=== PATIENT | female | born 1960 | race Caucasian/White ===

== ENCOUNTER 2016-08-13 13:02 | Outpatient (RCR) | payer BC ==
--- OUTSIDE RECORDS SUMMARY | 2016-06-24 10:34 | XMS REPORT | Continuity of Care Document ---
Author Author [facility] Organization [facility] Address Unknown Phone Unavailable Care Team Providers Care Continuous Vulcanizing Machine Operator Name Role Phone DINORAH NORTON DO PCP Insurance Providers Payer Name Policy Number Subscriber Name Relationship [facility] [id number] JoseloYusraDorina 18 Self / Same As Patient Advance Directives Directive Response Recorded Date/Time Advance Directives No 01/30/16 2:48pm Health Care Power of Sample Examiner No 01/30/16 2:48pm Organ Donor No 01/30/16 2:48pm Resuscitation Status Full Code 01/30/16 2:48pm Problems Active Problems Medical Problem Onset Date Status Abdominal pain Unknown Acute Anand's cyst of knee Unknown Acute Anand's cyst of knee Unknown Acute Cellulitis Unknown Acute Fracture (healed) treatment follow-up Unknown Acute Hematuria Unknown Acute Leukocytosis Unknown Acute Nausea and vomiting Unknown Acute Urinary tract infection Unknown Acute Urinary tract infection Unknown Acute Venous stasis syndrome Unknown Acute Medications Current Home Medications Medication Dose Units Route Directions Days/Qty Instructions Start Date Lovastatin (Mevacor) 20 Mg 20 Mg Oral Bedtime 12/02/09 Atenolol 50 Mg 50 Mg Oral Twice A Day 06/09/11 Hydrocodone Bit/Acetaminophen 1 Each 1 Each Oral Every 4HRS as needed 06/18/13 Gabapentin 300 Mg 300 Mg Oral Three Times A Day 03/31/14 Baclofen (Lioresal) 10 Mg 1 Each Oral Three Times A Day 03/31/14 Lisinopril 40 Mg 40 Mg Oral Daily 10/18/15 [Vit C] 500 Mg Oral Daily 10/18/15 Oxybutynin Chloride 5 Mg 5 Mg Oral Three Times A Day 10/18/15 Amlodipine Besylate 10 Mg 10 Mg Oral Daily as needed for High Bp 05/08 Past Home Medications Medication Directions Ordered Status Lovastatin (Mevacor) 20 Mg Tablet, 11/06/09 Discontinued Estradiol 1 Mg Tablet, 11/06/09 Discontinued Potassium Chloride 20 Meq Tab, 20 Meq Oral Daily 11/06/09 Discontinued Tramadol Hcl 50 Mg Tab, 12/02/09 Discontinued Estradiol 1 Mg Tablet, 1 Mg Oral Daily 12/02/09 Discontinued Naproxen 500 Mg Tablet, 1 Each Oral Twice Daily And Prn 07/10/10 Discontinued Tramadol Hcl 50 Mg Tablet, 50 Mg Oral Four Times Daily as needed 07/10/10 Discontinued Aspirin 81 Mg Chew, 81 Mg Oral Daily 07/10/10 Discontinued Lisinopril 10 Mg Tablet, 10 Mg Oral Daily 06/09/11 Discontinued Ketorolac Tromethamine 10 Mg Tablet, 10 Mg Oral Q6-8 Hours as needed Discontinued Orphenadrine Citrate 100 Mg Tablet.sa, 100 Mg Oral Twice A Day 06/09/11 Discontinued Naproxen Sodium 550 Mg Tablet, 550 Mg Oral Twice A Day as needed 12/03/11 Discontinued Nitrofurantoin Macrocrystals 100 Mg Capsule, 1 Each Oral Twice A Day Discontinued Naproxen 500 Mg Tablet, 1 Each Oral Three Times A Day And Prn 06/08/12 Discontinued Hydroxyzine Pamoate 25 Mg Capsule, 25 Mg Oral Every 6 Hours 06/08/12 Discontinued Doxycycline Hyclate (Vibramycin) 100 Mg Capsule, 1 Each Oral Twice A Day 06/08 Discontinued Guaifenesin/Codeine Phosphate 10 Ml Syrp, 10 Ml Oral Every 4HRS 08/06/12 Discontinued Cefdinir (Omnicef) 300 Mg Capsule, 1 Each Oral Twice A Day 08/12/12 Discontinued Famotidine (Pepcid) 20 Mg Tablet, 1 Each Oral Twice A Day 11/28/12 Discontinued Ciprofloxacin 500 Mg Tablet, 1 Tab Oral Twice A Day 11/28/12 Discontinued Cyclobenzaprine Hcl (Flexeril) 10 Mg Tablet, 1 Each Oral Q8hr Prn 11/28/12 Discontinued Acetaminophen 325 Mg Tablet, 650 Mg Oral Every 4HRS as needed 12/01/12 Discontinued Cyclobenzaprine Hcl 10 Mg Tablet, 10 Mg G Tube 03/19/13 Discontinued Ibuprofen 800 Mg Tab, 800 Mg Oral Give Every 8 Hrs On Schedule as needed Discontinued Amoxicillin 500 Mg Capsule, 1 Each Oral Three Times A Day 06/18/13 Discontinued Ciprofloxacin Hcl 500 Mg Tablet, 500 Mg Oral Twice A Day 10/26/13 Discontinued Tramadol Hcl 50 Mg Tablet, 50 Mg Oral Every 4HRS as needed for Pain 10/26/13 Discontinued Naproxen 500 Mg Tablet, 500 Mg Oral Twice A Day 03/31/14 Discontinued Trimethoprim/Sulfamethoxazole 1 Ea Tablet, 1 Ea Oral Twice A Day 03/31/14 Discontinued Ondansetron Hcl 4 Mg Tab, 4 Mg Sublingual Every 4HRS 03/31/14 Discontinued Nitrofurantoin Macrocrystals 100 Mg Capsule, 1 Cap Oral Twice A Day 04/03/14 Discontinued Ciprofloxacin Hcl 500 Mg Tablet, 500 Mg Oral Twice A Day 08/22/14 Discontinued Phenazopyridine Hcl 200 Mg Tablet, 1 Each Oral Three Times A Day as needed for Pain 08/22/14 Discontinued Docusate Sodium 100 Mg Cap, 100 Mg Oral Twice A Day 08/22/14 Discontinued Prednisone 20 Mg Tab, 40 Mg Oral Daily 09/11/14 Discontinued Oxycodone Hcl/Acetaminophen 1 Each Tablet, 1 Each Oral Every 4HRS as needed for Pain 09/11/14 Discontinued Solifenacin 5 Mg Tablet, 5 Mg Oral Daily 10/02/14 Discontinued Estradiol 42.5 Gm Cream.appl, 42.5 Gm Vaginal Daily 10/02/14 Discontinued Nitrofurantoin Macrocrystals 100 Mg Capsule, 1 Each Oral Twice A Day Discontinued Social History Social History Problem Response Recorded Date/Time Alcohol Use Denies Use 01/30/2016 2:48pm Recreational Drug Use No 01/30/2016 2:48pm Recent Foreign Travel No 01/30/2016 2:48pm Recent Infectious Disease Exposure No 01/30/2016 2:48pm Hospitalization with Isolation Denies 01/30/2016 2:48pm HIV/AIDS No 01/30/2016 2:48pm Smoking Status Never a Smoker 01/30/2016 2:48pm Do you dip or chew tobacco? No 10/22/2015 10:11am Query Response Start Date Stop Date Smoking Status Never a Smoker Hospital Discharge Instructions No hospital discharge instructions. Plan of Care Discharge Date 01/30/16 3:23pm Prescriptions See Medication Section Functional Status No functional status results. Allergies, Adverse Reactions, Alerts Allergen Type Severity Reaction Status Last Updated meloxicam ([id number]) Adverse Reaction Intermediate RASH ALL OVER Active 01/30/16 Immunizations Name Given Type Date of Influenza Vaccine 05/23/15 Historical Vital Signs Acute Vital Signs Vital Response Date/Time Pulse Rate (adult) 56 bpm (60 - 90) 01/30/2016 2:48pm Respiratory Rate 16 bpm (12 - 24) 01/30/2016 2:48pm O2 Sat by Pulse Oximetry 97 % (88 - 100) 01/30/2016 2:48pm Blood Pressure 118/62 mm Hg 01/30/2016 2:48pm Height (Feet) 5 feet 01/30/2016 2:48pm Height (Inches) 4.00 inches 01/30/2016 2:48pm Height (Calculated Centimeters) 162.400674 cm 01/30/2016 2:48pm Weight (Pounds) 174 pounds 01/30/2016 2:48pm Weight (Ounces) 4.0 oz 01/30/2016 2:48pm Weight (Calculated Grams) 16750.471 gm 01/30/2016 2:48pm Weight (Calculated Kilograms) 79.302053 kilograms 01/30/2016 2:48pm Calculated BMI 28.95 01/30/2016 2:48pm Results No known relevant diagnostic tests, laboratory data and/or discharge summary. Procedures No known history of procedures. Encounters Encounter Location Arrival/Admit Date Discharge/Depart Date Attending Provider Departed Clinic [facility] 01/30/16 2:25pm 01/30/16 3: 23pm PACO SUNG DO Discharged Recurring [facility] 12/18/15 2:15pm 11:10am RUBEN DE JESUS APRN
[~2016-08-13 13:02] MED LIST: AC325T PO; AMLO10TA2 PO; AMOX500C2 PO; ASCO500C14 PO; ASP81CT PO; ATEN50TA PO; BACL10TA PO; CEFD300C3 PO; CIPR500T78 PO; CPR500T PO; CYCL10TA45 GT; CYCL10TA9 PO; DCS100C PO; DOXY100C2 PO; ESTR1TAB24; ESTR1TAB24 PO; ESTR42.52 VG; FAMO20TA13 PO; FAMO20TA5 PO; GABA-488 PO; GFCD10B PO; HYDR-2890 PO; HYDR-756 PO; HYDR25CA5 PO; HYDR50TA3 PO; IBP800T PO; KCL20TCR PO; KETO-22 PO; LISI10TA PO; LISI40TA PO; LOVA20TA2; LOVA20TA2 PO; NAPR-243 PO; NAPR-689 PO; NAPR550T PO; NITR-33 PO; NITR-65 PO; NITR100C3 PO; ONDA-42 SL; ORPH100T PO; OXYB5TAB9 PO; OXYC-109 PO; PHEN200T27 PO; PRD20T PO; SOLI5TAB4 PO; SULF-222 PO; TRAM50TA2 PO; TRM50T; TRM50T PO; VIT C PO
== END 2016-08-31 14:26 | disposition home or self-care (01) ==
PROVIDERS: ATTEND Orthopaedic Surgery
DX: M75.101 Unspecified rotator cuff tear or rupture of right shoulder, not specified as traumatic (principal)

== ENCOUNTER → 2016-08-25 | Outpatient (CLI) | payer BC, MEDICAID, OTHER ==
--- OUTSIDE RECORDS SUMMARY | 2016-08-25 12:45 | XMS REPORT | Continuity of Care Document ---
Author Author [facility] Organization [facility] Address Unknown Phone Unavailable Care Team Providers Care Packing Room Inspector Name Role Phone DINORAH NORTON DO PCP Insurance Providers Payer Name Policy Number Subscriber Name Relationship [facility] [id number] JoseloYusraDorina 18 Self / Same As Patient Advance Directives Directive Response Recorded Date/Time Advance Directives No 01/30/16 2:48pm Health Care Power of Acetylene Cylinder Packing Mixer No 01/30/16 2:48pm Organ Donor No 01/30/16 [...] Type Severity Reaction Status Last Updated meloxicam ([id number]) Adverse Reaction Intermediate RASH ALL OVER Active [...] 4.00 inches 01/30/2016 2:48pm Height (Calculated Centimeters) 162.395093 cm 01/30/2016 2:48pm Weight (Pounds) 174 pounds 01/30/2016 2:48pm Weight (Ounces) 4.0 oz 01/30/2016 2:48pm Weight (Calculated Grams) 85394.471 gm 01/30/2016 2:48pm Weight (Calculated Kilograms) 79.133209 kilograms 01/30/2016 2:48pm Calculated BMI 28.95 01/30/2016 2:48pm Results No known relevant diagnostic tests, laboratory data and/or discharge summary. Procedures No known history of procedures. Encounters Encounter Location Arrival/Admit Date Discharge/Depart Date Attending Provider Departed Clinic [facility] 01/30/16 2:25pm 01/30/16 3: 23pm PACO SUNG DO Discharged Recurring [facility] 12/18/15 2:15pm 11:10am RUBEN DE JESUS APRN
== END ==
LOC: RAD 12:42
PROVIDERS: ATTEND Internal Medicine Cardiovascular Disease
DX: I73.9 Peripheral vascular disease, unspecified (principal); I10 Essential (primary) hypertension; E78.4 Other hyperlipidemia; M79.1 Myalgia
CPT/HCPCS: 93923

== ENCOUNTER 2016-10-09 12:50 | Emergency (ER) | payer MEDICAID, OTHER ==
[~2016-10-09] VITALS: Ht 162.6 cm; Wt 83.9 kg
--- OUTSIDE RECORDS SUMMARY | 2016-10-09 12:57 | XMS REPORT | Continuity of Care Document ---
Author Author [facility] Organization [facility] Address Unknown Phone Unavailable Care Team Providers Care Director Shopper Marketing Name Role Phone DINORAH NOROTN DO PCP Insurance Providers Payer Name Policy Number Subscriber Name Relationship [facility] [id number] JoseloYusraDorina 18 Self / Same As Patient Advance Directives Directive Response Recorded Date/Time Advance Directives No 01/30/16 2:48pm Health Care Power of Cafeteria Worker No 01/30/16 2:48pm Organ Donor No 01/30/16 [...] Type Severity Reaction Status Last Updated meloxicam ([id number]) Adverse Reaction Intermediate RASH ALL OVER Active [...] 4.00 inches 01/30/2016 2:48pm Height (Calculated Centimeters) 162.492704 cm 01/30/2016 2:48pm Weight (Pounds) 174 pounds 01/30/2016 2:48pm Weight (Ounces) 4.0 oz 01/30/2016 2:48pm Weight (Calculated Grams) 16635.471 gm 01/30/2016 2:48pm Weight (Calculated Kilograms) 79.025734 kilograms 01/30/2016 2:48pm Calculated BMI 28.95 01/30/2016 2:48pm Results No known relevant diagnostic tests, laboratory data and/or discharge summary. Procedures No known history of procedures. Encounters Encounter Location Arrival/Admit Date Discharge/Depart Date Attending Provider Departed Clinic [facility] 01/30/16 2:25pm 01/30/16 3: 23pm PACO SUNG DO Discharged Recurring [facility] 12/18/15 2:15pm 11:10am RUBEN DE JESUS APRN
--- NOTE | 2016-10-09 13:28 | ED Integumentary General ---
General Chief Complaint: Allergic Reaction Stated Complaint: RASH Source: patient Exam Limitations: no limitations History of Present Illness Time seen by provider: 13:26 Initial Comments 2-3 days of a diffuse itchy rash to the entire body. No known exposure to an allergen or new substances. She has not taken anything at home for the pain. Denies shortness of breath or involvement of the airway such as tongue swelling or wheezing. She does report that she's had some sensation of her heart beating fast Timing/Duration: getting worse Severity: moderate Location: torso, generalized Possible Cause: no cause identified Allergies and Home Medications Allergies Coded Allergies: meloxicam (Verified Allergy, Intermediate, RASH ALL OVER, 10/09/16) Home Medications 500 MG PO DAILY (Reported) Atenolol 50 Mg Tablet 50 MG PO BID (Reported) Baclofen 10 Mg Tablet 1 EACH PO TID (Reported) Gabapentin 300 Mg Capsule 300 MG PO TID (Reported) Hydrocodone/Acetaminophen 1 Each Tablet #60 1 TAB PO Q4-6 PRN PRN PAIN Prescribed by: MILAN KRAUS on 02/11/16 1507 Lisinopril 40 Mg Tablet 40 MG PO DAILY (Reported) Lovastatin 20 Mg Tablet 20 MG PO HS (Reported) Oxybutynin Chloride 5 Mg Tablet 5 MG PO TID (Reported) Constitutional: see HPINo chills EENTM: see HPI Respiratory: no symptoms reportedNo cough Cardiovascular: see HPINo edema, No Hx of Intervention, palpitationsNo syncope, No vascular heart diseas Genitourinary: no symptoms reported Musculoskeletal: no symptoms reported Skin: no symptoms reported Psychiatric/Neurological: No Symptoms Reported Endocrine: No Symptoms Reported Hematologic/Lymphatic: No Symptoms Reported Past Rxxzhpl-Cemmgp-Ahelnm Hx Patient Social History Alcohol Use: Denies Use Recreational Drug Use: No Smoking Status: Never a Smoker 2nd Hand Smoke Exposure: No Recent Foreign Travel: No Contact w/Someone Who Travel: No Recent Hopitalizations: No Immunizations Up To Date Tetanus Booster (TDap): Unknown PED Vaccines UTD: No Date of Influenza Vaccine: May 23, 2015 Seasonal Allergies Seasonal Allergies: No Surgeries HX Surgeries: Yes Surgeries: Hysterectomy, Orthopedic Respiratory Hx Respiratory Disorders: No Cardiovascular Hx Cardiac Disorders: Yes Cardiac Disorders: Hypertension Neurological Hx Neurological Disorders: No Reproductive System Hx Reproductive Disorders: No Sexually Transmitted Disease: No HIV/AIDS: 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 Genitourinary Hx Genitourinary Disorders: Yes Genitourinary Disorders: UTI-Chronic Gastrointestinal Hx Gastrointestinal Disorders: Yes Gastrointestinal Disorders: Gastroesophageal Reflux, Chronic Constipation Musculoskeletal Hx Musculoskeletal Disorders: Yes Musculoskeletal Disorders: Arthritis, Chronic Back Pain Endocrine Hx Endocrine Disorders: No HEENT HX ENT Disorders: Yes HEENT Disorders: Cataract Loss of Vision: Denies Hearing Impairment: Denies Cancer Hx Cancer: No Psychosocial Hx Psychiatric Problems: Yes Behavioral Health Disorders: Anxiety Integumentary HX Skin/Integumentary Disorder: No Blood Transfusions Hx Blood Disorders: No Adverse Reaction to a Blood Tr: No Family Medical History Significant Family History: No Pertinent Family Hx Physical Exam Vital Signs Vital Sign - Last 12Hours 10/09/16 13:24 Temp 98.0 Pulse 67 Resp 18 B/P 143/82 Pulse Ox 99 Capillary Refill : General Appearance: WD/WN no apparent distress HEENT: PERRL/EOMI normal ENT inspection Neck: non-tender full range of motion Cardiovascular: regular rate, rhythm no murmur Respiratory: normal breath sounds no respiratory distress no accessory muscle use Gastrointestinal: normal bowel sounds non tender soft Extremities: normal range of motion non-tender Neurologic/Psychiatric: alert normal mood/affect oriented x 3 Skin: normal color warm/dry Skin Problem Character: abscess Progress/Results/Core Measures Results/Orders My Orders Orders-SHANE ARORA APRN Famotidine Tablet (Pepcid Tablet) (10/09/16 13:30) Prednisone Tablet (Deltasone Tablet) (10/09/16 13:30) Diphenhydramine Injection (Benadryl Inje (10/09/16 13:30) Ekg Tracing (10/09/16 13:25) Medications Given in ED Current Medications Medications Dose Ordered Sig/Yash Route Start Time Stop Time Status Last Admin Dose Admin Diphenhydramine HCl 25 mg ONCE ONCE IM 10/09/16 13:30 10/09/16 13:31 DC 10/09/16 13:41 25 MG Famotidine 20 mg ONCE ONCE PO 10/09/16 13:30 10/09/16 13:31 DC 10/09/16 13:40 20 MG Prednisone 60 mg ONCE ONCE PO 10/09/16 13:30 10/09/16 13:31 DC 10/09/16 13:40 60 MG Vital Signs/I&O Vital Sign - Last 12Hours 10/09/16 13:24 Temp 98.0 Pulse 67 Resp 18 B/P 143/82 Pulse Ox 99 Departure Impression Impression: Primary Impression: Urticaria Disposition: 01 HOME, SELF-CARE Condition: Stable Departure-Patient Inst. Decision time for Depature: 13:46 Referrals: DINORAH NORTON DO (PCP/Family) Primary Care Physician Patient Instructions: Charlene (DC) Add. Discharge Instructions: 1. Steroids as directed 2. Follow-up with her regular doctor next week for recheck 3. Use one to 2 tablets of Benadryl every 6 hours as needed for itching. You can buy this [facility], it is very cheap. All discharge instructions reviewed with patient and/or family. Voiced understanding. Scripts Prednisone 20 Mg Tab40 Mg PO DAILY #6 TAB Prov:SHANE ARORA APRN 10/09/16 SHANE ARORA APRN Oct 09, 2016 13:28
[2016-10-09] MEDS ORDERED: predniSONE 20 MG TAB PO ONE (13:30)
[2016-10-09] MEDS ORDERED: FAMOTIDINE 20 MG (PEPCID) TABLET PO ONE (13:30)
[2016-10-09] MEDS ORDERED: diphenhydrAMINE 50 MG/ML INJ (BENADRYL) IM ONE (13:30)
[2016-10-09] MEDS ORDERED: PRD20T PO (13:48)
[2016-10-09 13:56] VITALS: BP 140/80
== END 2016-10-09 13:56 | disposition home or self-care (01) ==
LOC: EDUNIT# 12:50 → ER 12:52
DX: L50.9 Urticaria, unspecified (principal); I10 Essential (primary) hypertension; Z79.899 Other long term (current) drug therapy
CPT/HCPCS: 93005; 96372

== ENCOUNTER → 2017-04-20 | Outpatient (CLI) | payer MEDICAID, OTHER ==
--- NOTE | 2017-04-20 08:41 | Diagnostic Imaging Report ---
INDICATION: Palpable abnormality. COMPARISON: 09/18/2014. TECHNIQUE: Digital diagnostic mammography was performed bilaterally with a Computer Aided Detection (CAD) system. FINDINGS: There is a moderate amount of residual fibroglandular tissue bilaterally. There are a few benign type calcifications. There is no dominant mass, spiculated lesion, or suspicious calcifications identified. The skin, nipples, and axillae are unremarkable. IMPRESSION: Benign findings. ACR BI-RADS Category 2: Benign findings. Result letter will be mailed to the patient. Note: At least 10% of breast cancer is not imaged by mammography. Dictated by: Dictated on workstation # [id number]
== END ==
LOC: RAD 07:29
PROVIDERS: ATTEND Family Medicine
DX: N63 Unspecified lump in breast (principal)
CPT/HCPCS: 77066

== ENCOUNTER → 2017-06-11 | Outpatient (CLI) | payer MEDICAID | LOC: LAB 16:08 | PROVIDERS: ATTEND Family Medicine | DX: Z20.89 Contact with and (suspected) exposure to other communicable diseases (principal) | CPT/HCPCS: 87081 ==

== ENCOUNTER → 2017-07-12 | Outpatient (CLI) | payer MEDICAID ==
[2017-07-12 11:56] LABS: ALANINE AMINOTRANSFERASE 17 U/L (0-55); ALBUMIN 4.6 GM/DL (3.2-4.5); ANION GAP 11 MMOL/L (5-14); ASPARTATE AMINO TRANSFERASE 19 U/L (5-34); BILIRUBIN,TOTAL 1.2 MG/DL (0.1-1.0); BLOOD UREA NITROGEN 14 MG/DL (7-18); BUN/CREATININE RATIO 18; CALCIUM 9.9 MG/DL (8.5-10.1); CARBON DIOXIDE 23 MMOL/L (21-32); CHLORIDE 105 MMOL/L (98-107); CHOLESTEROL 163 MG/DL (< 200); CREATININE SERUM 0.76 MG/DL (0.60-1.30); DIRECT LDL 86 MG/DL (1-129); GFR ESTIMATED > 60; GLUCOSE 95 MG/DL (70-105); POTASSIUM 4.2 MMOL/L (3.6-5.0); SODIUM 139 MMOL/L (135-145); TOTAL PROTEIN 8.1 GM/DL (6.4-8.2); TRIGLYCERIDES 121 MG/DL (<150); VLDL CHOLESTEROL 24 MG/DL (5-40)
== END ==
LOC: LAB 11:10
PROVIDERS: ATTEND Nurse Practitioner Family
DX: I10 Essential (primary) hypertension (principal); E78.4 Other hyperlipidemia; R00.2 Palpitations; E66.8 Other obesity
CPT/HCPCS: 36415; 80053; 80061

== ENCOUNTER 2018-02-17 20:14 | Emergency (ER) | payer MEDICAID ==
[~2018-02-17] VITALS: Ht 162.6 cm; Wt 82.6 kg
--- NOTE | 2018-02-17 21:08 | ED Lower Extremity ---
General Chief Complaint: Lower Extremity Stated Complaint: L LEG PAIN Nursing Triage Note: LEFT KNEE PAIN, NO INJURY Nursing Sepsis Screen: No Definite Risk Source: patient Exam Limitations: no limitations History of Present Illness Date Seen by Provider: Feb 17, 2018 Time Seen by Provider: 21:06 Initial Comments Patient is a 57-year-old female who complains of left knee pain for one week. She cannot recall an injury that reports that the pain has become aggressively worse over the past week. She denies any swelling calf tenderness or redness in the left leg. Onset: last week Pain/Injury Location: left knee Method of Injury: unknown Modifying Factors: Improves With Movement Allergies and Home Medications Allergies Coded Allergies: meloxicam (Verified Allergy, Intermediate, RASH ALL OVER, 10/09/16) Home Medications Atenolol 50 Mg Tablet, 50 MG PO BID, (Reported) Baclofen 10 Mg Tablet, 1 EACH PO TID, (Reported) Gabapentin 300 Mg Capsule, 300 MG PO TID, (Reported) Hydrocodone/Acetaminophen 1 Each Tablet, 1 TAB PO Q4-6 PRN for PAIN Prescribed by: MILAN KRAUS on 02/11/16 1507 Lisinopril 40 Mg Tablet, 40 MG PO DAILY, (Reported) Lovastatin 20 Mg Tablet, 20 MG PO HS, (Reported) Oxybutynin Chloride 5 Mg Tablet, 5 MG PO TID, (Reported) Prednisone 20 Mg Tab, 40 MG PO DAILY Prescribed by: SHANE ARORA on 10/09/16 1348 [Vit C] , 500 MG PO DAILY, (Reported) Patient Home Medication List Home Medication List Reviewed: Yes Constitutional: see HPI; No chills, No fever EENTM: no symptoms reported Respiratory: see HPI; No cough, No dyspnea on exertion, No short of breath, No wheezing Cardiovascular: see HPI; No chest pain, No edema Gastrointestinal: see HPI; No abdominal pain, No constipation, No diarrhea Genitourinary: see HPI; No decreased output, No discharge Musculoskeletal: see HPI, joint pain (left knee) Skin: see HPI; No change in color, No change in hair/nails Psychiatric/Neurological: See HPI; Denies Anxiety, Denies Depressed All Other Systems Reviewed Negative Unless Noted: Yes Past Fcxptzx-Jghlqf-Tplzti Hx Past Med/Social Hx: Reviewed Nursing Past Med/Soc Hx Patient Social History Alcohol Use: Denies Use Recreational Drug Use: No Smoking Status: Never a Smoker 2nd Hand Smoke Exposure: No Recent Foreign Travel: No Contact w/Someone Who Travel: No Recent Infectious Disease Expo: No Recent Hopitalizations: No Immunizations Up To Date Tetanus Booster (TDap): Unknown PED Vaccines UTD: No Date of Influenza Vaccine: May 23, 2015 Seasonal Allergies Seasonal Allergies: No Past Medical History Surgeries: Yes (LEFT KNEE SCOPE) Hysterectomy, Orthopedic Respiratory: No Currently Using CPAP: No Currently Using BIPAP: No Cardiac: Yes Hypertension Neurological: No 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 Sexually Transmitted Disease: No HIV/AIDS: No UTI-Chronic Gastrointestinal: Yes Gastroesophageal Reflux, Chronic Constipation Musculoskeletal: Yes Arthritis, Chronic Back Pain Endocrine: No Cataract Loss of Vision: Denies Hearing Impairment: Denies Cancer: No Psychosocial: Yes Anxiety Integumentary: No Blood Disorders: No Adverse Reaction/Blood Tranf: No Family Medical History Reviewed Nursing Family Hx No Pertinent Family Hx Physical Exam Vital Signs Vital Signs - First Documented 02/17/18 20:20 Temp 97.8 Pulse 87 Resp 18 B/P (MAP) 137/89 (105) Pulse Ox 99 O2 Delivery Room Air Capillary Refill : Less Than 3 Seconds General Appearance: WD/WN, no apparent distress HEENT: PERRL/EOMI, normal ENT inspection, TMs normal, pharynx normal Neck: non-tender, full range of motion, supple, normal inspection Cardiovascular: regular rate, rhythm, no edema, no gallop, no JVD, no murmur Respiratory: chest non-tender, lungs clear, normal breath sounds, no respiratory distress, no accessory muscle use Gastrointestinal: normal bowel sounds, non tender, soft, no organomegaly, no pulsatile mass Back: normal inspection, no CVA tenderness, no vertebral tenderness Hips: bilateral hip non-tender, bilateral hip normal inspection, bilateral hip normal range of motion, bilateral hip no evidence of injury Legs: bilateral leg non-tender, bilateral leg normal inspection, bilateral leg normal range of motion, bilateral leg no evidence of injury Knees: right knee non-tender, right knee normal inspection, right knee normal range of motion, right knee no evidence of injury; left knee pain, left knee soft tissue tenderness, left knee swelling Ankles: bilateral ankle non-tender, bilateral ankle normal inspection, bilateral ankle normal range of motion, bilateral ankle no evidence of injury Feet: bilateral foot non-tender, bilateral foot normal inspection, bilateral foot normal range of motion, bilateral foot no evidence of injury Neurologic/Tendon: normal sensation, normal motor functions, normal tendon functions, responds to pain Neurologic/Psychiatric: alert, normal mood/affect, oriented x 3 Skin: normal color, warm/dry Lymphatic: no adenopathy Progress/Results/Core Measures Results/Orders My Orders Orders - LYNDSEY REGALADO Acetaminophen Tablet (Tylenol Tablet) (02/17/18 21:30) Knee, Left, 3 Views (02/17/18 21:18) Medications Given in ED Current Medications Medications Dose Ordered Sig/Yash Route Start Time Stop Time Status Last Admin Dose Admin Acetaminophen 1,000 mg ONCE ONCE PO 02/17/18 21:30 02/17/18 21:31 DC 02/17/18 21:23 1,000 MG Vital Signs/I&O 02/17/18 02/17/18 20:20 22:33 Temp 97.8 96.2 Pulse 87 87 Resp 18 16 B/P (MAP) 137/89 (105) 143/78 (105) Pulse Ox 99 95 O2 Delivery Room Air Room Air Blood Pressure Mean: 105 Progress Progress Note : Time: 22:00 Progress Note Patient reports that she is an established patient with Dr. Aguero and agrees to follow-up with him and Dr. Conn within the next week. She reports that the Tylenol has helped her pain and agrees to continue taking Tylenol in addition to ibuprofen as needed for discomfort. Patient agrees for plan to discharge. Diagnostic Imaging Diagonstic Imaging: Xray Plain Films/CT/US/NM/MRI: knee Comments NAME: MARCELL VALDEZ Angelo [facility] REC#: [id number] PHYSICIAN: LYNDSEY REGALADO CC: BITA REGALADO JEFFREY L MD Page 1 of 1 RADIOLOGY REPORT VIA [place], [place] CC: BITA REGALADO JEFFREY L MD Page 1 of 1 RADIOLOGY REPORT NAME: MARCELL VALDEZ Angelo [facility] REC#: [id number] PT STATUS: REG ER : 1960 PHYSICIAN: LYNDSEY REGALADO ADMIT DATE: 02/17/18/ER Signed Date of Exam: 02/17/18 KNEE, LEFT, 3 VIEWS EXAMINATION: Left knee series. INDICATION: Left knee pain. No known injury. COMPARISON: Prior study from 09/11/2014. FINDINGS: There are tricompartmental osteoarthritic changes present within the left knee which are most advanced within the medial and patellofemoral compartment. There are tricompartment osteophytes. There is no malalignment or acute fracture. There does appear to be a moderate joint effusion. There is calcification posteriorly which could conceivably be within a Anand's cyst. Atherosclerotic calcifications are also noted. IMPRESSION: Tricompartment osteoarthritic changes of the left knee most advanced within the medial and patellofemoral compartment. There is no acute fracture or malalignment demonstrated. There is a moderate joint effusion. There are unchanged calcifications demonstrated posteriorly within the knee that may reflect loose bodies within a Anand's cyst. Dictated by: Dictated on workstation # [id number] Dict: 02/17/182154 Trans: 02/17/182205 Interpreted by: JILLIAN THOMPSON MD Electronically signed by: JILLIAN THOMPSON MD 02/17/182205 Departure Impression Primary Impression: Anand's cyst of knee Disposition: HOME, SELF-CARE Condition: Stable/Unchanged Departure-Patient Inst. Decision time for Depature: 22:19 Referrals: HARMEET CONN MD (PCP/Family) Primary Care Physician PACO AGUERO DO Patient Instructions: Naand's Cyst (DC) Add. Discharge Instructions: And you may continue to use ibuprofen and Tylenol as needed for pain and discomfort. He may also use the Hector bandage that was provided in the emergency room for additional support. Follow-up with Dr. Conn and an orthopedic surgeon within 1 week for recheck, call tomorrow morning for appointment time. Return back to the emergency room for increased pain, swelling, or any other concerns as needed. All discharge instructions reviewed with patient and/or family. Voiced understanding. LYNDESY REGALADO Feb 17, 2018 21:08
[2018-02-17] MEDS ORDERED: ACETAMINOPHEN 500 MG TAB (TYLENOL) PO ONE (21:30)
--- NOTE | 2018-02-17 22:05 | Diagnostic Imaging Report ---
EXAMINATION: Left knee series. INDICATION: Left knee pain. No known injury. COMPARISON: Prior study from 09/11/2014. FINDINGS: There are tricompartmental osteoarthritic changes present within the left knee which are most advanced within the medial and patellofemoral compartment. There are tricompartment osteophytes. There is no malalignment or acute fracture. There does appear to be a moderate joint effusion. There is calcification posteriorly which could conceivably be within a Anand's cyst. Atherosclerotic calcifications are also noted. IMPRESSION: Tricompartment osteoarthritic changes of the left knee most advanced within the medial and patellofemoral compartment. There is no acute fracture or malalignment demonstrated. There is a moderate joint effusion. There are unchanged calcifications demonstrated posteriorly within the knee that may reflect loose bodies within a Anand's cyst. Dictated by: Dictated on workstation # [id number]
[2018-02-17 22:33] VITALS: BP 143/78
[2018-04-06] MEDS ORDERED: HYDR-3820 PO (15:43)
== END 2018-02-17 22:33 | disposition home or self-care (01) ==
LOC: EDUNIT# 20:14 → ER 20:16
DX: M71.22 Synovial cyst of popliteal space [Baker], left knee (principal); I10 Essential (primary) hypertension; K21.9 Gastro-esophageal reflux disease without esophagitis; F41.9 Anxiety disorder, unspecified; Z90.710 Acquired absence of both cervix and uterus; Z98.890 Other specified postprocedural states; Z88.8 Allergy status to other drugs, medicaments and biological substances; Z79.52 Long term (current) use of systemic steroids
CPT/HCPCS: 73562

== ENCOUNTER 2018-04-05 09:30 | Outpatient (CLI) | payer MEDICAID ==
[~2018-04-05] VITALS: Ht 162.6 cm; Wt 80.9 kg
[~2018-04-05 09:30] MED LIST changes: -ASCO500T6 PO; -HYDR-3820 PO
[2018-04-05 09:59] VITALS: BP 133/75
[2018-04-05] MEDS ORDERED: LOVA20TA2 PO (10:06)
[2018-04-05] MEDS ORDERED: ASCO500T6 PO (10:06)
[2018-04-05] MEDS ORDERED: GABA-488 PO (10:06)
[2018-04-05] MEDS ORDERED: ATEN50TA PO (10:06)
[2018-04-05] MEDS ORDERED: BACL10TA PO (10:06)
[2018-04-05 10:49] LABS: BASOPHILS % (AUTO) 0 % (0-10); EOSINOPHILS # (AUTO) 0.1 10^3/uL (0.0-0.3); EOSINOPHILS % (AUTO) 1 % (0-10); HEMATOCRIT 44 % (35-52); HEMOGLOBIN 15.3 G/DL (11.5-16.0); LYMPHOCYTES # (AUTO) 1.6 X 10^3 (1.0-4.0); LYMPHOCYTES % (AUTO) 19 % (12-44); MEAN CORPUSCULAR HEMOGLOBIN 29 PG (25-34); MEAN CORPUSCULAR HGB CONC 35 G/DL (32-36); MEAN CORPUSCULAR VOLUME 83 FL (80-99); MONOCYTES # (AUTO) 0.6 X 10^3 (0.0-1.0); MONOCYTES % (AUTO) 7 % (0-12); NEUTROPHILS # (AUTO) 6.3 X 10^3 (1.8-7.8); NEUTROPHILS % (AUTO) 73 % (42-75); PLATELET COUNT 185 10^3/uL (130-400); RED BLOOD COUNT 5.28 10^6/uL (4.35-5.85); WHITE BLOOD COUNT 8.5 10^3/uL (4.3-11.0)
[2018-04-05 10:51] LABS: BILIRUBIN,URINE NEGATIVE (NEGATIVE); CLARITY,URINE SLIGHTLY CLOUDY; COLOR,URINE YELLOW; GLUCOSE, URINE (UA) NEGATIVE (NEGATIVE); KETONES,URINE NEGATIVE (NEGATIVE); LEUKOCYTE ESTERASE ,URINE 2+ (NEGATIVE); NITRITE,URINE POSITIVE (NEGATIVE); PH,URINE 5 (5-9); PROTEIN,URINE 1+ (NEGATIVE); UROBILINOGEN,URINE NORMAL (NORMAL)
[2018-04-05 11:14] LABS: BUN/CREATININE RATIO 14; CALCIUM 9.3 MG/DL (8.5-10.1); CARBON DIOXIDE 21 MMOL/L (21-32); CHLORIDE 107 MMOL/L (98-107); CREATININE SERUM 0.64 MG/DL (0.60-1.30); GFR ESTIMATED > 60; GLUCOSE 105 MG/DL (70-105); POTASSIUM 3.7 MMOL/L (3.6-5.0); SODIUM 139 MMOL/L (135-145)
--- NOTE | 2018-04-05 11:16 | Diagnostic Imaging Report ---
INDICATION: Preop screening. PA and lateral views were obtained. FINDINGS: The heart size, mediastinal configuration, and pulmonary vascularity are within normal limits. There is no pleural effusion, pneumothorax, or pneumonia. The osseous structures are unremarkable. IMPRESSION: No acute cardiopulmonary abnormality. Dictated by: Dictated on workstation # [id number]
[2018-04-05 11:18] LABS: PROTHROMBIN TIME PATIENT 12.8 SEC (12.2-14.7)
[2018-04-05 11:24] LABS: BACTERIA,URINE MODERATE /HPF; WBC,URINE 25-50 /HPF
[2018-04-06] MEDS ORDERED: HYDR-3820 PO (15:43)
== END 2018-04-05 15:00 ==
LOC: PREOP 09:30
PROVIDERS: ATTEND Orthopaedic Surgery
DX: Z01.810 Encounter for preprocedural cardiovascular examination (principal); Z01.811 Encounter for preprocedural respiratory examination; Z01.812 Encounter for preprocedural laboratory examination; Z11.2 Encounter for screening for other bacterial diseases; M17.12 Unilateral primary osteoarthritis, left knee; I10 Essential (primary) hypertension; R53.83 Other fatigue; M79.662 Pain in left lower leg; R82.99 Other abnormal findings in urine; Z22.322 Carrier or suspected carrier of Methicillin resistant Staphylococcus aureus
CPT/HCPCS: 36415; 71046; 80048; 81000; 85025; 85610; 86850; 86900; 86901; 87077; 87081; 87088; 93005

== ENCOUNTER → 2018-04-05 | Outpatient (CLI) | payer MEDICAID ==
[~2018-04-05] MED LIST changes: +ASCO500T6 PO; +HYDR-3820 PO
--- NOTE | 2018-04-05 12:21 | Diagnostic Imaging Report ---
INDICATION: Routine screening. Correlation is made with prior mammogram from 04/20/2017 and 09/18/2014. 2-D and 3-D bilateral screening mammography was performed with a Computer Aided Detection (CAD) system. FINDINGS: Scattered fibroglandular densities are identified bilaterally. Benign-appearing calcifications are noted bilaterally. No mass or malignant appearing microcalcifications are seen. The axillae are unremarkable. IMPRESSION: No mammographic features suspicious for malignancy are identified. ACR BI-RADS Category 2: Benign findings. Result letter will be mailed to the patient. Note: At least 10% of breast cancer is not imaged by mammography. Dictated by: Dictated on workstation # [id number]
== END ==
LOC: RAD 09:03
PROVIDERS: ATTEND Family Medicine
DX: Z12.31 Encounter for screening mammogram for malignant neoplasm of breast (principal)
CPT/HCPCS: 77067

== ENCOUNTER 2018-04-14 13:26 | Inpatient (IN) | payer MEDICAID ==
[~2018-04-14] VITALS: Ht 160 cm; Wt 80.7 kg
[~2018-04-14 13:26] MED LIST changes: -AMLO10TA2 PO; +AMLO10TA6 PO; +ASCO500T6 PO; +ASPI325T32 PO; +HYDR-3820 PO; +HYDR-4227 PO; -HYDR-756 PO; +SENN-20 PO
[2018-04-14] MEDS ORDERED: HYDR-3820 PO (14:14)
[2018-04-14 14:30] VITALS: BP 160/72
--- NOTE | 2018-04-14 14:54 | Physical Therapy Evaluation ---
PT Evaluation-General Medical Diagnosis Admission Date 04/14/2018 Medical Diagnosis: OA left knee Onset Date: Apr 12, 2018 Therapy Diagnosis Therapy Diagnosis: weakness; abn gait Height/Weight Height (Feet): 5 Height (Inches): 4.00 Weight (Pounds): 178 Weight (Ounces): 5.0 Precautions Precautions/Isolations: Standard Precautions Weight Bear Status Right Lower Extremity: Right Full Weight Bearing Left Lower Extremity: Left Weight Bearing/Tolerated Referral Physician: Cheo Reason for Referral: Evaluation/Treatment Medical History Additional Medical History OA left knee Current History Post elective left TKR Reviewed History: Yes Social History Home: Single Level Current Living Status: Alone Entry Into Home: Stairs With Railing PT Steps Into Home: 5 Prior/Core FIM Prior Level of Function Functional [place] Measure 0=Not Assessed/NA 4=Minimal Assistance 1=Total Assistance 5=Supervision or Setup 2=Maximal Assistance 6=Modified [place] 3=Moderate Assistance 7=Complete [place] Bed Mobility: 7 Transfers (B,C,W/C) (FIM): 7 Gait: 7 community ambulator; still drives. IADL's PT Evaluation-Current Subjective Pt agreeable to PT. Reports she is tired this afternoon. Pain Numeric Pain Scale: 10-Worst Possible Pain Location: Left Location Body Site: Knee Pain Description: Ache Pt/Family Goals She reports her goal is to return home alone as before and care for herself. Objective Patient Orientation: Person, Place, Time, Situation Problem Solving: Fair ROM/Strength ROM Lower Extremities Right LE ROM is WNL; left LE WNL excvept knee flexion 0-5-75 degrees. Strenght Lower Extremities Right LE strength is grossly 5/5; left LE strength is grossly 3/5. Integumentary/Posture Integumentary Refer to nursing notes. Bowel Incontinence: No Bladder Incontinence: Yes (stress) Posture slightly rounded shoulders but symmetrical Neuromuscular (Tone, Coordination, Reflexes) WFL Sensory Vision: Wears Glasses Hearing: Functional Hand Dominance: Right Sensation Right Lower Extremit: Intact Sensation Left Lower Extremity: Intact Transfers Functional [place] Measure 0=Not Assessed/NA 4=Minimal Assistance 1=Total Assistance 5=Supervision or Setup 2=Maximal Assistance 6=Modified [place] 3=Moderate Assistance 7=Complete IndependenceIRFPAI Quality Coding Scale 6 Independent with activity with or without an assistive device 5 Patient requires set up or clean up by helper. Patient completes activity by themselves 4 Supervision or touching assist (CGA). [place] provide cues , steadying assist 3 The helper provides less than half the effort to complete the activity 2 The helper provides more than half the effort to complete the activity 1 Dependent. The helper does all the effort to complete an activity 7 Patient refused to complete or attempt activity 9 The patient did not perform the activity before the current illness or injury 88 Not attempted due to Medical conditions or safety concerns Transfers (B, C, W/C) (FIM): 3 Scootin Roll Left to Right (QC): 4 Supine to/from Sit: 3 (asssit with both legs to get into bed; assist with left leg to get out of bed. ) Sit to/from Stand: 3 (from standard height surface) Sit to Lying (QC): 3 Lying to Sitting/Side of Bed(Q: 4 Sit to Stand (QC): 3 Chair/Izj-lw-Ogeof Xfer(QC): 4 Car Transfer (QC): 3 (asssit with both legs into the bed) takes extra time to complete tasks and with difficulty. Gait Does the Patient Walk?: Yes Mode of Locomotion: Walk Anticipated Mode of Locomotion: Walk Gait (FIM): 2 Distance (FIM): 1=718-22 ft Walk 10 feet (QC): 4 Walk 50 ft with 2 Turns(QC): 4 Walk 150 ft (QC): 88 Walking 10ft/uneven surface-QC: 4 Distance: 75 ft x 2 Gait Level of Assist: 4 (min assist with cues for sequencing, gait pattern and posture. ) Gait Assistive Device: FWW Comments/Gait Description slow gait, antalgic, difficulty with WB on the left. Wheelchair Training Does the Pt Use a Wheelchair?: No Stairs Stairs (FIM): 2 #of Steps: 1 Level of Assist: 4 (min asssit; skilleed cues for sequencing) 1 Step (curb) (QC): 4 4 Steps (QC): 88 Assistive Device: Walker 12 Steps (QC): 88 Balance Sitting Static: Good Sitting Dynamic: Good Standing Static: Fair Standing Dynamic: Fair Picking up an Object (QC): 3 Treatment Worked on functional transfers with sit to stand from varied surfaces with skilled cues fo rsequencing and safety. Requires mod assist in general to stand. Toilet transfer is mod assist. Seated LE ther ex x 10 ea for AP, LAQ, hip flexion. Assessment/Needs Post left TKR with impaired functional mobility post surgery due to pain, limited ROM and functional strength. She will beneift from skilled PT to address these deficits and allow her to return home to care for herself. Rehab Potential: Good PT Short Term Goals Short Term Goals Time Frame: Apr 18, 2018 Transfers (B,C,W/C) (FIM): 5 Gait (FIM): 5 Distance (FIM): 3=150 ft Gait Assistive Device: FWW PT Stone Polisher Goals Shelter Goals PT Shelter Goals Time Frame: Apr 28, 2018 Transfers (B,C,W/C) (FIM): 6 Sit to Lying (QC): 6 Lying-Sitting on Side/Bed(QC): 6 Sit to Stand (QC): 6 Roll Left to Right (QC): 6 Chair/Xxz-aj-Wspnn Xfer(QC): 6 Car Transfer (QC): 6 Does the Patient Walk: Yes Gait (FIM): 6 Gait distance (FIM): 3=150 ft Walk 10 feet (QC): 6 Walk 10ft-Uneven Surface(QC): 6 Walk 50ft with 2 Turns (QC): 6 Walk 150 ft (QC): 6 Gait Assistive Device: FWW Does the Pt use WC or Scooter?: No Stairs (FIM): 5 (household exception) # of Steps: 8 1 Step (curb) (QC): 6 4 Steps (QC): 6 12 Steps (QC): 88 Stairs Level Of Assist: 6 Picking up an Object (QC): 5 LTG is for pt to discharge home [facility] with [facility] PT to follow. PT Plan Problem List Problem List: Activity Tolerance, Functional Strength, Safety, Balance, Gait, Transfer, Bed Mobility, ROM Treatment/Plan Treatment Plan: Continue Plan of Care Treatment Plan: Bed Mobility, Education, Functional Activity Quan, Functional Strength, Group Therapy, Gait, Safety, Therapeutic Exercise, Transfers Treatment Duration: Apr 28, 2018 Frequency: Modified Program (IRF) Estimated Hrs Per Day: 1.5 hours per day Patient and/or Family Agrees t: Yes Safety Risks/Education Patient Education: Gait Training, Transfer Techniques, Safety Issues Teaching Recipient: Patient Teaching Methods: Discussion Response to Teaching: Reinforcement Needed Discharge Recommendations Therapy D/C Recommendations: Physical Therapy Home Care Time/GCodes Time In: 1425 Time Out: 1520 Total Billed Treatment Time: 55 Total Billed Treatment visit EVM 25 FA 15 EX 10 CHIKIS ERWIN PT Apr 14, 2018 14:54
--- NOTE | 2018-04-14 14:54 | HISTORY AND PHYSICAL ---
DATE OF SERVICE: 04/14/2018 CHIEF COMPLAINT: Difficulty with walking. HISTORY OF PRESENT ILLNESS: The patient is a 58-year-old disabled female since 2016 due to chronic low back pain who was admitted to [facility] on 04/12/2018 for left total knee replacement with Dr. Aguero for painful OA refractory to conservative care. Postoperatively, the patient required assistance for her ADLs and mobility skills and she was referred to inpatient rehabilitation unit with the approval of her managed Medicaid program. Currently, she requires assistance for ADLs, mobility skills. She is independent for eating, min assist for lower body dressing and toileting. She is min assist for transfers and gait with a front wheel walker. She had been independent prior to this and living in her own home in [place], [place]. Her PCP is Dr. Cunningham. PAST MEDICAL HISTORY: Chronic back pain, hypertension. PAST SURGICAL HISTORY: As per above. ALLERGIES: PENICILLIN AND MELOXICAM. FAMILY HISTORY: Noncontributory. SOCIAL HISTORY: She is single. 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 Prior to that, she worked at a local [employer]. REVIEW OF SYSTEMS: A 10-point review of systems significant for chronic back pain and left knee pain. MEDICATIONS: ASA 325 mg p.o. daily, vitamin C 500 mg p.o. daily, lisinopril 40 mg p.o. daily, Senokot-S one tablet p.o. b.i.d., atenolol 50 mg p.o. b.i.d., Lioresal 10 mg p.o. t.i.d., gabapentin 300 mg p.o. t.i.d., Ditropan 5 mg p.o. t.i.d., Lipitor 40 mg p.o. at bedtime, hydrocodone/APAP one tablet p.o. q.4 hours p.r.n. moderate pain, tramadol 50 mg p.o. t.i.d. p.r.n. moderate pain, Lovenox 40 mg subQ daily. PHYSICAL EXAMINATION: GENERAL: Significant for a patient appearing her stated age, sitting in chair in no acute distress. VITAL SIGNS: Pulse 71, blood pressure 173/74, O2 sat 96% on room air, respirations 20. She is afebrile. HEENT: Vision, speech, hearing grossly intact. No oral lesion is noted. NECK: Supple without mass. HEART: Regular rhythm. CHEST: Clear. ABDOMEN: Soft, nontender. Bowel sounds present. EXTREMITIES: Trace edema, left ankle. No calf tenderness. MUSCULOSKELETAL: She has functional active range of motion in both upper limbs and right lower limb. NEUROLOGIC: Sensation is grossly intact. Cognition intact. Left knee extension +5 degrees, flexion 65 degrees. She has functional strength at the ankle and hip with limited strength due to limited range of motion at the left knee. ASSESSMENT: 1. Ambulatory dysfunction secondary to osteoarthritis, left knee, refractory to conservative care status post left total knee replacement with Dr. Aguero, 02/10/2018. Weightbearing as tolerated. 2. Hypertension, controlled with medication. 3. Chronic back pain. 4. Deep vein thrombosis prophylaxis postop, on Lovenox subcutaneously. PLAN: The patient will have a comprehensive program of inpatient rehabilitation with goal of maximizing level of functional independence prior to discharge home with home health care. The patient will have PT, OT 90 minutes per day each discipline, 5 days a week for 10 days with above goals in mind, specifically returning home modified independent for ADLs and mobility skills with functional active range of motion of the left knee. Speech therapy to do cognitive assessment and treat as indicated. Rehabilitation nursing to assist with bowel, bladder, skin, wound care, medication administration, pain management. business and services instructor to assist with discharge planning, community reentry. Please see post-admission physician evaluation, which is a separate document for further details of plan of care. Followup with Dr. Cunningham, PCP and Dr. Aguero, orthopedics as per the schedule. ESTIMATED LENGTH OF STAY: Seven to ten days. PROGNOSIS: Rehab prognosis appears good for goal of discharging to home modified independent for ADLs and mobility skills. DIET: Regular. CODE STATUS: Full code. Job ID: [id number] DocumentID: [id number] Dictated Date: 04/14/2018 13:54:40 [place] Machine Operator Helper Date: 04/14/2018 14:53:27 Dictated By: OG LANGE MD [facility]
--- NOTE | 2018-04-14 16:06 | Occupational Therapy Eval ---
OT Evaluation-General/PLF Medical Diagnosis Admission Date April 14, 2018 Medical Diagnosis: OA left knee Onset Date: Apr 12, 2018 Therapy Diagnosis Therapy Diagnosis: decr self care, decr act noe, weakness, decr funct mobility Height/Weight Height (Feet): 5 Height (Inches): 3.00 Weight (Pounds): 178 Weight (Ounces): 0.0 Precautions Precautions/Isolations: Fall Prevention, Standard Precautions Weight Bear Status Weight Bearing Restriction: Weight Bearing/Tolerated Location Restriction: L LE Referral Physician: Cheo Referral Reason: Evaluation/Treatment Medical History Pertinent Medical History: Arthritis, GERD Additional Medical History Cataract R eye. Chronic back pain. Frequent UTIs. Anxiety Current History Elective L total knee on 04-12-18 Social History Home: Single Level Current Living Status: Alone Entry Into Home: Stairs With Railing Steps Into Home: 5 ADL-Prior Level of Function ADL PLOF Comments Pt reported that she was previously able to manage all of her basic self care needs and IADLs. Did not use any assistive devices. Pt said that she has a friend who will check on her when she goes home. 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 DME/Equipment: Tub OT Current Status Subjective Pt seen in room, up in recliner, agreeable to OT. Pt reported L knee "feels like it is on fire". pain reported 6/10. Appearance Alert, cooperative Mental Status/Objective Patient Orientation: Person, Place, Time, Situation Attachments: Saline Lock Current Glasses/Contacts: Yes Hearing Aids: No Dentures/Partials: No Hand Dominance: Right Upper Extremity ROM Grossly WFL except limited to approx 90 degrees shoulder flex/abd bilat Upper Extremity Sensation She reports occasional numbness in fingers and toes Upper Extremity Strength grossly 4/5 bilat ADL-Treatment ADL-Current PT reported mod assist toilet transfer. She reported that she has been able to feed herself without assistance, including opening packages, cutting up, food, getting a drink. No dentures. She neeed mod assist to get up from recliner, with skilled cues, them mod assist to walk to bed, mod assist to get both legs into bed. She reported she was a little nauseated but did not vomit - it felt better after she was in bed. Min assist to get back up to EOB, then mod A to stand while linens changed on bed. She reported she felt like her knee was going to collapse and sat back down EOB. Mod assist to move to supine. Polar pack on, 4 rails up, all needs met. Functional [place] Measure 0=Not Assessed/NA 4=Minimal Assistance 1=Total Assistance 5=Supervision or Setup 2=Maximal Assistance 6=Modified [place] 3=Moderate Assistance 7=Complete IndependenceIRFPAI Quality Coding Scale 6 Independent with activity with or without an assistive device 5 Patient requires set up or clean up by helper. Patient completes activity by themselves 4 Supervision or touching assist (CGA). [place] provide cues , steadying assist 3 The helper provides less than half the effort to complete the activity 2 The helper provides more than half the effort to complete the activity 1 Dependent. The helper does all the effort to complete an activity 7 Patient refused to complete or attempt activity 9 The patient did not perform the activity before the current illness or injury 88 Not attempted due to Medical conditions or safety concerns Eating (FIM): 7 Eating (QC): 6 Transfers (B, C, W/C) (FIM): 3 Education OT Patient Education: Purpose of tx/functional activities, Rehab process, Safety issues, Transfer techniques Teaching Recipient: Patient Teaching Methods: Discussion Response to Teaching: Verbalize Understanding, Return Demonstration, Reinforcement Needed OT Short Term Goals Short Term Goals Time Frame: Apr 21, 2018 Toilet/Commode Transfer(FIM): 5 1=Demonstrate adherence to instructed precautions during ADL tasks. 2=Patient will verbalize/demonstrate understanding of assistive devices/ modifications for ADL. 3=Patient will improve strength/tolerance for activity to enable patient to perform ADL's. OT Computer Peripheral Equipment Operator Goals Computer Peripheral Equipment Operator Goals Time Frame: Apr 29, 2018 Eating (FIM): 7 Eating (QC): 6 Groomin Oral Hygiene (QC): 6 Bathing(FIM): 6 Shower/Bathe Self (QC): 6 Upper Body Dressing(FIM): 6 Upper Body Dressing (QC): 6 Lower Body Dressing(FIM): 6 Lower Body Dressing (QC): 6 On/Off Footwear (QC): 6 Toileting(FIM): 6 Toileting Hygiene (QC): 6 Toilet/Commode Transfer(FIM): 6 Toilet/Commode Transfer (QC): 6 Tub Transfer(FIM): 6 (or shower) Shower Transfer(FIM): 6 (or tub) Additional Goals: 1-Demonstrate ADL Tasks, 2-Verbalize Understanding, 3- ImproveStrength/Quan 1=Demonstrate adherence to instructed precautions during ADL tasks. 2=Patient will verbalize/demonstrate understanding of assistive devices/ modifications for ADL. 3=Patient will improve strength/tolerance for activity to enable patient to perform ADL's. OT Education/Plan Problem List/Assessment Assessment: Decreased Activ Tolerance, Decreased UE Strength, Dependent Transfers, Impaired Funct Balance, Impaired Self-Care Skills Pt would benefit from skilled OT to increase her independence in basic self care to allow her to safely return home Discharge Recommendations Plan/Recommendations: Continue POC Treatment Plan/Plan of Care Treatment,Training & Education: Yes Patient would benefit from OT for education, treatment and training to promote independence in ADL's, mobility, safety and/or upper extremity function for ADL' s. Plan of Care: ADL Retraining, Functional Mobility, Group Exercise/Act as Ind ( education, exercise, activity tolerance, functional activity, functional mobility), UE Funct Exercise/Act, UE Neuromus Re-Ed/Coord Treatment Duration: Apr 29, 2018 Frequency: At least 5 of 7 days/Wk (IRF) Estimated Hrs Per Day: 1.5 hours per day Agreement: Yes Rehab Potential: Good Time/GCodes Start Time: 15:20 Stop Time: 15:50 Total Time Billed (hr/min): 30 Billed Treatment Time visit, 20 minutes evaluation moderate intensity, 10 minutes functional activity WENDY FARLEY OT Apr 14, 2018 16:06
--- OUTSIDE RECORDS SUMMARY | 2018-04-14 17:31 | XMS REPORT | Continuity of Care Document ---
Author Author [facility] Organization [facility] Address Unknown Phone Unavailable Allergies Active Description Code Type Severity Reaction Onset Reported/Identified Relationship to Patient Clinical Status Yes meloxicam [id number] Drug Allergy Moderate RASH ALL OVER 10/09/2016 Medications There is no data. Problems Date Dx Coded Attending Type Code Diagnosis Diagnosed By 07/22/1425 PACO SUNG DO Ot M75.101 UNSP ROTATR-CUFF TEAR/RUPTR OF RIGHT HELADIO 07/10/2010 Ot 272.4 07/10/2010 Ot 276.8 07/10/2010 Ot 401.9 07/10/2010 Ot 786.59 08/11/2010 Ot 789.03 06/09/2011 Ot 724.2 LUMBAGO 06/09/2011 Ot 724.3 SCIATICA 07/22/2011 Ot 490 BRONCHITIS NOS 07/22/2011 Ot 786.50 CHEST PAIN NOS 07/22/2011 Ot 786.52 PAINFUL RESPIRATION 12/03/2011 Ot 786.50 CHEST PAIN NOS 12/03/2011 Ot 786.52 PAINFUL RESPIRATION 03/01/2012 Ot 272.4 HYPERLIPIDEMIA NEC/NOS 03/01/2012 Ot 401.9 HYPERTENSION NOS 03/01/2012 Ot 715.90 OSTEOARTHROS NOS-UNSPEC 03/01/2012 Ot 786.59 CHEST PAIN NEC 06/08/2012 Ot 300.00 ANXIETY STATE NOS 06/08/2012 Ot 599.0 URIN TRACT INFECTION NOS 06/08/2012 Ot 782.0 SKIN SENSATION DISTURB 06/08/2012 Ot 786.52 PAINFUL RESPIRATION 08/06/2012 Ot 466.0 ACUTE BRONCHITIS 08/06/2012 Ot 786.2 COUGH 08/12/2012 Ot 382.9 OTITIS MEDIA NOS 08/12/2012 Ot 388.70 OTALGIA NOS 11/28/2012 Ot 599.0 URIN TRACT INFECTION NOS 11/28/2012 Ot 786.2 COUGH 11/28/2012 Ot 786.52 PAINFUL RESPIRATION 12/03/2012 Ot 564.00 UNSPEC CONSTIPATION 12/03/2012 Ot 789.07 ABDOMINAL PAIN, GENERALIZED 06/18/2013 ELINOR SOSA MD Ot 382.9 OTITIS MEDIA NOS 06/18/2013 ELINOR SOSA MD Ot 786.50 CHEST PAIN NOS 06/18/2013 ELINOR SOSA MD Ot 786.52 PAINFUL RESPIRATION 09/12/2013 GERRY MENDOZA MD Ot 724.2 LUMBAGO 09/12/2013 GERRY MENDOZA MD, Ot V57.1 PHYSICAL THERAPY NEC 09/22/2013 GERRY MENDOZA MD Ot 721.3 LUMBOSACRAL SPONDYLOSIS 09/22/2013 GERRY MENDOZA MD, Ot 722.52 LUMB/LUMBOSAC DISC DEGEN 09/22/2013 GERRY MENDOZA MD, Ot 729.1 MYALGIA AND MYOSITIS NOS 09/22/2013 GERRY MENDOZA MD, Ot V58.69 OTH MED,LT,CURRENT USE 10/26/2013 AUGUSTO STOKES Ot 454.0 LEG VARICOSITY W ULCER 10/26/2013 AUGUSTO STOKES Ot 682.7 CELLULITIS OF FOOT 10/26/2013 AUGUSTO STOKES Ot 729.81 SWELLING OF LIMB 11/24/2013 GERRY MENDOZA MD Ot 721.3 LUMBOSACRAL SPONDYLOSIS 11/24/2013 GERRY MENDOZA MD, Ot 724.6 DISORDERS OF SACRUM 11/24/2013 GERRY MENDOZA MD Ot 729.1 MYALGIA AND MYOSITIS NOS 11/24/2013 GERRY MENDOZA MD Ot 756.12 SPONDYLOLISTHESIS 11/24/2013 GERRY MENDOZA MD, Ot V58.69 OTH MED,LT,CURRENT USE 12/14/2013 GERRY MENDOZA MD Ot 724.2 LUMBAGO 12/14/2013 GERRY MENDOZA MD Ot V57.1 PHYSICAL THERAPY NEC 12/20/2013 GERRY MENDOZA MD Ot 724.2 LUMBAGO 12/20/2013 GERRY MENDOZA MD, Ot V57.1 PHYSICAL THERAPY NEC 02/09/2014 GERRY MENDOZA MD Ot 721.3 LUMBOSACRAL SPONDYLOSIS 02/09/2014 GERRY MENDOZA MD, Ot 724.6 DISORDERS OF SACRUM 02/09/2014 GERRY MENDOZA MD Ot 729.1 MYALGIA AND MYOSITIS NOS 02/09/2014 GERRY MENDOZA MD Ot V58.69 OTH MED,LT,CURRENT USE 03/16/2014 SHANE ARORA 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 Ot V54.9 ORTHOPEDIC AFTERCARE NOS 03/31/2014 SHANE ARORA 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 Ot 599.0 URIN TRACT INFECTION NOS 03/31/2014 SHANE ARORA 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 Ot 787.01 NAUSEA WITH VOMITING 06/22/2014 GERRY MENDOZA MD Ot 278.00 OBESITY, NOS 06/22/2014 GERRY MENDOZA MD Ot 721.3 LUMBOSACRAL SPONDYLOSIS 06/22/2014 GERRY MENDOZA MD Ot 724.6 DISORDERS OF SACRUM 06/22/2014 GERRY MENDOZA MD Ot 729.1 MYALGIA AND MYOSITIS NOS 06/22/2014 GERRY MENDOZA MD Ot V58.69 OTH MED,LT,CURRENT USE 06/22/2014 GERRY MENDOZA MD Ot V85.31 BODY MASS INDEX 31.0-31.9, ADULT 08/22/2014 NATALIA PATE MD T Ot 288.60 LEUKOCYTOSIS, UNSPECIFIED 08/22/2014 NATALIA PATE MD Ot 599.0 URIN TRACT INFECTION NOS 08/22/2014 NATALIA PATE MD T Ot 599.70 HEMATURIA, UNSPECIFIED 08/22/2014 NATALIA PATE MD T Ot 789.00 ABDOMINAL PAIN, UNSPECIFIED SITE 08/29/2014 MILY HERNANDEZ FACC, ROSANNA FACP CCDS Ot 272.4 08/29/2014 MILY HERNANDEZ FACC, ROSANNA FACP CCDS Ot 278.00 08/29/2014 MILY HERNANDEZ FACC, ROSANNA FACP CCDS Ot 401.9 08/29/2014 MILY HERNANDEZ FACC, ROSANNA FACP CCDS Ot 786.50 08/29/2014 MILY HERNANDEZ FACC, ROSANNA FACP CCDS Ot V85.31 08/29/2014 MILY HERNANDEZ FACC, ROSANNA FACP CCDS Ot 272.4 09/11/2014 MILY HERNANDEZ FACC, ROSANNA FACP CCDS Ot 272.4 09/11/2014 MILY HERNANDEZ FACC, ALI FACP CCDS Ot 272.4 09/11/2014 MILY HERNANDEZ FACC, ROSANNA FACP CCDS Ot 278.00 09/11/2014 MILY HERNANDEZ FAC, ALI FACP CCDS Ot 401.9 09/11/2014 MILY HERNANDEZ FAC, ALI FACP CCDS Ot 786.50 09/11/2014 MILY HERNANDEZ FAC, [facility] CCD[facility] Ot V85.31 09/11/2014 AUGUSTO STOKES Ot 724.4 09/11/2014 AUG[place] STOKES Ot 727.51 09/19/2014 TAWNY WILLIAMSON DO Ot V76.12 09/19/2014 Ot V76.12 09/19/2014 Ot V76.12 09/19/2014 Ot 276.8 09/19/2014 Ot 401.9 09/19/2014 Ot 276.8 09/19/2014 Ot 276.8 09/19/2014 Ot V58.69 09/19/2014 Ot 276.8 09/19/2014 Ot 401.9 09/19/2014 Ot 593.9 09/19/2014 Ot 401.9 09/19/2014 Ot V58.69 09/19/2014 Ot 276.8 09/19/2014 Ot 401.9 09/19/2014 Ot V76.12 09/19/2014 Ot 401.9 09/19/2014 Ot 272.4 09/19/2014 Ot 401.9 09/19/2014 Ot 414.01 09/19/2014 Ot V58.69 09/19/2014 Ot 272.4 09/19/2014 Ot 401.9 09/19/2014 Ot V58.69 09/19/2014 Ot 272.4 09/19/2014 Ot 401.9 09/19/2014 Ot V58.69 09/19/2014 Ot 272.4 09/19/2014 Ot 401.9 09/19/2014 Ot V58.69 09/19/2014 Ot 785.6 09/19/2014 Ot 786.59 09/19/2014 Ot 272.4 09/19/2014 Ot 401.9 09/19/2014 Ot V58.69 09/19/2014 CALISTA PHAM REEL WINDER Ot 272.4 09/19/2014 CALISTA PHAM REEL WINDER Ot 401.9 09/19/2014 TOAN HERNANDEZ, KATERIN Tan Ot 722.10 09/19/2014 GERRY MENDOZA MD Ot 278.00 09/19/2014 GERRY MENDOZA MD Ot 401.9 09/19/2014 GERRY MENDOZA MD Ot 721.3 09/19/2014 GERRY MENDOZA MD Ot 722.52 09/19/2014 GERRY MENDOZA MD Ot 729.1 09/19/2014 GERRY MENDOZA MD Ot 756.12 09/19/2014 GERRY MENDOZA MD Ot V58.69 09/19/2014 GERRY MENDOZA MD Ot V85.32 09/19/2014 GERRY MENDOZA MD Ot 278.00 09/19/2014 GERRY MENDOZA MD Ot 721.3 09/19/2014 GERRY MENDOZA MD Ot 722.52 09/19/2014 GERRY MENDOZA MD Ot 729.1 09/19/2014 GERRY MENDOZA MD Ot V58.69 09/19/2014 GERRY MENDOZA MD Ot V85.31 09/19/2014 GERRY MENDOZA MD Ot 278.00 09/19/2014 GERRY MENDOZA MD Ot 721.3 09/19/2014 GERRY MENDOZA MD Ot 722.52 09/19/2014 GERRY MENDOZA MD Ot 729.1 09/19/2014 GERRY MENDOZA MD Ot V85.32 09/19/2014 BAIMA, CALISTA L REEL WINDER Ot 272.4 09/19/2014 BAIMA, CALISTA L REEL WINDER Ot 401.9 09/19/2014 BAIMA, CALISTA L REEL WINDER Ot V58.69 09/19/2014 TAWNY WILLIAMSON DO Ot V76.12 09/19/2014 BAIMA, CALISTA L REEL WINDER Ot 272.4 09/19/2014 BAIMA, CALISTA L REEL WINDER Ot 278.00 09/19/2014 BAIMA, CALISTA L REEL WINDER Ot 401.9 09/19/2014 BAIMA, ACLISTA L REEL WINDER Ot 454.9 09/19/2014 BAIMA, CALISTA L REEL WINDER Ot 786.50 09/19/2014 MILY HERNANDEZ FAC, ALI FACP CCDS Ot 272.4 09/19/2014 MILY HERNANDEZ FACC, ALI FACP CCDS Ot 276.1 09/19/2014 MILY HERNANDEZ FACC, ALI FACP CCDS Ot 278.00 09/19/2014 MILY HERNANDEZ FACC, ALI FACP CCDS Ot 401.9 09/19/2014 MILY HERNANDEZ FACC, ALI FACP CCDS Ot 454.9 09/19/2014 MILY MD FACC, ALI FACP CCDS Ot 786.50 09/19/2014 MILY HERNANDEZ FACC, ALI FACP CCDS Ot 272.4 09/19/2014 MILY HERNANDEZ FACC, ALI FACP CCDS Ot 272.4 09/19/2014 MILY MD FACC, ALI FACP CCDS Ot 278.00 09/19/2014 MILY HERNANDEZ FACC, ALI FACP CCDS Ot 401.9 09/19/2014 MILY HERNANDEZ FACC, ALI FACP CCDS Ot 786.50 09/19/2014 MILY HERNANDEZ FACC, ALI FACP CCDS Ot V85.31 09/19/2014 TAWNY WILLIAMSON DO Ot V76.12 09/24/2014 HOANG HERNANDEZ, ROHAN Gutiérrez Ot 719.46 09/24/2014 HOANG HERNANDEZ, ROHAN Gutiérrez Ot V57.1 09/26/2014 HOANG HERNANDEZ, ROHAN Gutiérrez Ot 719.46 09/26/2014 HOANG HERNANDEZ, ROHAN Gutiérrez Ot V57.1 09/27/2014 HOANG HERNANDEZ, ROHAN Gutiérrez Ot 719.46 09/27/2014 HOANG HERNANDEZ, ROHAN Gutiérrez Ot V57.1 10/03/2014 SHASTA HERNANDEZ, GISSEL Low Ot 592.0 10/03/2014 SHASTA HERNANDEZ, GISSEL A Ot V74.8 10/03/2014 TAWNY WILLIAMSON DO Ot V76.12 10/11/2014 HOANG HERNANDEZ, ROHAN Gutiérrez Ot 719.46 10/11/2014 HOANG HERNANDEZ, ROHAN Gutiérrez Ot V57.1 10/17/2014 ESHA WILLIAMSON DOA C Ot V76.12 10/17/2014 HOANG HERNANDEZ, ROHAN Gutiérrez Ot 719.46 10/17/2014 HOANG HERNANDEZ, ROHAN Gutiérrez Ot V57.1 10/17/2014 SHASTA HERNANDEZ, GISSEL A Ot 592.0 10/17/2014 SHASTA HERNANDEZ, GISSEL A Ot V72.84 10/19/2014 SHASTA HERNANDEZ, GISSEL A Ot 592.9 11/12/2014 TAWNY WILLIAMSON DO Ot V76.12 12/14/2014 REJI HERNANDEZ, GERRY Jauregui Ot 721.3 LUMBOSACRAL SPONDYLOSIS 12/14/2014 REJI HERNANDEZ, GERRY Jauregui Ot 722.52 LUMB/LUMBOSAC DISC DEGEN 12/14/2014 REJI HERNANDEZ, GERRY Jauregui Ot V58.69 OTH MED,LT,CURRENT USE 12/20/2014 HOANG HERNANDEZ, ROHAN Gutiérrez Ot 719.46 12/20/2014 HOANG HERNANDEZ, ROHAN Gutiérrez Ot V57.1 12/21/2014 SHASTA HERNANDEZ, GISSEL Low Ot 592.9 12/21/2014 HOANG HERNANDEZ, ROHAN Gutiérrez Ot 719.46 12/21/2014 HOANG HERNANDEZ, ROHAN Gutiérrez Ot V57.1 12/23/2014 HOANG HERNANDEZ, ROHAN Gutiérrez Ot 719.46 12/23/2014 HOANG HERNANDEZ, ROHAN Gutiérrez Ot V57.1 12/23/2014 HOANG HERNANDEZ, ROHAN Gutiérrez Ot 719.46 12/23/2014 HOANG HERNANDEZ, ROHAN Gutiérrez Ot V57.1 12/24/2014 HOANG HERNANDEZ, ROHAN Gutiérrez Ot 719.46 12/24/2014 HOANG HERNANDEZ, ROHAN Gutiérrez Ot V57.1 12/24/2014 HOANG HERNANDEZ, ROHAN Gutiérrez Ot 719.46 12/24/2014 HOANG HERNANDEZ, ROHAN Gutiérrez Ot V57.1 01/01/2015 HOANG HERNANDEZ, ROHAN Gutiérrez Ot 719.46 01/01/2015 HOANG HERNANDEZ, ROHAN Gutiérrez Ot V57.1 01/01/2015 HOANG HERNANDEZ, ROHAN Gutiérrez Ot 719.46 01/01/2015 HOANG HERNANDEZ, ROHAN Gutiérrez Ot V57.1 01/15/2015 SHASTA HERNANDEZ, GISSEL Low Ot 592.9 URINARY CALCULUS NOS 01/17/2015 CALISTA PHAM REEL WINDER Ot 272.4 01/17/2015 CALISTA PHAM REEL WINDER Ot 272.4 01/17/2015 CALISTA PHAM REEL WINDER Ot 272.4 01/21/2015 CALISTA PHAM REEL WINDER Ot 272.4 01/29/2015 HOANG HERNANDEZ, ROHAN Gutiérrez Ot 719.46 JOINT PAIN-L/LEG 01/29/2015 HOANG HERNANDEZ, ROHAN Gutiérrez Ot V57.1 PHYSICAL THERAPY NEC 02/06/2015 CALISTA PHAM REEL WINDER Ot 272.4 08/22/2015 ZINA MICHELLE DO Ot E78.5 08/22/2015 ZINA MICHELLE DO Ot E87.1 08/22/2015 ZINA MICHELLE DO Ot I10 08/22/2015 ZINA MICHELLE DO Ot R00.2 10/18/2015 SHASTA HERNANDEZ, GISSEL Low Ot 592.9 10/18/2015 CALISTA PHAM REEL WINDER Ot 272.4 10/18/2015 ZINA MICHELLE DO Ot E78.5 10/18/2015 ZINA MICHELLE DO Ot E87.1 10/18/2015 ZINA MICHELLE DO Ot I10 10/18/2015 ZINA MICHELLE DO Ot R00.2 10/18/2015 Ot 276.8 10/18/2015 Ot 401.9 10/18/2015 Ot 276.8 10/18/2015 Ot 276.8 10/18/2015 Ot V58.69 10/18/2015 Ot 276.8 10/18/2015 Ot 401.9 10/18/2015 Ot 593.9 10/18/2015 Ot 401.9 10/18/2015 Ot V58.69 10/18/2015 Ot 276.8 10/18/2015 Ot 401.9 10/18/2015 Ot V76.12 10/18/2015 Ot 401.9 10/18/2015 Ot 272.4 10/18/2015 Ot 401.9 10/18/2015 Ot 414.01 10/18/2015 Ot V58.69 10/18/2015 Ot 272.4 10/18/2015 Ot 401.9 10/18/2015 Ot V58.69 10/18/2015 Ot 272.4 10/18/2015 Ot 401.9 10/18/2015 Ot V58.69 10/18/2015 Ot 272.4 10/18/2015 Ot 401.9 10/18/2015 Ot V58.69 10/18/2015 Ot 785.6 10/18/2015 Ot 786.59 10/18/2015 Ot 272.4 10/18/2015 Ot 401.9 10/18/2015 Ot V58.69 10/18/2015 CALISTA PHAM REEL WINDER Ot 272.4 10/18/2015 CALISTA PHAM REEL WINDER Ot 401.9 10/18/2015 TOAN HERNANDEZ, KATERIN R Ot 722.10 10/18/2015 GERRY MENDOZA MD Ot 278.00 10/18/2015 GERRY MENDOZA MD Ot 401.9 10/18/2015 GERRY MENDOZA MD Ot 721.3 10/18/2015 GERRY MENDOZA MD Ot 722.52 10/18/2015 GERRY MENDOZA MD Ot 729.1 10/18/2015 GERRY MENDOZA MD Ot 756.12 10/18/2015 GERRY MENDOZA MD Ot V58.69 10/18/2015 GERRY MENDOZA MD Ot V85.32 10/18/2015 GERRY MENDOZA MD Ot 278.00 10/18/2015 GERRY MENDOZA MD Ot 721.3 10/18/2015 GERRY MENDOZA MD Ot 722.52 10/18/2015 GERRY MENDOZA MD Ot 729.1 10/18/2015 GERRY MENDOZA MD Ot V58.69 10/18/2015 GERRY MENDOZA MD Ot V85.31 10/18/2015 GERRY MENDOZA MD Ot 278.00 10/18/2015 GERRY MENDOZA MD Ot 721.3 10/18/2015 GERRY MENDOZA MD Ot 722.52 10/18/2015 GERRY MENDOZA MD Ot 729.1 10/18/2015 GERRY MENDOZA MD Ot V85.32 10/18/2015 BAIMA, CALISTA L REEL WINDER Ot 272.4 10/18/2015 BAIMA, CALISTA L REEL WINDER Ot 401.9 10/18/2015 BAIMA, CALISTA L REEL WINDER Ot V58.69 10/18/2015 TAWNY WILLIAMSON DO Ot V76.12 10/18/2015 BAIMA, CALISTA L REEL WINDER Ot 272.4 10/18/2015 BAIMA, CALISTA L REEL WINDER Ot 278.00 10/18/2015 BAIMA, CALISTA L REEL WINDER Ot 401.9 10/18/2015 BAIMA, CALISTA L REEL WINDER Ot 454.9 10/18/2015 BAIMA, CALISTA L REEL WINDER Ot 786.50 10/18/2015 ROSANNA MINOR MD, FACC, FACP CCDS Ot 272.4 10/18/2015 MILY MD FACC, ALI FACP CCDS Ot 276.1 10/18/2015 MILY MD FAC, ALI FACP CCDS Ot 278.00 10/18/2015 MILY MD FAC, ALI FACP CCDS Ot 401.9 10/18/2015 MILY MD FAC, ALI FACP CCDS Ot 454.9 10/18/2015 MILY FAC, ALI FACP CCDS Ot 786.50 10/18/2015 MILY MD [facility], ALI FACP CCDS Ot 272.4 10/18/2015 MILY MD [facility], ALI FACP CCDS Ot 272.4 10/18/2015 MILY MD [facility], ALI FACP CCDS Ot 278.00 10/18/2015 MILY MD [facility], ALI FACP CCDS Ot 401.9 10/18/2015 MILY MD [facility], ALI FACP CCDS Ot 786.50 10/18/2015 MILY MD [facility], ALI FACP CCDS Ot V85.31 10/18/2015 SHASTA HERNANDEZ, GISSEL Low Ot 592.0 10/18/2015 SHASTA HERNANDEZ, GISSEL Low Ot V72.84 10/22/2015 GISSEL VEGAS MD Ot 592.9 10/22/2015 CALISTA PHAM Ot 272.4 10/22/2015 ZINA MICHELLE DO Ot E78.5 10/22/2015 ZINA MICHELLE DO Ot E87.1 10/22/2015 ZINA MICHELLE DO Ot I10 10/22/2015 ZINA MICHELLE DO Ot R00.2 10/22/2015 CATHY HUBBARD APRN Ot M25.562 10/22/2015 GILBERT BENDER DO Ot Z01.818 10/22/2015 GISSEL VEGAS MD Ot 592.9 10/22/2015 GILBERT BENDER DO Ot K59.00 CONSTIPATION, UNSPECIFIED 10/22/2015 GILBERT BENDER DO Ot Z12.11 ENCOUNTER FOR SCREENING FOR MALIGNANT NE 10/31/2015 CATHY HUBBARD APRN Ot M25.562 11/27/2015 GISSEL VEGAS MD Ot 592.9 11/27/2015 CALISTA PHAM REEL WINDER Ot 272.4 11/27/2015 MIGUEL ANGEL ZINA Elier Ot E78.5 11/27/2015 MIGUEL ANGEL LOPEZ ZINA M Ot E87.1 11/27/2015 MIGUEL ANGEL LOPEZ ZINA Elier Ot I10 11/27/2015 MIGUEL ANGEL LOPEZ ZINA Thapa Ot R00.2 11/27/2015 CATHY HUBBARD 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 Ot M25.562 11/27/2015 [place] GILBERT LOPEZ Ot Z01.818 12/16/2015 SHASTA HERNANDEZ, GISSEL Low Ot 592.9 URINARY CALCULUS NOS 12/16/2015 CALISTA PHAM REEL WINDER Ot 272.4 HYPERLIPIDEMIA NEC/NOS 12/16/2015 MIGUEL ANGEL LOPEZ ZINA Elier Ot E78.5 HYPERLIPIDEMIA, UNSPECIFIED 12/16/2015 MIGUEL ANGEL LOPEZ ZINA Elier Ot E87.1 HYPO-OSMOLALITY AND HYPONATREMIA 12/16/2015 ZINA MICHELLE DO Ot I10 ESSENTIAL (PRIMARY) HYPERTENSION 12/16/2015 ZINA MICHELLE DO Ot R00.2 PALPITATIONS 12/16/2015 CATHY HUBBARD 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 Ot M25.562 PAIN IN LEFT KNEE 12/16/2015 [place] GILBERT LOPEZ Ot Z01.818 ENCOUNTER FOR OTHER PREPROCEDURAL EXAMIN 12/16/2015 RUBEN DE JESUS 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 Ot M17.12 UNILATERAL PRIMARY OSTEOARTHRITIS, LEFT 12/16/2015 NEAL RUBEN E 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 Ot M23.8X2 OTHER INTERNAL DERANGEMENTS OF LEFT KNEE 12/17/2015 CALISTA PHAM REEL WINDER Ot I10 ESSENTIAL (PRIMARY) HYPERTENSION 01/01/2016 NEAL RUBEN E 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 Ot M17.12 UNILATERAL PRIMARY OSTEOARTHRITIS, LEFT 01/01/2016 NEAL RUBEN E 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 Ot M23.8X2 OTHER INTERNAL DERANGEMENTS OF LEFT KNEE 01/01/2016 CALISTA PHAM REEL WINDER Ot I10 ESSENTIAL (PRIMARY) HYPERTENSION 01/10/2016 RUBEN DE JESUS 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 Ot M17.12 UNILATERAL PRIMARY OSTEOARTHRITIS, LEFT 01/10/2016 NEAL RUBEN E 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 Ot M23.8X2 OTHER INTERNAL DERANGEMENTS OF LEFT KNEE 01/30/2016 SHASTA HERNANDEZ, GISSEL A Ot 592.9 URINARY CALCULUS NOS 01/30/2016 PCAO SUNG DO Ot M79.662 PAIN IN LEFT LOWER LEG 01/30/2016 ANA LILIA , PACO Rodríguez Ot Z01.818 ENCOUNTER FOR OTHER PREPROCEDURAL EXAMIN 01/30/2016 ANA LILIA LOPEZ PACO Rodríguez Ot Z22.322 CARRIER 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 CARRIER OF METHICIL 01/30/2016 CATHY HUBBARD 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 Ot M25.562 PAIN IN LEFT KNEE 01/30/2016 CALISTA PHAM REEL WINDER Ot I10 ESSENTIAL (PRIMARY) HYPERTENSION 01/31/2016 [facility] PACO Rodríguez Ot M79.662 PAIN IN LEFT LOWER LEG 01/31/2016 [facility], PACO Rodríguez Ot Z01.818 ENCOUNTER FOR OTHER PREPROCEDURAL EXAMIN 01/31/2016 ANA LILIA LOPEZ PACO Rodríguez Ot Z22.322 CARRIER 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 CARRIER OF METHICIL 02/05/2016 ANA LILIA PACO Rodríguez Ot M79.662 PAIN IN LEFT LOWER LEG 02/05/2016 ANA LILIA DO PACO Rodríguez Ot Z01.818 ENCOUNTER FOR OTHER PREPROCEDURAL EXAMIN 02/05/2016 [place] DO PACO Rodírguez Ot Z22.322 CARRIER 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 CARRIER OF METHICIL 02/11/2016 SHASTA HERNANDEZ, GISSEL A Ot 592.9 URINARY CALCULUS NOS 02/11/2016 CALISTA PHAM REEL WINDER Ot 272.4 HYPERLIPIDEMIA NEC/NOS 02/11/2016 ZINA MICHELLE DO Ot E78.5 HYPERLIPIDEMIA, UNSPECIFIED 02/11/2016 ZINA MICHELLE DO Ot E87.1 HYPO-OSMOLALITY AND HYPONATREMIA 02/11/2016 ZINA MICHELLE DO Ot I10 ESSENTIAL (PRIMARY) HYPERTENSION 02/11/2016 ZINA MICHELLE DO Ot R00.2 PALPITATIONS 02/11/2016 CATHY HUBBARD 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 Ot M25.562 PAIN IN LEFT KNEE 02/11/2016 GILBERT BENDER DO Ot Z01.818 ENCOUNTER FOR OTHER PREPROCEDURAL EXAMIN 02/11/2016 CALISTA PHAM REEL WINDER Ot I10 ESSENTIAL (PRIMARY) HYPERTENSION 02/11/2016 SHASTA HERNANDEZ, GISSEL A Ot 592.9 URINARY CALCULUS NOS 02/11/2016 [place] DO PACO Rodríguez Ot 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, LEFT KNEE 02/11/2016 PACO SUNG DO F Ot S83.242A OTH TEAR OF MEDIAL MENISCUS, CURRENT INJ 02/11/2016 PACO SUNG DO Ot X58.XXXA EXPOSURE TO OTHER SPECIFIED FACTORS, INI 02/11/2016 ANA LILIA LOPEZ, PACO Rodríguez Ot Y99.8 OTHER EXTERNAL CAUSE STATUS 02/14/2016 PACO SUNG DO Ot 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, LEFT KNEE 02/14/2016 PACO SUNG DO Ot S83.242A OTH TEAR OF MEDIAL MENISCUS, CURRENT INJ 02/14/2016 PACO SUNG DO Ot X58.XXXA EXPOSURE TO OTHER SPECIFIED FACTORS, INI 02/14/2016 PACO SUNG DO Ot Y99.8 OTHER EXTERNAL CAUSE STATUS 02/18/2016 CATHY HUBBARD APRN Ot M25.562 PAIN IN LEFT KNEE 02/18/2016 CALISTA PHAM REEL WINDER Ot I10 ESSENTIAL (PRIMARY) HYPERTENSION 02/18/2016 CALISTA PHAM REEL WINDER Ot I10 ESSENTIAL (PRIMARY) HYPERTENSION 04/08/2016 NEAL RUBEN E 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 Ot M17.12 UNILATERAL PRIMARY OSTEOARTHRITIS, LEFT 04/08/2016 NEAL, RUBEN E 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 Ot Z98.89 OTHER SPECIFIED POSTPROCEDURAL STATES 04/08/2016 NEAL, RUBEN E 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 Ot M17.12 UNILATERAL PRIMARY OSTEOARTHRITIS, LEFT 04/08/2016 NEAL, RUBEN E 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 Ot Z98.89 OTHER SPECIFIED POSTPROCEDURAL STATES 04/21/2016 KEESHA DO, AMARILYS K Ot I10 ESSENTIAL (PRIMARY) HYPERTENSION 04/21/2016 KEESHA DO, AMARILYS K Ot R53.1 WEAKNESS 04/21/2016 KEESHA DO, AMARILYS K Ot I10 ESSENTIAL (PRIMARY) HYPERTENSION 04/21/2016 KEESHA DO, AMARILYS K Ot R53.1 WEAKNESS 06/05/2016 CATHY HUBBARD APRN Ot M75.81 OTHER SHOULDER LESIONS, RIGHT SHOULDER 06/05/2016 CATHY HUBBARD APRN Ot S46.811A STRAIN OF MUSC/FASC/TEND AT SHLDR/UP ARM 06/05/2016 CATHY HUBBARD APRN Ot X58.XXXA EXPOSURE TO OTHER SPECIFIED FACTORS, INI 06/05/2016 CATHY HUBBARD APRN Ot Y99.8 OTHER EXTERNAL CAUSE STATUS 06/17/2016 CATHY HUBBARD 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 Ot M75.81 OTHER SHOULDER LESIONS, RIGHT SHOULDER 06/17/2016 CATHY HUBBARD 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 Ot S46.811A STRAIN OF MUSC/FASC/TEND AT SHLDR/UP ARM 06/17/2016 CATHY HUBBARD 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 Ot X58.XXXA EXPOSURE TO OTHER SPECIFIED FACTORS, INI 06/17/2016 CATHY HUBBARD 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 Ot Y99.8 OTHER EXTERNAL CAUSE STATUS 07/03/2016 BAIMA, CALISTA L REEL WINDER Ot E78.5 HYPERLIPIDEMIA, UNSPECIFIED 07/03/2016 BAIMA, CALISTA L REEL WINDER Ot I10 ESSENTIAL (PRIMARY) HYPERTENSION 07/03/2016 BAIMA, CALISTA L REEL WINDER Ot R06.09 OTHER FORMS OF DYSPNEA 07/03/2016 BAIMA, CALISTA L REEL WINDER Ot R07.9 CHEST PAIN, UNSPECIFIED 07/08/2016 BAIMA, CALISTA L REEL WINDER Ot E78.5 HYPERLIPIDEMIA, UNSPECIFIED 07/08/2016 BAIMA, CALISTA L REEL WINDER Ot I10 ESSENTIAL (PRIMARY) HYPERTENSION 07/08/2016 BAIMA, CALISTA L REEL WINDER Ot E78.5 HYPERLIPIDEMIA, UNSPECIFIED 07/08/2016 BAIMA, CALISTA L REEL WINDER Ot I10 ESSENTIAL (PRIMARY) HYPERTENSION 07/15/2016 BAIMA, CALISTA L REEL WINDER Ot E78.5 HYPERLIPIDEMIA, UNSPECIFIED 07/15/2016 BAIMA, CALISTA L REEL WINDER Ot I10 ESSENTIAL (PRIMARY) HYPERTENSION 07/15/2016 BAIMA, CALISTA L REEL WINDER Ot R06.09 OTHER FORMS OF DYSPNEA 07/15/2016 BAIMA, CALISTA L REEL WINDER Ot R07.9 CHEST PAIN, UNSPECIFIED 07/15/2016 BAIMA, CALISTA L REEL WINDER Ot E78.5 HYPERLIPIDEMIA, UNSPECIFIED 07/15/2016 BAIMA, CALISTA L REEL WINDER Ot I10 ESSENTIAL (PRIMARY) HYPERTENSION 07/29/2016 PACO SUNG DO Ot M75.101 UNSP ROTATR-CUFF TEAR/RUPTR OF RIGHT HELADIO 08/19/2016 PACO SUNG DO Ot M75.101 UNSP ROTATR-CUFF TEAR/RUPTR OF RIGHT HELADIO 08/20/2016 SHASTA HERNANDEZ, GISSEL Low Ot 592.9 URINARY CALCULUS NOS 08/20/2016 BAIMA, CALISTA L REEL WINDER Ot 272.4 HYPERLIPIDEMIA NEC/NOS 08/20/2016 ZINA MICHELLE DO Ot E78.5 HYPERLIPIDEMIA, UNSPECIFIED 08/20/2016 ZINA MICHELLE DO Ot E87.1 HYPO-OSMOLALITY AND HYPONATREMIA 08/20/2016 IZNA MICHELLE DO Ot I10 ESSENTIAL (PRIMARY) HYPERTENSION 08/20/2016 ZINA MICHELLE DO Ot R00.2 PALPITATIONS 08/20/2016 STEVIE CATHY Dominick ODONNELL Ot M25.562 PAIN IN LEFT KNEE 08/20/2016 NAPOLEON LOPEZ GILBERT Michael Ot Z01.818 ENCOUNTER FOR OTHER PREPROCEDURAL EXAMIN 08/20/2016 CALISTA PHAM REEL WINDER Ot I10 ESSENTIAL (PRIMARY) HYPERTENSION 08/26/2016 MILY MORROW, ALI FACP CCDS Ot E78.4 OTHER HYPERLIPIDEMIA 08/26/2016 MILY HERNANDEZ FACC, ALI FACP CCDS Ot I10 ESSENTIAL (PRIMARY) HYPERTENSION 08/26/2016 MILY HERNANDEZ FACC, ALI FACP CCDS Ot I73.9 PERIPHERAL VASCULAR DISEASE, UNSPECIFIED 08/26/2016 MILY HERNANDEZ FACC, ALI FACP CCDS Ot M79.1 MYALGIA 08/26/2016 MILY HERNANDEZ FACC, ALI FACP CCDS Ot E78.4 OTHER HYPERLIPIDEMIA 08/26/2016 MILY HERNANDEZ FACC, ALI FACP CCDS Ot I10 ESSENTIAL (PRIMARY) HYPERTENSION 08/26/2016 MILY HERNANDEZ FACC, ALI FACP CCDS Ot I73.9 PERIPHERAL VASCULAR DISEASE, UNSPECIFIED 08/26/2016 MILY HERNANDEZ FACC, ALI FACP CCDS Ot M79.1 MYALGIA 08/31/2016 PACO SUNG DO Ot M75.101 UNSP ROTATR-CUFF TEAR/RUPTR OF RIGHT HELADIO 10/02/2016 SHASTA HERNANDEZ, GISSEL Low Ot 592.9 URINARY CALCULUS NOS 10/02/2016 CALISTA PHAM REEL WINDER Ot 272.4 HYPERLIPIDEMIA NEC/NOS 10/02/2016 ZINA MICHELLE DO Ot E78.5 HYPERLIPIDEMIA, UNSPECIFIED 10/02/2016 ZINA MICHELLE DO Ot E87.1 HYPO-OSMOLALITY AND HYPONATREMIA 10/02/2016 ZINA MICHELLE DO Ot I10 ESSENTIAL (PRIMARY) HYPERTENSION 10/02/2016 ZINA MICHELLE DO Ot R00.2 PALPITATIONS 10/02/2016 CATHY HUBBARD APRN Ot M25.562 PAIN IN LEFT KNEE 10/02/2016 GILBERT BENDER DO Ot Z01.818 ENCOUNTER FOR OTHER PREPROCEDURAL EXAMIN 10/02/2016 CALISTA PHAM REEL WINDER Ot I10 ESSENTIAL (PRIMARY) HYPERTENSION 10/02/2016 MILY HERNANDEZ FACC, ROSANNA FACP CCDS Ot E78.4 OTHER HYPERLIPIDEMIA 10/02/2016 MILY HERNANDEZ FACC, ALI FACP CCDS Ot I10 ESSENTIAL (PRIMARY) HYPERTENSION 10/02/2016 MILY HERNANDEZ FACC, ALI FACP CCDS Ot I73.9 PERIPHERAL VASCULAR DISEASE, UNSPECIFIED 10/02/2016 MILY HERNANDEZ FACC, ROSANNA FACP CCDS Ot M79.1 MYALGIA 10/02/2016 GISSEL VEGAS MD Ot 592.9 URINARY CALCULUS NOS 10/02/2016 CALISTA PHAM REEL WINDER Ot 272.4 HYPERLIPIDEMIA NEC/NOS 10/02/2016 ZINA MICHELLE DO Ot E78.5 HYPERLIPIDEMIA, UNSPECIFIED 10/02/2016 ZINA MICHELLE DO Ot E87.1 HYPO-OSMOLALITY AND HYPONATREMIA 10/02/2016 ZINA MICHELLE DO Ot I10 ESSENTIAL (PRIMARY) HYPERTENSION 10/02/2016 ZINA MICHELLE DO Ot R00.2 PALPITATIONS 10/02/2016 CATHY HUBBARD APRN Ot M25.562 PAIN IN LEFT KNEE 10/02/2016 GILBERT BENDER DO Ot Z01.818 ENCOUNTER FOR OTHER PREPROCEDURAL EXAMIN 10/02/2016 CALISTA PHAM REEL WINDER Ot I10 ESSENTIAL (PRIMARY) HYPERTENSION 10/02/2016 MILY HERNANDEZ FACC, ROSANNA FACP CCDS Ot E78.4 OTHER HYPERLIPIDEMIA 10/02/2016 MILY HERNANDEZ FACC, ALI FACP CCDS Ot I10 ESSENTIAL (PRIMARY) HYPERTENSION 10/02/2016 MILY HERNANDEZ FACC, ALI FACP CCDS Ot I73.9 PERIPHERAL VASCULAR DISEASE, UNSPECIFIED 10/02/2016 MILY HERNANDEZ FACC, ALI FACP CCDS Ot M79.1 MYALGIA 10/07/2016 GISSEL VEGAS MD A Ot 592.9 URINARY CALCULUS NOS 10/07/2016 SAMCALISTA BACON L REEL WINDER Ot 272.4 HYPERLIPIDEMIA NEC/NOS 10/07/2016 ZINA MICHELLE DO Ot E78.5 HYPERLIPIDEMIA, UNSPECIFIED 10/07/2016 ZINA MICHELLE DO Ot E87.1 HYPO-OSMOLALITY AND HYPONATREMIA 10/07/2016 ZINA MICHELLE DO M Ot I10 ESSENTIAL (PRIMARY) HYPERTENSION 10/07/2016 ZINA MICHELLE DO Ot R00.2 PALPITATIONS 10/07/2016 CATHY HUBBARD APRN Ot M25.562 PAIN IN LEFT KNEE 10/07/2016 GILBERT BENDER DO Ot Z01.818 ENCOUNTER FOR OTHER PREPROCEDURAL EXAMIN 10/07/2016 CALISTA PHAM REEL WINDER Ot I10 ESSENTIAL (PRIMARY) HYPERTENSION 10/07/2016 MILY MORROW, ALI FACP CCDS Ot E78.4 OTHER HYPERLIPIDEMIA 10/07/2016 MILY HERNANDEZ FACC, ALI FACP CCDS Ot I10 ESSENTIAL (PRIMARY) HYPERTENSION 10/07/2016 MILY MORROWC, ALI FACP CCDS Ot I73.9 PERIPHERAL VASCULAR DISEASE, UNSPECIFIED 10/07/2016 MILY HERNANDEZ FACC, ALI FACP CCDS Ot M79.1 MYALGIA 10/09/2016 SHASTA HERNANDEZ, GISSEL A Ot 592.9 URINARY CALCULUS NOS 10/09/2016 CALISTA PHAM REEL WINDER Ot 272.4 HYPERLIPIDEMIA NEC/NOS 10/09/2016 ZINA MICHELLE DO Ot E78.5 HYPERLIPIDEMIA, UNSPECIFIED 10/09/2016 ZINA MICHELLE DO Ot E87.1 HYPO-OSMOLALITY AND HYPONATREMIA 10/09/2016 ZINA MICHELLE DO Ot I10 ESSENTIAL (PRIMARY) HYPERTENSION 10/09/2016 ZINA MICHELLE DO Ot R00.2 PALPITATIONS 10/09/2016 CATHY HUBBARD 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 Ot M25.562 PAIN IN LEFT KNEE 10/09/2016 GILBERT BENDER DO Ot Z01.818 ENCOUNTER FOR OTHER PREPROCEDURAL EXAMIN 10/09/2016 CALISTA PHAM REEL WINDER Ot I10 ESSENTIAL (PRIMARY) HYPERTENSION 10/09/2016 MILY HERNANDEZ FACC, ALI FACP CCDS Ot E78.4 OTHER HYPERLIPIDEMIA 10/09/2016 MILY HERNANDEZ FACC, ROSANNA FACP CCDS Ot I10 ESSENTIAL (PRIMARY) HYPERTENSION 10/09/2016 MILY HERNANDEZ FACC, ROSANNA FACP CCDS Ot I73.9 PERIPHERAL VASCULAR DISEASE, UNSPECIFIED 10/09/2016 MILY HERNANDEZ FACC, ALI FACP CCDS Ot M79.1 MYALGIA 10/09/2016 GISSEL VEGAS MD Ot 592.9 URINARY CALCULUS NOS 10/09/2016 SHANE ARORA 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 Ot I10 ESSENTIAL (PRIMARY) HYPERTENSION 10/09/2016 SHANE ARORA 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 Ot L50.9 URTICARIA, UNSPECIFIED 10/09/2016 SHANE ARORA 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 Ot R21 RASH AND OTHER NONSPECIFIC SKIN ERUPTION 10/09/2016 SHANE ARORA 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 Ot Z79.899 OTHER SEED CORE OPERATOR (CURRENT) DRUG THERAPY 10/09/2016 GISSEL VEGAS MD Ot 592.9 URINARY CALCULUS NOS 10/09/2016 CALISTA PHAM REEL WINDER Ot 272.4 HYPERLIPIDEMIA NEC/NOS 10/09/2016 ZINA MICHELLE DO Ot E78.5 HYPERLIPIDEMIA, UNSPECIFIED 10/09/2016 ZINA MICHELLE DO Ot E87.1 HYPO-OSMOLALITY AND HYPONATREMIA 10/09/2016 ZINA MICHELLE DO Ot I10 ESSENTIAL (PRIMARY) HYPERTENSION 10/09/2016 ZINA MICHELLE DO Ot R00.2 PALPITATIONS 10/09/2016 CATHY HUBBARD 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 Ot M25.562 PAIN IN LEFT KNEE 10/09/2016 GILBERT BENDER DO Ot Z01.818 ENCOUNTER FOR OTHER PREPROCEDURAL EXAMIN 10/09/2016 CALISTA PHAM REEL WINDER Ot I10 ESSENTIAL (PRIMARY) HYPERTENSION 10/09/2016 MILY HERNANDEZ FACC, ROSANNA FACP CCDS Ot E78.4 OTHER HYPERLIPIDEMIA 10/09/2016 MILY HERNANDEZ FACC, ROSANNA FACP CCDS Ot I10 ESSENTIAL (PRIMARY) HYPERTENSION 10/09/2016 MILY HERNANDEZ FACC, ROSANNA FACP CCDS Ot I73.9 PERIPHERAL VASCULAR DISEASE, UNSPECIFIED 10/09/2016 MILY HERNANDEZ FACC, ROSANNA FACP CCDS Ot M79.1 MYALGIA 10/09/2016 Ot 272.4 HYPERLIPIDEMIA NEC/NOS 10/09/2016 Ot 401.9 HYPERTENSION NOS 10/09/2016 Ot V58.69 OTH MED,LT, CURRENT USE 10/09/2016 Ot 272.4 HYPERLIPIDEMIA NEC/NOS 10/09/2016 Ot 401.9 HYPERTENSION NOS 10/09/2016 Ot V58.69 OTH MED,LT, CURRENT USE 10/09/2016 Ot 785.6 ENLARGEMENT LYMPH NODES 10/09/2016 Ot 786.59 CHEST PAIN NEC 10/09/2016 Ot 272.4 HYPERLIPIDEMIA NEC/NOS 10/09/2016 Ot 401.9 HYPERTENSION NOS 10/09/2016 Ot V58.69 OTH MED,LT, CURRENT USE 10/09/2016 BAIMA CALISTA L REEL WINDER Ot 272.4 HYPERLIPIDEMIA NEC/NOS 10/09/2016 BAIMA, CALISTA L REEL WINDER Ot 401.9 HYPERTENSION NOS 10/09/2016 TOAN HERNANDEZ, KATERIN Tan Ot 722.10 LUMBAR DISC DISPLACEMENT 10/09/2016 GERRY MENDOZA MD Ot 278.00 OBESITY, NOS 10/09/2016 GERRY MENDOZA MD Ot 401.9 HYPERTENSION NOS 10/09/2016 GERRY MENDOZA MD Ot 721.3 LUMBOSACRAL SPONDYLOSIS 10/09/2016 GERRY MENDOZA MD Ot 722.52 LUMB/LUMBOSAC DISC DEGEN 10/09/2016 GERRY MENDOZA MD Ot 729.1 MYALGIA AND MYOSITIS NOS 10/09/2016 GERRY MENDOZA MD Ot 756.12 SPONDYLOLISTHESIS 10/09/2016 GERRY MENDOZA MD, Ot V58.69 OTH MED,LT,CURRENT USE 10/09/2016 GERRY MENDOZA MD Ot V85.32 BODY MASS INDEX 32.0-32.9, ADULT 10/09/2016 GERRY MENDOZA MD Ot 278.00 OBESITY, NOS 10/09/2016 GERRY MENDOZA MD Ot 721.3 LUMBOSACRAL SPONDYLOSIS 10/09/2016 GERRY MENDOZA MD Ot 722.52 LUMB/LUMBOSAC DISC DEGEN 10/09/2016 GERRY MENDOZA MD Ot 729.1 MYALGIA AND MYOSITIS NOS 10/09/2016 GERRY MENDOZA MD Ot V58.69 OTH MED,LT,CURRENT USE 10/09/2016 GERRY MENDOZA MD Ot V85.31 BODY MASS INDEX 31.0-31.9, ADULT 10/09/2016 GERRY MENDOZA MD Ot 278.00 OBESITY, NOS 10/09/2016 GERRY MENDOZA MD Ot 721.3 LUMBOSACRAL SPONDYLOSIS 10/09/2016 GERRY MENDOZA MD Ot 722.52 LUMB/LUMBOSAC DISC DEGEN 10/09/2016 GERRY MENDOZA MD Ot 729.1 MYALGIA AND MYOSITIS NOS 10/09/2016 GERRY MENDOZA MD Ot V85.32 BODY MASS INDEX 32.0-32.9, ADULT 10/09/2016 BAIMA, CALISTA L REEL WINDER Ot 272.4 HYPERLIPIDEMIA NEC/NOS 10/09/2016 BAIMA, CALISTA L REEL WINDER Ot 401.9 HYPERTENSION NOS 10/09/2016 BAIMA, CALISTA L REEL WINDER Ot V58.69 OTH MED,LT,CURRENT USE 10/09/2016 WILLIAMSON TAWNY Sandi Ot V76.12 OTH SCREEN MAMMO-MALIGN NEOPLASM OF AMMY 10/09/2016 BAIMA, CALISTA L REEL WINDER Ot 272.4 HYPERLIPIDEMIA NEC/NOS 10/09/2016 BAIMA, CALISTA L REEL WINDER Ot 278.00 OBESITY, NOS 10/09/2016 BAIMA, CALISTA L REEL WINDER Ot 401.9 HYPERTENSION NOS 10/09/2016 BAIMA, CALISTA L REEL WINDER Ot 454.9 ASYMPTOMATIC VARICOSE VEINS 10/09/2016 BAIMA, CALISTA L REEL WINDER Ot 786.50 CHEST PAIN NOS 10/09/2016 MILY HERNANDEZ FACC, ALI FACP CCDS Ot 272.4 HYPERLIPIDEMIA NEC/NOS 10/09/2016 MILY HERNANDEZ FACC, ALI FACP CCDS Ot 276.1 HYPOSMOLALITY 10/09/2016 MILY HERNANDEZ FACC, ALI FACP CCDS Ot 278.00 OBESITY, NOS 10/09/2016 MILY HERNANDEZ FACC, ALI FACP CCDS Ot 401.9 HYPERTENSION NOS 10/09/2016 MILY HERNANDEZ FACC, ALI FACP CCDS Ot 454.9 ASYMPTOMATIC VARICOSE VEINS 10/09/2016 MILY HERNANDEZ FACC, ALI FACP CCDS Ot 786.50 CHEST PAIN NOS 10/09/2016 MILY HERNANDEZ FACC, ALI FACP CCDS Ot 272.4 HYPERLIPIDEMIA NEC/NOS 10/09/2016 MILY HERNANDEZ FACC, ALI FACP CCDS Ot 272.4 HYPERLIPIDEMIA NEC/NOS 10/09/2016 MILY HERNANDEZ FACC, ROSANNA FACP CCDS Ot 278.00 OBESITY, NOS 10/09/2016 MILY HERNANDEZ FACC, ROSANNA FACP CCDS Ot 401.9 HYPERTENSION NOS 10/09/2016 MILY HERNANDEZ FACC, ROSANNA FACP CCDS Ot 786.50 CHEST PAIN NOS 10/09/2016 MILY HERNANDEZ FACC, ROSANNA FACP CCDS Ot V85.31 BODY MASS INDEX 31.0-31.9, ADULT 10/09/2016 SHASTA HERNANDEZ, GISSEL Low Ot 592.0 CALCULUS OF KIDNEY 10/09/2016 SHASTA HERNANDEZ, GISSEL Low Ot V72.84 EXAM PRE-OPERATIVE NOS 10/09/2016 CATHY HUBBARD 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 Ot M25.562 PAIN IN LEFT KNEE 10/09/2016 GILBERT BENDER DO Ot Z01.818 ENCOUNTER FOR OTHER PREPROCEDURAL EXAMIN 10/09/2016 CALISTA PHAM REEL WINDER Ot I10 ESSENTIAL (PRIMARY) HYPERTENSION 10/12/2016 SHANE ARORA 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 Ot I10 ESSENTIAL (PRIMARY) HYPERTENSION 10/12/2016 SHANE ARORA 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 Ot L50.9 URTICARIA, UNSPECIFIED 10/12/2016 SHANE ARORA 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 Ot R21 RASH AND OTHER NONSPECIFIC SKIN ERUPTION 10/12/2016 SHANE ARORA 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 Ot Z79.899 OTHER SEED CORE OPERATOR (CURRENT) DRUG THERAPY 10/14/2016 SHANE ARORA 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 Ot I10 ESSENTIAL (PRIMARY) HYPERTENSION 10/14/2016 SHANE ARORA 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 Ot L50.9 URTICARIA, UNSPECIFIED 10/14/2016 SHANE ARORA 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 Ot R21 RASH AND OTHER NONSPECIFIC SKIN ERUPTION 10/14/2016 SHANE ARORA 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 Ot Z79.899 OTHER NURSING HOME (CURRENT) DRUG THERAPY 10/27/2016 MILY HERNANDEZ FACC, ROSANNA MORROWP CCDS Ot E78.4 OTHER HYPERLIPIDEMIA 10/27/2016 MILY HERNANDEZ FACC, ROSANNA FACP CCDS Ot I10 ESSENTIAL (PRIMARY) HYPERTENSION 10/27/2016 MILY HERNANDEZ FACC, ROSANNA FACP CCDS Ot I73.9 PERIPHERAL VASCULAR DISEASE, UNSPECIFIED 10/27/2016 MILY HERNANDEZ FACC, ROSANNA FACP CCDS Ot M79.1 MYALGIA 10/27/2016 SHANE ARORA 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 Ot I10 ESSENTIAL (PRIMARY) HYPERTENSION 10/27/2016 SHANE ARORA 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 Ot L50.9 URTICARIA, UNSPECIFIED 10/27/2016 SHANE ARROA 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 Ot R21 RASH AND OTHER NONSPECIFIC SKIN ERUPTION 10/27/2016 SHANE ARORA 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 Ot Z79.899 OTHER NURSING HOME (CURRENT) DRUG THERAPY 11/06/2016 MILY HERNANDEZ FACC, ROSANNA FACP CCDS Ot E78.4 OTHER HYPERLIPIDEMIA 11/06/2016 MILY HERNANDEZ FACC, ALI FACP CCDS Ot I10 ESSENTIAL (PRIMARY) HYPERTENSION 11/06/2016 MILY HERNANDEZ FACC, ROSANNA FACP CCDS Ot I73.9 PERIPHERAL VASCULAR DISEASE, UNSPECIFIED 11/06/2016 MILY HERNANDEZ FACC, ROSANNA FACP CCDS Ot M79.1 MYALGIA 11/06/2016 CATHY HUBBARD 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 Ot M75.81 OTHER SHOULDER LESIONS, RIGHT SHOULDER 11/06/2016 CATHY HUBBARD 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 Ot S46.811A STRAIN OF MUSC/FASC/TEND AT SHLDR/UP ARM 11/06/2016 CATHY HUBBARD 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 Ot X58.XXXA EXPOSURE TO OTHER SPECIFIED FACTORS, INI 11/06/2016 CATHY HUBBARD 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 Ot Y99.8 OTHER EXTERNAL CAUSE STATUS 11/06/2016 BAIMA, CALISTA L REEL WINDER Ot E78.5 HYPERLIPIDEMIA, UNSPECIFIED 11/06/2016 SAMMA, CALISTA L REEL WINDER Ot I10 ESSENTIAL (PRIMARY) HYPERTENSION 11/06/2016 BAIMA, CALISTA L REEL WINDER Ot R06.09 OTHER FORMS OF DYSPNEA 11/06/2016 BAIMA, CALISTA L REEL WINDER Ot R07.9 CHEST PAIN, UNSPECIFIED 11/06/2016 BAIMA, CALISTA L REEL WINDER Ot E78.5 HYPERLIPIDEMIA, UNSPECIFIED 11/06/2016 BAIMA, CALISTA L REEL WINDER Ot I10 ESSENTIAL (PRIMARY) HYPERTENSION 11/06/2016 MILY HERNANDEZ FACC, ROSANNA FACP CCDS Ot E78.4 OTHER HYPERLIPIDEMIA 11/06/2016 MILY HERNANDEZ FACC, ALI FACP CCDS Ot I10 ESSENTIAL (PRIMARY) HYPERTENSION 11/06/2016 MILY HERNANDEZ FACC, ROSANNA FACP CCDS Ot I73.9 PERIPHERAL VASCULAR DISEASE, UNSPECIFIED 11/06/2016 MILY HERNANDEZ FACC, ROSANNA FACP CCDS Ot M79.1 MYALGIA 12/02/2016 MILY HERNANDEZ FACC, ROSANNA FACP CCDS Ot E78.4 OTHER HYPERLIPIDEMIA 12/02/2016 MILY HERNANDEZ FACC, ALI FACP CCDS Ot I10 ESSENTIAL (PRIMARY) HYPERTENSION 12/02/2016 MILY HRENANDEZ FACC, ROSANNA FACP CCDS Ot I73.9 PERIPHERAL VASCULAR DISEASE, UNSPECIFIED 12/02/2016 MILY HERNANDEZ FACC, ROSANNA FACP CCDS Ot M79.1 MYALGIA 04/07/2017 CATHY HUBBARD 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 Ot M75.81 OTHER SHOULDER LESIONS, RIGHT SHOULDER 04/07/2017 CATHY HUBBARD 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 Ot S46.811A STRAIN OF MUSC/FASC/TEND AT SHLDR/UP ARM 04/07/2017 CATHY HUBBARD 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 Ot X58.XXXA EXPOSURE TO OTHER SPECIFIED FACTORS, INI 04/07/2017 CATHY HUBBARD 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 Ot Y99.8 OTHER EXTERNAL CAUSE STATUS 04/07/2017 BAIMA, CALISTA L REEL WINDER Ot E78.5 HYPERLIPIDEMIA, UNSPECIFIED 04/07/2017 BAIMA, CALISTA L REEL WINDER Ot I10 ESSENTIAL (PRIMARY) HYPERTENSION 04/07/2017 BAIMA, CALISTA L REEL WINDER Ot R06.09 OTHER FORMS OF DYSPNEA 04/07/2017 BAIMA, CALISTA L REEL WINDER Ot R07.9 CHEST PAIN, UNSPECIFIED 04/07/2017 BAIMA, CALISTA L REEL WINDER Ot E78.5 HYPERLIPIDEMIA, UNSPECIFIED 04/07/2017 BAIMA, CALISTA L REEL WINDER Ot I10 ESSENTIAL (PRIMARY) HYPERTENSION 04/07/2017 MILY HERNANDEZ FACC, ROSANNA FACP CCDS Ot E78.4 OTHER HYPERLIPIDEMIA 04/07/2017 MILY HERNANDEZ FACC, ROSANNA FACP CCDS Ot I10 ESSENTIAL (PRIMARY) HYPERTENSION 04/07/2017 MILY HERNANDEZ FACC, ROSANNA FACP CCDS Ot I73.9 PERIPHERAL VASCULAR DISEASE, UNSPECIFIED 04/07/2017 MILY HERNANDEZ FACC, ALI FACP CCDS Ot M79.1 MYALGIA 05/05/2017 HARMEET CONN MD Ot N63 UNSPECIFIED LUMP IN BREAST 06/14/2017 HARMEET CONN MD Ot Z20.89 CONTACT W AND EXPOSURE TO OTH COMMUNICAB 06/22/2017 SENIA HERNANDEZ, HARMEET C Ot Z20.89 CONTACT W AND EXPOSURE TO OTH COMMUNICAB 07/23/2017 CALISTA PHAM REEL WINDER Ot E66.8 OTHER OBESITY 07/23/2017 CALISTA PHAM REEL WINDER Ot E78.4 OTHER HYPERLIPIDEMIA 07/23/2017 CALISTA PHAM REEL WINDER Ot I10 ESSENTIAL (PRIMARY) HYPERTENSION 07/23/2017 CALISTA PHAM REEL WINDER Ot R00.2 PALPITATIONS 02/17/2018 BERNOT LYNDSEY Ot F41.9 ANXIETY DISORDER, UNSPECIFIED 02/17/2018 BERNOT, LYNDSEY Ot I10 ESSENTIAL (PRIMARY) HYPERTENSION 02/17/2018 BERNOT, LYNDSEY Ot K21.9 GASTRO-ESOPHAGEAL REFLUX DISEASE WITHOUT 02/17/2018 BERNOT, LYNDSEY Ot M25.562 PAIN IN LEFT KNEE 02/17/2018 BERNOT, LYNDSEY Ot 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 [ERAZO] 02/17/2018 BERNOT, LYNDSEY Ot Z79.52 SEED CORE OPERATOR (CURRENT) USE OF SYSTEMIC STER 02/17/2018 BERNOT, LYNDSEY Ot Z88.8 ALLERGY STATUS TO OTH DRUG/MEDS/BIOL SUB 02/17/2018 BERNOT, LYNDSEY Ot Z90.710 ACQUIRED ABSENCE OF BOTH CERVIX AND UTER 02/17/2018 BERNOT, LYNDSEY Ot Z98.890 OTHER SPECIFIED POSTPROCEDURAL STATES 02/22/2018 BERNOT, LYNDSEY Ot F41.9 ANXIETY DISORDER, UNSPECIFIED 02/22/2018 BERNOT, LYNDSEY Ot I10 ESSENTIAL (PRIMARY) HYPERTENSION 02/22/2018 BERNOT, LYNDSEY Ot K21.9 GASTRO-ESOPHAGEAL REFLUX DISEASE WITHOUT 02/22/2018 BERNOT, LYNDSEY Ot M25.562 PAIN IN LEFT KNEE 02/22/2018 BERNOT, LYNDSEY Ot 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 [ERAZO] 02/22/2018 BERNOT, LYNDSEY Ot Z79.52 NURSING HOME (CURRENT) USE OF SYSTEMIC STER 02/22/2018 BERNOT, LYNDSEY Ot Z88.8 ALLERGY STATUS TO OTH DRUG/MEDS/BIOL SUB 02/22/2018 BERNOT, LYNDSEY Ot Z90.710 ACQUIRED ABSENCE OF BOTH CERVIX AND UTER 02/22/2018 BERNOT, LYNDSEY Ot Z98.890 OTHER SPECIFIED POSTPROCEDURAL STATES Procedures There is no data. Results Test Result Range Complete blood count (CBC) with automated white blood cell (WBC) differential - 04/20/16 23:48 Blood leukocytes automated count (number/volume) 11.9 10*3/uL 4.3-11.0 Blood erythrocytes automated count (number/volume) 5.37 10*6/uL 4.35-5.85 Venous blood hemoglobin measurement (mass/volume) 15.7 g/dL 11.5-16.0 Blood hematocrit (volume fraction) 45 % 35-52 Automated erythrocyte mean corpuscular volume 85 [foz_us] 80-99 Automated erythrocyte mean corpuscular hemoglobin (mass per erythrocyte) 29 pg 25-34 Automated erythrocyte mean corpuscular hemoglobin concentration measurement ( mass/volume) 35 g/dL 32-36 Automated erythrocyte distribution width ratio 13.7 % 10.0-14.5 Automated blood platelet count (count/volume) 172 10*3/uL 130-400 Automated blood platelet mean volume measurement 11.6 [foz_us] 7.4-10.4 Automated blood neutrophils/100 leukocytes 76 % 42-75 Automated blood lymphocytes/100 leukocytes 15 % 12-44 Blood monocytes/100 leukocytes 7 % 0-12 Automated blood eosinophils/100 leukocytes 2 % 0-10 Automated blood basophils/100 leukocytes 0 % 0-10 Blood neutrophils automated count (number/volume) 9.0 10*3 1.8-7.8 Blood lymphocytes automated count (number/volume) 1.8 10*3 1.0-4.0 Blood monocytes automated count (number/volume) 0.9 10*3 0.0-1.0 Automated eosinophil count 0.2 10*3/uL 0.0-0.3 Automated blood basophil count (count/volume) 0.0 10*3/uL 0.0-0.1 Serum or plasma lithium measurement (moles/volume) - 04/20/16 23:48 BNP level 46.0 pg/mL <100.0 Comprehensive metabolic panel - 04/20/16 23:48 Serum or plasma sodium measurement (moles/volume) 138 mmol/L 135-145 Serum or plasma potassium measurement (moles/volume) 3.9 mmol/L 3.6-5.0 Serum or plasma chloride measurement (moles/volume) 105 mmol/L 98-107 Carbon dioxide 21 mmol/L 21-32 Serum or plasma anion gap determination (moles/volume) 12 mmol/L 5-14 Serum or plasma urea nitrogen measurement (mass/volume) 15 mg/dL 7-18 Serum or plasma creatinine measurement (mass/volume) 0.75 mg/dL 0.60-1.30 Serum or plasma urea nitrogen/creatinine mass ratio 20 NRG Serum or plasma creatinine measurement with calculation of estimated glomerular filtration rate > NRG Serum or plasma glucose measurement (mass/volume) 108 mg/dL 70-105 Serum or plasma calcium measurement (mass/volume) 9.8 mg/dL 8.5-10.1 Serum or plasma total bilirubin measurement (mass/volume) 0.6 mg/dL 0.1-1.0 Serum or plasma alkaline phosphatase measurement (enzymatic activity/volume) 102 U/L 40-136 Serum or plasma aspartate aminotransferase measurement (enzymatic activity/ volume) 21 U/L 5-34 Serum or plasma alanine aminotransferase measurement (enzymatic activity/volume ) 24 U/L 0-55 Serum or plasma protein measurement (mass/volume) 7.1 g/dL 6.4-8.2 Serum or plasma albumin measurement (mass/volume) 4.5 g/dL 3.2-4.5 Serum or plasma creatine kinase measurement (enzymatic activity/volume) - 04/20 23:48 Serum or plasma creatine kinase measurement (enzymatic activity/volume) 47 U/L 29-168 Serum or plasma creatine kinase MB measurement (enzymatic activity/volume) - 23:48 Serum or plasma creatine kinase MB measurement (enzymatic activity/volume) 0.8 ng/mL <6.6 Serum or plasma troponin i.cardiac measurement (mass/volume) - 04/20/16 23:48 Serum or plasma troponin i.cardiac measurement (mass/volume) < ng/ mL <0.30 PT panel in platelet poor plasma by coagulation assay - 04/20/16 23:48 Prothrombin time (PT) in platelet poor plasma by coagulation assay 11.8 s 12.2-14.7 INR in platelet poor plasma or blood by coagulation assay 0.9 0.8-1.4 Activated partial thromboplastin time (aPTT) in platelet poor plasma bycoagulation assay - 04/20/16 23:48 Activated partial thromboplastin time (aPTT) in platelet poor plasma bycoagulation assay 29 s 24-35 Methicillin resistant Staphylococcus aureus (MRSA) screening culture - 16:12 Methicillin resistant Staphylococcus aureus (MRSA) screening culture NEG NRG Encounters ACCT No. Visit Date/Time Discharge Status Pt. Type Provider Facility Loc./Unit Complaint [id number] 02/17/2018 20:16:00 02/17/2018 22:33:00 DIS Emergency LYNDSEY REGALADO [facility] ER L LEG PAIN [id number] 07/12/2017 11:10:00 07/12/2017 23:59:59 CLS Outpatient CALISTA PHAM [facility] LAB I10,E78.4,R00.2, E66.8 [id number] 06/11/2017 16:08:00 06/11/2017 23:59:59 CLS Outpatient HARMEET CONN MD [facility] LAB 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 [id number] 04/20/2017 07:29:00 04/20/2017 23:59:59 CLS Outpatient HARMEET CONN MD [facility] RAD KNOT OVER RT BREAST N63 [id number] 10/09/2016 12:52:00 10/09/2016 13:56:00 DIS Emergency SHANE ARORA 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 [facility] ER RASH [id number] 08/13/2016 13:02:00 08/31/2016 14:26:00 DIS Outpatient PACO SUNG DO [facility] REHAB RT SHLD PARTIAL ROTATOR CUFF TENDON TEAR [id number] 08/25/2016 12:42:00 08/25/2016 23:59:59 CLS Outpatient MILY HERNANDEZ FACCROSANNA FACP CCDS [facility] RAD LT LEG CLAUDICATION,HTN,HLP [id number] 07/07/2016 10:27:00 07/07/2016 23:59:59 CLS Outpatient CALISTA PHAM [facility] CARD BENSON,CHEST PAIN,HTN, HLP [id number] 07/02/2016 09:33:00 07/02/2016 23:59:59 CLS Outpatient CALISTA PHAMP [facility] CARD BENSON,CHEST PAIN,HTN, HLP [id number] 06/04/2016 13:57:00 06/04/2016 23:59:59 CLS Outpatient CATHY HUBBARD APRN [facility] RAD ACUTE PAIN OF RT SHOULDER [id number] 04/20/2016 22:50:00 04/21/2016 01:04:00 DIS Emergency KEESHA AMARILYS LOPEZ K [facility] ER SHAKY/EVELATED BP [id number] 03/19/2016 15:29:00 04/08/2016 11:54:00 DIS Outpatient RUBEN DE JESUS APRN [facility] REHAB S/P L KNEE SCOPE WITH PMM PLM SEVERE OA [id number] 02/11/2016 11:29:00 02/11/2016 16:27:00 DIS Outpatient PACO SUNG DO [place] LEFT KNEE PAIN [id number] 01/30/2016 14:25:00 01/30/2016 15:23:00 DIS Outpatient PACO SUNG DO [place] [facility] PREOP LEFT KNEE PAIN [id number] 12/18/2015 14:15:00 01/10/2016 11:10:00 DIS Outpatient RUBEN DE JESUS APRN [facility] REHAB L KNEE OA AND CHRONIC ACL TEAR [id number] 12/16/2015 15:59:00 12/16/2015 23:59:59 CLS Outpatient CALISTA PHAM REEL WINDER [facility] LAB HTN, [id number] 10/22/2015 09:44:00 10/22/2015 16:20:00 DIS [facility] [id number] 10/18/2015 08:26:00 10/18/2015 23:59:59 CLS Outpatient CATHY HUBBARD APRN [facility] RAD LEFT KNEE PAIN [id number] 10/18/2015 06:11:00 10/18/2015 23:59:59 CLS Outpatient GILBERT BENDER DO [facility] PREOP SCREENING [id number] 08/09/2015 10:01:00 08/09/2015 23:59:59 CLS Outpatient MIGUEL ANGEL ZINA LOPEZ [facility] LAB HTN,HLP,HYPONONTREMIA [id number] 12/24/2014 14:30:00 01/29/2015 15:40:00 DIS Outpatient ROHAN BOLTON MD [facility] REHAB ARTHRITIS L KNEE [id number] 01/16/2015 05:42:00 01/16/2015 23:59:59 CLS Outpatient CALISTA PHAM REEL WINDER [facility] LAB ANNUAL CHECK-UP [id number] 01/16/2015 00:11:00 01/16/2015 23:59:59 CLS Preadmit GISSEL VEGAS MD [facility] STONES [id number] 10/20/2014 10:00:00 01/15/2015 00:01:00 DIS Outpatient GISSEL VEGAS MD [facility] STONES [id number] 12/05/2014 14:19:00 12/20/2014 00:01:00 DIS Outpatient ROHAN BOLTON MD [facility] REHAB [id number] 12/14/2014 06:44:00 12/14/2014 07:50:00 DIS Outpatient GERRY MENDOZA MD [facility] CARD DDD [id number] 10/03/2014 05:47:00 10/03/2014 10:18:00 DIS Outpatient GISSEL VEGAS MD [facility] SDC [id number] 10/02/2014 05:52:00 10/02/2014 23:59:59 CLS Outpatient GISSEL VEGAS MD [facility] PREOP RIGHT RENAL STONE [id number] 09/18/2014 15:17:00 09/18/2014 23:59:59 CLS Outpatient TAWNY WILLIAMSON DO [facility] RAD [id number] 09/11/2014 16:40:00 09/11/2014 19:50:00 DIS Emergency AUGUSTO STOKES [facility] ER [id number] 08/22/2014 06:24:00 08/22/2014 08:48:00 DIS Emergency HERLINDA HERNANDEZ, NATALIA Kan [facility] ER POSS UTI,YOLIE,QUIÑONES [id number] 08/02/2014 07:26:00 08/02/2014 23:59:59 CLS Outpatient MILY HERNANDEZ FACC, ROSANNA DIXON CCDS [facility] CARD CHRONIC CP, HTN/HLP [id number] 07/26/2014 06:15:00 07/26/2014 23:59:59 CLS Outpatient MILY HERNANDEZ FACC, ROSANNA DIXON CCDS [facility] LAB HYPERLIPIDEMIA [id number] 06/22/2014 06:57:00 06/22/2014 08:04:00 DIS Outpatient GERRY MENDOZA MD [facility] CARD SIJD [id number] 03/31/2014 10:35:00 03/31/2014 12:33:00 DIS Emergency SHANE ARORA 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 [facility] ER NOT ABLE TO KEEP FOOD DOWN [id number] 03/16/2014 19:18:00 03/16/2014 20:05:00 DIS Emergency SHANE ARORA 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 [facility] ER FINGER PAIN [id number] 02/24/2014 13:51:00 02/24/2014 23:59:59 CLS Outpatient [id number] 02/13/2014 05:57:00 02/13/2014 23:59:59 CLS Outpatient MILY HERNANDEZ FACC, ROSANNA DIXON CCDS [facility] LAB HYPERLIPIDEMIA ,CHRONIC CP,HYPONATREMIA [id number] 02/09/2014 06:25:00 02/09/2014 07:31:00 DIS Outpatient GERRY MENDOZA MD [facility] CARD SACRAL ILLIAC JOINT DSYFUNCTION [id number] 02/02/2014 07:39:00 02/02/2014 23:59:59 CLS Outpatient CALISTA PHAM [facility] LAB HTN,HYPERLIPIDEMIA, CHRONIC CP, [id number] 12/20/2013 14:45:00 12/20/2013 15:36:00 DIS Outpatient GERRY MENDOZA MD [facility] REHAB LUMBAGO [id number] 09/19/2013 14:29:00 12/14/2013 00:01:00 DIS Outpatient GERRY MENDOZA MD [facility] REHAB LUMBAGO [id number] 11/24/2013 07:55:00 11/24/2013 08:53:00 DIS Outpatient GERRY MENDOZA MD [facility] CARD SIJ DYSFUNCTION [id number] 10/26/2013 19:15:00 10/26/2013 21:13:00 DIS Emergency AUGUSTO STOKES [facility] [facility] ER R FOOT SWELLING [id number] 09/22/2013 07:53:00 09/22/2013 08:46:00 DIS Outpatient GERRY MENDOZA MD [facility] CARD LUMBAR SPONDYLOSIS [id number] 08/08/2013 14:29:00 09/12/2013 00:01:00 DIS Outpatient GERRY MENDOZA MD [facility] REHAB LUMBAGO [id number] 09/08/2013 09:31:00 09/08/2013 23:59:59 CLS Outpatient TAWNY WILLIAMSON DO [facility] RAD SCREENING [id number] 08/04/2013 07:48:00 08/04/2013 23:59:59 CLS Outpatient GERRY MENDOZA MD [facility] CARD DDD LUMBAR [id number] 07/28/2013 07:15:00 07/28/2013 23:59:59 CLS Outpatient CALISTA PHAM [facility] LAB HYPERTENSION, HYPERLIPIDEMIA,STATIN [place] [id number] 07/07/2013 08:44:00 07/07/2013 23:59:59 CLS Outpatient GERRY MENDOZA MD [facility] CARD LUMBAR SPINAL STENOSIS [id number] 06/18/2013 18:27:00 06/18/2013 20:31:00 DIS Emergency ELINOR SOSA MD [facility] ER MULTIPLE COMPLAINTS [id number] 06/02/2013 08:31:00 06/02/2013 23:59:59 CLS Outpatient GERRY MENDOZA MD [facility] CARD DDD-LUMBAR [id number] 04/17/2013 12:25:00 04/17/2013 23:59:59 CLS Outpatient KATERIN JOYA MD [facility] RAD BACK PAIN, RADICULOPATHY [id number] 03/19/2013 17:59:00 03/19/2013 21:18:00 DIS Emergency [id number] 03/14/2013 17:47:00 03/14/2013 23:59:59 CLS Outpatient [id number] 01/29/2013 16:09:00 01/29/2013 23:59:59 CLS Outpatient [id number] 01/27/2013 09:50:00 01/27/2013 23:59:59 CLS Outpatient [id number] 01/27/2013 09:27:00 01/27/2013 23:59:59 CLS Outpatient CALISTA PHAM [facility] LAB HYPERTENSION, HYPERLIPIDEMIA,STATIN [place] [id number] 10/17/2014 14:24:00 Document Registration [id number] 12/03/2012 12:29:00 Document Registration [id number] 11/28/2012 11:32:00 Document Registration [id number] 08/12/2012 16:15:00 Document Registration [id number] 08/06/2012 21:06:00 Document Registration [id number] 07/29/2012 07:13:00 Document Registration [id number] 06/08/2012 18:09:00 Document Registration [id number] 03/10/2012 08:31:00 Document Registration [id number] 02/29/2012 20:50:00 Document Registration [id number] 01/22/2012 08:22:00 Document Registration [id number] 12/03/2011 18:27:00 Document Registration [id number] 07/31/2011 09:37:00 Document Registration [id number] 07/22/2011 17:55:00 Document Registration [id number] 06/09/2011 09:25:00 Document Registration [id number] 04/17/2011 08:42:00 Document Registration [id number] 01/16/2011 07:50:00 Document Registration [id number] 10/17/2010 07:03:00 Document Registration [id number] 09/26/2010 10:46:00 Document Registration [id number] 09/12/2010 08:41:00 Document Registration [id number] 08/29/2010 08:40:00 Document Registration [id number] 08/11/2010 14:06:00 Document Registration [id number] 08/11/2010 13:42:00 Document Registration [id number] 08/05/2010 13:31:00 Document Registration [id number] 07/31/2010 15:19:00 Document Registration [id number] 07/18/2010 07:57:00 Document Registration [id number] 07/08/2010 22:05:00 Document Registration [id number] 04/24/2009 10:00:00 Document Registration [id number] 04/15/2009 15:05:00 Document Registration [id number] 01/16/2015 07:20:02 ACT Document Registration
[2018-04-14] MEDS ORDERED: ENOXAPARIN 40 MG/0.4 ML (LOVENOX) SYR SC SCH (18:00)
[2018-04-14] MEDS: HYDROcodone/APAP 10 MG/325 MG (LORTAB) TAB PO PRN (18:01)
[2018-04-14 18:12] VITALS: BP 163/84
--- NOTE | 2018-04-14 19:27 | PM&R Post Admission Assessment ---
Post Admission Physician Asses Date seen by provider: Apr 14, 2018 Time seen by provider: 15:00 The preadmission screen agrees with the post admission assessment that the patient is a good candidate for inpatient rehabilitation. The patient will have a comprehensive program of inpatient rehabilitation with a goal of maximizing level of functional independence prior to discharge home with [facility]. The patient will have PT/OT ninety minutes per day, each discipline , five days a week for 10 days for gait, strengthening, conditioning, balance, ADLs, any patient/family/caregiver training as necessary. Speech therapy to do cognitive assessment and treat as indicated. Rehabilitation nursing to assist with bowel, bladder, skin, wound care, medication administration, pain management. Testing Machine Operator to assist with discharge planning, community reentry. SCD's and Lovenox SubCUT for DVT prophylaxis. She appears to be well motivated to participate in three hours of therapy a day. She should be able to tolerate three hours of therapy a day from a medical standpoint. She should benefit from the three hours of therapy a day. She has a reasonable discharge plan, reasonable discharge rehabilitation goals and a supportive family. She has various comorbidities that need to be closely monitored with medications and treatments adjusted on a daily basis as needed. These include: HTN Chronic back pain Barriers to discharge for this patient who had been independent prior to this are for her to be modified independent to supervision for ADLs and mobility skills prior to discharge home with [facility], so as to lessen the burden of the caregivers. Risks for this patient include: 1. Fall 2. Fracture 3. DVT 4. Pulmonary embolism 5. Wound infection 6. Skin breakdown 7. Contractures 8. Poorly controlled pain 9. Urinary retention 10. UTI 11. Respiratory infection 12. Aspiration 13. Poorly controlled HTN Estimated Length of Stay: 7 to 10 days Prognosis: Rehab prognosis appears good for goal of discharge home with [facility] modified independent to supervision for ADLs and mobility skills. General: Alert, Oriented X3, Cooperative, No Acute Distress HEENT: Atraumatic, PERRLA, EOMI, Mucous Memb Moist/[place] Neck: Supple, No JVD Lungs: Clear to Auscultation Heart: Regular Rate Abdomen: Normal Bowel Sounds, Soft, No Tenderness Extremities: No Edema (trace edema left ankle) Skin: Other (incision healing well) Neuro: Other (Limited Abduction and flexion at 90 degrees both shoulders and limited Flex left knee postop) OG LANGE MD Apr 14, 2018 19:27
[2018-04-14] MEDS: OXYBUTYNIN (DITROPAN) 5 MG TAB PO SCH (21:05)
[2018-04-14] MEDS: GABAPENTIN 300 MG (NEURONTIN) CAP PO SCH (21:05)
[2018-04-14] MEDS: ALPRAZolam 0.25 MG (XANAX) TAB PO PRN (21:05)
[2018-04-14] MEDS: BACLOFEN 10 MG (LIORESAL) TAB PO SCH (21:05)
[2018-04-14] MEDS: ATENOLOL 50 MG (TENORMIN) TAB PO SCH (21:05)
[2018-04-14] MEDS: ATORVASTATIN 40 MG (LIPITOR) TABLET PO SCH (21:05)
[2018-04-14] MEDS: SENNA W/DOCUSATE (SENOKOT S) TABLET PO SCH (21:06)
[2018-04-15] MEDS: HYDROcodone/APAP 10 MG/325 MG (LORTAB) TAB PO PRN ×2 (02:47→08:28)
[2018-04-15 06:17] VITALS: BP 131/63
[2018-04-15] MEDS: ASCORBIC ACID (VIT C) 500 MG TABLET PO SCH (06:27)
[2018-04-15] MEDS: BACLOFEN 10 MG (LIORESAL) TAB PO SCH ×3 (08:27→20:16)
[2018-04-15] MEDS: ASPIRIN E.C. 325 MG (ECOTRIN) TABLET PO SCH (08:27)
[2018-04-15] MEDS: OXYBUTYNIN (DITROPAN) 5 MG TAB PO SCH ×3 (08:27→20:16)
[2018-04-15] MEDS: lisINopril 40 MG (PRINIVIL) TABLET PO SCH (08:28)
[2018-04-15] MEDS: SENNA W/DOCUSATE (SENOKOT S) TABLET PO SCH ×2 (08:28→20:16)
[2018-04-15] MEDS: GABAPENTIN 300 MG (NEURONTIN) CAP PO SCH ×3 (08:28→20:16)
[2018-04-15] MEDS: ATENOLOL 50 MG (TENORMIN) TAB PO SCH ×2 (08:30→20:16)
[2018-04-15] MEDS: ENOXAPARIN 40 MG/0.4 ML (LOVENOX) SYR SC SCH (08:31)
--- NOTE | 2018-04-15 08:51 | Consultation ---
History of Present Illness History of Present Illness Patient Consulted On(tomy/time) 04/15/18 08:47 Time Seen by Provider: 08:50 History of Present Illness Patient had left knee total replacement surgery by Dr. Aguero orthopedic. Patient had OA. Patient has low back pain history to which is chronic. Patient had a complete hysterectomy previously Allergies and Home Medications Allergies Coded Allergies: meloxicam (Verified Allergy, Intermediate, RASH ALL OVER, 04/12/18) Penicillins (Verified Allergy, Unknown, 04/12/18) Home Medications Ascorbic Acid 500 Mg Tablet, 500 MG PO DAILY, (Reported) Atenolol 50 Mg Tablet, 50 MG PO BID, (Reported) Baclofen 10 Mg Tablet, 10 MG PO TID, (Reported) Gabapentin 300 Mg Capsule, 300 MG PO TID, (Reported) Hydrocodone/Acetaminophen 1 Each Tablet, 1 TAB PO Q6H PRN for PAIN-MODERATE, ( Reported) Lisinopril 40 Mg Tablet, 40 MG PO DAILY, (Reported) Lovastatin 20 Mg Tablet, 20 MG PO HS, (Reported) Oxybutynin Chloride 5 Mg Tablet, 5 MG PO TID, (Reported) Patient Home Medication List Home Medication List Reviewed: Yes Past Dsomstw-Opxkpb-Jjdbrs Hx Patient Social History Alcohol Use: Denies Use Recreational Drug Use: No Smoking Status: Never a Smoker 2nd Hand Smoke Exposure: No Recent Foreign Travel: No Contact w/Someone Who Travel: No Recent Infectious Disease Expo: No Recent Hopitalizations: No Immunizations Up To Date Tetanus Booster (TDap): Unknown PED Vaccines UTD: No Date of Influenza Vaccine: May 23, 2015 Seasonal Allergies Seasonal Allergies: No Past Medical History Surgeries: Yes (LEFT KNEE SCOPE) Hysterectomy, Orthopedic Respiratory: No Currently Using CPAP: No Currently Using BIPAP: No Cardiac: Yes Hypertension Neurological: No (rt upper arm neuropathy) 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 No Pertinent Family Hx Review of Systems-General Constitutional: no symptoms reported EENTM: no symptoms reported Respiratory: no symptoms reported Cardiovascular: no symptoms reported Gastrointestinal: no symptoms reported Genitourinary: no symptoms reported Physical Exam-General Problems Physical Exam Vital Signs Vital Signs - First Documented 04/14/18 14:30 Temp 97.6 Pulse 70 Resp 18 B/P (MAP) 160/72 (101) Pulse Ox 98 O2 Delivery Room Air Capillary Refill : General Appearance: WD/WN, no apparent distress Eyes: Bilateral Eye Normal Inspection HEENT: normal ENT inspection Neck: non-tender, full range of motion Respiratory: lungs clear, normal breath sounds, no respiratory distress, no accessory muscle use Cardiovascular: regular rate, rhythm, no JVD Gastrointestinal: non tender, soft Assessment/Plan Assessment/Plan Admission Diagnosis/Plan Recent surgery for left knee total replacement. Hypertension. Chronic low back pain Admission Status: Inpatient Order (span 2 midnights) Reason for Inpatient Admission: Needs PT and OT Clinical Quality Measures DVT/VTE Risk/Contraindication: Risk Factor Score Per Nursin RFS Level Per Nursing on Admit: 4+=Very High ANASTASIYA SAINZ DO Apr 15, 2018 08:51
--- NOTE | 2018-04-15 09:37 | PM & R (SOAP) Progress Note ---
Subjective This was a face to face visit with the patient. Date Seen by Provider: Apr 15, 2018 Time Seen by Provider: 08:10 Subjective/Events-last exam Patient was seen in her room this AM RN reports some N/V Zofran ordered Patient Min to mod assist for transfers Adjusting well to unit Review of Systems Gastrointestinal: Nausea Objective Physician Exam Last Set of Vital Signs Vital Signs Date Time Temp Pulse Resp B/P (MAP) Pulse Ox O2 Delivery O2 Flow Rate FiO2 04/15/18 08:34 Room Air 04/15/18 06:17 98.4 71 16 131/63 (85) 94 Capillary Refill : I&O Intake and Output 04/15/18 00:00 Daily Weight Change No General: Alert, Oriented X3, Cooperative, No Acute Distress HEENT: Atraumatic, PERRLA, EOMI, Mucous Memb Moist/[place] Neck: Supple, No JVD Lungs: Clear to Auscultation Heart: Regular Rate Abdomen: Normal Bowel Sounds, Soft, No Tenderness Extremities: No Edema (trace edema left ankle) Skin: Other (incision healing well) Neuro: Other (Limited Abduction and flexion at 90 degrees both shoulders and limited Flex left knee postop) Assessment/Plan Assessment and Plan OA s/p Left TKR HTN controlled Postop nausea-zofran Chronic back pain DVT Prophylaxis on Lovenox subcut Plan Continue PT/OT Zofran for nausea See orders F/U with ortho PRN Co-Morbidities that are continuing to impact the rehab process: (include details ) OG LANGE MD Apr 15, 2018 09:37
--- NOTE | 2018-04-15 09:55 | Physical Therapy Daily Note ---
PT Daily Note-Current Subjective "My stomach is flipping." Agrees to PT but reports nausea throughout treatment session Pain Numeric Pain Scale: 4 Location: Left Location Body Site: Knee Pain Description: Ache Mental Status Patient Orientation: Person, Place, Time, Situation Transfers Functional [place] Measure 0=Not Assessed/NA 4=Minimal Assistance 1=Total Assistance 5=Supervision or Setup 2=Maximal Assistance 6=Modified [place] 3=Moderate Assistance 7=Complete IndependenceIRFPAI Quality Coding Scale 6 Independent with activity with or without an assistive device 5 Patient requires set up or clean up by helper. Patient completes activity by themselves 4 Supervision or touching assist (CGA). [place] provide cues , steadying assist 3 The helper provides less than half the effort to complete the activity 2 The helper provides more than half the effort to complete the activity 1 Dependent. The helper does all the effort to complete an activity 7 Patient refused to complete or attempt activity 9 The patient did not perform the activity before the current illness or injury 88 Not attempted due to Medical conditions or safety concerns Transfers (B, C, W/C) (FIM): 4 Supine to/from Sit: 4 (assist with left leg) Sit to/from Stand: 4 (min assist and skilled cues for sequencing. ) Transfers take extra time and cues. Weight Bearing Right Lower Extremity: Right Full Weight Bearing Left Lower Extremity: Left Weight Bearing/Tolerated Gait Training Does the Patient Walk?: Yes Gait (FIM): 2 Distance: 25 ft, 15, 15, 30 ft Gait Assistive Device: FWW Slow gait; antalgic. Decreased heel strike left and toe off, decreased step length and velocity. Exercises NuStep Minutes: 10 (slow with limited knee flexion left) Treatments Functional transfers; toileted with min assist for toilet transfers; gait short distances; and nu step. Slow to complete tasks Assessment Current Status: Fair Progress Slow to complete all tasks due to nausea and pain. Pleasant and cooperative. Pt did become nauseated and vomited at start of treatmeht. PT Short Term Goals Short Term Goals Time Frame: Apr 18, 2018 Gait (FIM): 5 Distance (FIM): 3=150 ft Gait Assistive Device: FWW PT Half-Way Goals Entry Level Financial Analyst Goals PT Entry Level Financial Analyst Goals Time Frame: Apr 28, 2018 Transfers (B,C,W/C) (FIM): 6 Sit to Lying (QC): 6 Lying-Sitting on Side/Bed(QC): 6 Sit to Stand (QC): 6 Roll Left to Right (QC): 6 Chair/Jqq-pj-Hguyy Xfer(QC): 6 Car Transfer (QC): 6 Does the Patient Walk: Yes Gait (FIM): 6 Gait distance (FIM): 3=150 ft Walk 10 feet (QC): 6 Walk 10ft-Uneven Surface(QC): 6 Walk 50ft with 2 Turns (QC): 6 Walk 150 ft (QC): 6 Gait Assistive Device: FWW Does the Pt use WC or Scooter?: No Stairs (FIM): 5 (household exception) # of Steps: 8 1 Step (curb) (QC): 6 4 Steps (QC): 6 12 Steps (QC): 88 Stairs Level Of Assist: 6 Picking up an Object (QC): 5 PT Plan Problem List Problem List: Activity Tolerance, Functional Strength, Safety, Balance, Gait, Transfer, Bed Mobility Treatment/Plan Treatment Plan: Continue Plan of Care Treatment Plan: Bed Mobility, Education, Functional Activity Quan, Functional Strength, Group Therapy, Gait, Safety, Therapeutic Exercise, Transfers Treatment Duration: Apr 28, 2018 Frequency: Modified Program (IRF) Estimated Hrs Per Day: 1.5 hours per day Patient and/or Family Agrees t: Yes Safety Risks/Education Patient Education: Transfer Techniques, Safety Issues Teaching Recipient: Patient Teaching Methods: Discussion Response to Teaching: Reinforcement Needed Time/GCodes Time In: 850 Time Out: 950 Total Billed Treatment Time: 60 Total Billed Treatment visit FA 45 EX 15 CHIKIS ERWIN PT Apr 15, 2018 09:55
--- NOTE | 2018-04-15 11:10 | Occupational Ther Daily Note ---
OT Current Status-Daily Note Subjective Pt seen in room, up in w/c, agreeable to OT but nauseated. Said she had vomited earlier. Winces when she moves L leg but said she had pain meds recently. Appearance Apprehensive, cooperative Mental Status/Objective Functional [place] Measure 0=Not Assessed/NA 4=Minimal Assistance 1=Total Assistance 5=Supervision or Setup 2=Maximal Assistance 6=Modified [place] 3=Moderate Assistance 7=Complete [place] ADL-Treatment Pt agreeable to sponge bath and changing clothes. Washed and dried all parts except feet and bottom, with CGA when standing, taking extra time due to nausea. Doffed and donned top with setup. help to get slipper socks off and on, pants on/off over feet. transferred to bed with min assist sit to stand and help to get L leg into bed. Pt brushed teeth, combed hair setup once in bed. She said she felt better once she was in bed and agree to do UE exercise with red theraband, 10 reps bilat UE exercises for shoulders and elbows, to strengthen arms to help with transfers and walking. Pt left up in bed, all needs met. Functional [place] Measure 0=Not Assessed/NA 4=Minimal Assistance 1=Total Assistance 5=Supervision or Setup 2=Maximal Assistance 6=Modified [place] 3=Moderate Assistance 7=Complete IndependenceIRFPAI Quality Coding Scale 6 Independent with activity with or without an assistive device 5 Patient requires set up or clean up by helper. Patient completes activity by themselves 4 Supervision or touching assist (CGA). [place] provide cues , steadying assist 3 The helper provides less than half the effort to complete the activity 2 The helper provides more than half the effort to complete the activity 1 Dependent. The helper does all the effort to complete an activity 7 Patient refused to complete or attempt activity 9 The patient did not perform the activity before the current illness or injury 88 Not attempted due to Medical conditions or safety concerns Bathing (FIM): 3 (70%, sponge bath. CGA when standing to get charisma, FWW) Bathing Location: L Arm, R Arm, L Upper Leg, R Upper Leg, Chest, Abdomen, Perineal Area Shower/Bathe Self (QC): 3 Upper Body (FIM): 5 Upper Body Dressing (QC): 5 Lower Body Dressing (FIM): 2 (Help to get pants on over feet, CGA when pulling pants on up over hips. Help with slipper socks off and on. ) Lower Body Dressing (QC): 3 On/Off Footwear (QC): 1 Education OT Patient Education: Modified ADL techniques, Progress toward Goal/Update tx plan, Purpose of tx/functional activities, Safety issues, Transfer techniques Teaching Recipient: Patient Teaching Methods: Demonstration, Discussion Response to Teaching: Verbalize Understanding, Return Demonstration, Reinforcement Needed OT Short Term Goals Short Term Goals Time Frame: Apr 21, 2018 Toilet/Commode Transfer(FIM): 5 1=Demonstrate adherence to instructed precautions during ADL tasks. 2=Patient will verbalize/demonstrate understanding of assistive devices/ modifications for ADL. 3=Patient will improve strength/tolerance for activity to enable patient to perform ADL's. OT Senior Living Goals Cmo & President Goals Time Frame: Apr 29, 2018 Eating (FIM): 7 Eating (QC): 6 Groomin Oral Hygiene (QC): 6 Bathing(FIM): 6 Shower/Bathe Self (QC): 6 Upper Body Dressing(FIM): 6 Upper Body Dressing (QC): 6 Lower Body Dressing(FIM): 6 Lower Body Dressing (QC): 6 On/Off Footwear (QC): 6 Toileting(FIM): 6 Toileting Hygiene (QC): 6 Toilet/Commode Transfer(FIM): 6 Toilet/Commode Transfer (QC): 6 Tub Transfer(FIM): 6 (or shower) Shower Transfer(FIM): 6 (or tub) Additional Goals: 1-Demonstrate ADL Tasks, 2-Verbalize Understanding, 3- ImproveStrength/Quan 1=Demonstrate adherence to instructed precautions during ADL tasks. 2=Patient will verbalize/demonstrate understanding of assistive devices/ modifications for ADL. 3=Patient will improve strength/tolerance for activity to enable patient to perform ADL's. OT Education/Plan Problem List/Assessment Pt would benefit from skilled OT to increase her independence in basic self care to allow her to safely return home Discharge Recommendations Plan/Recommendations: Continue POC Treatment Plan/Plan of Care Patient would benefit from OT for education, treatment and training to promote independence in ADL's, mobility, safety and/or upper extremity function for ADL' s. Plan of Care: ADL Retraining, Functional Mobility, Group Exercise/Act as Ind ( education, exercise, activity tolerance, functional activity, functional mobility), UE Funct Exercise/Act, UE Neuromus Re-Ed/Coord Treatment Duration: Apr 29, 2018 Frequency: At least 5 of 7 days/Wk (IRF) Estimated Hrs Per Day: 1.5 hours per day Agreement: Yes Rehab Potential: Good Time/GCodes Start Time: 10:00 Stop Time: 11:00 Total Time Billed (hr/min): 60 Billed Treatment Time visit, 50 minutes ADL, 10 minutes exercise WENDY FARLEY OT Apr 15, 2018 11:10
[2018-04-15 11:13] LABS: HEMOGLOBIN 13.5 G/DL (11.5-16.0); MEAN PLATELET VOLUME 11.4 FL (7.4-10.4); RED BLOOD COUNT 4.52 10^6/uL (4.35-5.85); RED CELL DISTRIBUTION WIDTH 13.9 % (10.0-14.5); WHITE BLOOD COUNT 13.9 10^3/uL (4.3-11.0)
[2018-04-15 11:27] LABS: BUN/CREATININE RATIO 15; CALCIUM 9.6 MG/DL (8.5-10.1); CARBON DIOXIDE 23 MMOL/L (21-32); CHLORIDE 104 MMOL/L (98-107); CREATININE SERUM 0.66 MG/DL (0.60-1.30); GFR ESTIMATED > 60; GLUCOSE 109 MG/DL (70-105); POTASSIUM 4.3 MMOL/L (3.6-5.0); SODIUM 136 MMOL/L (135-145)
--- NOTE | 2018-04-15 15:00 | Therapy Group Daily Note ---
Therapy Daily Group Note Patient Education Topic Fall Prevention, Exercises, Other List Below (Community Safety) Exercises UE Exercise Other/Notes Pt was propelled to PT/OT Group in [facility]. Group consisted of Introductions (Name , Where you are from & What career/job did you want when you grew up?), Socialization, Fall Prevention Education, Community Safety Bingo as well as Pt led Seated UE Ex. Pt participated in Group by giving occupation she would chosen, completing EX and placing markers on bingo signs as called. Pt returns to room to rest at end of Group. Start Time: 13:00 Stop Time: 14:15 Total Billed Treatment Time: 75 Total Billed Treatment 1, GRP DEREKTRAN YOUSSEF WAFER SUBSTRATE TESTER Apr 15, 2018 15:00
--- NOTE | 2018-04-15 15:37 | Speech Therapy Daily Note ---
Speech Daily Progress Note Subjective Date Seen by Provider: Apr 15, 2018 Speech-Plan Treatment Plan Rehab Potential: TINO Carty Apr 15, 2018 15:37
--- NOTE | 2018-04-15 16:03 | Occupational Ther Daily Note ---
OT Current Status-Daily Note Subjective Pt seen in room, up in bed after lunch, agreeable to OT. No pain mentioned. Appearance Alert, cooperative Mental Status/Objective Functional [facility] Measure 0=Not Assessed/NA 4=Minimal Assistance 1=Total Assistance 5=Supervision or Setup 2=Maximal Assistance 6=Modified [facility] 3=Moderate Assistance 7=Complete [place] [facility] ADL-Treatment Pt was able to move to EOB with only help for L LE. Sit to stand min assist to transfer to [facility], with cues. Pt managed clothing with CGA and hygiene. transferred from [facility] to / with min assist, FWW, cues for hand placement. Pt transported to [facility] for group. Functional [facility] [facility] Measure 0=Not Assessed/NA 4=Minimal Assistance 1=Total Assistance 5=Supervision or Setup 2=Maximal Assistance 6=Modified [facility] 3=Moderate Assistance 7=Complete IndependenceIRFPAI Quality Coding Scale 6 Independent with activity with or without an assistive device 5 Patient requires set up or clean up by helper. Patient completes activity by themselves 4 Supervision or touching assist (CGA). [place] provide cues , steadying assist 3 The helper provides less than half the effort to complete the activity 2 The helper provides more than half the effort to complete the activity 1 Dependent. The helper does all the effort to complete an activity 7 Patient refused to complete or attempt activity 9 The patient did not perform the activity before the current illness or injury 88 Not attempted due to Medical conditions or safety concerns Toileting (FIM): 4 (CGA, BSC, FWW) Toileting Hygiene (QC): 4 (CGA) Toilet/Commode Transfer (FIM): 4 (CGA, BSC, FWW) Toilet Transfer (QC): 4 (CGA) Education OT Patient Education: Modified ADL techniques, Progress toward Goal/Update tx plan, Purpose of tx/functional activities, Transfer techniques Teaching Recipient: Patient Teaching Methods: Demonstration, Discussion Response to Teaching: Verbalize Understanding, Return Demonstration, Reinforcement Needed OT Short Term Goals Short Term Goals Time Frame: Apr 21, 2018 Toilet/Commode Transfer(FIM): 5 1=Demonstrate adherence to instructed precautions during ADL tasks. 2=Patient will verbalize/demonstrate understanding of assistive devices/ modifications for ADL. 3=Patient will improve strength/tolerance for activity to enable patient to perform ADL's. OT Process Server Goals Halfway Goals Time Frame: Apr 29, 2018 Eating (FIM): 7 Eating (QC): 6 Groomin Oral Hygiene (QC): 6 Bathing(FIM): 6 Shower/Bathe Self (QC): 6 Upper Body Dressing(FIM): 6 Upper Body Dressing (QC): 6 Lower Body Dressing(FIM): 6 Lower Body Dressing (QC): 6 On/Off Footwear (QC): 6 Toileting(FIM): 6 Toileting Hygiene (QC): 6 Toilet/Commode Transfer(FIM): 6 Toilet/Commode Transfer (QC): 6 Tub Transfer(FIM): 6 (or shower) Shower Transfer(FIM): 6 (or tub) Additional Goals: 1-Demonstrate ADL Tasks, 2-Verbalize Understanding, 3- ImproveStrength/Quan 1=Demonstrate adherence to instructed precautions during ADL tasks. 2=Patient will verbalize/demonstrate understanding of assistive devices/ modifications for ADL. 3=Patient will improve strength/tolerance for activity to enable patient to perform ADL's. OT Education/Plan Problem List/Assessment Pt would benefit from skilled OT to increase her independence in basic self care to allow her to safely return home Discharge Recommendations Plan/Recommendations: Continue POC Treatment Plan/Plan of Care Patient would benefit from OT for education, treatment and training to promote independence in ADL's, mobility, safety and/or upper extremity function for ADL' s. Plan of Care: ADL Retraining, Functional Mobility, Group Exercise/Act as Ind ( education, exercise, activity tolerance, functional activity, functional mobility), UE Funct Exercise/Act, UE Neuromus Re-Ed/Coord Treatment Duration: Apr 29, 2018 Frequency: At least 5 of 7 days/Wk (IRF) Estimated Hrs Per Day: 1.5 hours per day Agreement: Yes Rehab Potential: Good Time/GCodes Start Time: 12:45 Stop Time: 13:00 Total Time Billed (hr/min): 15 Billed Treatment Time visit, 15 minutes WENDY MCLAIN OT Apr 15, 2018 16:03
[2018-04-15 18:29] VITALS: BP 110/72
[2018-04-15] MEDS: MILK OF MAGNESIA 400 MG/5 ML 30 ML UDC PO PRN (20:16)
[2018-04-15] MEDS: ATORVASTATIN 40 MG (LIPITOR) TABLET PO SCH (20:16)
[2018-04-16 04:48] VITALS: BP 123/79
[2018-04-16] MEDS: ASCORBIC ACID (VIT C) 500 MG TABLET PO SCH (06:37)
--- NOTE | 2018-04-16 08:26 | PM & R (SOAP) Progress Note ---
Subjective This was a face to face visit with the patient. Date Seen by Provider: Apr 16, 2018 Time Seen by Provider: 07:30 Subjective/Events-last exam Patient was seen in her room this AM No further N/V but c/o constipation Discussed with RN last evening No reported BM for 4 days according to paiient.Abdomen non- tender.Patient Min assist for transfers Review of Systems Gastrointestinal: Constipation Objective Physician Exam Last Set of Vital Signs Vital Signs Date Time Temp Pulse Resp B/P (MAP) Pulse Ox O2 Delivery O2 Flow Rate FiO2 04/16/18 04:48 98.5 74 18 123/79 (94) 94 Room Air Capillary Refill : I&O Intake and Output 04/16/18 00:00 Intake Total 1750 ml Balance 1750 ml Intake Oral 1750 ml # Voids 8 General: Alert, Oriented X3, Cooperative, No Acute Distress HEENT: Atraumatic, PERRLA, EOMI, Mucous Memb Moist/[place] Neck: Supple, No JVD Lungs: Clear to Auscultation Heart: Regular Rate Abdomen: Normal Bowel Sounds, Soft, No Tenderness Extremities: No Edema (trace edema left ankle) Skin: Other (incision healing well) Neuro: Other (Limited Abduction and flexion at 90 degrees both shoulders and limited Flex left knee postop) Results Lab Data Laboratory Tests 04/15/18 11:05: White Blood Count 13.9H, Red Blood Count 4.52, Hemoglobin 13.5, Hematocrit 39, Mean Corpuscular Volume 85, Mean Corpuscular Hemoglobin 30, Mean Corpuscular Hemoglobin Concent 35, Red Cell Distribution Width 13.9, Platelet Count 204, Mean Platelet Volume 11.4H, Sodium Level 136, Potassium Level 4.3, Chloride Level 104, Carbon Dioxide Level 23, Anion Gap 9, Blood Urea Nitrogen 10, Creatinine 0.66, Estimat Glomerular Filtration Rate > 60, BUN/Creatinine Ratio 15, Glucose Level 109H, Calcium Level 9.6 Assessment/Plan Assessment and Plan OA s/p left TKR DR Aguero Postop constipation meds adjusted Postop nausea resolved Chronic back pain DVT prophylaxis on lovenox subcut Plan Continue PT/OT Team Conference 04-20-18 Meds adjusted for constipation F/U with PCP and Ortho prn Co-Morbidities that are continuing to impact the rehab process: (include details ) OG LANGE MD Apr 16, 2018 08:26
[2018-04-16] MEDS: ASPIRIN E.C. 325 MG (ECOTRIN) TABLET PO SCH (08:55)
[2018-04-16] MEDS: lisINopril 40 MG (PRINIVIL) TABLET PO SCH (08:55)
[2018-04-16] MEDS: GABAPENTIN 300 MG (NEURONTIN) CAP PO SCH ×3 (08:55→20:48)
[2018-04-16] MEDS: ENOXAPARIN 40 MG/0.4 ML (LOVENOX) SYR SC SCH (08:55)
[2018-04-16] MEDS: BISACODYL 5 MG (DULCOLAX) TABLET PO SCH (08:56)
[2018-04-16] MEDS: SENNA W/DOCUSATE (SENOKOT S) TABLET PO SCH ×2 (08:56→20:48)
[2018-04-16] MEDS: OXYBUTYNIN (DITROPAN) 5 MG TAB PO SCH ×3 (08:56→20:48)
[2018-04-16] MEDS: ATENOLOL 50 MG (TENORMIN) TAB PO SCH ×2 (08:56→20:50)
[2018-04-16] MEDS: BACLOFEN 10 MG (LIORESAL) TAB PO SCH ×3 (08:56→20:48)
--- NOTE | 2018-04-16 09:41 | Physical Therapy Daily Note ---
PT Daily Note-Current Subjective Pt in bed, agreeable. Pain not rated, reports nausea is better. Mental Status Patient Orientation: Person, Place, Time, Situation Transfers Functional [place] Measure 0=Not Assessed/NA 4=Minimal Assistance 1=Total Assistance 5=Supervision or Setup 2=Maximal Assistance 6=Modified [place] 3=Moderate Assistance 7=Complete IndependenceIRFPAI Quality Coding Scale 6 Independent with activity with or without an assistive device 5 Patient requires set up or clean up by helper. Patient completes activity by themselves 4 Supervision or touching assist (CGA). [place] provide cues , steadying assist 3 The helper provides less than half the effort to complete the activity 2 The helper provides more than half the effort to complete the activity 1 Dependent. The helper does all the effort to complete an activity 7 Patient refused to complete or attempt activity 9 The patient did not perform the activity before the current illness or injury 88 Not attempted due to Medical conditions or safety concerns Transfers (B, C, W/C) (FIM): 4 Scootin Supine to/from Sit: 4 Sit to/from Stand: 4 Sit to Lying (QC): 4 Sit to Stand (QC): 4 Weight Bearing Right Lower Extremity: Right Full Weight Bearing Left Lower Extremity: Left Weight Bearing/Tolerated Gait Training Does the Patient Walk?: Yes Gait (FIM): 4 Distance (FIM): 1=234-56 ft Distance: 75 Walk 10 feet (QC): 4 Walk 50 ft with 2 Turns(QC): 4 Gait Level of Assist: 4 Gait Persons Needed: 1 Gait Assistive Device: FWW Pt ambulates with very slow, step-to gait with decreased TKE on (L) with decreased stance time on (L). Skilled VCS for heel-toe gait and TKE with limited improvement this date. Wheelchair Training Does the Pt Use a Wheelchair?: No Exercises NuStep Minutes: 10 NuStep Workload: 4 Treatments Gait training with FWW, NuStep for ROM. Placed in CPM -3-50 degrees post treatment. Good fit achieved with Pt uncomfortable at 50 degrees flexion. Needs met. Assessment Current Status: Poor Progress Pt tolerate fair. Very limited knee ROM on (L) on NuStep despite max VCS. Increased gait distance but with significant antalgia, little correction with skilled VCS this date. PT Short Term Goals Short Term Goals Time Frame: Apr 18, 2018 Gait (FIM): 5 Distance (FIM): 3=150 ft Gait Assistive Device: FWW PT Senior Living Goals Tool And Machine Maintainer Goals PT Tool And Machine Maintainer Goals Time Frame: Apr 28, 2018 Transfers (B,C,W/C) (FIM): 6 Sit to Lying (QC): 6 Lying-Sitting on Side/Bed(QC): 6 Sit to Stand (QC): 6 Roll Left to Right (QC): 6 Chair/Mlg-bi-Vtsxz Xfer(QC): 6 Car Transfer (QC): 6 Does the Patient Walk: Yes Gait (FIM): 6 Gait distance (FIM): 3=150 ft Walk 10 feet (QC): 6 Walk 10ft-Uneven Surface(QC): 6 Walk 50ft with 2 Turns (QC): 6 Walk 150 ft (QC): 6 Gait Assistive Device: FWW Does the Pt use WC or Scooter?: No Stairs (FIM): 5 (household exception) # of Steps: 8 1 Step (curb) (QC): 6 4 Steps (QC): 6 12 Steps (QC): 88 Stairs Level Of Assist: 6 Picking up an Object (QC): 5 PT Plan Problem List Problem List: Activity Tolerance, Functional Strength, Safety, Balance, Gait, Transfer, Bed Mobility, ROM Treatment/Plan Treatment Plan: Continue Plan of Care Treatment Plan: Bed Mobility, Education, Functional Activity Quan, Functional Strength, Group Therapy, Gait, Safety, Therapeutic Exercise, Transfers Treatment Duration: Apr 28, 2018 Frequency: Modified Program (IRF) Estimated Hrs Per Day: 1.5 hours per day Patient and/or Family Agrees t: Yes Safety Risks/Education Patient Education: Gait Training Teaching Recipient: Patient Teaching Methods: Demonstration, Discussion Response to Teaching: Reinforcement Needed Discharge Recommendations Barriers to Progress Pt self limits ROM due to pain Time/GCodes Time In: 0852 Time Out: 32 Total Billed Treatment Time: 40 Total Billed Treatment 1, GT x 28', Ex x 12' G Codes Necessary: RONALD Pan DPT Apr 16, 2018 09:41
[2018-04-16] MEDS: HYDROcodone/APAP 10 MG/325 MG (LORTAB) TAB PO PRN (10:11)
--- NOTE | 2018-04-16 11:37 | Occupational Ther Daily Note ---
OT Current Status-Daily Note Subjective Pt. does not report pain level, but states that she is very "shaky." Appearance Pt. is in bed. Eating lunch and has just finished PT. Agrees to shower. Mental Status/Objective Patient Orientation: Person, Place Functional [place] Measure 0=Not Assessed/NA 4=Minimal Assistance 1=Total Assistance 5=Supervision or Setup 2=Maximal Assistance 6=Modified [place] 3=Moderate Assistance 7=Complete [place] ADL-Treatment Functional [place] Measure 0=Not Assessed/NA 4=Minimal Assistance 1=Total Assistance 5=Supervision or Setup 2=Maximal Assistance 6=Modified [place] 3=Moderate Assistance 7=Complete IndependenceIRFPAI Quality Coding Scale 6 Independent with activity with or without an assistive device 5 Patient requires set up or clean up by helper. Patient completes activity by themselves 4 Supervision or touching assist (CGA). [place] provide cues , steadying assist 3 The helper provides less than half the effort to complete the activity 2 The helper provides more than half the effort to complete the activity 1 Dependent. The helper does all the effort to complete an activity 7 Patient refused to complete or attempt activity 9 The patient did not perform the activity before the current illness or injury 88 Not attempted due to Medical conditions or safety concerns Eating (FIM): 6 Eating (QC): 6 Bathing (FIM): 4 (Assist to wash rear charisma area.) Shower/Bathe Self (QC): 4 Upper Body (FIM): 5 (Set up) Upper Body Dressing (QC): 5 Toileting (FIM): 4 (Assist in stance and min assist to wash rear charisma area after toileting.) Toileting Hygiene (QC): 4 Transfers (B, C, W/C) (FIM): 4 Toilet/Commode Transfer (FIM): 4 Toilet Transfer (QC): 4 Other Treatment Pt. transfer from supine-sit with min assist. Requires increased time to transfer to standing with walker and min assist. Begins to ambulate into bathroom but reports that she feels shaky. Requests to use the bathroom. Pt. states that she feels unsteady. Requires increased time to transfer to toilet. OT offers to bring in yeh of hot soapy water and assist her in bathroom, instead of showering due to current state. Pt. agrees to this. While pt. has pants pulled down, is able to wash and dry front charisma area but unable to cleanse rear. OT does this for her. Pt. able to pull up pants in stance. Transfers to chair at sink. Pt. able to doff shirt, wash Upper body, and don shirt. Requests to lay back down. Ambulated slowly back to bed. Transferred with min assist to get left LE back into bed. All needs met in bed. Pt. is in clean clothing. Education OT Patient Education: Correct positioning, Modified ADL techniques, Progress toward Goal/Update tx plan, Purpose of tx/functional activities, Reviewed precautions, Rehab process, Transfer techniques Teaching Recipient: Patient Teaching Methods: Demonstration, Discussion Response to Teaching: Verbalize Understanding, Return Demonstration OT Short Term Goals Short Term Goals Time Frame: Apr 21, 2018 Toilet/Commode Transfer(FIM): 5 1=Demonstrate adherence to instructed precautions during ADL tasks. 2=Patient will verbalize/demonstrate understanding of assistive devices/ modifications for ADL. 3=Patient will improve strength/tolerance for activity to enable patient to perform ADL's. OT Chcf Goals Kitchen Chef Goals Time Frame: Apr 29, 2018 Eating (FIM): 7 Eating (QC): 6 Groomin Oral Hygiene (QC): 6 Bathing(FIM): 6 Shower/Bathe Self (QC): 6 Upper Body Dressing(FIM): 6 Upper Body Dressing (QC): 6 Lower Body Dressing(FIM): 6 Lower Body Dressing (QC): 6 On/Off Footwear (QC): 6 Toileting(FIM): 6 Toileting Hygiene (QC): 6 Toilet/Commode Transfer(FIM): 6 Toilet/Commode Transfer (QC): 6 Tub Transfer(FIM): 6 (or shower) Shower Transfer(FIM): 6 (or tub) Additional Goals: 1-Demonstrate ADL Tasks, 2-Verbalize Understanding, 3- ImproveStrength/Quan 1=Demonstrate adherence to instructed precautions during ADL tasks. 2=Patient will verbalize/demonstrate understanding of assistive devices/ modifications for ADL. 3=Patient will improve strength/tolerance for activity to enable patient to perform ADL's. OT Education/Plan Problem List/Assessment Assessment: Decreased Activ Tolerance, Dependent Transfers, Impaired Bed Mobility, Impaired Cognition, Impaired Funct Balance, Impaired I ADL's, Impaired Self-Care Skills Pt would benefit from skilled OT to increase her independence in basic self care to allow her to safely return home Discharge Recommendations Plan/Recommendations: Continue POC Therapy D/C Recommendations: Home w/ Family Support, Occupational Therapy Home Care, Scheduled Assistance Treatment Plan/Plan of Care Treatment,Training & Education: Yes Patient would benefit from OT for education, treatment and training to promote independence in ADL's, mobility, safety and/or upper extremity function for ADL' s. Plan of Care: ADL Retraining, Functional Mobility, Group Exercise/Act as Ind ( education, exercise, activity tolerance, functional activity, functional mobility), UE Funct Exercise/Act, UE Neuromus Re-Ed/Coord Treatment Duration: Apr 29, 2018 Frequency: At least 5 of 7 days/Wk (IRF) Estimated Hrs Per Day: 1.5 hours per day Agreement: Yes Rehab Potential: Good Time/GCodes Start Time: 10:30 Stop Time: 11:05 Total Time Billed (hr/min): 35 Billed Treatment Time 1, ADL x 2 BRANNON CHILDS OT Apr 16, 2018 11:37
[2018-04-16] MEDS: MILK OF MAGNESIA 400 MG/5 ML 30 ML UDC PO PRN (16:58)
[2018-04-16 17:46] VITALS: BP 100/65
[2018-04-16 20:20] VITALS: BP 97/62
[2018-04-16] MEDS: ATORVASTATIN 40 MG (LIPITOR) TABLET PO SCH (20:48)
[2018-04-17] MEDS: HYDROcodone/APAP 10 MG/325 MG (LORTAB) TAB PO PRN ×2 (02:34→14:40)
[2018-04-17 05:49] VITALS: BP 125/75
[2018-04-17] MEDS: ASCORBIC ACID (VIT C) 500 MG TABLET PO SCH (05:58)
[2018-04-17] MEDS: ASPIRIN E.C. 325 MG (ECOTRIN) TABLET PO SCH (08:30)
[2018-04-17] MEDS: BACLOFEN 10 MG (LIORESAL) TAB PO SCH ×3 (08:30→20:17)
[2018-04-17] MEDS: lisINopril 40 MG (PRINIVIL) TABLET PO SCH (08:30)
[2018-04-17] MEDS: GABAPENTIN 300 MG (NEURONTIN) CAP PO SCH ×3 (08:30→20:17)
[2018-04-17] MEDS: OXYBUTYNIN (DITROPAN) 5 MG TAB PO SCH ×3 (08:30→20:17)
[2018-04-17] MEDS: SENNA W/DOCUSATE (SENOKOT S) TABLET PO SCH ×3 (08:30→20:17)
[2018-04-17] MEDS: BISACODYL 5 MG (DULCOLAX) TABLET PO SCH (08:30)
[2018-04-17] MEDS: ENOXAPARIN 40 MG/0.4 ML (LOVENOX) SYR SC SCH (08:30)
[2018-04-17] MEDS: ATENOLOL 50 MG (TENORMIN) TAB PO SCH ×2 (08:30→20:17)
[2018-04-17] MEDS ORDERED: LACTULOSE SYRUP 10GM/15ML (ENULOSE) 30ML UDC PO NR (12:15)
[2018-04-17] MEDS ORDERED: POLYETHYLENE GLYCOL 17 GM (MIRALAX) PACK PO NR (12:15)
[2018-04-17 18:20] VITALS: BP 112/51
[2018-04-17] MEDS: ATORVASTATIN 40 MG (LIPITOR) TABLET PO SCH (20:17)
[2018-04-17] MEDS: LACTULOSE SYRUP 10GM/15ML (ENULOSE) 30ML UDC PO SCH (20:23)
[2018-04-17] MEDS: POLYETHYLENE GLYCOL 17 GM (MIRALAX) PACK PO SCH (20:23)
[2018-04-18] MEDS: ASCORBIC ACID (VIT C) 500 MG TABLET PO SCH (06:19)
[2018-04-18 06:45] VITALS: BP 130/76
[2018-04-18 08:22] VITALS: BP 130/80
[2018-04-18] MEDS: ASPIRIN E.C. 325 MG (ECOTRIN) TABLET PO SCH (08:23)
[2018-04-18] MEDS: GABAPENTIN 300 MG (NEURONTIN) CAP PO SCH ×3 (08:23→20:31)
[2018-04-18] MEDS: OXYBUTYNIN (DITROPAN) 5 MG TAB PO SCH ×3 (08:23→20:31)
[2018-04-18] MEDS: ATENOLOL 50 MG (TENORMIN) TAB PO SCH ×2 (08:23→20:31)
[2018-04-18] MEDS: BACLOFEN 10 MG (LIORESAL) TAB PO SCH ×3 (08:23→20:31)
[2018-04-18] MEDS: lisINopril 40 MG (PRINIVIL) TABLET PO SCH (08:23)
[2018-04-18] MEDS: BISACODYL 5 MG (DULCOLAX) TABLET PO SCH (08:24)
[2018-04-18] MEDS: POLYETHYLENE GLYCOL 17 GM (MIRALAX) PACK PO SCH ×2 (08:25→20:31)
[2018-04-18] MEDS: ENOXAPARIN 40 MG/0.4 ML (LOVENOX) SYR SC SCH (08:25)
[2018-04-18] MEDS: LACTULOSE SYRUP 10GM/15ML (ENULOSE) 30ML UDC PO SCH ×2 (08:25→20:31)
[2018-04-18] MEDS: HYDROcodone/APAP 10 MG/325 MG (LORTAB) TAB PO PRN (08:26)
[2018-04-18] MEDS: SENNA W/DOCUSATE (SENOKOT S) TABLET PO SCH ×2 (08:35→20:31)
--- NOTE | 2018-04-18 08:35 | Progress Note (SOAP) ---
Subjective Time Seen by Provider: 08:30 Subjective/Events-last exam Patient had a little dizziness over the weekend. Patient feeling good this morning. Patient improving Objective Exam Vital Signs Date Time Temp Pulse Resp B/P (MAP) Pulse Ox O2 Delivery O2 Flow Rate FiO2 04/18/18 06:45 98.2 70 18 130/76 (94) 96 Room Air 04/17/18 20:10 Room Air 04/17/18 18:20 97.5 69 16 112/51 (71) 96 Room Air 04/17/18 08:46 99 Room Air I & O 04/18/18 07:00 Intake Total 1730 ml Balance 1730 ml Capillary Refill : General Appearance: No Apparent Distress, WD/WN HEENT: Normal ENT Inspection Neck: Full Range of Motion, Normal Inspection Respiratory: No Accessory Muscle Use, No Respiratory Distress Cardiovascular: Regular Rate, Rhythm Gastrointestinal: non tender, soft Assessment/Plan Assessment/Plan Assess & Plan/Chief Complaint Recent surgery for left knee total replacement. Hypertension. Chronic low back pain. . 04/18/18. Left knee total replacement. Hypertension. Chronic low back pain. Patient feeling good today. Patient had a little dizziness during the weekend to monitor Clinical Quality Measures DVT/VTE Risk/Contraindication: Risk Factor Score Per Nursin RFS Level Per Nursing on Admit: 4+=Very High ANASTASIYA SAINZ DO Apr 18, 2018 08:35
--- NOTE | 2018-04-18 11:26 | Physical Therapy Daily Note ---
PT Daily Note-Current Subjective Agrees to PT. Reports she is not as nauseated today as she has been. Pain Numeric Pain Scale: 4 Location: Left Location Body Site: Knee Pain Description: Ache Mental Status Patient Orientation: Person, Place, Time, Situation Transfers Functional [place] Measure 0=Not Assessed/NA 4=Minimal Assistance 1=Total Assistance 5=Supervision or Setup 2=Maximal Assistance 6=Modified [place] 3=Moderate Assistance 7=Complete IndependenceIRFPAI Quality Coding Scale 6 Independent with activity with or without an assistive device 5 Patient requires set up or clean up by helper. Patient completes activity by themselves 4 Supervision or touching assist (CGA). [place] provide cues , steadying assist 3 The helper provides less than half the effort to complete the activity 2 The helper provides more than half the effort to complete the activity 1 Dependent. The helper does all the effort to complete an activity 7 Patient refused to complete or attempt activity 9 The patient did not perform the activity before the current illness or injury 88 Not attempted due to Medical conditions or safety concerns Transfers (B, C, W/C) (FIM): 4 Roll Left to Right (QC): 5 Supine to/from Sit: 4 (assist with left leg) Sit to/from Stand: 4 (CGA; takes extra time and multiple attempts) Sit to Lying (QC): 4 Sit to Stand (QC): 4 Chair/Tsm-qn-Fmjdz Xfer(QC): 4 Weight Bearing Right Lower Extremity: Right Full Weight Bearing Left Lower Extremity: Left Weight Bearing/Tolerated Gait Training Does the Patient Walk?: Yes Gait (FIM): 4 Distance (FIM): 3=150 ft Distance: 150 ft x 2; 50 ft x 2 Walk 10 feet (QC): 4 Walk 50 ft with 2 Turns(QC): 4 Walk 150 ft (QC): 4 Gait Assistive Device: FWW slow gait with decreased heel strike and toe off; tends to keep knee in a stiff position with gait. Slow gait. Wheelchair Training Does the Pt Use a Wheelchair?: No Exercises Supine Ex: Ankle pumps, Quad Set, Heel Slides (AAROM), Short Arc Quads, Hip abd /add Supine Reps: 10 (to promote left knee AROM and functional strength to normalize gait pattern) NuStep Minutes: 15 (to promote left knee flexion) Treatments toileted with SBA for pericare and clothing management; CGA with transfers. Assessment Current Status: Fair Progress Gait is still slow and decreased knee flexion during gait; limited knee flexion at this time. Pt resistant to aggressive stretching. PT Short Term Goals Short Term Goals Time Frame: Apr 18, 2018 Gait (FIM): 5 Distance (FIM): 3=150 ft Gait Assistive Device: FWW PT Bank Consultant Goals Bank Consultant Goals PT Bank Consultant Goals Time Frame: Apr 28, 2018 Transfers (B,C,W/C) (FIM): 6 Sit to Lying (QC): 6 Lying-Sitting on Side/Bed(QC): 6 Sit to Stand (QC): 6 Roll Left to Right (QC): 6 Chair/Zlb-ip-Qzeze Xfer(QC): 6 Car Transfer (QC): 6 Does the Patient Walk: Yes Gait (FIM): 6 Gait distance (FIM): 3=150 ft Walk 10 feet (QC): 6 Walk 10ft-Uneven Surface(QC): 6 Walk 50ft with 2 Turns (QC): 6 Walk 150 ft (QC): 6 Gait Assistive Device: FWW Does the Pt use WC or Scooter?: No Stairs (FIM): 5 (household exception) # of Steps: 8 1 Step (curb) (QC): 6 4 Steps (QC): 6 12 Steps (QC): 88 Stairs Level Of Assist: 6 Picking up an Object (QC): 5 PT Plan Problem List Problem List: Activity Tolerance, Functional Strength, Safety, Balance, Gait, Transfer, Bed Mobility, ROM Treatment/Plan Treatment Plan: Continue Plan of Care Treatment Plan: Bed Mobility, Education, Functional Activity Quan, Functional Strength, Group Therapy, Gait, Safety, Therapeutic Exercise, Transfers Treatment Duration: Apr 28, 2018 Frequency: Modified Program (IRF) Estimated Hrs Per Day: 1.5 hours per day Patient and/or Family Agrees t: Yes Safety Risks/Education Patient Education: Safety Issues Teaching Recipient: Patient Teaching Methods: Discussion Response to Teaching: Reinforcement Needed Time/GCodes Time In: 830 Time Out: 940 Total Billed Treatment Time: 70 Total Billed Treatment visit GT 30 EX 30 FA 10 CHIKIS ERWIN PT Apr 18, 2018 11:26
--- NOTE | 2018-04-18 12:52 | Occupational Ther Daily Note ---
OT Current Status-Daily Note Subjective Pt seen in room, up in bathroom, agreeable to OT. Indicated some discomfort L knee at end of tx - ice pack applied. Appearance Alert, cooperative Mental Status/Objective Functional [place] Measure 0=Not Assessed/NA 4=Minimal Assistance 1=Total Assistance 5=Supervision or Setup 2=Maximal Assistance 6=Modified [place] 3=Moderate Assistance 7=Complete [place] ADL-Treatment Pt walked from bathroom to recliner, slowly and with CGA, FWW. Cues for hand placement for sitting and standing, both in recliner and w/c. Pt stood close SBA to take pants down to complete sponge bath charisma area. Able to wash and dry all other necessary parts for sponge bath with setup. Doffed and donned shirt with setup. Steadying assistance when pulling pants up. pt educ hand placement. Also practiced sit to stand 2X once she walked back to w/c because she gets "stuck" at midpoint of transfer. She reported she had already cleaned her teeth and brushed her hair. Functional [place] Measure 0=Not Assessed/NA 4=Minimal Assistance 1=Total Assistance 5=Supervision or Setup 2=Maximal Assistance 6=Modified [place] 3=Moderate Assistance 7=Complete IndependenceIRFPAI Quality Coding Scale 6 Independent with activity with or without an assistive device 5 Patient requires set up or clean up by helper. Patient completes activity by themselves 4 Supervision or touching assist (CGA). Elrod provide cues , steadying assist 3 The helper provides less than half the effort to complete the activity 2 The helper provides more than half the effort to complete the activity 1 Dependent. The helper does all the effort to complete an activity 7 Patient refused to complete or attempt activity 9 The patient did not perform the activity before the current illness or injury 88 Not attempted due to Medical conditions or safety concerns Bathing (FIM): 5 (Close SBA) Upper Body (FIM): 5 Lower Body Dressing (FIM): 4 (CGA) Other Treatment Pt transported to gym per w/c. She did 12 minutes bilat UE exercise with arm bike set at 15W resistance, taking one brief recovery break. To strengthen arms to help with transfers and ADLs. Pt returned to room per w/c and transferred into bed with min assist, help to lift L leg. Pt left up in bed, 4 rails up, all needs met. Education OT Patient Education: Exercise program, Progress toward Goal/Update tx plan, Purpose of tx/functional activities, Safety issues, Transfer techniques Teaching Recipient: Patient Teaching Methods: Demonstration, Discussion Response to Teaching: Verbalize Understanding, Return Demonstration, Reinforcement Needed OT Short Term Goals Short Term Goals Time Frame: Apr 21, 2018 Toilet/Commode Transfer(FIM): 5 1=Demonstrate adherence to instructed precautions during ADL tasks. 2=Patient will verbalize/demonstrate understanding of assistive devices/ modifications for ADL. 3=Patient will improve strength/tolerance for activity to enable patient to perform ADL's. OT Chiropractic Assistant Goals Care Home Goals Time Frame: Apr 29, 2018 Eating (FIM): 7 Eating (QC): 6 Groomin Oral Hygiene (QC): 6 Bathing(FIM): 6 Shower/Bathe Self (QC): 6 Upper Body Dressing(FIM): 6 Upper Body Dressing (QC): 6 Lower Body Dressing(FIM): 6 Lower Body Dressing (QC): 6 On/Off Footwear (QC): 6 Toileting(FIM): 6 Toileting Hygiene (QC): 6 Toilet/Commode Transfer(FIM): 6 Toilet/Commode Transfer (QC): 6 Tub Transfer(FIM): 6 (or shower) Shower Transfer(FIM): 6 (or tub) Additional Goals: 1-Demonstrate ADL Tasks, 2-Verbalize Understanding, 3- ImproveStrength/Quan 1=Demonstrate adherence to instructed precautions during ADL tasks. 2=Patient will verbalize/demonstrate understanding of assistive devices/ modifications for ADL. 3=Patient will improve strength/tolerance for activity to enable patient to perform ADL's. OT Education/Plan Problem List/Assessment Pt would benefit from skilled OT to increase her independence in basic self care to allow her to safely return home Discharge Recommendations Plan/Recommendations: Continue POC Treatment Plan/Plan of Care Patient would benefit from OT for education, treatment and training to promote independence in ADL's, mobility, safety and/or upper extremity function for ADL' s. Plan of Care: ADL Retraining, Functional Mobility, Group Exercise/Act as Ind ( education, exercise, activity tolerance, functional activity, functional mobility), UE Funct Exercise/Act, UE Neuromus Re-Ed/Coord Treatment Duration: Apr 29, 2018 Frequency: At least 5 of 7 days/Wk (IRF) Estimated Hrs Per Day: 1.5 hours per day Agreement: Yes Rehab Potential: Good Time/GCodes Start Time: 10:45 Stop Time: 11:45 Total Time Billed (hr/min): 60 Billed Treatment Time visit, 35 minutes ADL, 25 minutes exercise WENDY FARLEY OT Apr 18, 2018 12:52
--- NOTE | 2018-04-18 14:52 | Therapy Group Daily Note ---
Therapy Daily Group Note Patient Education Topic Other List Below (benefits of exercise) Exercises LE Seated Exercise, UE Exercise, Other (core) Other/Notes Pt. utilized w/c to from PT gym for PT OT group session. Pt. participated well and was very social with others. Pts introduced selves and shared what they were most proud of in their lives. Pts discussed what activity level they had enjoyed most of their lives and the value of exercise now in their life. Pts participated in U&L extremity seated exercise demonstrated on screen with 2 levels of exercise to choose from. Pt. to room after with assist. In bed with gómez at hand Start Time: 13:00 Stop Time: 14:20 Total Billed Treatment Time: 80 Total Billed Treatment 1,GRP BETSEY [employer] Apr 18, 2018 14:52
[2018-04-18 18:30] VITALS: BP 138/79
[2018-04-18] MEDS: ATORVASTATIN 40 MG (LIPITOR) TABLET PO SCH (20:31)
--- NOTE | 2018-04-18 21:08 | PM & R (SOAP) Progress Note ---
Subjective This was a face to face visit with the patient. Date Seen by Provider: Apr 18, 2018 Time Seen by Provider: 20:20 Subjective/Events-last exam Patient was seen in her room this evening Patient min assist for transfers. Objective Physician Exam Last Set of Vital Signs Vital Signs Date Time Temp Pulse Resp B/P (MAP) Pulse Ox O2 Delivery O2 Flow Rate FiO2 04/18/18 18:30 97.8 68 20 138/79 (98) 98 Room Air Capillary Refill : I&O Intake and Output 04/18/18 00:00 Intake Total 1930 ml Balance 1930 ml Intake Oral 1930 ml # Voids 7 # Bowel Movements 1 General: Alert, Oriented X3, Cooperative, No Acute Distress HEENT: Atraumatic, PERRLA, EOMI, Mucous Memb Moist/[place] Neck: Supple, No JVD Lungs: Clear to Auscultation Heart: Regular Rate Abdomen: Normal Bowel Sounds, Soft, No Tenderness Extremities: No Edema (trace edema left ankle) Skin: Other (incision healing well) Neuro: Other (Limited Abduction and flexion at 90 degrees both shoulders and limited Flex left knee postop) Assessment/Plan Assessment and Plan OA s/p Left TKR HTN cxontrolled Postop nausea resolved Post op constipation meds adjusted Chronic back pain DVT Prophylaxis on Lovenox subcut Plan Continue PT/Ot Adjust meds as needed for Constipation Team Conference 04-20-18 Co-Morbidities that are continuing to impact the rehab process: (include details ) OG LANGE MD Apr 18, 2018 21:08
--- NOTE | 2018-04-18 21:13 | Individualized Plan of Care ---
Individualized Plan of Care Rehab Nursing IPOC Order Admission Date Apr 14, 2018 at 17:21 Current Orders Orders Admission Order(Inpt,Obs,Sdc) (04/14/18 13:34) Vital Signs: Routine (Order) 08,16,00 (04/14/18 13:34) Equine Intern-Inpt Rehab Con (04/14/18 13:34) Rehab Nursing Orders-Ipoc (04/14/18 13:34) Physical Therapy Rehab Orders (04/14/18 13:34) Occupational Therapy Rehab Ord (04/14/18 13:34) Speech Therapy Rehab Orders (04/14/18 13:34) General/Regular (04/14/18 Dinner) Turn And Reposition Q2HR (04/14/18 13:34) Intake & Output 06,14,22 (04/14/18 13:34) Precautions (Aru) (04/14/18 13:34) Weekly Weight (Lbs) WEEK (04/14/18 13:34) Code/Resuscitation (04/14/18 13:34) Initiate Admission Nursing Pro .admission (04/14/18 13:34) Consult Physician (04/14/18 13:38) Aspirin Enteric Coated Tablet (Ecotrin T (04/15/18 09:00) Hydrocodone/Apap 10/325 Tablet (Lortab 1 (04/14/18 13:45) Senna S Tablet (Senokot S Tablet) (04/14/18 21:00) Tramadol Tablet (Ultram Tablet) (04/14/18 13:45) Ascorbic Acid Tablet (Vitamin C Tablet) (04/15/18 07:00) Atenolol Tablet (Tenormin Tablet) (04/14/18 21:00) Baclofen Tablet (Lioresal Tablet) (04/14/18 21:00) Gabapentin Capsule/Tablet (Neurontin Cap (04/14/18 21:00) Oxybutynin Tablet (Ditropan Tablet) (04/14/18 21:00) Atorvastatin Tablet (Lipitor) (04/14/18 21:00) Enoxaparin Injection (Lovenox Injection) (04/14/18 18:00) Ambulate TID (04/14/18 14:54) Sequential Compression Device 08,20 (04/14/18 14:54) Dvt/Vte Risk - Notifiy Physici 08 (04/14/18 14:54) Lisinopril Tablet (Zestril Tablet) (04/15/18 09:00) Enoxaparin Injection (Lovenox Injection) (04/15/18 09:00) Alprazolam Tablet (Xanax Tablet) (04/14/18 20:15) Cbc No Diff (04/15/18 09:18) Basic Metabolic Panel (04/15/18 09:18) Ondansetron Oral Dissolve Tab (Zofran (04/15/18 09:45) Patient Visit (04/15/18 ) Functional Activities, Ea 15 (04/15/18 ) Exercise Therap, Ea 15 Min (04/15/18 ) Patient Visit (04/15/18 ) Therapeutic, Group (04/15/18 ) Patient Visit (04/15/18 ) Patient Visit (04/15/18 ) Speech Sound Lang Comp (04/15/18 ) Magnesium Hydroxide Oral Susp (Mom Oral (04/15/18 19:30) Bisacodyl Tablet (Dulcolax Tablet) (04/16/18 09:00) Patient Visit (04/16/18 ) Gait Training, Ea 15 Min (04/16/18 ) Exercise Therap, Ea 15 Min (04/16/18 ) Lactulose Oral Solution (Enulose Oral So (04/17/18 12:15) Polyethylene Glycol Powder Pkt (Miralax (04/17/18 12:15) Senna S Tablet (Senokot S Tablet) (04/17/18 12:15) Lactulose Oral Solution (Enulose Oral So (04/17/18 21:00) Polyethylene Glycol Powder Pkt (Miralax (04/17/18 21:00) Consult Orthopedic Surgery (04/18/18 10:53) Patient Visit (04/18/18 ) Gait Training, Ea 15 Min (04/18/18 ) Exercise Therap, Ea 15 Min (04/18/18 ) Functional Activities, Ea 15 (04/18/18 ) Patient Visit (04/18/18 ) Therapeutic, Group (04/18/18 ) Rehab Nursing Orders: Ongoing Assess. of Cognitive Status, Ongoing Assess. of Function Status, Disease Management & Educaiton, DVT Prophylaxis, Fall Prevention, Fluid/Electrolyte/Nutrition Mgmt, Infection Prevention, Medication Management & Education, Management of Risks & Complications, Management of Skin Intergrity, Nutrition Management, Pain Management, Patient/Family Support PT IPOC Problem List: Activity Tolerance, Functional Strength, Safety, Balance, Gait, Transfer, Bed Mobility, ROM Treatment Plan: Continue Plan of Care Bed Mobility, Education, Functional Activity Quan, Functional Strength, Group Therapy, Gait, Safety, Therapeutic Exercise, Transfers Treatment Duration: Apr 28, 2018 Frequency: Modified Program (IRF) Estimated Hrs Per Day: 1.5 hours per day OT IPOC Problems: Decreased Activ Tolerance, Dependent Transfers, Impaired Bed Mobility , Impaired Cognition, Impaired Funct Balance, Impaired I ADL's, Impaired Self- Care Skills OT Treatment, Training and Edu: Yes OT Problems Pt would benefit from skilled OT to increase her independence in basic self care to allow her to safely return home Plan of Care: ADL Retraining, Functional Mobility, Group Exercise/Act as Ind ( education, exercise, activity tolerance, functional activity, functional mobility), UE Funct Exercise/Act, UE Neuromus Re-Ed/Coord Treatment Duration: Apr 29, 2018 Frequency: At least 5 of 7 days/Wk (IRF) Estimated Hrs Per Day: 1.[address] IPOC Speech Therapy Treatment Plan: Discontinue ST, Goals Met Treatment Duration: Apr 18, 2018 Frequency: Modified Program (IRF) Estimated Hrs Per Day: Other Equine Intern/Case Mgmt Equine Intern/Case Managemen: Discharge Planning, Patient/Family Counseling Dietitian/Charge Operator Dietitian/Charge Operator to monitor nutritional status and make changes and/or recommendations as needed and work with speech pathology on dietary upgrades as the occur. Physician IPOC Medical Issues being managed closely and that require the 24 hour availability of a physician: Postop nausea Post op constipation C code 08.61 Etiologic DX Left Knee OA Medical Issues: Bowel/Bladder Function, DVT Prophylaxis, Falls Precautions, Infection Protection, Pain Management, Wound Care, Other (List) (as per above) Brief Synthesis of Preadmission Screen, Post-Admission Evaluation, and Therapy Evaluations: 58 yo disabled female due to chronic back pain who had Left TKR for OA Referred to [facility] for ongoing care and therapies with approveal of her medical insurance Had postop naaaaausea resolved and ongoing treatment for Constiption Had been Modified Independent prior to this Medical Prognosis: Good Anticipated Length of Stay: 04-29-18 Modified Independent for adls aand mobility skills Anticipated d/c Destination: Home with [facility] OG LANGE MD Apr 18, 2018 21:13
[2018-04-19 04:53] VITALS: BP 120/74
[2018-04-19] MEDS: ASCORBIC ACID (VIT C) 500 MG TABLET PO SCH (06:08)
--- NOTE | 2018-04-19 08:20 | PM & R (SOAP) Progress Note ---
Subjective This was a face to face visit with the patient. Date Seen by Provider: Apr 19, 2018 Time Seen by Provider: 07:50 Subjective/Events-last exam Patient was seen in her room this AM Patient min assist for transfers Discussed with RN Constipation being addressed Objective Physician Exam Last Set of Vital Signs Vital Signs Date Time Temp Pulse Resp B/P (MAP) Pulse Ox O2 Delivery O2 Flow Rate FiO2 04/19/18 05:02 Room Air 04/19/18 04:53 98.3 64 18 120/74 (89) 97 Capillary Refill : I&O Intake and Output 04/19/18 00:00 Intake Total 1900 ml Balance 1900 ml Intake Oral 1900 ml # Voids 9 # Bowel Movements 1 General: Alert, Oriented X3, Cooperative, No Acute Distress HEENT: Atraumatic, PERRLA, EOMI, Mucous Memb Moist/[place] Neck: Supple, No JVD Lungs: Clear to Auscultation Heart: Regular Rate Abdomen: Normal Bowel Sounds, Soft, No Tenderness Extremities: No Edema (trace edema left ankle) Skin: Other (incision healing well) Neuro: Other (Limited Abduction and flexion at 90 degrees both shoulders and limited Flex left knee postop) Assessment/Plan Assessment and Plan OA s/p Left TKR HTN controlled Postop nausea improved Post op constipation being addressed Chronic back pain DVT Prophylaxis on Lovenox subcut Plan Continue PT/OT Team Conference tomorrow Adjust Meds as needed for constipation F/U with PCP and ortho PRN Co-Morbidities that are continuing to impact the rehab process: (include details ) OG LANGE MD Apr 19, 2018 08:20
[2018-04-19] MEDS: ENOXAPARIN 40 MG/0.4 ML (LOVENOX) SYR SC SCH (08:33)
[2018-04-19] MEDS: ASPIRIN E.C. 325 MG (ECOTRIN) TABLET PO SCH (08:34)
[2018-04-19] MEDS: BACLOFEN 10 MG (LIORESAL) TAB PO SCH ×3 (08:34→21:35)
[2018-04-19] MEDS: GABAPENTIN 300 MG (NEURONTIN) CAP PO SCH ×3 (08:34→21:35)
[2018-04-19] MEDS: OXYBUTYNIN (DITROPAN) 5 MG TAB PO SCH ×3 (08:34→21:35)
[2018-04-19] MEDS: ATENOLOL 50 MG (TENORMIN) TAB PO SCH ×2 (08:34→21:35)
[2018-04-19] MEDS: LACTULOSE SYRUP 10GM/15ML (ENULOSE) 30ML UDC PO SCH ×2 (08:35→21:36)
[2018-04-19] MEDS: lisINopril 40 MG (PRINIVIL) TABLET PO SCH (08:35)
[2018-04-19] MEDS: POLYETHYLENE GLYCOL 17 GM (MIRALAX) PACK PO SCH ×2 (08:35→22:17)
[2018-04-19] MEDS: SENNA W/DOCUSATE (SENOKOT S) TABLET PO SCH ×2 (08:35→21:35)
[2018-04-19] MEDS: BISACODYL 5 MG (DULCOLAX) TABLET PO SCH (08:35)
--- NOTE | 2018-04-19 11:12 | Occupational Ther Daily Note ---
OT Current Status-Daily Note Subjective Pt seen in room, up in bed, agreeable to OT. Pain noted with some knee movement but pt worked through it. Appearance Alert, cooperative. Fatigued from PT Mental Status/Objective Functional [place] Measure 0=Not Assessed/NA 4=Minimal Assistance 1=Total Assistance 5=Supervision or Setup 2=Maximal Assistance 6=Modified [place] 3=Moderate Assistance 7=Complete [place] ADL-Treatment She was able to move to EOB slowly, without help. Sit to stand with CGA, FWW. Walked slowly to bathroom with CGA, FWW and transferred on/off BSC over toilet with CGA. She managed clothing and hygiene with CGA, FWW. Walked to shower and got in/out of shower and on/off shower seat with CGA, grab bars, FWW. Pt washed and dried all parts except back, with much encouragement to do her bottom herself, with CGA when standing. Shower seat, grab bars, hand held shower, setup. Pt educ use of dressing stick to take slipper socks off and to don pants after bathing. Dressed upper body with setup, lower with min assist help to put slipper socks on. CGA to pull pants up. She was able to get her L leg into bed with slight assistance. Pt left up in bed, all needs met. Needs much encouragement Functional [place] Measure 0=Not Assessed/NA 4=Minimal Assistance 1=Total Assistance 5=Supervision or Setup 2=Maximal Assistance 6=Modified [place] 3=Moderate Assistance 7=Complete IndependenceIRFPAI Quality Coding Scale 6 Independent with activity with or without an assistive device 5 Patient requires set up or clean up by helper. Patient completes activity by themselves 4 Supervision or touching assist (CGA). [place] provide cues , steadying assist 3 The helper provides less than half the effort to complete the activity 2 The helper provides more than half the effort to complete the activity 1 Dependent. The helper does all the effort to complete an activity 7 Patient refused to complete or attempt activity 9 The patient did not perform the activity before the current illness or injury 88 Not attempted due to Medical conditions or safety concerns Bathing (FIM): 4 (Washed and dried all parts. CGA when standing to dry bottom) Upper Body (FIM): 5 (setup) Lower Body Dressing (FIM): 3 (Help to put slipper socks on. CGA when standing to pull pants up/down, FWW) Toileting (FIM): 4 (CGA for clothing management) Toilet/Commode Transfer (FIM): 4 (CGA, BSC over toilet) Education OT Patient Education: Modified ADL techniques, Purpose of tx/functional activities, Transfer techniques, Use of adapted equipment Teaching Recipient: Patient Teaching Methods: Demonstration, Discussion Response to Teaching: Verbalize Understanding, Return Demonstration, Reinforcement Needed OT Short Term Goals Short Term Goals Time Frame: Apr 21, 2018 Toilet/Commode Transfer(FIM): 5 1=Demonstrate adherence to instructed precautions during ADL tasks. 2=Patient will verbalize/demonstrate understanding of assistive devices/ modifications for ADL. 3=Patient will improve strength/tolerance for activity to enable patient to perform ADL's. OT Alf Goals Alf Goals Time Frame: Apr 29, 2018 Eating (FIM): 7 Eating (QC): 6 Groomin Oral Hygiene (QC): 6 Bathing(FIM): 6 Shower/Bathe Self (QC): 6 Upper Body Dressing(FIM): 6 Upper Body Dressing (QC): 6 Lower Body Dressing(FIM): 6 Lower Body Dressing (QC): 6 On/Off Footwear (QC): 6 Toileting(FIM): 6 Toileting Hygiene (QC): 6 Toilet/Commode Transfer(FIM): 6 Toilet/Commode Transfer (QC): 6 Tub Transfer(FIM): 6 (or shower) Shower Transfer(FIM): 6 (or tub) Additional Goals: 1-Demonstrate ADL Tasks, 2-Verbalize Understanding, 3- ImproveStrength/Quan 1=Demonstrate adherence to instructed precautions during ADL tasks. 2=Patient will verbalize/demonstrate understanding of assistive devices/ modifications for ADL. 3=Patient will improve strength/tolerance for activity to enable patient to perform ADL's. OT Education/Plan Problem List/Assessment Pt would benefit from skilled OT to increase her independence in basic self care to allow her to safely return home Discharge Recommendations Plan/Recommendations: Continue POC Treatment Plan/Plan of Care Patient would benefit from OT for education, treatment and training to promote independence in ADL's, mobility, safety and/or upper extremity function for ADL' s. Plan of Care: ADL Retraining, Functional Mobility, Group Exercise/Act as Ind ( education, exercise, activity tolerance, functional activity, functional mobility), UE Funct Exercise/Act, UE Neuromus Re-Ed/Coord Treatment Duration: Apr 29, 2018 Frequency: At least 5 of 7 days/Wk (IRF) Estimated Hrs Per Day: 1.5 hours per day Agreement: Yes Rehab Potential: Good Time/GCodes Start Time: 10:00 Stop Time: 11:05 Total Time Billed (hr/min): 65 Billed Treatment Time visit, 65 minutes ADL WENDY FARLEY OT Apr 19, 2018 11:12
--- NOTE | 2018-04-19 13:29 | Physical Therapy Daily Note ---
PT Daily Note-Current Subjective Patient in bed pre tx, agrees to PT, has pain of 2/10 in left knee. Patient has OT right after PT. Appearance Patient BTB post tx with nurse call, phone, tray, all needs met. Mental Status Patient Orientation: Person, Place, Situation Transfers Functional [place] Measure 0=Not Assessed/NA 4=Minimal Assistance 1=Total Assistance 5=Supervision or Setup 2=Maximal Assistance 6=Modified [place] 3=Moderate Assistance 7=Complete IndependenceIRFPAI Quality Coding Scale 6 Independent with activity with or without an assistive device 5 Patient requires set up or clean up by helper. Patient completes activity by themselves 4 Supervision or touching assist (CGA). [place] provide cues , steadying assist 3 The helper provides less than half the effort to complete the activity 2 The helper provides more than half the effort to complete the activity 1 Dependent. The helper does all the effort to complete an activity 7 Patient refused to complete or attempt activity 9 The patient did not perform the activity before the current illness or injury 88 Not attempted due to Medical conditions or safety concerns Transfers (B, C, W/C) (FIM): 4 Scootin Rollin Supine to/from Sit: 4 Sit to/from Stand: 4 Bed to/from Chair: 4 CGA, cues for hand placement Weight Bearing Right Lower Extremity: Right Full Weight Bearing Left Lower Extremity: Left Weight Bearing/Tolerated Gait Training Gait (FIM): 2 Distance: 120'x2 Gait Level of Assist: 4 Gait Persons Needed: 1 Gait Assistive Device: FWW Very slow ambulation, keeps a stiff extended left knee and does not bear much weight on it. Exercises left knee flexion and extension stretching/ROM Treatments bed mobility and transfers, ambulation, ROM/stretching Assessment Current Status: Poor Progress Patient has poor ROM in left knee. PT Short Term Goals Short Term Goals Time Frame: Apr 18, 2018 Gait (FIM): 5 Distance (FIM): 3=150 ft Gait Assistive Device: FWW PT Dope Firer Goals Dope Firer Goals PT Shelter Goals Time Frame: Apr 28, 2018 Transfers (B,C,W/C) (FIM): 6 Sit to Lying (QC): 6 Lying-Sitting on Side/Bed(QC): 6 Sit to Stand (QC): 6 Roll Left to Right (QC): 6 Chair/Kul-iv-Dwpvd Xfer(QC): 6 Car Transfer (QC): 6 Does the Patient Walk: Yes Gait (FIM): 6 Gait distance (FIM): 3=150 ft Walk 10 feet (QC): 6 Walk 10ft-Uneven Surface(QC): 6 Walk 50ft with 2 Turns (QC): 6 Walk 150 ft (QC): 6 Gait Assistive Device: FWW Does the Pt use WC or Scooter?: No Stairs (FIM): 5 (household exception) # of Steps: 8 1 Step (curb) (QC): 6 4 Steps (QC): 6 12 Steps (QC): 88 Stairs Level Of Assist: 6 Picking up an Object (QC): 5 PT Plan Problem List Problem List: Activity Tolerance, Functional Strength, Safety, Balance, Gait, Transfer, Bed Mobility, ROM Treatment/Plan Treatment Plan: Continue Plan of Care Treatment Plan: Bed Mobility, Education, Functional Activity Quan, Functional Strength, Group Therapy, Gait, Safety, Therapeutic Exercise, Transfers Treatment Duration: Apr 28, 2018 Frequency: Modified Program (IRF) Estimated Hrs Per Day: 1.5 hours per day Patient and/or Family Agrees t: Yes Safety Risks/Education Patient Education: Gait Training, Transfer Techniques, Correct Positioning, Safety Issues Teaching Recipient: Patient Teaching Methods: Demonstration, Discussion Response to Teaching: Reinforcement Needed Time/GCodes Time In: 1300 Time Out: 1330 Total Billed Treatment Time: 30 Total Billed Treatment 1 visit GT 30' JAREK HOSKINS PT Apr 19, 2018 13:29
--- NOTE | 2018-04-19 14:19 | Occupational Ther Daily Note ---
OT Current Status-Daily Note Subjective Pt seen in room, in bathroom, agreeable to OT. Mental Status/Objective Functional [place] Measure 0=Not Assessed/NA 4=Minimal Assistance 1=Total Assistance 5=Supervision or Setup 2=Maximal Assistance 6=Modified [place] 3=Moderate Assistance 7=Complete [place] ADL-Treatment Completed hygiene and clothing management with CGA. Transferred CGA, FWW, then walked to sink to wash hands and brush teeth, standing at sink, FWW, SBA. Walked with CGA to sit EOB. Pt educ use of sock aid to don slipper socks. She was able to return demo taking socks off and putting them on herself. Pt left up in bed, all needs met. Functional [place] Measure 0=Not Assessed/NA 4=Minimal Assistance 1=Total Assistance 5=Supervision or Setup 2=Maximal Assistance 6=Modified [place] 3=Moderate Assistance 7=Complete IndependenceIRFPAI Quality Coding Scale 6 Independent with activity with or without an assistive device 5 Patient requires set up or clean up by helper. Patient completes activity by themselves 4 Supervision or touching assist (CGA). [place] provide cues , steadying assist 3 The helper provides less than half the effort to complete the activity 2 The helper provides more than half the effort to complete the activity 1 Dependent. The helper does all the effort to complete an activity 7 Patient refused to complete or attempt activity 9 The patient did not perform the activity before the current illness or injury 88 Not attempted due to Medical conditions or safety concerns Grooming (FIM): 5 (SBA) Toileting (FIM): 4 (CGA) Transfers (B, C, W/C) (FIM): 4 (CGA) Education OT Patient Education: Modified ADL techniques, Purpose of tx/functional activities, Use of adapted equipment Teaching Recipient: Patient Teaching Methods: Demonstration, Discussion Response to Teaching: Return Demonstration, Reinforcement Needed OT Short Term Goals Short Term Goals Time Frame: Apr 21, 2018 Toilet/Commode Transfer(FIM): 5 1=Demonstrate adherence to instructed precautions during ADL tasks. 2=Patient will verbalize/demonstrate understanding of assistive devices/ modifications for ADL. 3=Patient will improve strength/tolerance for activity to enable patient to perform ADL's. OT Halfway Goals Professional Sports Scout Goals Time Frame: Apr 29, 2018 Eating (FIM): 7 Eating (QC): 6 Groomin Oral Hygiene (QC): 6 Bathing(FIM): 6 Shower/Bathe Self (QC): 6 Upper Body Dressing(FIM): 6 Upper Body Dressing (QC): 6 Lower Body Dressing(FIM): 6 Lower Body Dressing (QC): 6 On/Off Footwear (QC): 6 Toileting(FIM): 6 Toileting Hygiene (QC): 6 Toilet/Commode Transfer(FIM): 6 Toilet/Commode Transfer (QC): 6 Tub Transfer(FIM): 6 (or shower) Shower Transfer(FIM): 6 (or tub) Additional Goals: 1-Demonstrate ADL Tasks, 2-Verbalize Understanding, 3- ImproveStrength/Quan 1=Demonstrate adherence to instructed precautions during ADL tasks. 2=Patient will verbalize/demonstrate understanding of assistive devices/ modifications for ADL. 3=Patient will improve strength/tolerance for activity to enable patient to perform ADL's. OT Education/Plan Problem List/Assessment Pt would benefit from skilled OT to increase her independence in basic self care to allow her to safely return home Discharge Recommendations Plan/Recommendations: Continue POC Treatment Plan/Plan of Care Patient would benefit from OT for education, treatment and training to promote independence in ADL's, mobility, safety and/or upper extremity function for ADL' s. Plan of Care: ADL Retraining, Functional Mobility, Group Exercise/Act as Ind ( education, exercise, activity tolerance, functional activity, functional mobility), UE Funct Exercise/Act, UE Neuromus Re-Ed/Coord Treatment Duration: Apr 29, 2018 Frequency: At least 5 of 7 days/Wk (IRF) Estimated Hrs Per Day: 1.5 hours per day Agreement: Yes Rehab Potential: Good Time/GCodes Start Time: 13:30 Stop Time: 13:55 Total Time Billed (hr/min): 25 Billed Treatment Time visit, 25 minutes ADL WENDY FARLEY OT Apr 19, 2018 14:19
[2018-04-19 17:38] VITALS: BP 112/75
[2018-04-19] MEDS: HYDROcodone/APAP 10 MG/325 MG (LORTAB) TAB PO PRN (21:35)
[2018-04-19] MEDS: ATORVASTATIN 40 MG (LIPITOR) TABLET PO SCH (21:35)
[2018-04-20 05:08] VITALS: BP 125/77
[2018-04-20] MEDS: ASCORBIC ACID (VIT C) 500 MG TABLET PO SCH (06:20)
--- NOTE | 2018-04-20 07:09 | Progress Note (SOAP) ---
Subjective Time Seen by Provider: 07:05 Subjective/Events-last exam Total knee replacement. Left knee osteoarthritis. Patient seen yesterday but computer froze and unable to put in notes. Patient has no complaints. Patient states she's doing better. Patient still having some problems with the left knee Objective Exam Vital Signs Date Time Temp Pulse Resp B/P (MAP) Pulse Ox O2 Delivery O2 Flow Rate FiO2 04/20/18 05:08 98.9 58 18 125/77 (93) 96 Room Air 04/19/18 20:00 Room Air 04/19/18 17:38 98.8 74 16 112/75 (87) 98 Room Air 04/19/18 08:32 Room Air I & O 04/20/18 06:59 Intake Total 1780 ml Balance 1780 ml Capillary Refill : General Appearance: No Apparent Distress, WD/WN HEENT: Normal ENT Inspection Neck: Normal Inspection, Non Tender Respiratory: Lungs Clear, No Accessory Muscle Use Cardiovascular: Regular Rate, Rhythm, No Murmur Gastrointestinal: non tender, soft Assessment/Plan Assessment/Plan Assess & Plan/Chief Complaint Recent surgery for left knee total replacement. Hypertension. Chronic low back pain. . 04/18/18. Left knee total replacement. Hypertension. Chronic low back pain. Patient feeling good today. Patient had a little dizziness during the weekend to monitor. . 04/19/18. HEENT computer froze and unable to put in progress note. Left knee total replacement. Hypertension. Chronic low back pain. Patient still having some problems with left knee but doing better. . 04/20/18. Left knee total replacement. Hypertension. Chronic low back pain. Patient feel she is improving Clinical Quality Measures DVT/VTE Risk/Contraindication: Risk Factor Score Per Nursin RFS Level Per Nursing on Admit: 4+=Very High ANASTASIYA SAINZ DO Apr 20, 2018 07:09
--- NOTE | 2018-04-20 08:14 | ST Cognitive Linguistic Eval ---
Speech Evaluation-General Medical Diagnosis OA left knee Onset Date: Apr 12, 2018 Therapy Diagnosis Therapy Diagnosis: Cognition Precautions Precautions/Isolations: Fall Prevention, Standard Precautions Referral Referring Physician: Dr. Grider Reason for Referral: Evaluation/Treatment Medical History Pertinent Medical History: Arthritis, GERD Reviewed History: Yes Social History Current Living Status: Alone Speech PLF-Current Status Subjective Pt pleasant. Pain Numeric Pain Scale: 0-No Pain Language Eval: Auditory Comprehends Simple Yes/No Ques: Functional Follows 1-Step Commands: Functional Follows Complex Directions: Functional Follows General Conversations: Functional Language Eval: Verbal Language Completes Spontaneous Greeting: Functional Produces Auto, Serial Info: Functional Requests Basic Needs: Functional States Basic Personal Info: Functional Expresses Complex Ideas: Functional Cognitive Patient Orientation Oriented x3 Objective Cognitive Domain Attention: WNL Memory: WNL Problem Solving: Functional Objective Results [facility] results indicate cognitive-linguistic functioning to be WFL. Oral Motor/Speech Production WNL Impression Functional cognitive-linguistic functioning. Communication/Social Cognition Comprehension: 7 Expression: 7 Social Interaction: 7 Problem Solvin Memory: 6 Speech Patient Assess Expression of Ideas/Wants: Expression (4) Understanding Verbal Content: Understands (4) Brief Interview-Mental Status: Yes Repetition of Three Words: Three (3) Temporal Orientation: Year: Correct (3) Temporal Orientation: Month: Accurate within 5 days(2) Temporal Orientation: Day: Correct (1) Recall : Wear to say "Sock": Yes, no cue required (2) Recall : Color: Yes, no cue required (2) Recall : Bed: Yes,after cueing (1) Speech Short Term Goals Short Term Goals Short Term Goals no goals as skilled ST not indicated. Speech Scraper Tender Goals Residential Goals no LTGs as skilled ST not indicated. Speech-Plan Patient/Family Goals Patient/Family Goals: to return home. Treatment Plan Speech Therapy Treatment Plan: Discontinue ST skilled ST not indicated. Treatment Duration: Apr 18, 2018 Frequency: Modified Program (IRF) (0) Estimated Hrs Per Day: Other (0) Rehab Potential: Good Pt/Family Agrees to Plan: Yes Safety Risks/Education Teaching Recipient: Patient Teaching Methods: Discussion Response to Teaching: Verbalize Understanding Time Speech Therapy Time In: 14:30 Speech Therapy Time Out: 14:50 Total Billed Time: 20 Billed Treatment Time 1, SPSNDCOMP No TINO LEVINE Apr 20, 2018 08:14
[2018-04-20] MEDS: ENOXAPARIN 40 MG/0.4 ML (LOVENOX) SYR SC SCH (08:47)
[2018-04-20] MEDS: ATENOLOL 50 MG (TENORMIN) TAB PO SCH ×2 (08:47→20:39)
[2018-04-20] MEDS: ASPIRIN E.C. 325 MG (ECOTRIN) TABLET PO SCH (08:47)
[2018-04-20] MEDS: GABAPENTIN 300 MG (NEURONTIN) CAP PO SCH ×3 (08:48→20:39)
[2018-04-20] MEDS: BACLOFEN 10 MG (LIORESAL) TAB PO SCH ×3 (08:48→20:39)
[2018-04-20] MEDS: BISACODYL 5 MG (DULCOLAX) TABLET PO SCH (08:48)
[2018-04-20] MEDS: OXYBUTYNIN (DITROPAN) 5 MG TAB PO SCH ×3 (08:48→20:39)
[2018-04-20] MEDS: lisINopril 40 MG (PRINIVIL) TABLET PO SCH (08:48)
[2018-04-20 08:50] VITALS: BP_SYST 136; BP_SYST 157; BP_DIAS 72; BP_DIAS 75
[2018-04-20] MEDS: LACTULOSE SYRUP 10GM/15ML (ENULOSE) 30ML UDC PO SCH ×2 (08:50→20:39)
[2018-04-20] MEDS: SENNA W/DOCUSATE (SENOKOT S) TABLET PO SCH ×2 (08:50→20:39)
[2018-04-20] MEDS: POLYETHYLENE GLYCOL 17 GM (MIRALAX) PACK PO SCH ×2 (08:50→20:40)
[2018-04-20] MEDS: HYDROcodone/APAP 10 MG/325 MG (LORTAB) TAB PO PRN ×2 (08:53→23:47)
--- NOTE | 2018-04-20 09:05 | Physical Therapy Daily Note ---
PT Daily Note-Current Subjective Pt. agrees to Rx. States she has tried to bend her knee in the bed and just cant get there Pain Numeric Pain Scale: 3 Location: Left Location Body Site: Knee Pain Description: Throbbing Mental Status Patient Orientation: Person, Place, Time, Situation Transfers Functional [place] Measure 0=Not Assessed/NA 4=Minimal Assistance 1=Total Assistance 5=Supervision or Setup 2=Maximal Assistance 6=Modified [place] 3=Moderate Assistance 7=Complete IndependenceIRFPAI Quality Coding Scale 6 Independent with activity with or without an assistive device 5 Patient requires set up or clean up by helper. Patient completes activity by themselves 4 Supervision or touching assist (CGA). [place] provide cues , steadying assist 3 The helper provides less than half the effort to complete the activity 2 The helper provides more than half the effort to complete the activity 1 Dependent. The helper does all the effort to complete an activity 7 Patient refused to complete or attempt activity 9 The patient did not perform the activity before the current illness or injury 88 Not attempted due to Medical conditions or safety concerns Transfers (B, C, W/C) (FIM): 4 Scootin Rollin Supine to/from Sit: 4 (LLE assist) Sit to/from Stand: 5 Bed to/from Chair: 5 Car Transfer (QC): 4 Weight Bearing Right Lower Extremity: Right Full Weight Bearing Left Lower Extremity: Left Weight Bearing/Tolerated Gait Training Does the Patient Walk?: Yes Gait (FIM): 4 Distance (FIM): 3=150 ft Gait Level of Assist: 4 Gait Persons Needed: 1 Gait Assistive Device: FWW slow, antalgic, heavy weight bearing on FWW reginald RUE Exercises Supine Ex: Ankle pumps, Quad Set, Rolling, Heel Slides, Short Arc Quads, Scooting, Straight leg raise Supine Reps: 20 Seated Therapy Exercises: Ankle pumps, Sit to stand, Long arc quads, Hip flexion Seated Reps: 12 NuStep Minutes: 10 NuStep Workload: 3 Treatments assist to hold and stretch Assessment Current Status: Fair Progress AROM 5 to 35 degrees, PROM 5 to 45 to 50 degrees PT Short Term Goals Short Term Goals Time Frame: Apr 18, 2018 Gait (FIM): 5 Distance (FIM): 3=150 ft Gait Assistive Device: FWW PT Chimney Builder Brick Goals Chimney Builder Brick Goals PT Chimney Builder Brick Goals Time Frame: Apr 28, 2018 Transfers (B,C,W/C) (FIM): 6 Sit to Lying (QC): 6 Lying-Sitting on Side/Bed(QC): 6 Sit to Stand (QC): 6 Rollin Roll Left to Right (QC): 6 Chair/Mwa-ou-Unieq Xfer(QC): 6 Car Transfer (QC): 6 Does the Patient Walk: Yes Gait (FIM): 6 Gait distance (FIM): 3=150 ft Walk 10 feet (QC): 6 Walk 10ft-Uneven Surface(QC): 6 Walk 50ft with 2 Turns (QC): 6 Walk 150 ft (QC): 6 Gait Assistive Device: FWW Does the Pt use WC or Scooter?: No Stairs (FIM): 5 (household exception) # of Steps: 8 1 Step (curb) (QC): 6 4 Steps (QC): 6 12 Steps (QC): 88 Stairs Level Of Assist: 6 Picking up an Object (QC): 5 PT Plan Treatment/Plan Treatment Plan: Continue Plan of Care Treatment Plan: Bed Mobility, Education, Functional Activity Quan, Functional Strength, Group Therapy, Gait, Safety, Therapeutic Exercise, Transfers Treatment Duration: Apr 28, 2018 Frequency: Modified Program (IRF) Estimated Hrs Per Day: 1.5 hours per day Patient and/or Family Agrees t: Yes Safety Risks/Education Patient Education: Gait Training, Transfer Techniques, Correct Positioning, Disease Process, Safety Issues Teaching Recipient: Patient Teaching Methods: Demonstration, Discussion Response to Teaching: Verbalize Understanding, Return Demonstration, Reinforcement Needed Time/GCodes Time In: 800 Time Out: 900 Total Billed Treatment Time: 60 Total Billed Treatment 1,GT15m,FA15m,EX30m G Codes Necessary: BETSEY Castellon REMOTE PILOT OPERATOR Apr 20, 2018 09:05
--- NOTE | 2018-04-20 09:36 | PM & R (SOAP) Progress Note ---
Subjective This was a face to face visit with the patient. Date Seen by Provider: Apr 20, 2018 Time Seen by Provider: 08:20 Subjective/Events-last exam Patient was seen in her room this AM Patient SBA to min assist for transfers Review of Systems Gastrointestinal: Constipation Objective Physician Exam Last Set of Vital Signs Vital Signs Date Time Temp Pulse Resp B/P (MAP) Pulse Ox O2 Delivery O2 Flow Rate FiO2 04/20/18 08:50 66 20 157/75 (102) 98 Room Air 04/20/18 05:08 98.9 Capillary Refill : I&O Intake and Output 04/20/18 00:00 Intake Total 1480 ml Balance 1480 ml Intake Oral 1480 ml # Voids 8 # Bowel Movements 1 General: Alert, Oriented X3, Cooperative, No Acute Distress HEENT: Atraumatic, PERRLA, EOMI, Mucous Memb Moist/[place] Neck: Supple, No JVD Lungs: Clear to Auscultation Heart: Regular Rate Abdomen: Normal Bowel Sounds, Soft, No Tenderness Extremities: No Edema (trace edema left ankle) Skin: Other (incision healing well) Neuro: Other (Limited Abduction and flexion at 90 degrees both shoulders and limited Flex left knee postop) Assessment/Plan Assessment and Plan OA s/p left TKR HTN controlled Postop nausea resolved Postop constipation under treatment Chronic back pain DVT prophylaxis on Lovenox subcut Plan Continue PT/OT Team Conference later today -see report for full functional update and POC and ELOS Co-Morbidities that are continuing to impact the rehab process: (include details ) OG LANGE MD Apr 20, 2018 09:36
--- NOTE | 2018-04-20 12:29 | Occupational Ther Daily Note ---
OT Current Status-Daily Note Subjective Pt seen in room, up in bed, agreeable to OT. Always seems apprehensive about getting up or walking during ADLs. Appearance Alert, cooperative Mental Status/Objective Functional [place] Measure 0=Not Assessed/NA 4=Minimal Assistance 1=Total Assistance 5=Supervision or Setup 2=Maximal Assistance 6=Modified [place] 3=Moderate Assistance 7=Complete [place] ADL-Treatment Pt put sock on when in bed. Pt was able to get L leg off bed but very slowly and incrementally. CGA sit to stand with bed raised up. Walked SBA, FWW to bathroom, slowly, with pt focusing on increasing weight on L leg during walking (per her report). CGA getting on/off BSc over toilet, with 1x wobbly but caught herself. CGA clothing management. Walked with SBA, FWW to chair without arms to simulate sponge bath at home. Min assist getting on/off chair due to no arms on chair. Pt completed sponge bath at sink, CGA when standing to wash bottom. dressed, with clues for hand placement with sit to stand, use of dressing stick. Pt walked back to bed SBA, FWW and able to get L leg into bed with extra time. Discussed need for help at home for bathing, maybe meals, cleaning, transportation to doctor, etc. Info shared with social work. Pt left up in bed, all needs met. Functional [place] Measure 0=Not Assessed/NA 4=Minimal Assistance 1=Total Assistance 5=Supervision or Setup 2=Maximal Assistance 6=Modified [place] 3=Moderate Assistance 7=Complete IndependenceIRFPAI Quality Coding Scale 6 Independent with activity with or without an assistive device 5 Patient requires set up or clean up by helper. Patient completes activity by themselves 4 Supervision or touching assist (CGA). [place] provide cues , steadying assist 3 The helper provides less than half the effort to complete the activity 2 The helper provides more than half the effort to complete the activity 1 Dependent. The helper does all the effort to complete an activity 7 Patient refused to complete or attempt activity 9 The patient did not perform the activity before the current illness or injury 88 Not attempted due to Medical conditions or safety concerns Grooming (FIM): 5 (setup, at sink) Bathing (FIM): 4 (washed and dried arreola areas, sponge bath at sink, CGA when standing at sink to wash charisma and bottom.) Upper Body (FIM): 5 (setup) Lower Body Dressing (FIM): 4 (CGA when stnading to manage clothing. Dressing stick for donning pants, wth cues. Able to get slipper sock on today while in bed. FWW) Toileting (FIM): 4 (CGA when standing to manage clothing. BSC over toilet, FWW , grab bar) Toilet/Commode Transfer (FIM): 4 (CGA getting on and off BSc over toilet, cues for hand placement) Education OT Patient Education: Modified ADL techniques, Progress toward Goal/Update tx plan, Purpose of tx/functional activities, Safety issues, Transfer techniques, Use of adapted equipment Teaching Recipient: Patient Teaching Methods: Demonstration, Discussion Response to Teaching: Verbalize Understanding, Return Demonstration, Reinforcement Needed OT Short Term Goals Short Term Goals Time Frame: Apr 21, 2018 Toilet/Commode Transfer(FIM): 5 1=Demonstrate adherence to instructed precautions during ADL tasks. 2=Patient will verbalize/demonstrate understanding of assistive devices/ modifications for ADL. 3=Patient will improve strength/tolerance for activity to enable patient to perform ADL's. OT Senior Care Goals Realty Specialist Goals Time Frame: Apr 29, 2018 Eating (FIM): 7 Eating (QC): 6 Groomin Oral Hygiene (QC): 6 Bathing(FIM): 6 Shower/Bathe Self (QC): 6 Upper Body Dressing(FIM): 6 Upper Body Dressing (QC): 6 Lower Body Dressing(FIM): 6 Lower Body Dressing (QC): 6 On/Off Footwear (QC): 6 Toileting(FIM): 6 Toileting Hygiene (QC): 6 Toilet/Commode Transfer(FIM): 6 Toilet/Commode Transfer (QC): 6 Tub Transfer(FIM): 6 (or shower) Shower Transfer(FIM): 6 (or tub) Additional Goals: 1-Demonstrate ADL Tasks, 2-Verbalize Understanding, 3- ImproveStrength/Quan 1=Demonstrate adherence to instructed precautions during ADL tasks. 2=Patient will verbalize/demonstrate understanding of assistive devices/ modifications for ADL. 3=Patient will improve strength/tolerance for activity to enable patient to perform ADL's. OT Education/Plan Problem List/Assessment Pt would benefit from skilled OT to increase her independence in basic self care to allow her to safely return home Discharge Recommendations Plan/Recommendations: Continue POC Treatment Plan/Plan of Care Patient would benefit from OT for education, treatment and training to promote independence in ADL's, mobility, safety and/or upper extremity function for ADL' s. Plan of Care: ADL Retraining, Functional Mobility, Group Exercise/Act as Ind ( education, exercise, activity tolerance, functional activity, functional mobility), UE Funct Exercise/Act, UE Neuromus Re-Ed/Coord Treatment Duration: Apr 29, 2018 Frequency: At least 5 of 7 days/Wk (IRF) Estimated Hrs Per Day: 1.5 hours per day Agreement: Yes Rehab Potential: Good Time/GCodes Start Time: 09:45 Stop Time: 10:45 Total Time Billed (hr/min): 60 Billed Treatment Time visit, 60 minutes WENDY MCLAIN OT Apr 20, 2018 12:29
--- NOTE | 2018-04-20 13:30 | Physical Therapy Daily Note ---
PT Daily Note-Current Subjective Pt. agrees to rx. Pain Numeric Pain Scale: 3 Location: Left Location Body Site: Knee Pain Description: Pressure Mental Status Patient Orientation: Person, Place, Time, Situation Transfers Functional [place] Measure 0=Not Assessed/NA 4=Minimal Assistance 1=Total Assistance 5=Supervision or Setup 2=Maximal Assistance 6=Modified [place] 3=Moderate Assistance 7=Complete IndependenceIRFPAI Quality Coding Scale 6 Independent with activity with or without an assistive device 5 Patient requires set up or clean up by helper. Patient completes activity by themselves 4 Supervision or touching assist (CGA). [place] provide cues , steadying assist 3 The helper provides less than half the effort to complete the activity 2 The helper provides more than half the effort to complete the activity 1 Dependent. The helper does all the effort to complete an activity 7 Patient refused to complete or attempt activity 9 The patient did not perform the activity before the current illness or injury 88 Not attempted due to Medical conditions or safety concerns in out bed slow, SBA and instruction on how to manage her leg in to bed Weight Bearing Right Lower Extremity: Right Full Weight Bearing Left Lower Extremity: Left Weight Bearing/Tolerated Gait Training Gait Assistive Device: FWW 150x2 FWW SBA, antalgic Exercises Supine Ex: Quad Set, Heel Slides Supine Reps: 20 Seated Therapy Exercises: Ankle pumps, Long arc quads Seated Reps: 20 Treatments polar pack and CPM initiated Assessment Current Status: Fair Progress AROM 5-50 degrees, PROM 5 - 60degrees PT Short Term Goals Short Term Goals Time Frame: Apr 18, 2018 Gait (FIM): 5 Distance (FIM): 3=150 ft Gait Assistive Device: FWW PT Longterm Goals Pattern Grader Cutter Goals PT Pattern Grader Cutter Goals Time Frame: Apr 28, 2018 Transfers (B,C,W/C) (FIM): 6 Sit to Lying (QC): 6 Lying-Sitting on Side/Bed(QC): 6 Sit to Stand (QC): 6 Rollin Roll Left to Right (QC): 6 Chair/Mnq-lg-Vipij Xfer(QC): 6 Car Transfer (QC): 6 Does the Patient Walk: Yes Gait (FIM): 6 Gait distance (FIM): 3=150 ft Walk 10 feet (QC): 6 Walk 10ft-Uneven Surface(QC): 6 Walk 50ft with 2 Turns (QC): 6 Walk 150 ft (QC): 6 Gait Assistive Device: FWW Does the Pt use WC or Scooter?: No Stairs (FIM): 5 (household exception) # of Steps: 8 1 Step (curb) (QC): 6 4 Steps (QC): 6 12 Steps (QC): 88 Stairs Level Of Assist: 6 Picking up an Object (QC): 5 PT Plan Treatment/Plan Treatment Plan: Continue Plan of Care Treatment Plan: Bed Mobility, Education, Functional Activity Quan, Functional Strength, Group Therapy, Gait, Safety, Therapeutic Exercise, Transfers Treatment Duration: Apr 28, 2018 Frequency: Modified Program (IRF) Estimated Hrs Per Day: 1.5 hours per day Patient and/or Family Agrees t: Yes Safety Risks/Education Patient Education: Gait Training, Transfer Techniques, Correct Positioning Teaching Recipient: Patient Teaching Methods: Demonstration, Discussion Response to Teaching: Verbalize Understanding, Return Demonstration, Reinforcement Needed Time/GCodes Time In: 1245 Time Out: 1325 Total Billed Treatment Time: 40 Total Billed Treatment 1,GT15,EX25 G Codes Necessary: BETSEY Catsellon [employer] M[employer]ING PLANT Apr 20, 2018 13:30
--- NOTE | 2018-04-20 14:50 | Occupational Ther Daily Note ---
OT Current Status-Daily Note Subjective Pt seen in room, up in bed, leg in CPM, agreeable to OT. No pain mentioned. Appearance Alert, cooperative Mental Status/Objective Functional [place] Measure 0=Not Assessed/NA 4=Minimal Assistance 1=Total Assistance 5=Supervision or Setup 2=Maximal Assistance 6=Modified [place] 3=Moderate Assistance 7=Complete [place] Attachments: Other-See Comments (polar pack on) ADL-Treatment Functional [place] Measure 0=Not Assessed/NA 4=Minimal Assistance 1=Total Assistance 5=Supervision or Setup 2=Maximal Assistance 6=Modified [place] 3=Moderate Assistance 7=Complete IndependenceIRFPAI Quality Coding Scale 6 Independent with activity with or without an assistive device 5 Patient requires set up or clean up by helper. Patient completes activity by themselves 4 Supervision or touching assist (CGA). [place] provide cues , steadying assist 3 The helper provides less than half the effort to complete the activity 2 The helper provides more than half the effort to complete the activity 1 Dependent. The helper does all the effort to complete an activity 7 Patient refused to complete or attempt activity 9 The patient did not perform the activity before the current illness or injury 88 Not attempted due to Medical conditions or safety concerns Other Treatment Pt education on bilat UE exercises using 2# weight, working on shoulders, elbows , forearms and wrists. She did 10 reps of each exercise, with occasional verbal cues for quality of movement. She also did 12 reps with bilat UE exercise with yellow theraband, working shoulders and elbows, especially elbow extension which is needed for getting up and down. Pt left up in bed, CPM on, Polar pack in place, all needs met. Education OT Patient Education: Exercise program, Purpose of tx/functional activities Teaching Recipient: Patient Teaching Methods: Demonstration, Discussion Response to Teaching: Verbalize Understanding, Return Demonstration, Reinforcement Needed OT Short Term Goals Short Term Goals Time Frame: Apr 21, 2018 Toilet/Commode Transfer(FIM): 5 1=Demonstrate adherence to instructed precautions during ADL tasks. 2=Patient will verbalize/demonstrate understanding of assistive devices/ modifications for ADL. 3=Patient will improve strength/tolerance for activity to enable patient to perform ADL's. OT Longterm Goals Longterm Goals Time Frame: Apr 29, 2018 Eating (FIM): 7 Eating (QC): 6 Groomin Oral Hygiene (QC): 6 Bathing(FIM): 6 Shower/Bathe Self (QC): 6 Upper Body Dressing(FIM): 6 Upper Body Dressing (QC): 6 Lower Body Dressing(FIM): 6 Lower Body Dressing (QC): 6 On/Off Footwear (QC): 6 Toileting(FIM): 6 Toileting Hygiene (QC): 6 Toilet/Commode Transfer(FIM): 6 Toilet/Commode Transfer (QC): 6 Tub Transfer(FIM): 6 (or shower) Shower Transfer(FIM): 6 (or tub) Additional Goals: 1-Demonstrate ADL Tasks, 2-Verbalize Understanding, 3- ImproveStrength/Quan 1=Demonstrate adherence to instructed precautions during ADL tasks. 2=Patient will verbalize/demonstrate understanding of assistive devices/ modifications for ADL. 3=Patient will improve strength/tolerance for activity to enable patient to perform ADL's. OT Education/Plan Problem List/Assessment Pt would benefit from skilled OT to increase her independence in basic self care to allow her to safely return home Discharge Recommendations Plan/Recommendations: Continue POC Treatment Plan/Plan of Care Patient would benefit from OT for education, treatment and training to promote independence in ADL's, mobility, safety and/or upper extremity function for ADL' s. Plan of Care: ADL Retraining, Functional Mobility, Group Exercise/Act as Ind ( education, exercise, activity tolerance, functional activity, functional mobility), UE Funct Exercise/Act, UE Neuromus Re-Ed/Coord Treatment Duration: Apr 29, 2018 Frequency: At least 5 of 7 days/Wk (IRF) Estimated Hrs Per Day: 1.5 hours per day Agreement: Yes Rehab Potential: Good Time/GCodes Start Time: 14:00 Stop Time: 14:30 Total Time Billed (hr/min): 30 Billed Treatment Time visit, 30 minutes exercise WENDY FARLEY OT Apr 20, 2018 14:50
[2018-04-20 18:23] VITALS: BP 106/69
[2018-04-20] MEDS: ATORVASTATIN 40 MG (LIPITOR) TABLET PO SCH (20:39)
[2018-04-21 04:52] LABS: RED BLOOD COUNT 4.02 10^6/uL (4.35-5.85); RED CELL DISTRIBUTION WIDTH 13.7 % (10.0-14.5); WHITE BLOOD COUNT 13.4 10^3/uL (4.3-11.0)
[2018-04-21 05:11] LABS: BUN/CREATININE RATIO 19; CALCIUM 9.6 MG/DL (8.5-10.1); CARBON DIOXIDE 21 MMOL/L (21-32); CHLORIDE 104 MMOL/L (98-107); CREATININE SERUM 0.63 MG/DL (0.60-1.30); GFR ESTIMATED > 60; GLUCOSE 107 MG/DL (70-105); SODIUM 137 MMOL/L (135-145)
[2018-04-21 05:48] VITALS: BP 117/60
[2018-04-21] MEDS: ASCORBIC ACID (VIT C) 500 MG TABLET PO SCH (06:25)
--- NOTE | 2018-04-21 07:59 | PM & R (SOAP) Progress Note ---
Subjective This was a face to face visit with the patient. Date Seen by Provider: Apr 21, 2018 Time Seen by Provider: 07:35 Subjective/Events-last exam Patient was seen in her room this AM Patient SBA for transfers Objective Physician Exam Last Set of Vital Signs Vital Signs Date Time Temp Pulse Resp B/P (MAP) Pulse Ox O2 Delivery O2 Flow Rate FiO2 04/21/18 05:48 98.0 67 18 117/60 (79) 96 Room Air Capillary Refill : I&O Intake and Output 04/21/18 00:00 Intake Total 1830 ml Balance 1830 ml Intake Oral 1830 ml # Voids 9 General: Alert, Oriented X3, Cooperative, No Acute Distress HEENT: Atraumatic, PERRLA, EOMI, Mucous Memb Moist/[place] Neck: Supple, No JVD Lungs: Clear to Auscultation Heart: Regular Rate Abdomen: Normal Bowel Sounds, Soft, No Tenderness Extremities: No Edema (trace edema left ankle) Skin: Other (incision healing well) Neuro: Other (Limited Abduction and flexion at 90 degrees both shoulders and limited Flex left knee postop) Results Lab Data Laboratory Tests 04/21/18 04:15: White Blood Count 13.4H, Red Blood Count 4.02L, Hemoglobin 12.0, Hematocrit 35, Mean Corpuscular Volume 87, Mean Corpuscular Hemoglobin 30, Mean Corpuscular Hemoglobin Concent 34, Red Cell Distribution Width 13.7, Platelet Count 256, Mean Platelet Volume 11.0H, Sodium Level 137, Potassium Level 4.0, Chloride Level 104, Carbon Dioxide Level 21, Anion Gap 12, Blood Urea Nitrogen 12, Creatinine 0.63, Estimat Glomerular Filtration Rate > 60, BUN/Creatinine Ratio 19, Glucose Level 107H, Calcium Level 9.6 Assessment/Plan Assessment and Plan OA s/p Left TKR HTN controlled Postop nausea resolved Postop constipation treated Chronic back pain DVT Prophylaxis on Lovenox subcut Plan Continue PT/OT Team Conference held yesterday-See report for full functional update and POC and ELOS Discharge set for next week to home F/U with PCP and Ortho prn Co-Morbidities that are continuing to impact the rehab process: (include details ) OG LANGE MD Apr 21, 2018 07:58
[2018-04-21] MEDS: lisINopril 40 MG (PRINIVIL) TABLET PO SCH (08:29)
--- NOTE | 2018-04-21 08:29 | Progress Note (SOAP) ---
Subjective Time Seen by Provider: 08:30 Subjective/Events-last exam Patient continues to be improved. Patient has no complaints today. Patient feels better than yesterday Objective Exam Vital Signs Date Time Temp Pulse Resp B/P (MAP) Pulse Ox O2 Delivery O2 Flow Rate FiO2 04/21/18 05:48 98.0 67 18 117/60 (79) 96 Room Air 04/20/18 20:30 Room Air 04/20/18 18:23 96.0 60 18 106/69 (81) 98 Room Air 04/20/18 08:50 72 20 136/72 (93) 99 Room Air I & O 04/21/18 07:00 Intake Total 1430 ml Balance 1430 ml Capillary Refill : General Appearance: No Apparent Distress, WD/WN HEENT: Normal ENT Inspection Neck: Full Range of Motion Respiratory: Chest Non Tender, Lungs Clear, Normal Breath Sounds, No Accessory Muscle Use, No Respiratory Distress Cardiovascular: Regular Rate, Rhythm, No Murmur Gastrointestinal: non tender, soft Results Lab Laboratory Tests 04/21/18 04:15 Laboratory Tests 04/21/18 04:15: White Blood Count 13.4H, Red Blood Count 4.02L, Hemoglobin 12.0, Hematocrit 35, Mean Corpuscular Volume 87, Mean Corpuscular Hemoglobin 30, Mean Corpuscular Hemoglobin Concent 34, Red Cell Distribution Width 13.7, Platelet Count 256, Mean Platelet Volume 11.0H, Sodium Level 137, Potassium Level 4.0, Chloride Level 104, Carbon Dioxide Level 21, Anion Gap 12, Blood Urea Nitrogen 12, Creatinine 0.63, Estimat Glomerular Filtration Rate > 60, BUN/Creatinine Ratio 19, Glucose Level 107H, Calcium Level 9.6 Assessment/Plan Assessment/Plan Assess & Plan/Chief Complaint Recent surgery for left knee total replacement. Hypertension. Chronic low back pain. . 04/18/18. Left knee total replacement. Hypertension. Chronic low back pain. Patient feeling good today. Patient had a little dizziness during the weekend to monitor. . 04/19/18. HEENT computer froze and unable to put in progress note. Left knee total replacement. Hypertension. Chronic low back pain. Patient still having some problems with left knee but doing better. . 04/20/18. Left knee total replacement. Hypertension. Chronic low back pain. Patient feel she is improving. . 04/21/leg pain. Left knee total replacement. Hypertension. Patient feel she is each day improving Clinical Quality Measures DVT/VTE Risk/Contraindication: Risk Factor Score Per Nursin RFS Level Per Nursing on Admit: 4+=Very High ANASTASIYA SAINZ DO Apr 21, 2018 08:29
[2018-04-21] MEDS: BACLOFEN 10 MG (LIORESAL) TAB PO SCH ×3 (08:30→21:16)
[2018-04-21] MEDS: ATENOLOL 50 MG (TENORMIN) TAB PO SCH ×2 (08:30→21:16)
[2018-04-21] MEDS: HYDROcodone/APAP 10 MG/325 MG (LORTAB) TAB PO PRN ×2 (08:30→13:45)
[2018-04-21] MEDS: GABAPENTIN 300 MG (NEURONTIN) CAP PO SCH ×3 (08:30→21:16)
[2018-04-21] MEDS: ASPIRIN E.C. 325 MG (ECOTRIN) TABLET PO SCH (08:30)
[2018-04-21] MEDS: OXYBUTYNIN (DITROPAN) 5 MG TAB PO SCH ×3 (08:30→21:16)
[2018-04-21] MEDS: ENOXAPARIN 40 MG/0.4 ML (LOVENOX) SYR SC SCH (08:34)
[2018-04-21] MEDS: BISACODYL 5 MG (DULCOLAX) TABLET PO SCH (08:34)
[2018-04-21] MEDS: POLYETHYLENE GLYCOL 17 GM (MIRALAX) PACK PO SCH ×2 (08:34→21:19)
[2018-04-21] MEDS: SENNA W/DOCUSATE (SENOKOT S) TABLET PO SCH ×2 (08:34→21:16)
[2018-04-21] MEDS: LACTULOSE SYRUP 10GM/15ML (ENULOSE) 30ML UDC PO SCH ×2 (08:34→21:19)
--- NOTE | 2018-04-21 10:35 | Physical Therapy Daily Note ---
PT Daily Note-Current Subjective Agreeable to PT. Reports she is feeling better each day. Reports she walked with nursing staff last night. Pain Numeric Pain Scale: 4 Location: Left Location Body Site: Knee Pain Description: Ache Mental Status Patient Orientation: Person, Place, Time, Situation Transfers Functional [place] Measure 0=Not Assessed/NA 4=Minimal Assistance 1=Total Assistance 5=Supervision or Setup 2=Maximal Assistance 6=Modified [place] 3=Moderate Assistance 7=Complete IndependenceIRFPAI Quality Coding Scale 6 Independent with activity with or without an assistive device 5 Patient requires set up or clean up by helper. Patient completes activity by themselves 4 Supervision or touching assist (CGA). [place] provide cues , steadying assist 3 The helper provides less than half the effort to complete the activity 2 The helper provides more than half the effort to complete the activity 1 Dependent. The helper does all the effort to complete an activity 7 Patient refused to complete or attempt activity 9 The patient did not perform the activity before the current illness or injury 88 Not attempted due to Medical conditions or safety concerns Transfers (B, C, W/C) (FIM): 5 (takes extra time) Supine to/from Sit: 5 Sit to/from Stand: 5 (takes extra time and requires multiple attempts to come to a stand; tends to pull up on the walker) skilled cues for sequencing and hand placement. Weight Bearing Right Lower Extremity: Right Full Weight Bearing Left Lower Extremity: Left Weight Bearing/Tolerated Gait Training Does the Patient Walk?: Yes Gait (FIM): 5 Distance (FIM): 3=150 ft Distance: 150 ft; 50 ft 250 ft Gait Assistive Device: FWW Work on steady bebe with step through and heel strike/toe off. Tends to keep left knee stiff but it is improving with repetition. Stair Training Stair Training: Handrails/: 2 handrails Stairs (FIM): 2 #of Steps: 4 Stairs: Pattern: Step to Level of Assist: 4 skilled cues for sequencing and safety Exercises Supine Ex: Ankle pumps, Quad Set, Heel Slides, Short Arc Quads, Straight leg raise Supine Reps: 12 (to promote quad strength and knee AROM for normalized gait) Seated Therapy Exercises: Ankle pumps, Long arc quads, Hip flexion Seated Reps: 12 (ROM and strength for normalized gait) Assessment Current Status: Good Progress ROM is progressing. She is improving with her gait pattern and transfers improving as well. She is still slow to complete tasks but does so without assist. PT Short Term Goals Short Term Goals Time Frame: Apr 18, 2018 Gait (FIM): 5 (met) Distance (FIM): 3=150 ft Gait Assistive Device: FWW PT Intermediate Goals Hyperion Analyst Goals PT Intermediate Goals Time Frame: Apr 28, 2018 Transfers (B,C,W/C) (FIM): 6 Sit to Lying (QC): 6 Lying-Sitting on Side/Bed(QC): 6 Sit to Stand (QC): 6 Rollin Roll Left to Right (QC): 6 Chair/[id number] Xfer(QC): 6 Car Transfer (QC): 6 Does the Patient Walk: Yes Gait (FIM): 6 Gait distance (FIM): 3=150 ft Walk 10 feet (QC): 6 Walk 10ft-Uneven Surface(QC): 6 Walk 50ft with 2 Turns (QC): 6 Walk 150 ft (QC): 6 Gait Assistive Device: FWW Does the Pt use WC or Scooter?: No Stairs (FIM): 5 (household exception) # of Steps: 8 1 Step (curb) (QC): 6 4 Steps (QC): 6 12 Steps (QC): 88 Stairs Level Of Assist: 6 Picking up an Object (QC): 5 PT Plan Problem List Problem List: Activity Tolerance, Functional Strength, Safety, Balance, Gait, Transfer, Bed Mobility, ROM Treatment/Plan Treatment Plan: Continue Plan of Care Treatment Plan: Bed Mobility, Education, Functional Activity Quan, Functional Strength, Group Therapy, Gait, Safety, Therapeutic Exercise, Transfers Treatment Duration: Apr 28, 2018 Frequency: Modified Program (IRF) Estimated Hrs Per Day: 1.5 hours per day Patient and/or Family Agrees t: Yes Safety Risks/Education Patient Education: Gait Training, Steps Teaching Recipient: Patient Teaching Methods: Demonstration, Discussion Response to Teaching: Return Demonstration, Reinforcement Needed Discharge Recommendations Therapy D/C Recommendations: Physical Therapy Home Care Time/GCodes Time In: 815 Time Out: 915 Total Billed Treatment Time: 60 Total Billed Treatment visit GT 30 EX 30 CHIKIS ERWIN PT Apr 21, 2018 10:35
--- NOTE | 2018-04-21 10:59 | Occupational Ther Daily Note ---
OT Current Status-Daily Note Subjective Pt seen in room, up in bed, agreeable to OT. Pain mentioned but not rated or described. Appearance Alert, cooperative Mental Status/Objective Functional [place] Measure 0=Not Assessed/NA 4=Minimal Assistance 1=Total Assistance 5=Supervision or Setup 2=Maximal Assistance 6=Modified [place] 3=Moderate Assistance 7=Complete [place] ADL-Treatment Pt was able to move both legs to sit EOB. Able to get up from raised bed with SBA and walk SBA to bathroom. She got on/off BSC over toilet with SBA and managed clothing with no LOB. She also managed hygiene. She walked to shower SBA , FWW and got into shower with CGA and skilled cues for hand placement. ON/off shower bench with SBA, using grab bars. She washed and dried all parts with setup and SBA when standing to dry bottom. She walked to bed SBA, FWW and sat with skilled cues for hand placement. She was able to dress upper body with stup and lower body setup and SBA when standing to pull pants up. Setup with TEDs. Required just a little help for sit to stand by end of tx, due to fatigue and was able to get both legs into bed. Pt left up in bed, 4 rails up, all needs met. Functional [place] Measure 0=Not Assessed/NA 4=Minimal Assistance 1=Total Assistance 5=Supervision or Setup 2=Maximal Assistance 6=Modified [place] 3=Moderate Assistance 7=Complete IndependenceIRFPAI Quality Coding Scale 6 Independent with activity with or without an assistive device 5 Patient requires set up or clean up by helper. Patient completes activity by themselves 4 Supervision or touching assist (CGA). [place] provide cues , steadying assist 3 The helper provides less than half the effort to complete the activity 2 The helper provides more than half the effort to complete the activity 1 Dependent. The helper does all the effort to complete an activity 7 Patient refused to complete or attempt activity 9 The patient did not perform the activity before the current illness or injury 88 Not attempted due to Medical conditions or safety concerns Grooming (FIM): 5 (Washed and dried face and hands in shower, setup) Bathing (FIM): 5 (SBA when standing to dry back and bottom, washed and dried all parts. SHower bench, grab bars, hand held shower, long handled sponge. Pt washed her hair) Upper Body (FIM): 5 (setup) Lower Body Dressing (FIM): 5 (Setup, with TEDs, SBA to don briefs and tiarra, FWW. Able to get shoes on without help or devices. ) Toileting (FIM): 5 (SBA for standing for clothing management. BSc over toilet) Toilet/Commode Transfer (FIM): 5 (SBA getting on/off BSc over toilet, FWW, grab bar) Shower Transfer(FIM): 4 (CGA getting in/out of shower and SBA getting up and down from shower bench. grab bars, FWW) Education OT Patient Education: Modified ADL techniques, Progress toward Goal/Update tx plan, Purpose of tx/functional activities, Safety issues, Transfer techniques Teaching Recipient: Patient Teaching Methods: Discussion Response to Teaching: Verbalize Understanding, Return Demonstration, Reinforcement Needed OT Short Term Goals Short Term Goals Time Frame: Apr 21, 2018 Toilet/Commode Transfer(FIM): 5 1=Demonstrate adherence to instructed precautions during ADL tasks. 2=Patient will verbalize/demonstrate understanding of assistive devices/ modifications for ADL. 3=Patient will improve strength/tolerance for activity to enable patient to perform ADL's. OT [facility] Goals Bilingual Speech Therapist Goals Time Frame: Apr 29, 2018 Eating (FIM): 7 Eating (QC): 6 Groomin Oral Hygiene (QC): 6 Bathing(FIM): 6 Shower/Bathe Self (QC): 6 Upper Body Dressing(FIM): 6 Upper Body Dressing (QC): 6 Lower Body Dressing(FIM): 6 Lower Body Dressing (QC): 6 On/Off Footwear (QC): 6 Toileting(FIM): 6 Toileting Hygiene (QC): 6 Toilet/Commode Transfer(FIM): 6 Toilet/Commode Transfer (QC): 6 Tub Transfer(FIM): 6 (or shower) Shower Transfer(FIM): 6 (or tub) Additional Goals: 1-Demonstrate ADL Tasks, 2-Verbalize Understanding, 3- ImproveStrength/Quan 1=Demonstrate adherence to instructed precautions during ADL tasks. 2=Patient will verbalize/demonstrate understanding of assistive devices/ modifications for ADL. 3=Patient will improve strength/tolerance for activity to enable patient to perform ADL's. OT Education/Plan Problem List/Assessment Pt would benefit from skilled OT to increase her independence in basic self care to allow her to safely return home Discharge Recommendations Plan/Recommendations: Continue POC Treatment Plan/Plan of Care Patient would benefit from OT for education, treatment and training to promote independence in ADL's, mobility, safety and/or upper extremity function for ADL' s. Plan of Care: ADL Retraining, Functional Mobility, Group Exercise/Act as Ind ( education, exercise, activity tolerance, functional activity, functional mobility), UE Funct Exercise/Act, UE Neuromus Re-Ed/Coord Treatment Duration: Apr 29, 2018 Frequency: At least 5 of 7 days/Wk (IRF) Estimated Hrs Per Day: 1.5 hours per day Agreement: Yes Rehab Potential: Good Time/GCodes Start Time: 09:50 Stop Time: 10:50 Total Time Billed (hr/min): 60 Billed Treatment Time visit, 60 minutes ADL WENDY FARLEY OT Apr 21, 2018 10:59
--- NOTE | 2018-04-21 14:24 | Occupational Ther Daily Note ---
OT Current Status-Daily Note Subjective Pt seen in commons area, agreeable to OT. Reported some discomfort R thumb and walker has been padded (pt thinks she is leaning on R hand too much). Appearance Alert, cooperative Mental Status/Objective Functional [place] Measure 0=Not Assessed/NA 4=Minimal Assistance 1=Total Assistance 5=Supervision or Setup 2=Maximal Assistance 6=Modified [place] 3=Moderate Assistance 7=Complete [place] ADL-Treatment Functional [place] Measure 0=Not Assessed/NA 4=Minimal Assistance 1=Total Assistance 5=Supervision or Setup 2=Maximal Assistance 6=Modified [place] 3=Moderate Assistance 7=Complete IndependenceIRFPAI Quality Coding Scale 6 Independent with activity with or without an assistive device 5 Patient requires set up or clean up by helper. Patient completes activity by themselves 4 Supervision or touching assist (CGA). [place] provide cues , steadying assist 3 The helper provides less than half the effort to complete the activity 2 The helper provides more than half the effort to complete the activity 1 Dependent. The helper does all the effort to complete an activity 7 Patient refused to complete or attempt activity 9 The patient did not perform the activity before the current illness or injury 88 Not attempted due to Medical conditions or safety concerns Other Treatment Pt walked to gym with SBA, FWW and was able to get into chair with arms with SBA. She did bilat UE strengthening activity with 1# weight on each arm, working with nuts and bolts board. To strengthen arms to help with getting up and down. She was able to get up from chair with arms after two trials, getting "stuck" about midpoint. She walked back to her room with SBA, FWW and was left up in bathroom at her request on BS, call light present, nursing notified. Education OT Patient Education: Progress toward Goal/Update tx plan, Purpose of tx/ functional activities Teaching Recipient: Patient Teaching Methods: Discussion Response to Teaching: Verbalize Understanding OT Short Term Goals Short Term Goals Time Frame: Apr 21, 2018 Toilet/Commode Transfer(FIM): 5 1=Demonstrate adherence to instructed precautions during ADL tasks. 2=Patient will verbalize/demonstrate understanding of assistive devices/ modifications for ADL. 3=Patient will improve strength/tolerance for activity to enable patient to perform ADL's. OT Alf Goals Museum Educator Goals Time Frame: Apr 29, 2018 Eating (FIM): 7 Eating (QC): 6 Groomin Oral Hygiene (QC): 6 Bathing(FIM): 6 Shower/Bathe Self (QC): 6 Upper Body Dressing(FIM): 6 Upper Body Dressing (QC): 6 Lower Body Dressing(FIM): 6 Lower Body Dressing (QC): 6 On/Off Footwear (QC): 6 Toileting(FIM): 6 Toileting Hygiene (QC): 6 Toilet/Commode Transfer(FIM): 6 Toilet/Commode Transfer (QC): 6 Tub Transfer(FIM): 6 (or shower) Shower Transfer(FIM): 6 (or tub) Additional Goals: 1-Demonstrate ADL Tasks, 2-Verbalize Understanding, 3- ImproveStrength/Quan 1=Demonstrate adherence to instructed precautions during ADL tasks. 2=Patient will verbalize/demonstrate understanding of assistive devices/ modifications for ADL. 3=Patient will improve strength/tolerance for activity to enable patient to perform ADL's. OT Education/Plan Problem List/Assessment Pt would benefit from skilled OT to increase her independence in basic self care to allow her to safely return home Discharge Recommendations Plan/Recommendations: Continue POC Treatment Plan/Plan of Care Patient would benefit from OT for education, treatment and training to promote independence in ADL's, mobility, safety and/or upper extremity function for ADL' s. Plan of Care: ADL Retraining, Functional Mobility, Group Exercise/Act as Ind ( education, exercise, activity tolerance, functional activity, functional mobility), UE Funct Exercise/Act, UE Neuromus Re-Ed/Coord Treatment Duration: Apr 29, 2018 Frequency: At least 5 of 7 days/Wk (IRF) Estimated Hrs Per Day: 1.5 hours per day Agreement: Yes Rehab Potential: Good Time/GCodes Start Time: 13:05 Stop Time: 13:35 Total Time Billed (hr/min): 30 Billed Treatment Time visit, 30 minutes exercise WENDY FARLEY OT Apr 21, 2018 14:24
--- NOTE | 2018-04-21 15:23 | Physical Therapy Daily Note ---
PT Daily Note-Current Subjective Agreeable to PT. No complaints this afternoon. Mental Status Patient Orientation: Person, Place, Time, Situation Transfers Functional [place] Measure 0=Not Assessed/NA 4=Minimal Assistance 1=Total Assistance 5=Supervision or Setup 2=Maximal Assistance 6=Modified [place] 3=Moderate Assistance 7=Complete IndependenceIRFPAI Quality Coding Scale 6 Independent with activity with or without an assistive device 5 Patient requires set up or clean up by helper. Patient completes activity by themselves 4 Supervision or touching assist (CGA). [place] provide cues , steadying assist 3 The helper provides less than half the effort to complete the activity 2 The helper provides more than half the effort to complete the activity 1 Dependent. The helper does all the effort to complete an activity 7 Patient refused to complete or attempt activity 9 The patient did not perform the activity before the current illness or injury 88 Not attempted due to Medical conditions or safety concerns Pt is SBA with bed mobility and sit to stand transfers; she is SBA with toilet transfers as well. Weight Bearing Right Lower Extremity: Right Full Weight Bearing Left Lower Extremity: Left Weight Bearing/Tolerated Gait Training Pt ambulated x 200 ft x 2 with FWW with work on normalized gait pattern and focus on heel strike/toe off. Exercises NuStep Minutes: 15 Assessment Current Status: Good Progress Gait pattern is improving. Pt able to achieve improved knee flexion on the Nu step this visit. PT Short Term Goals Short Term Goals Time Frame: Apr 18, 2018 Gait (FIM): 5 (met) Distance (FIM): 3=150 ft Gait Assistive Device: FWW PT Chcf Goals Chcf Goals PT Water And Fire Technician Goals Time Frame: Apr 28, 2018 Transfers (B,C,W/C) (FIM): 6 Sit to Lying (QC): 6 Lying-Sitting on Side/Bed(QC): 6 Sit to Stand (QC): 6 Rollin Roll Left to Right (QC): 6 Chair/Wyn-tf-Vbldr Xfer(QC): 6 Car Transfer (QC): 6 Does the Patient Walk: Yes Gait (FIM): 6 Gait distance (FIM): 3=150 ft Walk 10 feet (QC): 6 Walk 10ft-Uneven Surface(QC): 6 Walk 50ft with 2 Turns (QC): 6 Walk 150 ft (QC): 6 Gait Assistive Device: FWW Does the Pt use WC or Scooter?: No Stairs (FIM): 5 (household exception) # of Steps: 8 1 Step (curb) (QC): 6 4 Steps (QC): 6 12 Steps (QC): 88 Stairs Level Of Assist: 6 Picking up an Object (QC): 5 PT Plan Problem List Problem List: Activity Tolerance, Functional Strength, Safety Treatment/Plan Treatment Plan: Continue Plan of Care Treatment Plan: Bed Mobility, Education, Functional Activity Quan, Functional Strength, Group Therapy, Gait, Safety, Therapeutic Exercise, Transfers Treatment Duration: Apr 28, 2018 Frequency: Modified Program (IRF) Estimated Hrs Per Day: 1.5 hours per day Patient and/or Family Agrees t: Yes Time/GCodes Time In: 1230 Time Out: 1300 Total Billed Treatment Time: 30 Total Billed Treatment visit EX 15 GT 15 CHIKIS ERWIN PT Apr 21, 2018 15:23
[2018-04-21 17:21] VITALS: BP 100/66
[2018-04-21] MEDS: ATORVASTATIN 40 MG (LIPITOR) TABLET PO SCH (21:16)
[2018-04-22 06:00] VITALS: BP 125/76
[2018-04-22] MEDS: ASCORBIC ACID (VIT C) 500 MG TABLET PO SCH (06:16)
[2018-04-22] MEDS: BISACODYL 5 MG (DULCOLAX) TABLET PO SCH (07:27)
[2018-04-22] MEDS: POLYETHYLENE GLYCOL 17 GM (MIRALAX) PACK PO SCH ×2 (07:28→21:00)
[2018-04-22] MEDS: LACTULOSE SYRUP 10GM/15ML (ENULOSE) 30ML UDC PO SCH ×2 (07:28→20:58)
[2018-04-22] MEDS: HYDROcodone/APAP 10 MG/325 MG (LORTAB) TAB PO PRN ×2 (08:24→23:20)
[2018-04-22] MEDS: ENOXAPARIN 40 MG/0.4 ML (LOVENOX) SYR SC SCH (08:24)
[2018-04-22] MEDS: GABAPENTIN 300 MG (NEURONTIN) CAP PO SCH ×3 (08:24→20:56)
[2018-04-22] MEDS: SENNA W/DOCUSATE (SENOKOT S) TABLET PO SCH ×2 (08:24→20:58)
[2018-04-22] MEDS: ASPIRIN E.C. 325 MG (ECOTRIN) TABLET PO SCH (08:24)
[2018-04-22] MEDS: BACLOFEN 10 MG (LIORESAL) TAB PO SCH ×3 (08:25→21:05)
[2018-04-22] MEDS: OXYBUTYNIN (DITROPAN) 5 MG TAB PO SCH ×3 (08:25→20:56)
[2018-04-22] MEDS: ATENOLOL 50 MG (TENORMIN) TAB PO SCH ×2 (08:25→20:56)
[2018-04-22] MEDS: lisINopril 40 MG (PRINIVIL) TABLET PO SCH (08:25)
--- NOTE | 2018-04-22 08:41 | Progress Note (SOAP) ---
Subjective Time Seen by Provider: 08:40 Subjective/Events-last exam Patient continues to improve Objective Exam Vital Signs Date Time Temp Pulse Resp B/P (MAP) Pulse Ox O2 Delivery O2 Flow Rate FiO2 04/22/18 06:00 97.1 63 18 125/76 (92) 96 Room Air 04/21/18 21:00 Room Air 04/21/18 17:21 98.5 54 18 100/66 (77) 98 Room Air 04/21/18 09:00 Room Air I & O 04/22/18 07:00 Intake Total 1610 ml Balance 1610 ml Capillary Refill : General Appearance: No Apparent Distress, WD/WN Respiratory: Lungs Clear, No Accessory Muscle Use, No Respiratory Distress Cardiovascular: Regular Rate, Rhythm Assessment/Plan Assessment/Plan Assess & Plan/Chief Complaint Recent surgery for left knee total replacement. Hypertension. Chronic low back pain. . 04/18/18. Left knee total replacement. Hypertension. Chronic low back pain. Patient feeling good today. Patient had a little dizziness during the weekend to monitor. . 04/19/18. HEENT computer froze and unable to put in progress note. Left knee total replacement. Hypertension. Chronic low back pain. Patient still having some problems with left knee but doing better. . 04/20/18. Left knee total replacement. Hypertension. Chronic low back pain. Patient feel she is improving. . 04/21/leg pain. Left knee total replacement. Hypertension. Patient feel she is each day improving. . 04/22/18. Total knee left replacement. Hypertension. Patient voices no complaints today Clinical Quality Measures DVT/VTE Risk/Contraindication: Risk Factor Score Per Nursin RFS Level Per Nursing on Admit: 4+=Very High ANASTASIYA SAINZ DO Apr 22, 2018 08:41
--- NOTE | 2018-04-22 08:53 | PM & R (SOAP) Progress Note ---
Subjective This was a face to face visit with the patient. Date Seen by Provider: Apr 22, 2018 Time Seen by Provider: 08:00 Subjective/Events-last exam Patient was seen in her room this AM Constipation addressed Patient SBA for bed mobility and transfers Objective Physician Exam Last Set of Vital Signs Vital Signs Date Time Temp Pulse Resp B/P (MAP) Pulse Ox O2 Delivery O2 Flow Rate FiO2 04/22/18 08:44 Room Air 04/22/18 06:00 97.1 63 18 125/76 (92) 96 Capillary Refill : I&O Intake and Output 04/22/18 00:00 Intake Total 1510 ml Balance 1510 ml Intake Oral 1510 ml # Voids 7 # Bowel Movements 1 General: Alert, Oriented X3, Cooperative, No Acute Distress HEENT: Atraumatic, PERRLA, EOMI, Mucous Memb Moist/[place] Neck: Supple, No JVD Lungs: Clear to Auscultation Heart: Regular Rate Abdomen: Normal Bowel Sounds, Soft, No Tenderness Extremities: No Edema (trace edema left ankle) Skin: Other (incision healing well) Neuro: Other (Limited Abduction and flexion at 90 degrees both shoulders and limited Flex left knee postop) Results Lab Data Laboratory Tests 04/21/18 04:15: White Blood Count 13.4H, Red Blood Count 4.02L, Hemoglobin 12.0, Hematocrit 35, Mean Corpuscular Volume 87, Mean Corpuscular Hemoglobin 30, Mean Corpuscular Hemoglobin Concent 34, Red Cell Distribution Width 13.7, Platelet Count 256, Mean Platelet Volume 11.0H, Sodium Level 137, Potassium Level 4.0, Chloride Level 104, Carbon Dioxide Level 21, Anion Gap 12, Blood Urea Nitrogen 12, Creatinine 0.63, Estimat Glomerular Filtration Rate > 60, BUN/Creatinine Ratio 19, Glucose Level 107H, Calcium Level 9.6 Assessment/Plan Assessment and Plan OA s/p Left TKR HTN controlled Postop nausea resolved Postop constipation treated Chronic back pain' Postop DVT Prophylaxis on Lovenox subcut Plan Continue PT/OT Next Team Conference 04-27-18 Goal Return Home Modified Independent for adls and mobility skills Co-Morbidities that are continuing to impact the rehab process: (include details ) OG LANGE MD Apr 22, 2018 08:53
--- NOTE | 2018-04-22 10:47 | Occupational Ther Daily Note ---
OT Current Status-Daily Note Subjective Pt seen in room, up in recliner, agreeable to OT. Reported some discomfort in R thumb after transfers and thinks its from hard arms on recliner and BSC ( already has padding on walker handle). Appearance Alert, cooperative Mental Status/Objective Functional [place] Measure 0=Not Assessed/NA 4=Minimal Assistance 1=Total Assistance 5=Supervision or Setup 2=Maximal Assistance 6=Modified [place] 3=Moderate Assistance 7=Complete [place] ADL-Treatment She was able to get up from recliner with cue for lowering legs on recliner and walked with SBA, FWW to bathroom. She transferred on/off BSC with SBA, FWW and managed toileting independently including hygiene, changing briefs, managing clothing. She walked with SBA, FWW to sink and stood to brush teeth and wash hands and face, no LOB observed. Functional [place] Measure 0=Not Assessed/NA 4=Minimal Assistance 1=Total Assistance 5=Supervision or Setup 2=Maximal Assistance 6=Modified [place] 3=Moderate Assistance 7=Complete IndependenceIRFPAI Quality Coding Scale 6 Independent with activity with or without an assistive device 5 Patient requires set up or clean up by helper. Patient completes activity by themselves 4 Supervision or touching assist (CGA). [place] provide cues , steadying assist 3 The helper provides less than half the effort to complete the activity 2 The helper provides more than half the effort to complete the activity 1 Dependent. The helper does all the effort to complete an activity 7 Patient refused to complete or attempt activity 9 The patient did not perform the activity before the current illness or injury 88 Not attempted due to Medical conditions or safety concerns Grooming (FIM): 6 Toileting (FIM): 6 (BSC over toilet) Toilet/Commode Transfer (FIM): 5 Other Treatment Pt walked with SBA, FWW to gym and got into chair with arms without cues for hand placement. She did bilat UE exercise with arm bike for 15 minutes, set at 20-25W resistance, taking brief breaks to get a drink of water. She also did graded clothespins with 1# weight on each arm. All activities to strengthen arms to help with transfers and standing during ADLs. Clothespins also helped with hand strength (she had difficulty with black ones, with most resistance and also had difficulty raising arms much about shoulder height). She walked back to her room with ELLIOT OSMAN. padded applied to handle on BSC and also arm rest of recliner, to see if it helps decrease hand soreness. Pt left up in recliner, all needs met. Education OT Patient Education: Progress toward Goal/Update tx plan, Purpose of tx/ functional activities, Transfer techniques Teaching Recipient: Patient Teaching Methods: Discussion Response to Teaching: Verbalize Understanding, Reinforcement Needed OT Short Term Goals Short Term Goals Time Frame: Apr 21, 2018 Toilet/Commode Transfer(FIM): 5 1=Demonstrate adherence to instructed precautions during ADL tasks. 2=Patient will verbalize/demonstrate understanding of assistive devices/ modifications for ADL. 3=Patient will improve strength/tolerance for activity to enable patient to perform ADL's. OT Administrative Supervisor Goals Fdc Goals Time Frame: Apr 29, 2018 Eating (FIM): 7 Eating (QC): 6 Groomin Oral Hygiene (QC): 6 Bathing(FIM): 6 Shower/Bathe Self (QC): 6 Upper Body Dressing(FIM): 6 Upper Body Dressing (QC): 6 Lower Body Dressing(FIM): 6 Lower Body Dressing (QC): 6 On/Off Footwear (QC): 6 Toileting(FIM): 6 Toileting Hygiene (QC): 6 Toilet/Commode Transfer(FIM): 6 Toilet/Commode Transfer (QC): 6 Tub Transfer(FIM): 6 (or shower) Shower Transfer(FIM): 6 (or tub) Additional Goals: 1-Demonstrate ADL Tasks, 2-Verbalize Understanding, 3- ImproveStrength/Quan 1=Demonstrate adherence to instructed precautions during ADL tasks. 2=Patient will verbalize/demonstrate understanding of assistive devices/ modifications for ADL. 3=Patient will improve strength/tolerance for activity to enable patient to perform ADL's. OT Education/Plan Problem List/Assessment Pt would benefit from skilled OT to increase her independence in basic self care to allow her to safely return home Discharge Recommendations Plan/Recommendations: Continue POC Treatment Plan/Plan of Care Patient would benefit from OT for education, treatment and training to promote independence in ADL's, mobility, safety and/or upper extremity function for ADL' s. Plan of Care: ADL Retraining, Functional Mobility, Group Exercise/Act as Ind ( education, exercise, activity tolerance, functional activity, functional mobility), UE Funct Exercise/Act, UE Neuromus Re-Ed/Coord Treatment Duration: Apr 29, 2018 Frequency: At least 5 of 7 days/Wk (IRF) Estimated Hrs Per Day: 1.5 hours per day Agreement: Yes Rehab Potential: Good Time/GCodes Start Time: 09:35 Stop Time: 10:40 Total Time Billed (hr/min): 65 Billed Treatment Time visit, 20 minutes ADL, 45 min exercise WENDY FARLEY OT Apr 22, 2018 10:47
--- NOTE | 2018-04-22 11:57 | Physical Therapy Daily Note ---
PT Daily Note-Current Subjective Patient in recliner pre tx, agrees to PT, has 6/10 pain in left knee. Appearance Patient in bed post tx with nurse call, phone, tray, all needs met. Mental Status Patient Orientation: Person, Place, Situation Transfers Functional [place] Measure 0=Not Assessed/NA 4=Minimal Assistance 1=Total Assistance 5=Supervision or Setup 2=Maximal Assistance 6=Modified [place] 3=Moderate Assistance 7=Complete IndependenceIRFPAI Quality Coding Scale 6 Independent with activity with or without an assistive device 5 Patient requires set up or clean up by helper. Patient completes activity by themselves 4 Supervision or touching assist (CGA). [place] provide cues , steadying assist 3 The helper provides less than half the effort to complete the activity 2 The helper provides more than half the effort to complete the activity 1 Dependent. The helper does all the effort to complete an activity 7 Patient refused to complete or attempt activity 9 The patient did not perform the activity before the current illness or injury 88 Not attempted due to Medical conditions or safety concerns Transfers (B, C, W/C) (FIM): 5 Scootin Rollin Supine to/from Sit: 5 Sit to/from Stand: 5 Bed to/from Chair: 5 Patient has difficulty with left leg when going from sit to supine but she can do it without assist. Occasional cues for safety and hand placement. Weight Bearing Right Lower Extremity: Right Full Weight Bearing Left Lower Extremity: Left Weight Bearing/Tolerated Gait Training Gait (FIM): 5 Distance: 150'x2 Gait Level of Assist: 5 Gait Persons Needed: 1 Gait Assistive Device: FWW Antalgic gait, decreased stance time on the left LE, decreased knee movement on the left (stiff leg). Exercises Supine Ex: Ankle pumps, Quad Set, Heel Slides, Short Arc Quads, Straight leg raise Supine Reps: 20 Standing: Hip Abduction, Heel/toe raises, Marching, Mini squats Standing Reps: 15 2 min knee extension stretch with OP Treatments ROM, bed mobility and transfers, ambulation, functional strengthening Assessment Current Status: Poor Progress poor knee ROM, 65 degrees flexion and +10 degrees extension PT Short Term Goals Short Term Goals Time Frame: Apr 18, 2018 Gait (FIM): 5 (met) Distance (FIM): 3=150 ft Gait Assistive Device: FWW PT Life Skills Instructor Goals Life Skills Instructor Goals PT Longterm Goals Time Frame: Apr 28, 2018 Transfers (B,C,W/C) (FIM): 6 Sit to Lying (QC): 6 Lying-Sitting on Side/Bed(QC): 6 Sit to Stand (QC): 6 Rollin Roll Left to Right (QC): 6 Chair/Vpp-dq-Oazhx Xfer(QC): 6 Car Transfer (QC): 6 Does the Patient Walk: Yes Gait (FIM): 6 Gait distance (FIM): 3=150 ft Walk 10 feet (QC): 6 Walk 10ft-Uneven Surface(QC): 6 Walk 50ft with 2 Turns (QC): 6 Walk 150 ft (QC): 6 Gait Assistive Device: FWW Does the Pt use WC or Scooter?: No Stairs (FIM): 5 (household exception) # of Steps: 8 1 Step (curb) (QC): 6 4 Steps (QC): 6 12 Steps (QC): 88 Stairs Level Of Assist: 6 Picking up an Object (QC): 5 PT Plan Problem List Problem List: Activity Tolerance, Functional Strength, Safety, Balance, Gait, Transfer, Bed Mobility, ROM Treatment/Plan Treatment Plan: Continue Plan of Care Treatment Plan: Bed Mobility, Education, Functional Activity Quan, Functional Strength, Group Therapy, Gait, Safety, Therapeutic Exercise, Transfers Treatment Duration: Apr 28, 2018 Frequency: Modified Program (IRF) Estimated Hrs Per Day: 1.5 hours per day Patient and/or Family Agrees t: Yes Safety Risks/Education Patient Education: Gait Training, Transfer Techniques, Correct Positioning, Disease Process, Safety Issues Teaching Recipient: Patient Teaching Methods: Demonstration, Discussion Response to Teaching: Reinforcement Needed Time/GCodes Time In: 1100 Time Out: 1200 Total Billed Treatment Time: 60 Total Billed Treatment 1 visit EX 30' GT 30' JAREK HOSKINS PT Apr 22, 2018 11:56
--- NOTE | 2018-04-22 14:51 | Therapy Group Daily Note ---
Therapy Daily Group Note Patient Education Topic Other List Below (wellness and nutrition) Exercises LE Seated Exercise, UE Exercise Other/Notes Pt. participated in group PT OT session . Pt. came and went walking with FWW and CGA. Pts. very much enjoyed the introduction and socialization portion of group and engaged conversation well; all pertinent to the education topics. Pts. participated in seated U&L extremity exercises. Game using hand paddles for question and answer options for wellness was played which started much conversation and sharing. Pt. required assist to room after as well as to bed . Call gómez at hand Start Time: 13:00 Stop Time: 14:15 Total Billed Treatment Time: 75 Total Billed Treatment 1,GRP BETSEY BREWSTER NEWSPAPER INSERTER Apr 22, 2018 14:51
[2018-04-22 18:44] VITALS: BP 116/76
[2018-04-22] MEDS: ATORVASTATIN 40 MG (LIPITOR) TABLET PO SCH (20:56)
[2018-04-22 20:58] VITALS: BP 118/72
[2018-04-23 05:52] VITALS: BP 113/67
[2018-04-23] MEDS: ASCORBIC ACID (VIT C) 500 MG TABLET PO SCH (06:58)
--- NOTE | 2018-04-23 07:41 | PM & R (SOAP) Progress Note ---
Subjective This was a face to face visit with the patient. Date Seen by Provider: Apr 23, 2018 Time Seen by Provider: 07:15 Subjective/Events-last exam Patient was seen in her room this AM Patient SBA for transfers Objective Physician Exam Last Set of Vital Signs Vital Signs Date Time Temp Pulse Resp B/P (MAP) Pulse Ox O2 Delivery O2 Flow Rate FiO2 04/23/18 05:52 98.2 55 18 113/67 (82) 95 Room Air Capillary Refill : I&O Intake and Output 04/23/18 00:00 Intake Total 1970 ml Balance 1970 ml Intake Oral 1970 ml # Voids 7 General: Alert, Oriented X3, Cooperative, No Acute Distress HEENT: Atraumatic, PERRLA, EOMI, Mucous Memb Moist/[place] Neck: Supple, No JVD Lungs: Clear to Auscultation Heart: Regular Rate Abdomen: Normal Bowel Sounds, Soft, No Tenderness Extremities: No Edema (trace edema left ankle) Skin: Other (incision healing well) Neuro: Other (Limited Abduction and flexion at 90 degrees both shoulders and limited Flex left knee postop) Results Lab Data Laboratory Tests 04/21/18 04:15: White Blood Count 13.4H, Red Blood Count 4.02L, Hemoglobin 12.0, Hematocrit 35, Mean Corpuscular Volume 87, Mean Corpuscular Hemoglobin 30, Mean Corpuscular Hemoglobin Concent 34, Red Cell Distribution Width 13.7, Platelet Count 256, Mean Platelet Volume 11.0H, Sodium Level 137, Potassium Level 4.0, Chloride Level 104, Carbon Dioxide Level 21, Anion Gap 12, Blood Urea Nitrogen 12, Creatinine 0.63, Estimat Glomerular Filtration Rate > 60, BUN/Creatinine Ratio 19, Glucose Level 107H, Calcium Level 9.6 Assessment/Plan Assessment and Plan OA s/p Left TKR HTN controlled Postop nausea resolved Postop constipation improved Chronic back pain DVT Prophylaxis on Lovenox subcut Plan Continue PT/OT Next Team Conference 04-27-18 Co-Morbidities that are continuing to impact the rehab process: (include details ) OG LANGE MD Apr 23, 2018 07:41
[2018-04-23] MEDS: BISACODYL 5 MG (DULCOLAX) TABLET PO SCH (08:19)
[2018-04-23] MEDS: OXYBUTYNIN (DITROPAN) 5 MG TAB PO SCH ×3 (08:19→20:57)
[2018-04-23] MEDS: LACTULOSE SYRUP 10GM/15ML (ENULOSE) 30ML UDC PO SCH ×2 (08:19→20:59)
[2018-04-23] MEDS: ENOXAPARIN 40 MG/0.4 ML (LOVENOX) SYR SC SCH (08:19)
[2018-04-23] MEDS: ASPIRIN E.C. 325 MG (ECOTRIN) TABLET PO SCH (08:19)
[2018-04-23] MEDS: ATENOLOL 50 MG (TENORMIN) TAB PO SCH ×2 (08:19→20:57)
[2018-04-23] MEDS: GABAPENTIN 300 MG (NEURONTIN) CAP PO SCH ×3 (08:19→20:56)
[2018-04-23] MEDS: SENNA W/DOCUSATE (SENOKOT S) TABLET PO SCH ×2 (08:19→20:59)
[2018-04-23] MEDS: POLYETHYLENE GLYCOL 17 GM (MIRALAX) PACK PO SCH ×2 (08:19→20:59)
[2018-04-23] MEDS: BACLOFEN 10 MG (LIORESAL) TAB PO SCH ×3 (08:20→20:57)
[2018-04-23] MEDS: lisINopril 40 MG (PRINIVIL) TABLET PO SCH (08:20)
--- NOTE | 2018-04-23 11:12 | Physical Therapy Daily Note ---
PT Daily Note-Current Subjective Pain rated 2/10 (L) knee. Pt agreeable. Mental Status Patient Orientation: Person, Place, Situation Transfers Functional [place] Measure 0=Not Assessed/NA 4=Minimal Assistance 1=Total Assistance 5=Supervision or Setup 2=Maximal Assistance 6=Modified [place] 3=Moderate Assistance 7=Complete IndependenceIRFPAI Quality Coding Scale 6 Independent with activity with or without an assistive device 5 Patient requires set up or clean up by helper. Patient completes activity by themselves 4 Supervision or touching assist (CGA). [place] provide cues , steadying assist 3 The helper provides less than half the effort to complete the activity 2 The helper provides more than half the effort to complete the activity 1 Dependent. The helper does all the effort to complete an activity 7 Patient refused to complete or attempt activity 9 The patient did not perform the activity before the current illness or injury 88 Not attempted due to Medical conditions or safety concerns Transfers mod (I) all levels. Weight Bearing Right Lower Extremity: Right Full Weight Bearing Left Lower Extremity: Left Weight Bearing/Tolerated Gait Training Gait Assistive Device: FWW Pt amb with FWW and SBA 2 x 125ft Exercises Supine Ex: LE Protocol Supine Reps: 20 Treatments Passive knee flexion/ext with foot on therapy ball x 20. Pt instructed to sit and pull heel back flexing the knee. Pt guarded initially but able to improve knee flexion with practice, showing less guarding. Assessment Current Status: Good Progress Pt noe well. Pt encouraged to exercise the knee into flexion and ext intermittently throughout the weekend. Pt agreeable and verbalized understanding. Pt progressing appropriately. Pt seated with call light and all needs met post therapy session. PT Short Term Goals Short Term Goals Time Frame: Apr 18, 2018 Gait (FIM): 5 (met) Distance (FIM): 3=150 ft Gait Assistive Device: FWW PT Usp Goals Hog Cutter Goals PT Hog Cutter Goals Time Frame: Apr 28, 2018 Transfers (B,C,W/C) (FIM): 6 Sit to Lying (QC): 6 Lying-Sitting on Side/Bed(QC): 6 Sit to Stand (QC): 6 Rollin Roll Left to Right (QC): 6 Chair/Yva-xs-Tpoth Xfer(QC): 6 Car Transfer (QC): 6 Does the Patient Walk: Yes Gait (FIM): 6 Gait distance (FIM): 3=150 ft Walk 10 feet (QC): 6 Walk 10ft-Uneven Surface(QC): 6 Walk 50ft with 2 Turns (QC): 6 Walk 150 ft (QC): 6 Gait Assistive Device: FWW Does the Pt use WC or Scooter?: No Stairs (FIM): 5 (household exception) # of Steps: 8 1 Step (curb) (QC): 6 4 Steps (QC): 6 12 Steps (QC): 88 Stairs Level Of Assist: 6 Picking up an Object (QC): 5 PT Plan Treatment/Plan Treatment Plan: Continue Plan of Care Treatment Plan: Bed Mobility, Education, Functional Activity Quan, Functional Strength, Group Therapy, Gait, Safety, Therapeutic Exercise, Transfers Treatment Duration: Apr 28, 2018 Frequency: Modified Program (IRF) Estimated Hrs Per Day: 1.5 hours per day Patient and/or Family Agrees t: Yes Time/GCodes Time In: 900 Time Out: 930 Total Billed Treatment Time: 30 Total Billed Treatment 1, ther ex 15 min, gait 15 min OC FERRELL CPTMaranda Apr 23, 2018 11:12
[2018-04-23 15:58] VITALS: BP 127/79
[2018-04-23 18:00] VITALS: BP 127/79
[2018-04-23 20:38] VITALS: BP 118/69
[2018-04-23] MEDS: ATORVASTATIN 40 MG (LIPITOR) TABLET PO SCH (20:56)
[2018-04-23] MEDS: ALPRAZolam 0.25 MG (XANAX) TAB PO PRN (23:50)
[2018-04-24 05:19] VITALS: BP 115/71
[2018-04-24] MEDS: ASCORBIC ACID (VIT C) 500 MG TABLET PO SCH (06:50)
[2018-04-24] MEDS: BACLOFEN 10 MG (LIORESAL) TAB PO SCH ×3 (08:20→21:17)
[2018-04-24] MEDS: ATENOLOL 50 MG (TENORMIN) TAB PO SCH ×2 (08:20→21:17)
[2018-04-24] MEDS: ASPIRIN E.C. 325 MG (ECOTRIN) TABLET PO SCH (08:20)
[2018-04-24] MEDS: lisINopril 40 MG (PRINIVIL) TABLET PO SCH (08:20)
[2018-04-24] MEDS: OXYBUTYNIN (DITROPAN) 5 MG TAB PO SCH ×3 (08:21→21:17)
[2018-04-24] MEDS: GABAPENTIN 300 MG (NEURONTIN) CAP PO SCH ×3 (08:21→21:17)
[2018-04-24] MEDS: ENOXAPARIN 40 MG/0.4 ML (LOVENOX) SYR SC SCH (08:22)
[2018-04-24] MEDS: SENNA W/DOCUSATE (SENOKOT S) TABLET PO SCH ×2 (08:30→21:00)
[2018-04-24] MEDS: LACTULOSE SYRUP 10GM/15ML (ENULOSE) 30ML UDC PO SCH ×2 (08:30→21:00)
[2018-04-24] MEDS: BISACODYL 5 MG (DULCOLAX) TABLET PO SCH (08:30)
[2018-04-24] MEDS: POLYETHYLENE GLYCOL 17 GM (MIRALAX) PACK PO SCH ×2 (08:30→21:00)
[2018-04-24 16:44] VITALS: BP 108/59
[2018-04-24 20:55] VITALS: BP 128/83
[2018-04-24] MEDS: ATORVASTATIN 40 MG (LIPITOR) TABLET PO SCH (21:17)
[2018-04-25] MEDS: ALPRAZolam 0.25 MG (XANAX) TAB PO PRN (00:47)
[2018-04-25] MEDS: HYDROcodone/APAP 10 MG/325 MG (LORTAB) TAB PO PRN (01:58)
[2018-04-25 05:38] VITALS: BP 119/74
[2018-04-25] MEDS: ASCORBIC ACID (VIT C) 500 MG TABLET PO SCH (06:54)
[2018-04-25] MEDS: GABAPENTIN 300 MG (NEURONTIN) CAP PO SCH ×3 (08:14→20:39)
[2018-04-25] MEDS: ASPIRIN E.C. 325 MG (ECOTRIN) TABLET PO SCH (08:14)
[2018-04-25] MEDS: OXYBUTYNIN (DITROPAN) 5 MG TAB PO SCH ×3 (08:15→20:39)
[2018-04-25] MEDS: POLYETHYLENE GLYCOL 17 GM (MIRALAX) PACK PO SCH ×2 (08:15→20:42)
[2018-04-25] MEDS: LACTULOSE SYRUP 10GM/15ML (ENULOSE) 30ML UDC PO SCH ×2 (08:15→20:42)
[2018-04-25] MEDS: BISACODYL 5 MG (DULCOLAX) TABLET PO SCH (08:15)
[2018-04-25] MEDS: BACLOFEN 10 MG (LIORESAL) TAB PO SCH ×3 (08:16→20:39)
[2018-04-25] MEDS: lisINopril 40 MG (PRINIVIL) TABLET PO SCH (08:16)
[2018-04-25] MEDS: ATENOLOL 50 MG (TENORMIN) TAB PO SCH ×2 (08:16→20:39)
[2018-04-25] MEDS: SENNA W/DOCUSATE (SENOKOT S) TABLET PO SCH ×2 (08:17→20:42)
[2018-04-25] MEDS: ENOXAPARIN 40 MG/0.4 ML (LOVENOX) SYR SC SCH (08:18)
--- NOTE | 2018-04-25 12:00 | Physical Therapy Daily Note ---
PT Daily Note-Current Subjective Pt. agrees to rx. Feels she is making progress pain rated at 5/10 left knee Pain Numeric Pain Scale: 5-Moderate Pain Location: Left Location Body Site: Knee Pain Description: Ache Mental Status Patient Orientation: Normal For Age Transfers Functional [place] Measure 0=Not Assessed/NA 4=Minimal Assistance 1=Total Assistance 5=Supervision or Setup 2=Maximal Assistance 6=Modified [place] 3=Moderate Assistance 7=Complete IndependenceIRFPAI Quality Coding Scale 6 Independent with activity with or without an assistive device 5 Patient requires set up or clean up by helper. Patient completes activity by themselves 4 Supervision or touching assist (CGA). [place] provide cues , steadying assist 3 The helper provides less than half the effort to complete the activity 2 The helper provides more than half the effort to complete the activity 1 Dependent. The helper does all the effort to complete an activity 7 Patient refused to complete or attempt activity 9 The patient did not perform the activity before the current illness or injury 88 Not attempted due to Medical conditions or safety concerns Transfers (B, C, W/C) (FIM): 6 Scootin Rollin Supine to/from Sit: 6 Sit to/from Stand: 6 Bed to/from Chair: 6 Weight Bearing Right Lower Extremity: Right Full Weight Bearing Left Lower Extremity: Left Weight Bearing/Tolerated Gait Training Does the Patient Walk?: Yes Gait (FIM): 6 Distance (FIM): 3=150 ft (200x2) Gait Level of Assist: 6 Gait Persons Needed: 0 (cuing for knee ext and heel strike occas) Stair Training Stair Training: Handrails/: 2 handrails Stairs (FIM): 2 #of Steps: 4 Stairs: Pattern: Step to Level of Assist: 4 needed multiple cues for sequence Exercises Supine Ex: Ankle pumps, Quad Set, Rolling, Glut sets, Heel Slides, Short Arc Quads, Scooting, Straight leg raise, Hip abd/add Supine Reps: 15 Seated Therapy Exercises: Ankle pumps, Sit to stand, Long arc quads, Hip flexion Seated Reps: 15 NuStep Minutes: 10 NuStep Workload: 2 Treatments AROM 10-75 degrees Assessment Current Status: Good Progress right knee also has so me pain, limiting funct at times, polar pack on after rx , pt. in supine PT Short Term Goals Short Term Goals Time Frame: Apr 18, 2018 Gait (FIM): 5 (met) Distance (FIM): 3=150 ft Gait Assistive Device: FWW PT Automation Engineering Technician Goals Automation Engineering Technician Goals PT Fdc Goals Time Frame: Apr 28, 2018 Transfers (B,C,W/C) (FIM): 6 Sit to Lying (QC): 6 Lying-Sitting on Side/Bed(QC): 6 Sit to Stand (QC): 6 Rollin Roll Left to Right (QC): 6 Chair/Bfn-bq-Fewrr Xfer(QC): 6 Car Transfer (QC): 6 Does the Patient Walk: Yes Gait (FIM): 6 Gait distance (FIM): 3=150 ft Walk 10 feet (QC): 6 Walk 10ft-Uneven Surface(QC): 6 Walk 50ft with 2 Turns (QC): 6 Walk 150 ft (QC): 6 Gait Assistive Device: FWW Does the Pt use WC or Scooter?: No Stairs (FIM): 5 (household exception) # of Steps: 8 1 Step (curb) (QC): 6 4 Steps (QC): 6 12 Steps (QC): 88 Stairs Level Of Assist: 6 Picking up an Object (QC): 5 PT Plan Treatment/Plan Treatment Plan: Continue Plan of Care Treatment Plan: Bed Mobility, Education, Functional Activity Quan, Functional Strength, Group Therapy, Gait, Safety, Therapeutic Exercise, Transfers Treatment Duration: Apr 28, 2018 Frequency: Modified Program (IRF) Estimated Hrs Per Day: 1.5 hours per day Patient and/or Family Agrees t: Yes Safety Risks/Education Patient Education: Gait Training, Transfer Techniques, Steps, Correct Positioning, Disease Process, Safety Issues Teaching Recipient: Patient Teaching Methods: Demonstration, Discussion Response to Teaching: Verbalize Understanding, Return Demonstration, Reinforcement Needed Time/GCodes Time In: 1100 Time Out: 1200 Total Billed Treatment Time: 60 Total Billed Treatment 1,Gt15m,FA20m,Ex25m G Codes Necessary: BETSEY Castellon PTA Apr 25, 2018 12:00
--- NOTE | 2018-04-25 12:45 | Occupational Ther Daily Note ---
OT Current Status-Daily Note Subjective Pt seen in room, up in bed, agreeable to OT. No pain mentioned although she winces with sit to stand/ Appearance Alert, cooperative Mental Status/Objective Functional [place] Measure 0=Not Assessed/NA 4=Minimal Assistance 1=Total Assistance 5=Supervision or Setup 2=Maximal Assistance 6=Modified [place] 3=Moderate Assistance 7=Complete [place] ADL-Treatment She was able to move legs to EOB and sit up to EOB without help. Sit to stand without help, taking a few trials to get up. Walked to bathroom with SBA, FWW. Got on and off BSC over toilet with SBA, FWW , grab bar and managed clothing and hygiene, mod I. no LOB. Walked with SBA, FWW to shower and able to get in/ out of shower with SBA. She turned water on and off and retrieved towels, washed hair. Shower bench, grab bar, hand held shower, long handled sponge. Walked with SBA to bed to dress. Able to get slipper socks on while in bed and also slippers. Reminder for modified technique for LB dressing and reminder to make sure pants are not under her feet when standing to pull them up. One time wobble while standing but self-corrected. Dressed upper body with setup. Walked to bathroom with SBA, FWW and brushed teeth. Combed hair mod I standing at sink. Walked back to bed and able to get feet into bed without help. Pt left up in bed, all needs met. Functional [place] Measure 0=Not Assessed/NA 4=Minimal Assistance 1=Total Assistance 5=Supervision or Setup 2=Maximal Assistance 6=Modified [place] 3=Moderate Assistance 7=Complete IndependenceIRFPAI Quality Coding Scale 6 Independent with activity with or without an assistive device 5 Patient requires set up or clean up by helper. Patient completes activity by themselves 4 Supervision or touching assist (CGA). [place] provide cues , steadying assist 3 The helper provides less than half the effort to complete the activity 2 The helper provides more than half the effort to complete the activity 1 Dependent. The helper does all the effort to complete an activity 7 Patient refused to complete or attempt activity 9 The patient did not perform the activity before the current illness or injury 88 Not attempted due to Medical conditions or safety concerns Grooming (FIM): 6 (Brushed teeth, combed hair standing at sink, FWW for balance ) Bathing (FIM): 6 (Washed and dried all parts. Turned water on and off, retrieved towels) Upper Body (FIM): 5 (setup) Lower Body Dressing (FIM): 5 (setup, supervision, cues to pull pants up from under feet. ) Toileting (FIM): 6 (Mod I BSc over toilet, grab bar, FWW) Toilet/Commode Transfer (FIM): 5 (SBA) Education OT Patient Education: Progress toward Goal/Update tx plan, Purpose of tx/ functional activities, Safety issues Teaching Recipient: Patient Teaching Methods: Discussion Response to Teaching: Verbalize Understanding, Return Demonstration, Reinforcement Needed OT Short Term Goals Short Term Goals Time Frame: Apr 21, 2018 Toilet/Commode Transfer(FIM): 5 1=Demonstrate adherence to instructed precautions during ADL tasks. 2=Patient will verbalize/demonstrate understanding of assistive devices/ modifications for ADL. 3=Patient will improve strength/tolerance for activity to enable patient to perform ADL's. OT Watch Parts Inspector Goals Watch Parts Inspector Goals Time Frame: Apr 29, 2018 Eating (FIM): 7 Eating (QC): 6 Groomin Oral Hygiene (QC): 6 Bathing(FIM): 6 Shower/Bathe Self (QC): 6 Upper Body Dressing(FIM): 6 Upper Body Dressing (QC): 6 Lower Body Dressing(FIM): 6 Lower Body Dressing (QC): 6 On/Off Footwear (QC): 6 Toileting(FIM): 6 Toileting Hygiene (QC): 6 Toilet/Commode Transfer(FIM): 6 Toilet/Commode Transfer (QC): 6 Tub Transfer(FIM): 6 (or shower) Shower Transfer(FIM): 6 (or tub) Additional Goals: 1-Demonstrate ADL Tasks, 2-Verbalize Understanding, 3- ImproveStrength/Quan 1=Demonstrate adherence to instructed precautions during ADL tasks. 2=Patient will verbalize/demonstrate understanding of assistive devices/ modifications for ADL. 3=Patient will improve strength/tolerance for activity to enable patient to perform ADL's. OT Education/Plan Problem List/Assessment Pt would benefit from skilled OT to increase her independence in basic self care to allow her to safely return home Discharge Recommendations Plan/Recommendations: Continue POC Treatment Plan/Plan of Care Patient would benefit from OT for education, treatment and training to promote independence in ADL's, mobility, safety and/or upper extremity function for ADL' s. Plan of Care: ADL Retraining, Functional Mobility, Group Exercise/Act as Ind ( education, exercise, activity tolerance, functional activity, functional mobility), UE Funct Exercise/Act, UE Neuromus Re-Ed/Coord Treatment Duration: Apr 29, 2018 Frequency: At least 5 of 7 days/Wk (IRF) Estimated Hrs Per Day: 1.5 hours per day Agreement: Yes Rehab Potential: Good Time/GCodes Start Time: 09:00 Stop Time: 10:00 Total Time Billed (hr/min): 60 Billed Treatment Time visit, 60 minutes ADL WENDY FARLEY OT Apr 25, 2018 12:45
--- NOTE | 2018-04-25 14:28 | Therapy Group Daily Note ---
Therapy Daily Group Note Patient Education Topic Home Safety, Fall Prevention Exercises LE Seated Exercise, UE Exercise Other/Notes Pt was an active participant on OT/PT group. She introduced herself by sharing a holiday memory. She contributed to group education/discussion on home safety and fall prevention and, at the end of the group, was able to identify one way that she will change her home to increase safety. She also did seated UE and LE exercises to help with transfers. She walked back to her room with SBA for safety, FWW and was left up in bed, all needs met. Start Time: 13:00 Stop Time: 14:10 Total Billed Treatment Time: 70 Total Billed Treatment visit, 70 minutes group WENDY FARLEY OT Apr 25, 2018 14:28
[2018-04-25 17:35] VITALS: BP 106/58
[2018-04-25] MEDS: ATORVASTATIN 40 MG (LIPITOR) TABLET PO SCH (20:39)
--- NOTE | 2018-04-25 22:25 | PM & R (SOAP) Progress Note ---
Subjective This was a face to face visit with the patient. Date Seen by Provider: Apr 25, 2018 Time Seen by Provider: 21:45 Subjective/Events-last exam Patient was seen in her room this evening Patient Modified Independent for transfers but patient concerned re number of steps to enter her home Will f/u with staff tomorrow re this Objective Physician Exam Last Set of Vital Signs Vital Signs Date Time Temp Pulse Resp B/P (MAP) Pulse Ox O2 Delivery O2 Flow Rate FiO2 04/25/18 17:35 98.4 49 18 106/58 (74) 97 Room Air Capillary Refill : I&O Intake and Output 04/25/18 00:00 Intake Total 1410 ml Balance 1410 ml Intake Oral 1410 ml # Voids 6 # Bowel Movements 1 General: Alert, Oriented X3, Cooperative, No Acute Distress HEENT: Atraumatic, PERRLA, EOMI, Mucous Memb Moist/[place] Neck: Supple, No JVD Lungs: Clear to Auscultation Heart: Regular Rate Abdomen: Normal Bowel Sounds, Soft, No Tenderness Extremities: No Edema (trace edema left ankle) Skin: Other (incision healing well) Neuro: Other (Limited Abduction and flexion at 90 degrees both shoulders and limited Flex left knee postop) Assessment/Plan Assessment and Plan OA s/p Left TKR Postop constipation treated Post-op nausea resolved Chronic back pain Postop DVT Prophyalxis on Lovenox subcut Plan Continue PT/OT Team Conference 04-27-18 Discharge tentatively set for 04-28-18 Co-Morbidities that are continuing to impact the rehab process: (include details ) OG LANGE MD Apr 25, 2018 22:25
[2018-04-26 05:10] VITALS: BP 110/59
[2018-04-26] MEDS: ASCORBIC ACID (VIT C) 500 MG TABLET PO SCH (06:04)
[2018-04-26] MEDS: POLYETHYLENE GLYCOL 17 GM (MIRALAX) PACK PO SCH ×2 (07:24→20:48)
[2018-04-26] MEDS: SENNA W/DOCUSATE (SENOKOT S) TABLET PO SCH ×2 (07:24→20:49)
[2018-04-26] MEDS: LACTULOSE SYRUP 10GM/15ML (ENULOSE) 30ML UDC PO SCH ×2 (07:24→20:47)
--- NOTE | 2018-04-26 07:31 | PM & R (SOAP) Progress Note ---
Subjective This was a face to face visit with the patient. Date Seen by Provider: Apr 26, 2018 Time Seen by Provider: 07:05 Subjective/Events-last exam Patient was seen in her room this AM. Discussed case with OT Patient Modified Independent for transfers. Objective Physician Exam Last Set of Vital Signs Vital Signs Date Time Temp Pulse Resp B/P (MAP) Pulse Ox O2 Delivery O2 Flow Rate FiO2 04/26/18 05:10 98.4 60 16 110/59 (76) 95 Room Air Capillary Refill : I&O Intake and Output 04/26/18 00:00 Intake Total 1790 ml Balance 1790 ml Intake Oral 1790 ml # Voids 9 General: Alert, Oriented X3, Cooperative, No Acute Distress HEENT: Atraumatic, PERRLA, EOMI, Mucous Memb Moist/[place] Neck: Supple, No JVD Lungs: Clear to Auscultation Heart: Regular Rate Abdomen: Normal Bowel Sounds, Soft, No Tenderness Extremities: No Edema (trace edema left ankle) Skin: Other (incision healing well) Neuro: Other (Limited Abduction and flexion at 90 degrees both shoulders and limited Flex left knee postop) Assessment/Plan Assessment and Plan OA s/p Left TKR Postop constipation treated Postop nausea resolved Chronic back pain Postop DVT prophylaxis on Lovenox subcut Plan Continue PT/OT Team Conference tomorrow Discharge set for 04-28-18-Will confirm with SW/Team Co-Morbidities that are continuing to impact the rehab process: (include details ) OG LANGE MD Apr 26, 2018 07:31
[2018-04-26] MEDS: GABAPENTIN 300 MG (NEURONTIN) CAP PO SCH ×3 (08:00→20:48)
[2018-04-26] MEDS: BISACODYL 5 MG (DULCOLAX) TABLET PO SCH (08:00)
[2018-04-26] MEDS: ASPIRIN E.C. 325 MG (ECOTRIN) TABLET PO SCH (08:00)
[2018-04-26] MEDS: ATENOLOL 50 MG (TENORMIN) TAB PO SCH ×2 (08:00→20:47)
[2018-04-26] MEDS: BACLOFEN 10 MG (LIORESAL) TAB PO SCH ×3 (08:01→20:47)
[2018-04-26] MEDS: lisINopril 40 MG (PRINIVIL) TABLET PO SCH (08:01)
[2018-04-26] MEDS: ENOXAPARIN 40 MG/0.4 ML (LOVENOX) SYR SC SCH (08:01)
[2018-04-26] MEDS: OXYBUTYNIN (DITROPAN) 5 MG TAB PO SCH ×3 (08:01→20:48)
--- NOTE | 2018-04-26 08:26 | Progress Note (SOAP) ---
Subjective Time Seen by Provider: 08:25 Subjective/Events-last exam Patient voices no complaints. Patient having trouble with steps. Patient has improved months Objective Exam Vital Signs Date Time Temp Pulse Resp B/P (MAP) Pulse Ox O2 Delivery O2 Flow Rate FiO2 04/26/18 05:10 98.4 60 16 110/59 (76) 95 Room Air 04/25/18 20:30 Room Air 04/25/18 17:35 98.4 49 18 106/58 (74) 97 Room Air 04/25/18 09:00 Room Air I & O 04/26/18 07:00 Intake Total 1490 ml Balance 1490 ml Capillary Refill : General Appearance: No Apparent Distress HEENT: Normal ENT Inspection Neck: Normal Inspection Respiratory: Normal Breath Sounds, No Accessory Muscle Use Cardiovascular: Regular Rate, Rhythm, No Murmur Gastrointestinal: non tender, soft Assessment/Plan Assessment/Plan Assess & Plan/Chief Complaint Recent surgery for left knee total replacement. Hypertension. Chronic low back pain. . 04/18/18. Left knee total replacement. Hypertension. Chronic low back pain. Patient feeling good today. Patient had a little dizziness during the weekend to monitor. . 04/19/18. HEENT computer froze and unable to put in progress note. Left knee total replacement. Hypertension. Chronic low back pain. Patient still having some problems with left knee but doing better. . 04/20/18. Left knee total replacement. Hypertension. Chronic low back pain. Patient feel she is improving. . 04/21/leg pain. Left knee total replacement. Hypertension. Patient feel she is each day improving. . 04/22/18. Total knee left replacement. Hypertension. Patient voices no complaints today. . 04/26/18. Total knee left replacement. Hypertension. Patient doing better. Patient has trouble going up and down steps Clinical Quality Measures DVT/VTE Risk/Contraindication: Risk Factor Score Per Nursin RFS Level Per Nursing on Admit: 4+=Very High ANASTASIYA SAINZ DO Apr 26, 2018 08:26
--- NOTE | 2018-04-26 12:21 | Physical Therapy Daily Note ---
PT Daily Note-Current Subjective Pt sitting in room upon arrival. Pt agrees to PT. Pain Numeric Pain Scale: 3 Location: Left Location Body Site: Knee Pain Description: Ache Mental Status Patient Orientation: Person, Place, Situation Transfers Functional [place] Measure 0=Not Assessed/NA 4=Minimal Assistance 1=Total Assistance 5=Supervision or Setup 2=Maximal Assistance 6=Modified [place] 3=Moderate Assistance 7=Complete IndependenceIRFPAI Quality Coding Scale 6 Independent with activity with or without an assistive device 5 Patient requires set up or clean up by helper. Patient completes activity by themselves 4 Supervision or touching assist (CGA). [place] provide cues , steadying assist 3 The helper provides less than half the effort to complete the activity 2 The helper provides more than half the effort to complete the activity 1 Dependent. The helper does all the effort to complete an activity 7 Patient refused to complete or attempt activity 9 The patient did not perform the activity before the current illness or injury 88 Not attempted due to Medical conditions or safety concerns Scootin Sit to/from Stand: 5 Sit to Stand (QC): 5 Car Transfer (QC): 4 Pt sometimes takes more than one attempt to stand but able to complete SBA. Weight Bearing Right Lower Extremity: Right Full Weight Bearing Left Lower Extremity: Left Weight Bearing/Tolerated Gait Training Does the Patient Walk?: Yes Distance (FIM): 3=150 ft Distance: 300' Walk 10 feet (QC): 5 Walk 50 ft with 2 Turns(QC): 5 Walk 150 ft (QC): 5 Gait Level of Assist: 5 Gait Persons Needed: 1 Gait Assistive Device: FWW Wheelchair Training Does the Pt Use a Wheelchair?: No Stair Training Stair Training: Handrails/: 2 handrails #of Steps: 8 1 Step (curb) (QC): 4 4 Steps (QC): 4 Stairs: Pattern: Step to Level of Assist: 4 Exercises Seated Therapy Exercises: Ankle pumps, Long arc quads, Hip flexion, Kicking activity Seated Reps: 20 Treatments Pt transfers from siting in chair to standing using FWW at A. Pt ambulates in hallway and practices car transfer. Pt needs CGA/Min A for lifting R knee into car. Pt ambulates to Independent Living Room to practice using Tub Transfer Bench which pt was concerned about going home. Pt ambulates in hallway to Therapy Gym. Pt completes 2 sets of 4 steps at CGA for safety & VC for hand placement/foot sequencing. Pt completes Seated EX and returns back to room to rest. Pt has all needs met. Assessment Current Status: Good Progress Pt has improved with transfers and mobility as well as activity tolerance. PT Short Term Goals Short Term Goals Time Frame: Apr 18, 2018 Gait (FIM): 5 (met) Distance (FIM): 3=150 ft Gait Assistive Device: FWW PT Education Program Coordinator Goals Education Program Coordinator Goals PT Chcf Goals Time Frame: Apr 28, 2018 Transfers (B,C,W/C) (FIM): 6 Sit to Lying (QC): 6 Lying-Sitting on Side/Bed(QC): 6 Sit to Stand (QC): 6 Rollin Roll Left to Right (QC): 6 Chair/Cpd-ba-[place]zk[place] Xfer(QC): 6 Car Transfer (QC): 6 Does the Patient Walk: Yes Gait (FIM): 6 Gait distance (FIM): 3=150 ft Walk 10 feet (QC): 6 Walk 10ft-Uneven Surface(QC): 6 Walk 50ft with 2 Turns (QC): 6 Walk 150 ft (QC): 6 Gait Assistive Device: FWW Does the Pt use WC or Scooter?: No Stairs (FIM): 5 (household exception) # of Steps: 8 1 Step (curb) (QC): 6 4 Steps (QC): 6 12 Steps (QC): 88 Stairs Level Of Assist: 6 Picking up an Object (QC): 5 PT Plan Problem List Problem List: Activity Tolerance, Functional Strength, Transfer Treatment/Plan Treatment Plan: Continue Plan of Care Treatment Plan: Bed Mobility, Education, Functional Activity Quan, Functional Strength, Group Therapy, Gait, Safety, Therapeutic Exercise, Transfers Treatment Duration: Apr 28, 2018 Frequency: Modified Program (IRF) Estimated Hrs Per Day: 1.5 hours per day Patient and/or Family Agrees t: Yes Safety Risks/Education Patient Education: Gait Training, Transfer Techniques, Steps, Correct Positioning, Safety Issues Teaching Recipient: Patient Teaching Methods: Discussion Response to Teaching: Verbalize Understanding Time/GCodes Time In: 1000 Time Out: 1100 Total Billed Treatment Time: 60 Total Billed Treatment 1, GT (15m), FA x2 (30m) & EX (15m) G Codes Necessary: No TRAN GRACIA ANESTHETIST Apr 26, 2018 12:21
--- NOTE | 2018-04-26 13:12 | Occupational Ther Daily Note ---
OT Current Status-Daily Note Subjective Pt seen in room, up in bed, agreeable to OT. No pain mentioned. Appearance Alert, cooperative Mental Status/Objective Functional [place] Measure 0=Not Assessed/NA 4=Minimal Assistance 1=Total Assistance 5=Supervision or Setup 2=Maximal Assistance 6=Modified [place] 3=Moderate Assistance 7=Complete [place] ADL-Treatment Pt needed help getting JUAN PABLO hose on over feet but was able to pull them up from knees. Able to swing legs over EOB and scoot to sit EOB without help. Sit to stand with SBA, often with several trials. Walked SBA, FWW to bathroom to toilet. Able to get on/off BSC over toilet and manage clothing/hygiene with mod I, FWW. Changed brief and t shirt with setup. Able to get shoes on/off although she reported she use the dressing stick to get shoe on L foot. Pt educ mod technique for putting on socks and shoes at bedside. She stood at sink to brush teeth and comb hair, balancing with FWW, mod I. After ADLs, pt walked to gym with SBA, FWW. Functional [place] Measure 0=Not Assessed/NA 4=Minimal Assistance 1=Total Assistance 5=Supervision or Setup 2=Maximal Assistance 6=Modified [place] 3=Moderate Assistance 7=Complete IndependenceIRFPAI Quality Coding Scale 6 Independent with activity with or without an assistive device 5 Patient requires set up or clean up by helper. Patient completes activity by themselves 4 Supervision or touching assist (CGA). [place] provide cues , steadying assist 3 The helper provides less than half the effort to complete the activity 2 The helper provides more than half the effort to complete the activity 1 Dependent. The helper does all the effort to complete an activity 7 Patient refused to complete or attempt activity 9 The patient did not perform the activity before the current illness or injury 88 Not attempted due to Medical conditions or safety concerns Grooming (FIM): 6 Upper Body (FIM): 5 Lower Body Dressing (FIM): 5 (setup, TEDs) Toileting (FIM): 6 (BSC over toilet, managed clothing and hygiene. Mild safety concerns) Toilet/Commode Transfer (FIM): 6 (BSc over toilet, FWW) Other Treatment Once in gym, she completed 15 minutes bilat UE exercise with arm bike set at 15W resistance, taking only a couple brief recovery breaks to get a drink of water. Also did arc activity with 1# weight on each arm, to strengthen arms to hep with getting up and down and to increase active range of shoulders. Pt reported some discomfort primarily in L shoulder, which presents like muscle tightness and had some difficulty getting 90 degrees active flex/abd with R shoulder. She needed a couple trials to get up out of chair to walk to [place] area, where she was seated in chair with arms, at table, all needs met. Education OT Patient Education: Modified ADL techniques, Progress toward Goal/Update tx plan, Purpose of tx/functional activities, Transfer techniques Teaching Recipient: Patient Teaching Methods: Discussion Response to Teaching: Verbalize Understanding, Return Demonstration, Reinforcement Needed OT Short Term Goals Short Term Goals Time Frame: Apr 21, 2018 Toilet/Commode Transfer(FIM): 5 1=Demonstrate adherence to instructed precautions during ADL tasks. 2=Patient will verbalize/demonstrate understanding of assistive devices/ modifications for ADL. 3=Patient will improve strength/tolerance for activity to enable patient to perform ADL's. OT Shelter Goals Publishing Specialist Goals Time Frame: Apr 29, 2018 Eating (FIM): 7 Eating (QC): 6 Groomin Oral Hygiene (QC): 6 Bathing(FIM): 6 Shower/Bathe Self (QC): 6 Upper Body Dressing(FIM): 6 Upper Body Dressing (QC): 6 Lower Body Dressing(FIM): 6 Lower Body Dressing (QC): 6 On/Off Footwear (QC): 6 Toileting(FIM): 6 Toileting Hygiene (QC): 6 Toilet/Commode Transfer(FIM): 6 Toilet/Commode Transfer (QC): 6 Tub Transfer(FIM): 6 (or shower) Shower Transfer(FIM): 6 (or tub) Additional Goals: 1-Demonstrate ADL Tasks, 2-Verbalize Understanding, 3- ImproveStrength/Quan 1=Demonstrate adherence to instructed precautions during ADL tasks. 2=Patient will verbalize/demonstrate understanding of assistive devices/ modifications for ADL. 3=Patient will improve strength/tolerance for activity to enable patient to perform ADL's. OT Education/Plan Problem List/Assessment Pt would benefit from skilled OT to increase her independence in basic self care to allow her to safely return home Discharge Recommendations Plan/Recommendations: Continue POC Treatment Plan/Plan of Care Patient would benefit from OT for education, treatment and training to promote independence in ADL's, mobility, safety and/or upper extremity function for ADL' s. Plan of Care: ADL Retraining, Functional Mobility, Group Exercise/Act as Ind ( education, exercise, activity tolerance, functional activity, functional mobility), UE Funct Exercise/Act, UE Neuromus Re-Ed/Coord Treatment Duration: Apr 29, 2018 Frequency: At least 5 of 7 days/Wk (IRF) Estimated Hrs Per Day: 1.5 hours per day Agreement: Yes Rehab Potential: Good Time/GCodes Start Time: 08:45 Stop Time: 09:45 Total Time Billed (hr/min): 60 Billed Treatment Time visit, 25 minutes ADL, 35 minutes exercise WENDY FARLEY OT Apr 26, 2018 13:12
--- NOTE | 2018-04-26 13:25 | Occupational Ther Daily Note ---
OT Current Status-Daily Note Subjective Pt seen in room, up in recliner, agreeable to OT. Some discomfort in shoulders during exercises but not pain. Mental Status/Objective Functional [place] Measure 0=Not Assessed/NA 4=Minimal Assistance 1=Total Assistance 5=Supervision or Setup 2=Maximal Assistance 6=Modified [place] 3=Moderate Assistance 7=Complete [place] ADL-Treatment Functional [place] Measure 0=Not Assessed/NA 4=Minimal Assistance 1=Total Assistance 5=Supervision or Setup 2=Maximal Assistance 6=Modified [place] 3=Moderate Assistance 7=Complete IndependenceIRFPAI Quality Coding Scale 6 Independent with activity with or without an assistive device 5 Patient requires set up or clean up by helper. Patient completes activity by themselves 4 Supervision or touching assist (CGA). [place] provide cues , steadying assist 3 The helper provides less than half the effort to complete the activity 2 The helper provides more than half the effort to complete the activity 1 Dependent. The helper does all the effort to complete an activity 7 Patient refused to complete or attempt activity 9 The patient did not perform the activity before the current illness or injury 88 Not attempted due to Medical conditions or safety concerns Other Treatment Pt did 15 reps bilat UE exercise with yellow theraband (gentle resistance), to strengthen arms to help with sit to stand for ADLs. Pt reported some discomfort in L shoulder and did some bilat stretches for shoulder flex and abd. Pt increased active shoulder movement after stretches. Pt educ on how to stretch and benefits and was encouraged to do shoulder stretches on her own in chair and in bed. While exercising, discussed recommendations for equipment - BSC or toilet riser, dressing stick. She has a claw foot bath tub and will have difficulty finding a transfer tub bench to fit it. Recommend home health OT for ADLs. She would benefit from meal delivery services and homemaker help, if available. pt left up in recliner, all needs met. Education OT Patient Education: Exercise program, Progress toward Goal/Update tx plan, Purpose of tx/functional activities, Safety issues Teaching Recipient: Patient Teaching Methods: Discussion Response to Teaching: Verbalize Understanding, Return Demonstration, Reinforcement Needed OT Short Term Goals Short Term Goals Time Frame: Apr 21, 2018 Toilet/Commode Transfer(FIM): 5 1=Demonstrate adherence to instructed precautions during ADL tasks. 2=Patient will verbalize/demonstrate understanding of assistive devices/ modifications for ADL. 3=Patient will improve strength/tolerance for activity to enable patient to perform ADL's. OT Penitentiary Goals Penitentiary Goals Time Frame: Apr 29, 2018 Eating (FIM): 7 Eating (QC): 6 Groomin Oral Hygiene (QC): 6 Bathing(FIM): 6 Shower/Bathe Self (QC): 6 Upper Body Dressing(FIM): 6 Upper Body Dressing (QC): 6 Lower Body Dressing(FIM): 6 Lower Body Dressing (QC): 6 On/Off Footwear (QC): 6 Toileting(FIM): 6 Toileting Hygiene (QC): 6 Toilet/Commode Transfer(FIM): 6 Toilet/Commode Transfer (QC): 6 Tub Transfer(FIM): 6 (or shower) Shower Transfer(FIM): 6 (or tub) Additional Goals: 1-Demonstrate ADL Tasks, 2-Verbalize Understanding, 3- ImproveStrength/Quan 1=Demonstrate adherence to instructed precautions during ADL tasks. 2=Patient will verbalize/demonstrate understanding of assistive devices/ modifications for ADL. 3=Patient will improve strength/tolerance for activity to enable patient to perform ADL's. OT Education/Plan Problem List/Assessment Pt would benefit from skilled OT to increase her independence in basic self care to allow her to safely return home Discharge Recommendations Plan/Recommendations: Continue POC Treatment Plan/Plan of Care Patient would benefit from OT for education, treatment and training to promote independence in ADL's, mobility, safety and/or upper extremity function for ADL' s. Plan of Care: ADL Retraining, Functional Mobility, Group Exercise/Act as Ind ( education, exercise, activity tolerance, functional activity, functional mobility), UE Funct Exercise/Act, UE Neuromus Re-Ed/Coord Treatment Duration: Apr 29, 2018 Frequency: At least 5 of 7 days/Wk (IRF) Estimated Hrs Per Day: 1.5 hours per day Agreement: Yes Rehab Potential: Good Time/GCodes Start Time: 11:30 Stop Time: 12:00 Total Time Billed (hr/min): 30 Billed Treatment Time visit, 30 minutes exercise WENDY FARLEY OT Apr 26, 2018 13:25
--- NOTE | 2018-04-26 16:05 | Physical Therapy Daily Note ---
PT Daily Note-Current Subjective Pt laying Supine in bed upon arrival. Pt agrees to PT. Pain Numeric Pain Scale: 3 Location: Right, Left Location Body Site: Knee Pain Description: Ache Comment: Pt reports soreness from use. Mental Status Patient Orientation: Person, Place, Time, Situation Transfers Functional [place] Measure 0=Not Assessed/NA 4=Minimal Assistance 1=Total Assistance 5=Supervision or Setup 2=Maximal Assistance 6=Modified [place] 3=Moderate Assistance 7=Complete IndependenceIRFPAI Quality Coding Scale 6 Independent with activity with or without an assistive device 5 Patient requires set up or clean up by helper. Patient completes activity by themselves 4 Supervision or touching assist (CGA). [place] provide cues , steadying assist 3 The helper provides less than half the effort to complete the activity 2 The helper provides more than half the effort to complete the activity 1 Dependent. The helper does all the effort to complete an activity 7 Patient refused to complete or attempt activity 9 The patient did not perform the activity before the current illness or injury 88 Not attempted due to Medical conditions or safety concerns Weight Bearing Right Lower Extremity: Right Full Weight Bearing Left Lower Extremity: Left Weight Bearing/Tolerated Exercises Supine Ex: Ankle pumps, Quad Set, Heel Slides, Straight leg raise, Hip abd/add Supine Reps: 20 Treatments Pt completes Supine EX in bed with a couple of rest breaks. Pt given HEP and LICENSED AUDIOLOGIST went over it during tx. Pt resting with all needs met at end of tx. Assessment Current Status: Good Progress Pt completes Ex well but fatigues and needs occasional rest breaks. PT Short Term Goals Short Term Goals Time Frame: Apr 18, 2018 Gait (FIM): 5 (met) Distance (FIM): 3=150 ft Gait Assistive Device: FWW PT Halfway Goals Library Sales Consultant Goals PT Halfway Goals Time Frame: Apr 28, 2018 Transfers (B,C,W/C) (FIM): 6 Sit to Lying (QC): 6 Lying-Sitting on Side/Bed(QC): 6 Sit to Stand (QC): 6 Rollin Roll Left to Right (QC): 6 Chair/Ygc-ia-Qiknj Xfer(QC): 6 Car Transfer (QC): 6 Does the Patient Walk: Yes Gait (FIM): 6 Gait distance (FIM): 3=150 ft Walk 10 feet (QC): 6 Walk 10ft-Uneven Surface(QC): 6 Walk 50ft with 2 Turns (QC): 6 Walk 150 ft (QC): 6 Gait Assistive Device: FWW Does the Pt use WC or Scooter?: No Stairs (FIM): 5 (household exception) # of Steps: 8 1 Step (curb) (QC): 6 4 Steps (QC): 6 12 Steps (QC): 88 Stairs Level Of Assist: 6 Picking up an Object (QC): 5 PT Plan Problem List Problem List: Activity Tolerance, Functional Strength Treatment/Plan Treatment Plan: Continue Plan of Care Treatment Plan: Bed Mobility, Education, Functional Activity Quan, Functional Strength, Group Therapy, Gait, Safety, Therapeutic Exercise, Transfers Treatment Duration: Apr 28, 2018 Frequency: Modified Program (IRF) Estimated Hrs Per Day: 1.5 hours per day Patient and/or Family Agrees t: Yes Safety Risks/Education Patient Education: Transfer Techniques, Correct Positioning, Safety Issues Teaching Recipient: Patient Teaching Methods: Discussion Response to Teaching: Verbalize Understanding Time/GCodes Time In: 1430 Time Out: 1500 Total Billed Treatment Time: 30 Total Billed Treatment 1, EX x2 (30m) G Codes Necessary: TRAN Coulter PTA Apr 26, 2018 16:05
[2018-04-26 17:39] VITALS: BP 116/64
[2018-04-26] MEDS: ATORVASTATIN 40 MG (LIPITOR) TABLET PO SCH (20:48)
[2018-04-27] MEDS: HYDROcodone/APAP 10 MG/325 MG (LORTAB) TAB PO PRN ×2 (01:12→15:42)
[2018-04-27 05:10] VITALS: BP 124/73
[2018-04-27] MEDS: ASCORBIC ACID (VIT C) 500 MG TABLET PO SCH (06:24)
--- NOTE | 2018-04-27 07:58 | PM & R (SOAP) Progress Note ---
Subjective This was a face to face visit with the patient. Date Seen by Provider: Apr 27, 2018 Time Seen by Provider: 07:25 Subjective/Events-last exam Patient was seen in her room this AM.Patient Modified Independent for transfers.SW in to speak with patient yesterday re patients concerns re returning to home-Reassured Objective Physician Exam Last Set of Vital Signs Vital Signs Date Time Temp Pulse Resp B/P (MAP) Pulse Ox O2 Delivery O2 Flow Rate FiO2 04/27/18 05:10 98.2 61 20 124/73 (90) 98 Room Air Capillary Refill : I&O Intake and Output 04/27/18 00:00 Intake Total 1125 ml Balance 1125 ml Intake Oral 1125 ml # Voids 7 # Bowel Movements 1 General: Alert, Oriented X3, Cooperative, No Acute Distress HEENT: Atraumatic, PERRLA, EOMI, Mucous Memb Moist/[place] Neck: Supple, No JVD Lungs: Clear to Auscultation Heart: Regular Rate Abdomen: Normal Bowel Sounds, Soft, No Tenderness Extremities: No Edema (trace edema left ankle) Skin: Other (incision healing well) Neuro: Other (Limited Abduction and flexion at 90 degrees both shoulders and limited Flex left knee postop) Assessment/Plan Assessment and Plan OA s/p Left TKR Postop constipation treated Postop nausea resolved Chronic back pain Postop DVT prophylaxis on Lovenox subcut Plan Continue PT/OT Team Conference later today-See report for full functional update and POC and ELOS Co-Morbidities that are continuing to impact the rehab process: (include details ) OG LANGE MD Apr 27, 2018 07:58
[2018-04-27] MEDS: GABAPENTIN 300 MG (NEURONTIN) CAP PO SCH ×3 (08:11→20:43)
[2018-04-27] MEDS: BACLOFEN 10 MG (LIORESAL) TAB PO SCH ×3 (08:12→20:43)
[2018-04-27] MEDS: lisINopril 40 MG (PRINIVIL) TABLET PO SCH (08:12)
[2018-04-27] MEDS: ASPIRIN E.C. 325 MG (ECOTRIN) TABLET PO SCH (08:12)
[2018-04-27] MEDS: ATENOLOL 50 MG (TENORMIN) TAB PO SCH ×2 (08:12→20:43)
[2018-04-27] MEDS: OXYBUTYNIN (DITROPAN) 5 MG TAB PO SCH ×3 (08:12→20:43)
[2018-04-27] MEDS: BISACODYL 5 MG (DULCOLAX) TABLET PO SCH (08:15)
[2018-04-27] MEDS: POLYETHYLENE GLYCOL 17 GM (MIRALAX) PACK PO SCH ×2 (08:15→20:53)
[2018-04-27] MEDS: ENOXAPARIN 40 MG/0.4 ML (LOVENOX) SYR SC SCH (08:15)
[2018-04-27] MEDS: LACTULOSE SYRUP 10GM/15ML (ENULOSE) 30ML UDC PO SCH ×2 (08:15→20:52)
[2018-04-27] MEDS: SENNA W/DOCUSATE (SENOKOT S) TABLET PO SCH ×2 (08:16→20:53)
--- NOTE | 2018-04-27 08:51 | Progress Note (SOAP) ---
Subjective Time Seen by Provider: 08:50 Subjective/Events-last exam Patient dizzy this morning and felt like fainting. Patient put back to room put in bed. Objective Exam Vital Signs Date Time Temp Pulse Resp B/P (MAP) Pulse Ox O2 Delivery O2 Flow Rate FiO2 04/27/18 05:10 98.2 61 20 124/73 (90) 98 Room Air 04/26/18 20:30 Room Air 04/26/18 17:39 98.6 72 16 116/64 (81) 96 Room Air I & O 04/27/18 07:00 Intake Total 1175 ml Balance 1175 ml Capillary Refill : General Appearance: No Apparent Distress, WD/WN HEENT: Normal ENT Inspection Respiratory: Lungs Clear, No Accessory Muscle Use, No Respiratory Distress Cardiovascular: Regular Rate, Rhythm, No Murmur Assessment/Plan Assessment/Plan Assess & Plan/Chief Complaint Recent surgery for left knee total replacement. Hypertension. Chronic low back pain. . 04/18/18. Left knee total replacement. Hypertension. Chronic low back pain. Patient feeling good today. Patient had a little dizziness during the weekend to monitor. . 04/19/18. HEENT computer froze and unable to put in progress note. Left knee total replacement. Hypertension. Chronic low back pain. Patient still having some problems with left knee but doing better. . 04/20/18. Left knee total replacement. Hypertension. Chronic low back pain. Patient feel she is improving. . 04/21/leg pain. Left knee total replacement. Hypertension. Patient feel she is each day improving. . 04/22/18. Total knee left replacement. Hypertension. Patient voices no complaints today. . 04/26/18. Total knee left replacement. Hypertension. Patient doing better. Patient has trouble going up and down steps. . 04/27/18. Total knee left replacement. Patient got sweaty and felt like fainting. Blood pressure normal and heart rate normal Clinical Quality Measures DVT/VTE Risk/Contraindication: Risk Factor Score Per Nursin RFS Level Per Nursing on Admit: 4+=Very High ANASTASIYA SAINZ DO Apr 27, 2018 08:51
[2018-04-27 08:53] VITALS: BP 123/69
--- NOTE | 2018-04-27 09:05 | Physical Therapy Daily Note ---
PT Daily Note-Current Subjective Pt. agrees to Rx but states she is not sure if she is ready to go home. Pt. states she is worried about her stairs which are cement and "crumbly ' in spots. Pt. later in Rx at end while attempting car TRF warned that she was very dizzy then passed out approx 10-12 seconds while in seat of pseudo car. see note below. Pain Numeric Pain Scale: 0-No Pain Mental Status Patient Orientation: Person, Place, Time, Situation pt. has always appeared to be perhaps learning disabled and requires much instruction repeated. Transfers Functional [place] Measure 0=Not Assessed/NA 4=Minimal Assistance 1=Total Assistance 5=Supervision or Setup 2=Maximal Assistance 6=Modified [place] 3=Moderate Assistance 7=Complete IndependenceIRFPAI Quality Coding Scale 6 Independent with activity with or without an assistive device 5 Patient requires set up or clean up by helper. Patient completes activity by themselves 4 Supervision or touching assist (CGA). [place] provide cues , steadying assist 3 The helper provides less than half the effort to complete the activity 2 The helper provides more than half the effort to complete the activity 1 Dependent. The helper does all the effort to complete an activity 7 Patient refused to complete or attempt activity 9 The patient did not perform the activity before the current illness or injury 88 Not attempted due to Medical conditions or safety concerns Transfers (B, C, W/C) (FIM): 6 Scootin Rollin Roll Left to Right (QC): 6 Supine to/from Sit: 6 Sit to/from Stand: 6 Sit to Lying (QC): 6 Sit to Stand (QC): 6 Chair/Kkc-dv-Ixzpj Xfer(QC): 6 Bed to/from Chair: 6 Car Transfer (QC): 6 Weight Bearing Right Lower Extremity: Right Full Weight Bearing Left Lower Extremity: Left Weight Bearing/Tolerated Gait Training Does the Patient Walk?: Yes Gait (FIM): 6 Distance (FIM): 3=150 ft (200x2) Walk 10 feet (QC): 6 Walk 50 ft with 2 Turns(QC): 6 Walk 150 ft (QC): 6 Walking 10ft/uneven surface-QC: 6 Gait Level of Assist: 6 Gait Persons Needed: 0 Gait Assistive Device: FWW Stair Training Stair Training: Handrails/: 1 handrail (THERAPY AIDE on right, rail left) Stairs (FIM): 5 #of Steps: 8 1 Step (curb) (QC): 5 4 Steps (QC): 5 Stairs: Pattern: Step to (some reminders) Balance Picking up an Object (QC): 5 Exercises Supine Ex: Ankle pumps, Quad Set, Rolling, Glut sets, Heel Slides, Short Arc Quads, Scooting, Straight leg raise Supine Reps: 15 Seated Therapy Exercises: Ankle pumps, Sit to stand Seated Reps: 15 seated knee flexion stretches Assessment Current Status: Good Progress pt. with episode on car TRF simulator. Pt. warned after seated in the car that she felt dizzy, Dr Cunningham present at the time auscultated pts chest while instructing to get her off car and in bed with LEs up. pt. clammy, awoke in approx 1- seconds, spoke and stated " I passed out" This WOOD HEEL FINISHER calling for rapid assist of nursing. Pt. to room per w/c, TRFd mod assist for all in bed with LEs elevated above head , vitals: 121/72, 61, O2 sats 97%, FSBS 110, pt. had exhibited anxiety about DC, this also could be a component of episode PT Short Term Goals Short Term Goals Time Frame: Apr 18, 2018 Gait (FIM): 5 (met) Distance (FIM): 3=150 ft Gait Assistive Device: FWW PT Rodent Exterminator Goals Longterm Goals PT Rodent Exterminator Goals Time Frame: Apr 28, 2018 Transfers (B,C,W/C) (FIM): 6 Sit to Lying (QC): 6 Lying-Sitting on Side/Bed(QC): 6 Sit to Stand (QC): 6 Rollin Roll Left to Right (QC): 6 Chair/Cvh-hc-Sbclk Xfer(QC): 6 Car Transfer (QC): 6 Does the Patient Walk: Yes Gait (FIM): 6 Gait distance (FIM): 3=150 ft Walk 10 feet (QC): 6 Walk 10ft-Uneven Surface(QC): 6 Walk 50ft with 2 Turns (QC): 6 Walk 150 ft (QC): 6 Gait Assistive Device: FWW Does the Pt use WC or Scooter?: No Stairs (FIM): 5 (household exception) # of Steps: 8 1 Step (curb) (QC): 6 4 Steps (QC): 6 12 Steps (QC): 88 Stairs Level Of Assist: 6 Picking up an Object (QC): 5 PT Plan Treatment/Plan Treatment Plan: Continue Plan of Care Treatment Plan: Bed Mobility, Education, Functional Activity Quan, Functional Strength, Group Therapy, Gait, Safety, Therapeutic Exercise, Transfers This WOOD HEEL FINISHER suggests DC put off wednesdayApr [id number] Treatment Duration: Apr 29, 2018 Frequency: Modified Program (IRF) Estimated Hrs Per Day: 1.5 hours per day Patient and/or Family Agrees t: Yes Safety Risks/Education Patient Education: Gait Training, Transfer Techniques, Steps, Correct Positioning, Disease Process, Safety Issues Teaching Recipient: Patient Teaching Methods: Demonstration, Discussion Response to Teaching: Verbalize Understanding, Return Demonstration, Reinforcement Needed Time/GCodes Time In: 800 Time Out: 900 Total Billed Treatment Time: 60 Total Billed Treatment 1,FA30m,EX15m,GT15m G Codes Necessary: BETSEY Castellon WOOD HEEL FINISHER Apr 27, 2018 09:05
[2018-04-27] MEDS: ONDANSETRON 4 MG (ZOFRAN) ORAL DISSOLVE TAB PO PRN ×2 (09:15→18:17)
--- NOTE | 2018-04-27 10:28 | Occ Therapy Progress Note ---
Therapy Progress Note RN states pt is on hold for therapy this morning per physician secondary to current medical status. Will continue to monitor and complete treatment as indicated. ANA HUGO OT Apr 27, 2018 10:28
--- NOTE | 2018-04-27 11:38 | D/C HH Face to Face Order ---
D/C Face to Face Orders Instructions for Patient Patient Instructions/FollowUp: Dr. Aguero on 05/[address] Cunningham Physician to follow Patient: Dr. Aguero Discharge Diet for Home: Regular Diet Patient Data-Allergies,Ht & Wt Patient Allergies: Coded Allergies: meloxicam (Verified Allergy, Intermediate, RASH ALL OVER, 04/12/18) Penicillins (Verified Allergy, Unknown, 04/12/18) Height (Feet): 5 Height (Inches): 3.00 Weight (Pounds): 180 Weight (Ounces): 14.0 Home Health Need/Face to Face Date of Face to Face: Apr 28, 2018 Clinical Findings: Generalized weakness and fatigue, Muscle weakness, Unsteady gait I have seen Pt [id number]: Yes Discharged To: Home Diagnosis/Conditions: LTK Patient is Homebound due to: [place] fall risk due to instabilty, Muscle weakness Homebound Status Due to the above stated illness, injury or surgical procedure (medical condition or diagnosis) and associated clinical findings, the patient is homebound because of his/her inability to leave home except with aid of a supportive device and/or person AND leaving the home requires a considerable and taxing effort or is medically contraindicated. Pt req the following assistanc: Walker Home Health Nursing Orders Home Health Services Order: Real Estate Agency Principal-Evaluate & Treat, Physical Therapy-Evaluate & Treat Home Health Infusion Therapy Line Type: [place] Lock Site Location: Forearm Therapy Orders Therapy Orders: OT (must have SN or PT order), Physical Therapy Therapy Specific Orders: Eval assistive deivces, Teach enviro modifications/ safety, Gait training, Increase strength/endurance, Restore ROM Certify Stmt I certify that this patient is under my care and that I, a nurse practitioner or a physician; a railways assistant working with me, had a face to face encounter that - meets the physician face to face encounter requirements with this patient as dated. I personally scribed for OG LANGE MD ([facility]) on 04/27/18 at 11:38. Electronically submitted by Lucia Rodriguez ([email or web address]). OG LANGE MD Apr 27, 2018 11:38
--- NOTE | 2018-04-27 14:43 | Occupational Ther Daily Note ---
OT Current Status-Daily Note Subjective Spoke with RN who states physician has cleared pt for therapy this afternoon. Pt resting in bed, states she is feeling better and would like to have a shower. Reports 3/10 left knee pain. Mental Status/Objective Functional [place] Measure 0=Not Assessed/NA 4=Minimal Assistance 1=Total Assistance 5=Supervision or Setup 2=Maximal Assistance 6=Modified [place] 3=Moderate Assistance 7=Complete [place] ADL-Treatment Pt supine to sit with modified independence. Gait to restroom with FWW, no LOB noted. Transfer to toilet with modified independence using grab bars. Pt able to complete toileting and clothing management with modified independence. Transfer to walk in shower with supervision using grab bars. Seated bathing completed using hand held shower and long handled sponge. Pt able to wash/dry all areas with modified independence. Pt donned pullover shirt with set up. Used dressing stick to start Depends and pants over feet. Stood with FWW for balance during pant hike. Pt donned socks with modified independence using sock aid. Stood at sink for grooming. Pt brushed teeth and combed hair with modified independence. Pt states she is getting a little tired at end of session, but would like to sit up in chair. Pt sitting with needs met after session. Functional [place] Measure 0=Not Assessed/NA 4=Minimal Assistance 1=Total Assistance 5=Supervision or Setup 2=Maximal Assistance 6=Modified [place] 3=Moderate Assistance 7=Complete IndependenceIRFPAI Quality Coding Scale 6 Independent with activity with or without an assistive device 5 Patient requires set up or clean up by helper. Patient completes activity by themselves 4 Supervision or touching assist (CGA). [place] provide cues , steadying assist 3 The helper provides less than half the effort to complete the activity 2 The helper provides more than half the effort to complete the activity 1 Dependent. The helper does all the effort to complete an activity 7 Patient refused to complete or attempt activity 9 The patient did not perform the activity before the current illness or injury 88 Not attempted due to Medical conditions or safety concerns Grooming (FIM): 6 Oral Hygiene (QC): 6 Bathing (FIM): 6 Shower/Bathe Self (QC): 6 Upper Body (FIM): 5 (set up) Upper Body Dressing (QC): 5 Lower Body Dressing (FIM): 5 (set up) Lower Body Dressing (QC): 5 On/Off Footwear (QC): 6 Toileting (FIM): 6 Toileting Hygiene (QC): 6 Toilet/Commode Transfer (FIM): 6 Toilet Transfer (QC): 6 Shower Transfer(FIM): 5 OT Short Term Goals Short Term Goals Time Frame: Apr 21, 2018 Toilet/Commode Transfer(FIM): 5 1=Demonstrate adherence to instructed precautions during ADL tasks. 2=Patient will verbalize/demonstrate understanding of assistive devices/ modifications for ADL. 3=Patient will improve strength/tolerance for activity to enable patient to perform ADL's. OT Poultry Feed Supervisor Goals Fdc Goals Time Frame: Apr 29, 2018 Eating (FIM): 7 Eating (QC): 6 Groomin Oral Hygiene (QC): 6 Bathing(FIM): 6 Shower/Bathe Self (QC): 6 Upper Body Dressing(FIM): 6 Upper Body Dressing (QC): 6 Lower Body Dressing(FIM): 6 Lower Body Dressing (QC): 6 On/Off Footwear (QC): 6 Toileting(FIM): 6 Toileting Hygiene (QC): 6 Toilet/Commode Transfer(FIM): 6 Toilet/Commode Transfer (QC): 6 Tub Transfer(FIM): 6 (or shower) Shower Transfer(FIM): 6 (or tub) Additional Goals: 1-Demonstrate ADL Tasks, 2-Verbalize Understanding, 3- ImproveStrength/Quan 1=Demonstrate adherence to instructed precautions during ADL tasks. 2=Patient will verbalize/demonstrate understanding of assistive devices/ modifications for ADL. 3=Patient will improve strength/tolerance for activity to enable patient to perform ADL's. OT Education/Plan Problem List/Assessment Pt would benefit from skilled OT to increase her independence in basic self care to allow her to safely return home Discharge Recommendations Plan/Recommendations: Continue POC Treatment Plan/Plan of Care Patient would benefit from OT for education, treatment and training to promote independence in ADL's, mobility, safety and/or upper extremity function for ADL' s. Plan of Care: ADL Retraining, Functional Mobility, Group Exercise/Act as Ind ( education, exercise, activity tolerance, functional activity, functional mobility), UE Funct Exercise/Act, UE Neuromus Re-Ed/Coord Treatment Duration: Apr 29, 2018 Frequency: At least 5 of 7 days/Wk (IRF) Estimated Hrs Per Day: 1.5 hours per day Agreement: Yes Rehab Potential: Good Time/GCodes Start Time: 13:05 Stop Time: 14:05 Total Time Billed (hr/min): 60 Billed Treatment Time 1 visit, ADLx4(60minutes) ANA HUGO OT Apr 27, 2018 14:43
--- NOTE | 2018-04-27 15:40 | Physical Therapy Daily Note ---
PT Daily Note-Current Subjective Pt. tearful talking about her morning episode and states she knows she is worried about how she will manage at home and feels her episode in the morning may have been anxiety related Pain Numeric Pain Scale: 0-No Pain Mental Status tearful at times Transfers Functional [place] Measure 0=Not Assessed/NA 4=Minimal Assistance 1=Total Assistance 5=Supervision or Setup 2=Maximal Assistance 6=Modified [place] 3=Moderate Assistance 7=Complete IndependenceIRFPAI Quality Coding Scale 6 Independent with activity with or without an assistive device 5 Patient requires set up or clean up by helper. Patient completes activity by themselves 4 Supervision or touching assist (CGA). [place] provide cues , steadying assist 3 The helper provides less than half the effort to complete the activity 2 The helper provides more than half the effort to complete the activity 1 Dependent. The helper does all the effort to complete an activity 7 Patient refused to complete or attempt activity 9 The patient did not perform the activity before the current illness or injury 88 Not attempted due to Medical conditions or safety concerns in out chair and bed as well as toileting all mod I Weight Bearing Right Lower Extremity: Right Full Weight Bearing Left Lower Extremity: Left Weight Bearing/Tolerated Gait Training Gait Assistive Device: FWW 150ft , 75 ft x 2 all SBA to Mod I Exercises Supine Ex: Heel Slides, Straight leg raise Supine Reps: 15 Seated Therapy Exercises: Ankle pumps, Sit to stand, Long arc quads, Hip flexion Seated Reps: 10 Treatments polar pack and CPM 0- 72 initiated after Rx Assessment Current Status: Good Progress probable anxiety PT Short Term Goals Short Term Goals Time Frame: Apr 18, 2018 Gait (FIM): 5 (met) Distance (FIM): 3=150 ft Gait Assistive Device: FWW PT Web Producer Goals Nursing Home Goals PT Nursing Home Goals Time Frame: Apr 28, 2018 Transfers (B,C,W/C) (FIM): 6 Sit to Lying (QC): 6 Lying-Sitting on Side/Bed(QC): 6 Sit to Stand (QC): 6 Rollin Roll Left to Right (QC): 6 Chair/Ulb-fy-Zdhhs Xfer(QC): 6 Car Transfer (QC): 6 Does the Patient Walk: Yes Gait (FIM): 6 Gait distance (FIM): 3=150 ft Walk 10 feet (QC): 6 Walk 10ft-Uneven Surface(QC): 6 Walk 50ft with 2 Turns (QC): 6 Walk 150 ft (QC): 6 Gait Assistive Device: FWW Does the Pt use WC or Scooter?: No Stairs (FIM): 5 (household exception) # of Steps: 8 1 Step (curb) (QC): 6 4 Steps (QC): 6 12 Steps (QC): 88 Stairs Level Of Assist: 6 Picking up an Object (QC): 5 PT Plan Treatment/Plan Treatment Plan: Continue Plan of Care Treatment Plan: Bed Mobility, Education, Functional Activity Quan, Functional Strength, Group Therapy, Gait, Safety, Therapeutic Exercise, Transfers Treatment Duration: Apr 29, 2018 Frequency: Modified Program (IRF) Estimated Hrs Per Day: 1.5 hours per day Patient and/or Family Agrees t: Yes Safety Risks/Education Patient Education: Gait Training, Transfer Techniques, Correct Positioning, Disease Process, Safety Issues Teaching Recipient: Patient Teaching Methods: Demonstration, Discussion Response to Teaching: Verbalize Understanding, Return Demonstration, Reinforcement Needed Time/GCodes Time In: 1505 Time Out: 1535 Total Billed Treatment Time: 30 Total Billed Treatment 1,FA15m,GT15m G Codes Necessary: BETSEY Castellon PERMIT REVIEW ASSISTANT Apr 27, 2018 15:40
[2018-04-27 17:09] VITALS: BP 116/63
[2018-04-27] MEDS: ATORVASTATIN 40 MG (LIPITOR) TABLET PO SCH (20:43)
[2018-04-28 05:09] VITALS: BP 107/68
[2018-04-28] MEDS: ASCORBIC ACID (VIT C) 500 MG TABLET PO SCH (06:18)
--- NOTE | 2018-04-28 08:00 | Progress Note (SOAP) ---
Subjective Time Seen by Provider: 08:00 Subjective/Events-last exam Patient feeling better today. Patient had episode of fainting yesterday with diaphoresis. Patient vomited yesterday. Patient feeling good now Objective Exam Vital Signs Date Time Temp Pulse Resp B/P (MAP) Pulse Ox O2 Delivery O2 Flow Rate FiO2 04/28/18 05:09 98.4 56 20 107/68 (81) 96 Room Air 04/27/18 20:30 Room Air 04/27/18 17:09 98.0 56 18 116/63 (80) 97 Room Air 04/27/18 09:00 Room Air 04/27/18 08:53 98.1 60 18 123/69 (87) 96 Room Air I & O 04/28/18 07:00 Intake Total 1180 ml Balance 1180 ml Capillary Refill : General Appearance: No Apparent Distress, WD/WN HEENT: Normal ENT Inspection Neck: Normal Inspection Respiratory: Lungs Clear, Normal Breath Sounds, No Accessory Muscle Use, No Respiratory Distress Cardiovascular: Regular Rate, Rhythm, No Murmur Results Lab Laboratory Tests 04/27/18 08:52: Glucometer 110 Assessment/Plan Assessment/Plan Assess & Plan/Chief Complaint Recent surgery for left knee total replacement. Hypertension. Chronic low back pain. . 04/18/18. Left knee total replacement. Hypertension. Chronic low back pain. Patient feeling good today. Patient had a little dizziness during the weekend to monitor. . 04/19/18. HEENT computer froze and unable to put in progress note. Left knee total replacement. Hypertension. Chronic low back pain. Patient still having some problems with left knee but doing better. . 04/20/18. Left knee total replacement. Hypertension. Chronic low back pain. Patient feel she is improving. . 04/21/leg pain. Left knee total replacement. Hypertension. Patient feel she is each day improving. . 04/22/18. Total knee left replacement. Hypertension. Patient voices no complaints today. . 04/26/18. Total knee left replacement. Hypertension. Patient doing better. Patient has trouble going up and down steps. . 04/27/18. Total knee left replacement. Patient got sweaty and felt like fainting. Blood pressure normal and heart rate normal. . . Total knee replacement left. Patient doing better today plan to discharge tomorrow Clinical Quality Measures DVT/VTE Risk/Contraindication: Risk Factor Score Per Nursin RFS Level Per Nursing on Admit: 4+=Very High ANASTASIYA SAINZ DO Apr 28, 2018 08:00
--- NOTE | 2018-04-28 08:17 | PM & R (SOAP) Progress Note ---
Subjective This was a face to face visit with the patient. Date Seen by Provider: Apr 28, 2018 Time Seen by Provider: 07:50 Subjective/Events-last exam Patient was seen in her room this AM Patient Mod Independent for transfers.Discharge postponed til tomorrow due to an episode yeaterday with therapies of nausea and brief change in mental ststus-may have been related to some anxiety re pending discharge feeling better today. Objective Physician Exam Last Set of Vital Signs Vital Signs Date Time Temp Pulse Resp B/P (MAP) Pulse Ox O2 Delivery O2 Flow Rate FiO2 04/28/18 05:09 98.4 56 20 107/68 (81) 96 Room Air Capillary Refill : I&O Intake and Output 04/28/18 00:00 Intake Total 1330 ml Balance 1330 ml Intake Oral 1330 ml # Voids 8 # Bowel Movements 2 General: Alert, Oriented X3, Cooperative, No Acute Distress HEENT: Atraumatic, PERRLA, EOMI, Mucous Memb Moist/[place] Neck: Supple, No JVD Lungs: Clear to Auscultation Heart: Regular Rate Abdomen: Normal Bowel Sounds, Soft, No Tenderness Extremities: No Edema (trace edema left ankle) Skin: Other (incision healing well) Neuro: Other (Limited Abduction and flexion at 90 degrees both shoulders and limited Flex left knee postop) Results Lab Data Laboratory Tests 04/27/18 08:52: Glucometer 110 Assessment/Plan Assessment and Plan OA s/p Left TKR Postop constipation treated Postop nausea resolved reactive anxiety Chronic back pain with hx of disability DVT Prophylaxis on Lovenox subcut Plan Continue PT/Ot Discharge reset for tomorrow to home F/U with PCP and [facility] [place] out yesterday Co-Morbidities that are continuing to impact the rehab process: (include details ) OG LANGE MD Apr 28, 2018 08:17
[2018-04-28] MEDS: ENOXAPARIN 40 MG/0.4 ML (LOVENOX) SYR SC SCH (09:27)
[2018-04-28] MEDS: GABAPENTIN 300 MG (NEURONTIN) CAP PO SCH ×3 (09:27→20:45)
[2018-04-28] MEDS: BACLOFEN 10 MG (LIORESAL) TAB PO SCH ×3 (09:27→20:45)
[2018-04-28] MEDS: lisINopril 40 MG (PRINIVIL) TABLET PO SCH (09:27)
[2018-04-28] MEDS: ATENOLOL 50 MG (TENORMIN) TAB PO SCH ×2 (09:27→20:45)
[2018-04-28] MEDS: OXYBUTYNIN (DITROPAN) 5 MG TAB PO SCH ×3 (09:27→20:45)
[2018-04-28] MEDS: BISACODYL 5 MG (DULCOLAX) TABLET PO SCH (09:30)
[2018-04-28] MEDS: LACTULOSE SYRUP 10GM/15ML (ENULOSE) 30ML UDC PO SCH ×2 (09:30→20:46)
[2018-04-28] MEDS: POLYETHYLENE GLYCOL 17 GM (MIRALAX) PACK PO SCH ×2 (09:30→20:46)
[2018-04-28] MEDS: SENNA W/DOCUSATE (SENOKOT S) TABLET PO SCH ×2 (09:30→20:46)
[2018-04-28] MEDS: ASPIRIN E.C. 325 MG (ECOTRIN) TABLET PO SCH (09:31)
--- NOTE | 2018-04-28 12:17 | Physical Therapy Daily Note ---
PT Daily Note-Current Subjective Pt sitting in recliner upon arrival. Pt reports feeling better today and agrees to PT for FIM scoring for discharge. Pain Numeric Pain Scale: 3 Location: Left Location Body Site: Knee Pain Description: Ache Mental Status Patient Orientation: Person, Place, Time, Situation Transfers Functional [place] Measure 0=Not Assessed/NA 4=Minimal Assistance 1=Total Assistance 5=Supervision or Setup 2=Maximal Assistance 6=Modified [place] 3=Moderate Assistance 7=Complete IndependenceIRFPAI Quality Coding Scale 6 Independent with activity with or without an assistive device 5 Patient requires set up or clean up by helper. Patient completes activity by themselves 4 Supervision or touching assist (CGA). [place] provide cues , steadying assist 3 The helper provides less than half the effort to complete the activity 2 The helper provides more than half the effort to complete the activity 1 Dependent. The helper does all the effort to complete an activity 7 Patient refused to complete or attempt activity 9 The patient did not perform the activity before the current illness or injury 88 Not attempted due to Medical conditions or safety concerns Transfers (B, C, W/C) (FIM): 6 Scootin Rollin Roll Left to Right (QC): 6 Supine to/from Sit: 6 Sit to/from Stand: 6 Sit to Lying (QC): 6 Sit to Stand (QC): 6 Chair/Hsa-gl-Ozeja Xfer(QC): 6 Bed to/from Chair: 6 Weight Bearing Right Lower Extremity: Right Full Weight Bearing Left Lower Extremity: Left Weight Bearing/Tolerated Gait Training Does the Patient Walk?: Yes Gait (FIM): 6 Distance (FIM): 3=150 ft Distance: 175' Walk 10 feet (QC): 6 Walk 50 ft with 2 Turns(QC): 6 Walk 150 ft (QC): 6 Walking 10ft/uneven surface-QC: 6 Gait Level of Assist: 6 Gait Persons Needed: 1 Gait Assistive Device: FWW Pt has slow bebe and light antalgic gait. Wheelchair Training Does the Pt Use a Wheelchair?: No Stair Training Stair Training: Handrails/: 2 handrails Stairs (FIM): 3 #of Steps: 8 1 Step (curb) (QC): 5 4 Steps (QC): 5 12 Steps (QC): 88 Stairs: Pattern: Step to Level of Assist: 5 Pt fatigues too much to attempt 12 steps, had to stop after 8 steps. Balance Picking up an Object (QC): 88 Special Test Comments Pt attempts but feels little headed and a little dizzy so discontinued. Treatments Pt completes all transfers and ambulation at Mod I, needing occasionally additional time to complete task. Pt completes car transfer easier getting in then getting out, having pull BLE out of car by hand. Pt returns to room at end of tx to rest in recliner with all needs met. Assessment Current Status: Good Progress Pt fatigues and needs occasional rest breaks. Pt has improved with transfers and mobility though. PT Short Term Goals Short Term Goals Time Frame: Apr 18, 2018 Gait (FIM): 5 (met) Distance (FIM): 3=150 ft Gait Assistive Device: FWW PT Mcc Goals Nicker And Breaker Goals PT Mcc Goals Time Frame: Apr 28, 2018 Transfers (B,C,W/C) (FIM): 6 Sit to Lying (QC): 6 Lying-Sitting on Side/Bed(QC): 6 Sit to Stand (QC): 6 Rollin Roll Left to Right (QC): 6 Chair/Iyy-ue-Mwveb Xfer(QC): 6 Car Transfer (QC): 6 Does the Patient Walk: Yes Gait (FIM): 6 Gait distance (FIM): 3=150 ft Walk 10 feet (QC): 6 Walk 10ft-Uneven Surface(QC): 6 Walk 50ft with 2 Turns (QC): 6 Walk 150 ft (QC): 6 Gait Assistive Device: FWW Does the Pt use WC or Scooter?: No Stairs (FIM): 5 (household exception) # of Steps: 8 1 Step (curb) (QC): 6 4 Steps (QC): 6 12 Steps (QC): 88 Stairs Level Of Assist: 6 Picking up an Object (QC): 5 PT Plan Problem List Problem List: Activity Tolerance, Functional Strength, Gait Treatment/Plan Treatment Plan: Continue Plan of Care Treatment Plan: Bed Mobility, Education, Functional Activity Quan, Functional Strength, Group Therapy, Gait, Safety, Therapeutic Exercise, Transfers Treatment Duration: Apr 29, 2018 Frequency: Modified Program (IRF) Estimated Hrs Per Day: 1.5 hours per day Patient and/or Family Agrees t: Yes Safety Risks/Education Patient Education: Gait Training, Transfer Techniques, Correct Positioning, Safety Issues Teaching Recipient: Patient Teaching Methods: Discussion Response to Teaching: Verbalize Understanding Time/GCodes Time In: 900 Time Out: 1000 Total Billed Treatment Time: 60 Total Billed Treatment 1, GT x2 (30m) & FA x2 (30m) G Codes Necessary: TRAN Coulter PTA Apr 28, 2018 12:17
--- NOTE | 2018-04-28 13:17 | Occupational Ther Daily Note ---
OT Current Status-Daily Note Subjective Pt seen in room, up in recliner, agreeable to OT. No pain mentioned but she noted some swelling in L knee. Appearance No nausea, dizziness today. Alert, cooperative Mental Status/Objective Patient Orientation: Person, Place, Time, Situation Functional [place] Measure 0=Not Assessed/NA 4=Minimal Assistance 1=Total Assistance 5=Supervision or Setup 2=Maximal Assistance 6=Modified [place] 3=Moderate Assistance 7=Complete [place] ADL-Treatment She got up from recliner without help, walked to bathroom, toileted without help , undressed, walked to shower and got in/out without help but cues for getting up off bench. Bathed mod I, walked to bed to dress mod I, using dressing stick. Walked back to sink to brush teeth and comb hair, no assist. Reported no problems feeding self, opening packages, getting a drink. Functional [place] Measure 0=Not Assessed/NA 4=Minimal Assistance 1=Total Assistance 5=Supervision or Setup 2=Maximal Assistance 6=Modified [place] 3=Moderate Assistance 7=Complete IndependenceIRFPAI Quality Coding Scale 6 Independent with activity with or without an assistive device 5 Patient requires set up or clean up by helper. Patient completes activity by themselves 4 Supervision or touching assist (CGA). [place] provide cues , steadying assist 3 The helper provides less than half the effort to complete the activity 2 The helper provides more than half the effort to complete the activity 1 Dependent. The helper does all the effort to complete an activity 7 Patient refused to complete or attempt activity 9 The patient did not perform the activity before the current illness or injury 88 Not attempted due to Medical conditions or safety concerns Eating (FIM): 7 (Able to open packages, cut food, feed herself, get a drink. No dentures) Eating (QC): 6 Grooming (FIM): 6 (Stood at sink to brush teeth, comb hair, FWW for balance. Washed face and hands in shower) Oral Hygiene (QC): 6 Bathing (FIM): 6 (Turned water on and off, retrieved towels from bar. Washed and dried all parts, shower bench, grab bars, hand held shower, long handled sponge. ) Shower/Bathe Self (QC): 6 Upper Body (FIM): 6 (Retrieved clean clothes. Doffed and donned clothing without help, FWW for balance. carried clothing on walker for transportation) Upper Body Dressing (QC): 6 Lower Body Dressing (FIM): 6 (Retrieved clean clothes and transported them on walker. Doffed and donned clothing, using dressing stick. Donned slipper socks without help and can also do shoes. ) Lower Body Dressing (QC): 6 On/Off Footwear (QC): 6 Toileting (FIM): 6 (On/off BSc over toilet, using grab bars, FWW. managed clothing and hygiene) Toileting Hygiene (QC): 6 Toilet/Commode Transfer (FIM): 6 (On/off BSC over toilet, using FWW and grab bars) Toilet Transfer (QC): 6 Shower Transfer(FIM): 5 (Skilled cues for getting up off shower bench. In/out shower without help. grab bars, FWW) Other Treatment She walked to gym with FWW without LOB. She did 16 minutes bilat UE exercise on arm bike set at 25W to strengthen arms to help with transfers and ADLs. She took only a couple brief recovery breaks to get a drink of water. She was able to get up from chair with arms without help, with two trials, and walked back to her room with FWW. She was provided with written instructions for HEP with yellow theraband, to continue to strengthen arms and help with decreased shoulder range. Verbal and demonstration of the exercises, with return demo from pt. Pt educ on two ways to prepare walker bag to help with transporting items. pt left up in recliner, all needs met. Education OT Patient Education: Home exercise program, Modified ADL techniques, Progress toward Goal/Update tx plan, Purpose of tx/functional activities, Transfer techniques Teaching Recipient: Patient Teaching Methods: Demonstration, Handout, Discussion Response to Teaching: Verbalize Understanding, Return Demonstration OT Short Term Goals Short Term Goals Time Frame: Apr 21, 2018 Toilet/Commode Transfer(FIM): 5 1=Demonstrate adherence to instructed precautions during ADL tasks. 2=Patient will verbalize/demonstrate understanding of assistive devices/ modifications for ADL. 3=Patient will improve strength/tolerance for activity to enable patient to perform ADL's. OT [facility] Goals Marketing Information Coordinator Goals Time Frame: Apr 29, 2018 Eating (FIM): 7 Eating (QC): 6 Groomin Oral Hygiene (QC): 6 Bathing(FIM): 6 Shower/Bathe Self (QC): 6 Upper Body Dressing(FIM): 6 Upper Body Dressing (QC): 6 Lower Body Dressing(FIM): 6 Lower Body Dressing (QC): 6 On/Off Footwear (QC): 6 Toileting(FIM): 6 Toileting Hygiene (QC): 6 Toilet/Commode Transfer(FIM): 6 Toilet/Commode Transfer (QC): 6 Tub Transfer(FIM): 6 (or shower) Shower Transfer(FIM): 6 (or tub) Additional Goals: 1-Demonstrate ADL Tasks, 2-Verbalize Understanding, 3- ImproveStrength/Quan 1=Demonstrate adherence to instructed precautions during ADL tasks. 2=Patient will verbalize/demonstrate understanding of assistive devices/ modifications for ADL. 3=Patient will improve strength/tolerance for activity to enable patient to perform ADL's. OT Education/Plan Problem List/Assessment Pt would benefit from skilled OT to increase her independence in basic self care to allow her to safely return home Discharge Recommendations Plan/Recommendations: Continue POC (anticipate DC tomorrow) Treatment Plan/Plan of Care Patient would benefit from OT for education, treatment and training to promote independence in ADL's, mobility, safety and/or upper extremity function for ADL' s. Plan of Care: ADL Retraining, Functional Mobility, Group Exercise/Act as Ind ( education, exercise, activity tolerance, functional activity, functional mobility), UE Funct Exercise/Act, UE Neuromus Re-Ed/Coord Treatment Duration: Apr 29, 2018 Frequency: At least 5 of 7 days/Wk (IRF) Estimated Hrs Per Day: 1.5 hours per day Agreement: Yes Rehab Potential: Good Time/GCodes Start Time: 10:30 Stop Time: 12:00 Total Time Billed (hr/min): 90 Billed Treatment Time visit, 55 minutes ADL, 35 minutes exercise WENDY FARLEY OT Apr 28, 2018 13:17
[2018-04-28] MEDS ORDERED: ASPI325T32 PO (13:56)
--- NOTE | 2018-04-28 16:27 | Physical Therapy Daily Note ---
PT Daily Note-Current Subjective Pt is sitting in recliner upon arrival. Pt agrees to PT. Pain Location: No Pain Reported Mental Status Patient Orientation: Person, Place, Time, Situation Transfers Functional [place] Measure 0=Not Assessed/NA 4=Minimal Assistance 1=Total Assistance 5=Supervision or Setup 2=Maximal Assistance 6=Modified [place] 3=Moderate Assistance 7=Complete IndependenceIRFPAI Quality Coding Scale 6 Independent with activity with or without an assistive device 5 Patient requires set up or clean up by helper. Patient completes activity by themselves 4 Supervision or touching assist (CGA). Sandy provide cues , steadying assist 3 The helper provides less than half the effort to complete the activity 2 The helper provides more than half the effort to complete the activity 1 Dependent. The helper does all the effort to complete an activity 7 Patient refused to complete or attempt activity 9 The patient did not perform the activity before the current illness or injury 88 Not attempted due to Medical conditions or safety concerns Scootin Sit to/from Stand: 6 Sit to Stand (QC): 6 Weight Bearing Right Lower Extremity: Right Full Weight Bearing Left Lower Extremity: Left Weight Bearing/Tolerated Gait Training Does the Patient Walk?: Yes Distance (FIM): 3=150 ft Distance: 150' Walk 10 feet (QC): 6 Walk 50 ft with 2 Turns(QC): 6 Walk 150 ft (QC): 6 Gait Level of Assist: 6 Gait Persons Needed: 1 Gait Assistive Device: FWW Stair Training Stair Training: Handrails/: 2 handrails #of Steps: 8 1 Step (curb) (QC): 5 4 Steps (QC): 5 Stairs: Pattern: Step to Level of Assist: 5 Treatments Pt uses restroom before tx. Pt ambulates in hallway to Therapy Gym using FWW at Mod I. Pt completes 2 sets of 4 steps then rests in chair before returning to room to rest. Pt resting in bed at end of tx with all needs met. Assessment Current Status: Good Progress Pt is tired this afternoon and ready to rest at end of tx. PT Short Term Goals Short Term Goals Time Frame: Apr 18, 2018 Gait (FIM): 5 (met) Distance (FIM): 3=150 ft Gait Assistive Device: FWW PT Pulp Drier Goals Pulp Drier Goals PT Retirement Goals Time Frame: Apr 28, 2018 Transfers (B,C,W/C) (FIM): 6 Sit to Lying (QC): 6 Lying-Sitting on Side/Bed(QC): 6 Sit to Stand (QC): 6 Rollin Roll Left to Right (QC): 6 Chair/Zhr-un-Lzqae Xfer(QC): 6 Car Transfer (QC): 6 Does the Patient Walk: Yes Gait (FIM): 6 Gait distance (FIM): 3=150 ft Walk 10 feet (QC): 6 Walk 10ft-Uneven Surface(QC): 6 Walk 50ft with 2 Turns (QC): 6 Walk 150 ft (QC): 6 Gait Assistive Device: FWW Does the Pt use WC or Scooter?: No Stairs (FIM): 5 (household exception) # of Steps: 8 1 Step (curb) (QC): 6 4 Steps (QC): 6 12 Steps (QC): 88 Stairs Level Of Assist: 6 Picking up an Object (QC): 5 PT Plan Problem List Problem List: Activity Tolerance, Functional Strength Treatment/Plan Treatment Plan: Continue Plan of Care Treatment Plan: Bed Mobility, Education, Functional Activity Quan, Functional Strength, Group Therapy, Gait, Safety, Therapeutic Exercise, Transfers Treatment Duration: Apr 29, 2018 Frequency: Modified Program (IRF) Estimated Hrs Per Day: 1.5 hours per day Patient and/or Family Agrees t: Yes Safety Risks/Education Patient Education: Gait Training, Steps Teaching Recipient: Patient Teaching Methods: Discussion Response to Teaching: Verbalize Understanding Time/GCodes Time In: 1230 Time Out: 1300 Total Billed Treatment 1, GT (10m) & FA (20m) G Codes Necessary: TRAN Coulter PTA Apr 28, 2018 16:27
[2018-04-28 16:34] VITALS: BP 96/57
[2018-04-28 20:40] VITALS: BP 104/66
[2018-04-28] MEDS: ATORVASTATIN 40 MG (LIPITOR) TABLET PO SCH (20:45)
[2018-04-28] MEDS: ALPRAZolam 0.25 MG (XANAX) TAB PO PRN (23:31)
[2018-04-29 05:06] VITALS: BP 117/63
[2018-04-29] MEDS: ASCORBIC ACID (VIT C) 500 MG TABLET PO SCH (06:29)
--- NOTE | 2018-04-29 07:03 | PM & R (SOAP) Progress Note ---
Subjective This was a face to face visit with the patient. Date Seen by Provider: Apr 29, 2018 Time Seen by Provider: 06:50 Subjective/Events-last exam Patient was seen in her room this AM All set for discharge today Current meds reviewed.Case discussed with RN Objective Physician Exam Last Set of Vital Signs Vital Signs Date Time Temp Pulse Resp B/P (MAP) Pulse Ox O2 Delivery O2 Flow Rate FiO2 04/29/18 05:06 98.8 66 16 117/63 (81) 97 Room Air Capillary Refill : I&O Intake and Output 04/29/18 00:00 Intake Total 600 ml Balance 600 ml Intake Oral 600 ml # Voids 4 General: Alert, Oriented X3, Cooperative, No Acute Distress HEENT: Atraumatic, PERRLA, EOMI, Mucous Memb Moist/[place] Neck: Supple, No JVD Lungs: Clear to Auscultation Heart: Regular Rate Abdomen: Normal Bowel Sounds, Soft, No Tenderness Extremities: No Edema (trace edema left ankle) Skin: Other (incision healing well) Neuro: Other (Limited Abduction and flexion at 90 degrees both shoulders and limited Flex left knee postop) Results Lab Data Laboratory Tests 04/27/18 08:52: Glucometer 110 Assessment/Plan Assessment and Plan Home today with C See Orders F/U with PCP and Ortho Current meds reviewed Co-Morbidities that are continuing to impact the rehab process: (include details ) OG LANGE MD Apr 29, 2018 07:03
--- NOTE | 2018-04-29 08:32 | Progress Note (SOAP) ---
Subjective Time Seen by Provider: 08:32 Subjective/Events-last exam Patient ready to go home. Patient feeling better. Patient's blood pressure little bit low. Decrease lisinopril to 20 mg. Hold blood pressure medicines this morning Objective Exam Vital Signs Date Time Temp Pulse Resp B/P (MAP) Pulse Ox O2 Delivery O2 Flow Rate FiO2 04/29/18 05:06 98.8 66 16 117/63 (81) 97 Room Air 04/28/18 21:50 Room Air 04/28/18 20:40 67 104/66 (79) 04/28/18 16:34 97.3 63 16 96/57 (70) 97 Room Air 04/28/18 15:10 Room Air 04/28/18 09:30 Room Air I & O 04/29/18 07:00 Intake Total 1150 ml Balance 1150 ml Capillary Refill : General Appearance: No Apparent Distress, WD/WN Assessment/Plan Assessment/Plan Assess & Plan/Chief Complaint Recent surgery for left knee total replacement. Hypertension. Chronic low back pain. . 04/18/18. Left knee total replacement. Hypertension. Chronic low back pain. Patient feeling good today. Patient had a little dizziness during the weekend to monitor. . 04/19/18. HEENT computer froze and unable to put in progress note. Left knee total replacement. Hypertension. Chronic low back pain. Patient still having some problems with left knee but doing better. . 04/20/18. Left knee total replacement. Hypertension. Chronic low back pain. Patient feel she is improving. . 04/21/leg pain. Left knee total replacement. Hypertension. Patient feel she is each day improving. . 04/22/18. Total knee left replacement. Hypertension. Patient voices no complaints today. . 04/26/18. Total knee left replacement. Hypertension. Patient doing better. Patient has trouble going up and down steps. . 04/27/18. Total knee left replacement. Patient got sweaty and felt like fainting. Blood pressure normal and heart rate normal. . . Total knee replacement left. Patient doing better today plan to discharge tomorrow. . 04/29/18. Total knee replacement. Patient be discharged today. Blood pressure little low this morning. Hold hypertensive medicine this morning. To see patient in 2 weeks Clinical Quality Measures DVT/VTE Risk/Contraindication: Risk Factor Score Per Nursin RFS Level Per Nursing on Admit: 4+=Very High ANASTASIYA SAINZ DO Apr 29, 2018 08:32
[2018-04-29] MEDS: OXYBUTYNIN (DITROPAN) 5 MG TAB PO SCH (08:39)
[2018-04-29] MEDS: SENNA W/DOCUSATE (SENOKOT S) TABLET PO SCH (08:39)
[2018-04-29] MEDS: GABAPENTIN 300 MG (NEURONTIN) CAP PO SCH (08:40)
[2018-04-29] MEDS: POLYETHYLENE GLYCOL 17 GM (MIRALAX) PACK PO SCH (08:40)
[2018-04-29] MEDS: BACLOFEN 10 MG (LIORESAL) TAB PO SCH (08:40)
[2018-04-29] MEDS: ENOXAPARIN 40 MG/0.4 ML (LOVENOX) SYR SC SCH (08:40)
[2018-04-29] MEDS: BISACODYL 5 MG (DULCOLAX) TABLET PO SCH (08:40)
[2018-04-29] MEDS: ATENOLOL 50 MG (TENORMIN) TAB PO SCH (08:41)
[2018-04-29] MEDS: lisINopril 40 MG (PRINIVIL) TABLET PO SCH (08:41)
[2018-04-29] MEDS: LACTULOSE SYRUP 10GM/15ML (ENULOSE) 30ML UDC PO SCH (08:41)
[2018-04-29] MEDS: ASPIRIN E.C. 325 MG (ECOTRIN) TABLET PO SCH (08:45)
[2018-04-29] MEDS ORDERED: lisINopril 40 MG (PRINIVIL) TABLET PO SCH (09:00)
--- NOTE | 2018-04-29 09:14 | D/C HH Face to Face Order ---
D/C Face to Face Orders Instructions for Patient Patient Instructions/FollowUp: Dr. Aguero on 05/[address] Cunningham Physician to follow Patient: Dr. Aguero Discharge Diet for Home: Regular Diet Patient Data-Allergies,Ht & Wt Patient Allergies: Coded Allergies: meloxicam (Verified Allergy, Intermediate, RASH ALL OVER, 04/12/18) Penicillins (Verified Allergy, Unknown, 04/12/18) Height (Feet): 5 Height (Inches): 3.00 Weight (Pounds): 178 Weight (Ounces): 14.0 Home Health Need/Face to Face Date of Face to Face: Apr 29, 2018 Clinical Findings: Generalized weakness and fatigue, Muscle weakness, Unsteady gait I have seen Pt [id number]: Yes Discharged To: Home Diagnosis/Conditions: LTK Patient is Homebound due to: [place] fall risk due to instabilty, Muscle weakness Homebound Status Due to the above stated illness, injury or surgical procedure (medical condition or diagnosis) and associated clinical findings, the patient is homebound because of his/her inability to leave home except with aid of a supportive device and/or person AND leaving the home requires a considerable and taxing effort or is medically contraindicated. Pt req the following assistanc: Walker Home Health Nursing Orders Home Health Services Order: Supervisor Pastry-Evaluate & Treat, Physical Therapy-Evaluate & Treat Start of care on 05/02 Home Health Infusion Therapy Site Location: Forearm Therapy Orders Therapy Orders: OT (must have SN or PT order), Physical Therapy Therapy Specific Orders: Eval assistive deivces, Teach enviro modifications/ safety, Gait training, Increase strength/endurance, Restore ROM Certify Stmt I certify that this patient is under my care and that I, a nurse practitioner or a physician; a public health training assistant working with me, had a face to face encounter that - meets the physician face to face encounter requirements with this patient as dated. I personally scribed for OG LANGE MD ([facility]) on 04/29/18 at 09:14. Electronically submitted by Lucia Rodrgiuez ([id number]). OG LANGE MD Apr 29, 2018 09:14
--- NOTE | 2018-04-29 10:25 | Therapy Team Discharge Summary ---
Therapy Discharge Summary Discharge Recommendations Date of Discharge Therapy D/C Recommendations: Physical Therapy Home Care Physical Therapy Patient came to rehab following a left TKA. Upon evaluation patient performed bed mobility and transfers with min/mod assist, car transfer min assist, ambulated 75' with a rolling walker with min assist (including 50' with at least 2 turns of 90 degrees and 10' over an uneven surface), and went up and down 1 step using a rolling walker with min assist. Patient has been performing bed mobility and transfer training, balance and endurance training, functional strengthening, stair training, gait training, and education. Patient has made fair progress and has met all of her snf goals except for stairs. Now, patient performs bed mobility and transfers with mod I, car transfer mod I, ambulates 175' with a rolling walker with mod I (including 50' with at least 2 turns of 90 degrees and 10' over an uneven surface), and can go up and down 8 steps using 2 handrails with SBA. Patient is being discharged from this facility today and will be discharged from PT at this time. Occupational Therapy Decreased Activ Tolerance, Dependent Transfers, Impaired Bed Mobility, Impaired Cognition, Impaired Funct Balance, Impaired I ADL's, Impaired Self-Care Skills PT Speech Therapist Technician Goals Speech Therapist Technician Goals PT Speech Therapist Technician Goals Time Frame: Apr 28, 2018 Transfers (B,C,W/C) (FIM): 6 Roll Left to Right (QC): 6 Sit to Lying (QC): 6 Lying-Sitting on Side/Bed(QC): 6 Sit to Stand (QC): 6 Chair/Njg-lf-Jtlcw Xfer(QC): 6 Car Transfer (QC): 6 Does the Patient Walk: Yes Gait (FIM): 6 Gait distance (FIM): 3=150 ft Walk 10 feet (QC): 6 Walk 10ft-Uneven Surface(QC): 6 Walk 50ft with 2 Turns (QC): 6 Walk 150 ft (QC): 6 Gait Assistive Device: FWW Does the Pt use WC or Scooter?: No Stairs (FIM): 5 (household exception) # of Steps: 8 1 Step (curb) (QC): 6 4 Steps (QC): 6 12 Steps (QC): 88 Stairs Level Of Assist: 6 Picking up an Object (QC): 5 OT Mcc Goals Speech Therapist Technician Goals Time Frame: Apr 29, 2018 Eating (FIM): 7 Eating (QC): 6 Oral Hygiene (QC): 6 Grooming(FIM): 6 Bathing(FIM): 6 Shower/Bathe Self (QC): 6 Upper Body Dressing(FIM): 6 Upper Body Dressing (QC): 6 Lower Body Dressing(FIM): 6 Lower Body Dressing (QC): 6 On/Off Footwear (QC): 6 Toileting(FIM): 6 Toileting Hygiene (QC): 6 Toilet/Commode Transfer(FIM): 6 Toilet/Commode Transfer (QC): 6 Tub Transfer(FIM): 6 (or shower) Shower Transfer(FIM): 6 (or tub) Additional Goals: 1-Demonstrate ADL Tasks, 2-Verbalize Understanding, 3- ImproveStrength/Quan 1=Demonstrate adherence to instructed precautions during ADL tasks. 2=Patient will verbalize/demonstrate understanding of assistive devices/ modifications for ADL. 3=Patient will improve strength/tolerance for activity to enable patient to perform ADL's. Speech Speech Therapist Technician Goals Mcc Goals no LTGs as skilled ST not indicated. JAREK HOSKINS PT Apr 29, 2018 10:25
[2018-04-29 11:00] VITALS: BP 117/63
[2018-04-30] MEDS ORDERED: lisINopril 20 MG (PRINIVIL) TABLET PO SCH (09:00)
--- NOTE | 2018-05-02 09:20 | Therapy Team Discharge Summary ---
Therapy Discharge Summary Discharge Recommendations Date of Discharge Apr 29, 2018 at 11:00 Therapy D/C Recommendations: Occupational Therapy Home Care, Physical Therapy Home Care Occupational Therapy Pt was seen for skilled OT to increase her independence in basic self care to allow her to safely return home after total knee replacement. On admission she was independent with eating, completed grooming and upper body dressing with setup, needed min/CGA for toileting and toilet transfer, completed bathing with mod assist and needed max assist for lower body dressing. By discharge she had progressed to independent with eating and modified independent with all other basic ADLs, using dressing stick, BSC over toilet, grab bars, FWW, shower bench. See tx plan for goals met. Recommend home health OT. DC OT Decreased Activ Tolerance, Dependent Transfers, Impaired Bed Mobility, Impaired Cognition, Impaired Funct Balance, Impaired I ADL's, Impaired Self-Care Skills PT Jail Goals Jail Goals PT Jail Goals Time Frame: Apr 28, 2018 Transfers (B,C,W/C) (FIM): 6 Roll Left to Right (QC): 6 Sit to Lying (QC): 6 Lying-Sitting on Side/Bed(QC): 6 Sit to Stand (QC): 6 Chair/Xal-jk-Rekgj Xfer(QC): 6 Car Transfer (QC): 6 Does the Patient Walk: Yes Gait (FIM): 6 Gait distance (FIM): 3=150 ft Walk 10 feet (QC): 6 Walk 10ft-Uneven Surface(QC): 6 Walk 50ft with 2 Turns (QC): 6 Walk 150 ft (QC): 6 Gait Assistive Device: FWW Does the Pt use WC or Scooter?: No Stairs (FIM): 5 (household exception) # of Steps: 8 1 Step (curb) (QC): 6 4 Steps (QC): 6 12 Steps (QC): 88 Stairs Level Of Assist: 6 Picking up an Object (QC): 5 OT Jail Goals Jail Goals Time Frame: Apr 29, 2018 Eating (FIM): 7 (met --18) Eating (QC): 6 (met --18) Oral Hygiene (QC): 6 (met --18) Grooming(FIM): 6 (met --18) Bathing(FIM): 6 (met -6-18) Shower/Bathe Self (QC): 6 (met --18) Upper Body Dressing(FIM): 6 (met --18) Upper Body Dressing (QC): 6 (met --18) Lower Body Dressing(FIM): 6 (met --18) Lower Body Dressing (QC): 6 (met -18) On/Off Footwear (QC): 6 (met -18) Toileting(FIM): 6 (met -18) Toileting Hygiene (QC): 6 (met -18) Toilet/Commode Transfer(FIM): 6 (met -18) Toilet/Commode Transfer (QC): 6 (met 18) Tub Transfer(FIM): 6 (or shower - not met) Shower Transfer(FIM): 6 (or tub. Not met 04-28-18) Additional Goals: 1-Demonstrate ADL Tasks, 2-Verbalize Understanding, 3- ImproveStrength/Quan 1=Demonstrate adherence to instructed precautions during ADL tasks. 2=Patient will verbalize/demonstrate understanding of assistive devices/ modifications for ADL. 3=Patient will improve strength/tolerance for activity to enable patient to perform ADL's. Speech Concierge Receptionist Goals Jail Goals no LTGs as skilled ST not indicated. WENDY FARLEY OT May 02, 2018 09:20
--- NOTE | 2018-05-06 10:35 | Physical Therapy Daily Note ---
PT Daily Note-Current Subjective Patient in recliner pre tx, agrees to PT, has pain of 4/10. Patient needs to be dressed and use the bathroom. Appearance Patient in recliner post tx with nurse call, phone, tray, all needs met. Mental Status Patient Orientation: Person, Place, Situation Transfers Functional [place] Measure 0=Not Assessed/NA 4=Minimal Assistance 1=Total Assistance 5=Supervision or Setup 2=Maximal Assistance 6=Modified [place] 3=Moderate Assistance 7=Complete IndependenceIRFPAI Quality Coding Scale 6 Independent with activity with or without an assistive device 5 Patient requires set up or clean up by helper. Patient completes activity by themselves 4 Supervision or touching assist (CGA). [place] provide cues , steadying assist 3 The helper provides less than half the effort to complete the activity 2 The helper provides more than half the effort to complete the activity 1 Dependent. The helper does all the effort to complete an activity 7 Patient refused to complete or attempt activity 9 The patient did not perform the activity before the current illness or injury 88 Not attempted due to Medical conditions or safety concerns Transfers (B, C, W/C) (FIM): 4 Sit to/from Stand: 4 Bed to/from Chair: 4 CGA, cues for hand placement and safety Weight Bearing Right Lower Extremity: Right Full Weight Bearing Left Lower Extremity: Left Weight Bearing/Tolerated Gait Training Gait (FIM): 2 Distance: 120'x2 Gait Level of Assist: 4 Gait Persons Needed: 1 Gait Assistive Device: FWW CGA, patient ambulates very slowly, antalgic, barely flexed left knee, decreased stance time on left leg Exercises Seated Therapy Exercises: Ankle pumps, Long arc quads, Hip flexion Seated Reps: 20 NuStep Minutes: 10 NuStep Workload: 3 (patient encouraged to flex left knee, she performed poorly with this) Treatments bed mobility and transfers, patient was dressed (needed some assist to get pants onto left leg), and was toileted, ambulation, functional strengthening, ROM Assessment Current Status: Poor Progress patient has poor ROM in left knee PT Short Term Goals Short Term Goals Time Frame: Apr 18, 2018 Gait (FIM): 5 (met) Distance (FIM): 3=150 ft Gait Assistive Device: FWW PT Jail Goals Assembly Line Brazer Goals PT Assembly Line Brazer Goals Time Frame: Apr 28, 2018 Transfers (B,C,W/C) (FIM): 6 Sit to Lying (QC): 6 Lying-Sitting on Side/Bed(QC): 6 Sit to Stand (QC): 6 Rollin Roll Left to Right (QC): 6 Chair/Uxj-hp-Zhaah Xfer(QC): 6 Car Transfer (QC): 6 Does the Patient Walk: Yes Gait (FIM): 6 Gait distance (FIM): 3=150 ft Walk 10 feet (QC): 6 Walk 10ft-Uneven Surface(QC): 6 Walk 50ft with 2 Turns (QC): 6 Walk 150 ft (QC): 6 Gait Assistive Device: FWW Does the Pt use WC or Scooter?: No Stairs (FIM): 5 (household exception) # of Steps: 8 1 Step (curb) (QC): 6 4 Steps (QC): 6 12 Steps (QC): 88 Stairs Level Of Assist: 6 Picking up an Object (QC): 5 PT Plan Problem List Problem List: Activity Tolerance, Functional Strength, Safety, Balance, Gait, Transfer, Bed Mobility, ROM Treatment/Plan Treatment Plan: Continue Plan of Care Treatment Plan: Bed Mobility, Education, Functional Activity Quan, Functional Strength, Group Therapy, Gait, Safety, Therapeutic Exercise, Transfers Treatment Duration: Apr 29, 2018 Frequency: Modified Program (IRF) Estimated Hrs Per Day: 1.5 hours per day Patient and/or Family Agrees t: Yes Safety Risks/Education Patient Education: Gait Training, Transfer Techniques, Correct Positioning, Safety Issues Teaching Recipient: Patient Teaching Methods: Demonstration, Discussion Response to Teaching: Reinforcement Needed Time/GCodes Time In: 0900 Time Out: 1000 Total Billed Treatment Time: 60 Total Billed Treatment 1 visit GT 40' EX 20' This note is for date 04/19/18. Originally this daily note was made on the wrong person. JAREK HOSKINS PT May 06, 2018 10:35
--- NOTE | 2018-05-11 01:01 | DISCHARGE SUMMARY ---
DATE OF SERVICE: 04/29/2018 HISTORY OF PRESENT ILLNESS: The patient is a 58-year-old disabled female since 2016 due to chronic low back pain who was admitted to [facility] on 04/12/2018 for left total knee replacement by Dr. Aguero for painful OA refractory to conservative care. Postoperatively, the patient required assistance for ADLs, mobility skills and she was referred to inpatient rehabilitation unit with the approval of her managed Medicaid program. Her PCP is Dr. Cunningham. She had been independent prior to this and living in her own home in [place], [place]. PAST MEDICAL HISTORY: Chronic back pain, hypertension, GERD, anxiety. MEDICAL COURSE: The patient was followed by Dr. Grider and Octavio while on rehab unit. Medications were adjusted for anxiety and postop constipation. She was afebrile during her stay. Her pulse is 66 on 04/29/2018, respirations 16, blood pressure 117/63, O2 sat 97% on room air. CBC on 04/21/2018 showed H and H 12/35. WBC count 13.4 down from 13.9, 04/15/2018. Chemistry 04/21/2018 showed normal electrolytes, serum calcium. Blood glucose mildly elevated at 107. REHABILITATION COURSE: She progressed well with therapy. She had increased strength and endurance, decreased pain. [place] were removed prior to discharge. Her incision was healing well. She was assessed by speech therapy, found to be cognitively intact. They signed off. OT NOTES: Upon admission, the patient was independent with eating, completed grooming and upper body dressing with setup, needed min assist to contact guard for toileting and toilet transfers, completed bathing with mod assist and needed max assist for lower body dressing. By discharge, she had progressed to independent with eating and modified independent with all other basic ADLs using dressing stick bedside commode over toilet grab bars front wheel walker, shower bench. PT NOTES: Upon admission to rehab unit, the patient was min to mod assist for bed mobility and transfers, min assist for car transfers, could ambulate 75 feet with a wheeled walker with min assist. The patient has made fair progress and upon discharge, the patient is modified independent with bed mobility and transfers, modified independent with car transfers, can ambulate 175 feet with a wheeled walker with modified independence and can go up and down eight steps using two handrails with standby assist. DISCHARGE INSTRUCTIONS: The patient is discharged to home with home health services. The patient will have followup with orthopedics and PCP as per their schedule. Continue current diet. DISCHARGE MEDICATIONS: ASA 325 mg p.o. daily, vitamin C 500 mg p.o. daily, atenolol 50 mg p.o. b.i.d., baclofen 10 mg p.o. t.i.d., Gabapentin 300 mg p.o. t.i.d., hydrocodone/APAP 10/325 one tablet p.o. q.6 hours p.r.n. moderate pain, lisinopril 40 mg p.o. daily, lovastatin 20 mg p.o. each day at bedtime, Ditropan 5 mg p.o. t.i.d. DISCHARGE DIAGNOSES: 1. Rehabilitation left knee osteoarthritis, status post total knee replacement by Dr. Aguero. 2. Chronic back pain on meds. 3. Hypertension, controlled with medication. 4. Gastroesophageal reflux disease, quiescent at this point. 5. Anxiety, improved. 6. Postop constipation, treated. CONDITION AT DISCHARGE: Improved and stable. PROGNOSIS: Rehab prognosis appears good for continued improvement at home, return to independent living. Job ID: [id number] DocumentID: [id number] Dictated Date: 05/10/2018 09:55:56 Director Occupational Date: 05/11/2018 01:00:38 Dictated By: OG GRIDER MD [facility]
== END 2018-04-29 11:00 | disposition home or self-care (01) | DRG 561 ==
PROVIDERS: ADMIT Physical Medicine & Rehabilitation; ATTEND Physical Medicine & Rehabilitation
DX: Z47.1 Aftercare following joint replacement surgery (principal); Z96.652 Presence of left artificial knee joint; M54.9 Dorsalgia, unspecified; I10 Essential (primary) hypertension; K21.9 Gastro-esophageal reflux disease without esophagitis; F41.9 Anxiety disorder, unspecified; K59.09 Other constipation
CPT/HCPCS: 36415; 80048; 82962; 85027

== ENCOUNTER 2018-05-18 12:49 | Outpatient (RCR) | payer MEDICAID | END 2018-05-22 | disposition home or self-care (01) | PROVIDERS: ATTEND Nurse Practitioner Family | DX: Z47.1 Aftercare following joint replacement surgery (principal); Z96.652 Presence of left artificial knee joint ==

== ENCOUNTER 2018-07-22 09:15 | Outpatient (RCR) | payer MEDICAID, OTHER | END 2018-07-22 15:28 | disposition home or self-care (01) | PROVIDERS: ATTEND Nurse Practitioner Family | DX: Z47.1 Aftercare following joint replacement surgery (principal); Z96.652 Presence of left artificial knee joint ==

== ENCOUNTER 2018-12-25 09:51 | Emergency (ER) | payer MEDICARE, MEDICAID ==
[~2018-12-25] VITALS: Ht 162.6 cm; Wt 83.9 kg
[~2018-12-25 09:51] MED LIST changes: -AMLO10TA6 PO; +AMLO10TA7 PO
--- OUTSIDE RECORDS SUMMARY | 2018-12-25 10:02 | XMS REPORT | Continuity of Care Document ---
Author Organization Unknown Address Unknown Allergies Active Description Code Type Severity Reaction Onset Reported/Identified Relationship to Patient Clinical Status Yes meloxicam [id number] Drug Allergy Moderate RASH ALL OVER 04/12/2018 Yes Penicillins [id number] Drug Allergy Unknown N/A 04/12/2018 Medications There is no data. Problems Date [...] Ot 721.3 LUMBOSACRAL SPONDYLOSIS 09/22/2013 GERRY MENDOZA MD Ot 722.52 LUMB/LUMBOSAC DISC DEGEN 09/22/2013 GERRY MENDOZA MD Ot 729.1 MYALGIA AND MYOSITIS NOS 09/22/2013 [...] MD Ot 724.2 LUMBAGO 12/20/2013 GERRY MENDOZA MD Ot V57.1 PHYSICAL THERAPY NEC 02/09/2014 GERRY MENDOZA MD Ot 721.3 LUMBOSACRAL SPONDYLOSIS 02/09/2014 GERRY MENDOZA MD Ot 724.6 DISORDERS OF SACRUM 02/09/2014 GERRY MENDOZA MD Ot 729.1 MYALGIA AND MYOSITIS NOS 02/09/2014 GERRY MENDOZA MD Ot V58.69 OTH MED,LT,CURRENT USE 03/16/2014 SHANE ARORA [employer] OFFICER Ot V54.9 ORTHOPEDIC AFTERCARE NOS 03/31/2014 SHANE ARORA [employer] OFFICER Ot 599.0 URIN TRACT INFECTION NOS 03/31/2014 SHANE ARORA [employer] OFFICER Ot 787.01 NAUSEA WITH VOMITING 06/22/2014 GERRY MENDOZA MD Ot 278.00 OBESITY, NOS 06/22/2014 GERRY MENDOZA MD Ot 721.3 LUMBOSACRAL SPONDYLOSIS 06/22/2014 GERRY MENDOZA MD Ot 724.6 DISORDERS OF SACRUM 06/22/2014 GERRY MENDOZA MD Ot 729.1 MYALGIA AND MYOSITIS NOS 06/22/2014 GERRY MENDOZA MD, Ot V58.69 OTH MED,LT,CURRENT USE 06/22/2014 GERRY [...] FACP CCDS Ot 272.4 09/11/2014 MILY HERNANDEZ FAC, ALI FACP CCDS Ot 278.00 09/11/2014 MILY HERNANDEZ FAC, ALI FACP CCDS Ot 401.9 09/11/2014 MILY HERNANDEZ FAC, ALI FACP CCDS Ot 786.50 09/11/2014 MILY HERNANDEZ FAC, [facility] FACP CCDS Ot V85.31 09/11/2014 AUGUSTO STOKES Ot [...] 401.9 09/19/2014 Ot V58.69 09/19/2014 CALISTA PHAM KNITTING MACHINE MECHANIC Ot 272.4 09/19/2014 CALISTA PHAM KNITTING MACHINE MECHANIC Ot 401.9 09/19/2014 TOAN HERNANDEZ, KATERIN R Ot 722.10 09/19/2014 GERRY MENDOZA MD Ot 278.00 09/19/2014 REJI HERNANDEZ, GERRY Jauregui Ot 401.9 09/19/2014 GERRY MENDOZA MD Ot [...] MD Ot V85.32 09/19/2014 BAIMA, CALISTA L KNITTING MACHINE MECHANIC Ot 272.4 09/19/2014 BAIMA, CALISTA L KNITTING MACHINE MECHANIC Ot 401.9 09/19/2014 BAIMA, CALISTA L KNITTING MACHINE MECHANIC Ot V58.69 09/19/2014 TAWNY WILLIAMSON DO Ot V76.12 09/19/2014 BAIMA, CALISTA L KNITTING MACHINE MECHANIC Ot 272.4 09/19/2014 BAIMA, CALISTA L KNITTING MACHINE MECHANIC Ot 278.00 09/19/2014 BAIMA, CALISTA L KNITTING MACHINE MECHANIC Ot 401.9 09/19/2014 BAIMA, CALISTA L KNITTING MACHINE MECHANIC Ot 454.9 09/19/2014 BAIMA, CALISTA L KNITTING MACHINE MECHANIC Ot 786.50 09/19/2014 MILY HERNANDEZ FAC, ALI FACP CCDS Ot 272.4 09/19/2014 MILY HERNANDEZ FAC, ALI FACP CCDS Ot 276.1 09/19/2014 MILY HERNANDEZ FACC, ALI FACP CCDS Ot 278.00 09/19/2014 MILY HERNANDEZ FAC, ALI FACP CCDS Ot 401.9 09/19/2014 MILY HERNANDEZ FACC, ALI FACP CCDS Ot 454.9 09/19/2014 MILY MD FACC, ALI FACP CCDS Ot 786.50 09/19/2014 MILY MD FACC, ALI FACP CCDS Ot 272.4 09/19/2014 MILY MD FACC, ALI FACP CCDS Ot 272.4 09/19/2014 MILY MD FACC, ALI FACP CCDS Ot 278.00 09/19/2014 MILY MD FACC, ALI FACP CCDS Ot 401.9 09/19/2014 MILY HERNANDEZ FACC, ALI FACP CCDS Ot 786.50 09/19/2014 MILY MD FACC, ALI FACP CCDS Ot V85.31 09/19/2014 [...] Low Ot 592.0 10/03/2014 SHASTA HERNANDEZ, GISSEL Low Ot V74.8 10/03/2014 TAWNY WILLIAMSON DO Ot V76.12 10/11/2014 HOANG HERNANDEZ, ROHAN Gutiérrez Ot 719.46 10/11/2014 HOANG HERNANDEZ, ROHAN Gutiérrez Ot V57.1 10/17/2014 TAWNY WILLIAMSON DO Ot V76.12 10/17/2014 HOANG HERNANDEZ, ROHAN Gutiérrez Ot 719.46 10/17/2014 HOANG HERNANDEZ, ROHAN Gutiérrez Ot V57.1 10/17/2014 SHASTA HERNANDEZ, GISSEL Low Ot 592.0 10/17/2014 SHASTA HERNANDEZ, GISSEL A [...] Gutiérrez Ot V57.1 12/21/2014 SHASTA HERNANDEZ, GISSEL A Ot 592.9 12/21/2014 HOANG HERNANDEZ, ROHAN Gutiérrez [...] 592.9 URINARY CALCULUS NOS 01/17/2015 CALISTA PHAM KNITTING MACHINE MECHANIC Ot 272.4 01/17/2015 CALISTA PHAM KNITTING MACHINE MECHANIC Ot 272.4 01/17/2015 CALISTA PHAM KNITTING MACHINE MECHANIC Ot 272.4 01/21/2015 CALISTA PHAM KNITTING MACHINE MECHANIC Ot 272.4 01/29/2015 HOANG HERNANDEZ, ROHAN Gutiérrez Ot 719.46 JOINT PAIN-L/LEG 01/29/2015 HOANG HERNANDEZ, ROHAN Gutiérrez Ot V57.1 PHYSICAL THERAPY NEC 02/06/2015 CALISTA PHAM KNITTING MACHINE MECHANIC Ot 272.4 08/22/2015 ZINA MICHELLE DO Ot E78.5 08/22/2015 ZINA MICHELLE DO Ot E87.1 08/22/2015 ZINA MICHELLE DO Ot I10 08/22/2015 ZINA MICHELLE DO Ot R00.2 10/18/2015 GISSEL VEGAS MD Ot 592.9 10/18/2015 CALISTA PHAM KNITTING MACHINE MECHANIC Ot 272.4 10/18/2015 ZINA MICHELLE DO Ot [...] 401.9 10/18/2015 Ot V58.69 10/18/2015 CALISTA PHAM KNITTING MACHINE MECHANIC Ot 272.4 10/18/2015 BAIMA, CALISTA L KNITTING MACHINE MECHANIC Ot 401.9 10/18/2015 TOAN HERNANDEZ, KATERIN R [...] MD Ot V85.32 10/18/2015 BAIMA, CALISTA L KNITTING MACHINE MECHANIC Ot 272.4 10/18/2015 BAIMA, CALISTA L KNITTING MACHINE MECHANIC Ot 401.9 10/18/2015 BAIMA, CALISTA L KNITTING MACHINE MECHANIC Ot V58.69 10/18/2015 TAWNY WILLIAMSON DO Ot V76.12 10/18/2015 BAIMA, CALISTA L KNITTING MACHINE MECHANIC Ot 272.4 10/18/2015 BAIMA, CALISTA L KNITTING MACHINE MECHANIC Ot 278.00 10/18/2015 BAIMA, CALISTA L KNITTING MACHINE MECHANIC Ot 401.9 10/18/2015 BAIMA, CALISTA L KNITTING MACHINE MECHANIC Ot 454.9 10/18/2015 BAIMA, CALISTA L KNITTING MACHINE MECHANIC Ot 786.50 10/18/2015 MILY HERNANDEZ FAC, ALI FACP CCDS Ot 272.4 10/18/2015 MILY HERNANDEZ [facility], ALI FACP CCDS Ot 276.1 10/18/2015 MILY HERNANDEZ FAC, ALI FACP CCDS Ot 278.00 10/18/2015 MILY HERNANDEZ [facility], ALI FACP CCDS Ot 401.9 10/18/2015 MILY HERNANDEZ FAC, ALI FACP CCDS Ot 454.9 10/18/2015 MILY MD FAC, ALI FACP CCDS Ot 786.50 10/18/2015 MILY MD [facility], ALI FACP CCDS Ot 272.4 10/18/2015 MILY MD FAC, ALI FACP CCDS Ot 272.4 10/18/2015 MILY MD FAC, ALI FACP CCDS Ot 278.00 10/18/2015 MILY MD [facility], ALI FACP CCDS Ot 401.9 10/18/2015 MILY MD [facility], ALI FACP CCDS Ot 786.50 10/18/2015 MILY MD [facility], ALI FACP CCDS Ot V85.31 10/18/2015 SHASTA HERNANDEZ, GISSEL Low Ot 592.0 10/18/2015 SHASTA HERNANDEZ, GISSEL Low Ot V72.84 10/22/2015 SHASTA HERNANDEZ, GISSEL A Ot 592.9 10/22/2015 CALISTA PHAM KNITTING MACHINE MECHANIC Ot 272.4 10/22/2015 ZINA MICHELLE DO Ot [...] 10/31/2015 CATHY HUBBARD APRN Ot M25.562 11/27/2015 SHASTA HERNANDEZ, GISSEL A Ot 592.9 11/27/2015 CALISTA PHAMP Ot 272.4 11/27/2015 MIGUEL ANGEL LOPEZ ZINA M Ot E78.5 11/27/2015 MIGUEL ANGEL ZINA M Ot E87.1 11/27/2015 MIGUEL ANGEL ZINA M Ot I10 11/27/2015 MIGUEL ANGEL ZINA Elier Ot R00.2 11/27/2015 CATHY HUBBARD [employer] OFFICER Ot M25.562 11/27/2015 BREWSTER GILBERT LOPEZ Ot Z01.818 12/16/2015 SHASTA HERNANDEZ, GISSEL Low Ot 592.9 URINARY CALCULUS NOS 12/16/2015 CALISTA PHAM KNITTING MACHINE MECHANIC Ot 272.4 HYPERLIPIDEMIA NEC/NOS 12/16/2015 MIGUEL ANGEL LOPEZ ZINA M Ot E78.5 HYPERLIPIDEMIA, UNSPECIFIED 12/16/2015 MIGUEL ANGEL LOPEZ ZINA Elier Ot E87.1 HYPO-OSMOLALITY AND HYPONATREMIA 12/16/2015 ZINA MICHELLE DO Ot I10 ESSENTIAL (PRIMARY) HYPERTENSION 12/16/2015 ZINA MICHELLE DO Ot R00.2 PALPITATIONS 12/16/2015 CATHY HUBBARD [employer] OFFICER Ot M25.562 PAIN IN LEFT KNEE 12/16/2015 BENDERGILBERT ARREAGA DO Ot Z01.818 ENCOUNTER FOR OTHER PREPROCEDURAL EXAMIN 12/16/2015 RUBEN DE JESUS [employer] SENIOR OFFICER Ot M17.12 UNILATERAL PRIMARY OSTEOARTHRITIS, LEFT 12/16/2015 NEAL RUBEN E [employer] S[employer]IOR OFFICER Ot M23.8X2 OTHER INTERNAL DERANGEMENTS OF LEFT KNEE 12/17/2015 CALISTA PHAM KNITTING MACHINE MECHANIC Ot I10 ESSENTIAL (PRIMARY) HYPERTENSION 01/01/2016 NEAL RUBEN E [employer]IOR OFFICER Ot M17.12 UNILATERAL PRIMARY OSTEOARTHRITIS, LEFT 01/01/2016 NEAL RUBEN E [employer] S[employer]IOR OFFICER Ot M23.8X2 OTHER INTERNAL DERANGEMENTS OF LEFT KNEE 01/01/2016 CALISTA PHAM KNITTING MACHINE MECHANIC Ot I10 ESSENTIAL (PRIMARY) HYPERTENSION 01/10/2016 NEAL RUBEN E [employer] S[employer]IOR OFFICER Ot M17.12 UNILATERAL PRIMARY OSTEOARTHRITIS, LEFT 01/10/2016 NEAL RUBEN E [employer] SENIOR OFFICER Ot M23.8X2 OTHER INTERNAL DERANGEMENTS OF LEFT KNEE 01/30/2016 SHASTA HERNANDEZ, GISSEL A Ot 592.9 URINARY CALCULUS NOS 01/30/2016 ANA LILIA , PACO Rodríguez Ot M79.662 PAIN IN LEFT LOWER LEG 01/30/2016 ANA LILIA , PACO Rodríguez Ot Z01.818 ENCOUNTER FOR OTHER PREPROCEDURAL EXAMIN 01/30/2016 ANA LILIA LOPEZ, PACO Rodríguez Ot Z22.322 CARRIER 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 CARRIER OF METHICIL 01/30/2016 CATHY HUBBARD [employer] SENIOR OFFICER Ot M25.562 PAIN IN LEFT KNEE 01/30/2016 CALISTA PHAM KNITTING MACHINE MECHANIC Ot I10 ESSENTIAL (PRIMARY) HYPERTENSION 01/31/2016 HAPPY DO PACO Rodríguez Ot M79.662 PAIN IN LEFT LOWER LEG 01/31/2016 ANA LILIA PACO Rodríguez Ot Z01.818 ENCOUNTER FOR OTHER PREPROCEDURAL EXAMIN 01/31/2016 ANA LILIA LOPEZ PACO Rodríguez Ot Z22.322 CARRIER 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 CARRIER OF METHICIL 02/05/2016 HAPPY PACO Rodríguez Ot M79.662 PAIN IN LEFT LOWER LEG 02/05/2016 [facility] PACO Rodríguez Ot Z01.818 ENCOUNTER FOR OTHER PREPROCEDURAL EXAMIN 02/05/2016 ANA LILIA PACO Rodríguez Ot Z22.322 CARRIER 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 CARRIER OF METHICIL 02/11/2016 SHASTA HERNANDEZ, GISSEL Low Ot 592.9 URINARY CALCULUS NOS 02/11/2016 CALISTA PHAM KNITTING MACHINE MECHANIC Ot 272.4 HYPERLIPIDEMIA NEC/NOS 02/11/2016 ZINA MICHELLE DO Ot E78.5 HYPERLIPIDEMIA, UNSPECIFIED 02/11/2016 ZINA MICHELLE DO Ot E87.1 HYPO-OSMOLALITY AND HYPONATREMIA 02/11/2016 ZINA MICHELLE DO Ot I10 ESSENTIAL (PRIMARY) HYPERTENSION 02/11/2016 ZINA MICHELLE DO Ot R00.2 PALPITATIONS 02/11/2016 CATHY HUBBARD [employer]IOR OFFICER Ot M25.562 PAIN IN LEFT KNEE 02/11/2016 GILBERT BENDER DO Ot Z01.818 ENCOUNTER FOR OTHER PREPROCEDURAL EXAMIN 02/11/2016 CALISTA PHAM KNITTING MACHINE MECHANIC Ot I10 ESSENTIAL (PRIMARY) HYPERTENSION 02/11/2016 GISSEL VEGAS MD A Ot 592.9 URINARY CALCULUS NOS 02/11/2016 HAPPY PACO LOPEZ Ot 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, LEFT KNEE 02/11/2016 ANA LILIA DO, PACO Rodríguez Ot S83.242A OTH TEAR OF MEDIAL MENISCUS, CURRENT INJ 02/11/2016 ANA LILIA DO, PACO Rodríguez Ot X58.XXXA EXPOSURE TO OTHER SPECIFIED FACTORS, INI 02/11/2016 ANA LILIA DO, PACO Rodríguez Ot Y99.8 OTHER EXTERNAL CAUSE STATUS 02/14/2016 ANA LILIA DO, PACO Rodríguez Ot 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, LEFT KNEE 02/14/2016 ANA LILIA DO, PACO Rodríguez Ot S83.242A OTH TEAR OF MEDIAL MENISCUS, CURRENT INJ 02/14/2016 ANA LILIA DO, PACO Rodríguez Ot X58.XXXA EXPOSURE TO OTHER SPECIFIED FACTORS, INI 02/14/2016 ANA LILIA DO, PACO Rodríguez Ot Y99.8 OTHER EXTERNAL CAUSE STATUS 02/18/2016 CATHY HUBBARD APRN Ot M25.562 PAIN IN LEFT KNEE 02/18/2016 CALISTA PHAM KNITTING MACHINE MECHANIC Ot I10 ESSENTIAL (PRIMARY) HYPERTENSION 02/18/2016 CALISTA PHAM KNITTING MACHINE MECHANIC Ot I10 ESSENTIAL (PRIMARY) HYPERTENSION 04/08/2016 NEAL, RUBEN E [employer] SENIOR OFFICER Ot M17.12 UNILATERAL PRIMARY OSTEOARTHRITIS, LEFT 04/08/2016 NEAL, RUBEN E [employer] SENIOR OFFICER Ot Z98.89 OTHER SPECIFIED POSTPROCEDURAL STATES 04/08/2016 NEAL, RUBEN E [employer] SENIOR OFFICER Ot M17.12 UNILATERAL PRIMARY OSTEOARTHRITIS, LEFT 04/08/2016 NEAL, RUBEN E [employer] SENIOR OFFICER Ot Z98.89 OTHER SPECIFIED POSTPROCEDURAL STATES 04/21/2016 [...] OTHER EXTERNAL CAUSE STATUS 06/17/2016 CATHY HUBBARD [employer] S[employer]IOR OFFICER Ot M75.81 OTHER SHOULDER LESIONS, RIGHT SHOULDER 06/17/2016 CATHY HUBBARD [employer] SENIOR OFFICER Ot S46.811A STRAIN OF MUSC/FASC/TEND AT SHLDR/UP ARM 06/17/2016 CATHY HUBBARD [employer] SENIOR OFFICER Ot X58.XXXA EXPOSURE TO OTHER SPECIFIED FACTORS, INI 06/17/2016 CATHY HUBBARD [employer] SENIOR OFFICER Ot Y99.8 OTHER EXTERNAL CAUSE STATUS 07/03/2016 BAIMA, CALISTA L KNITTING MACHINE MECHANIC Ot E78.5 HYPERLIPIDEMIA, UNSPECIFIED 07/03/2016 BAIMA, CALISTA L KNITTING MACHINE MECHANIC Ot I10 ESSENTIAL (PRIMARY) HYPERTENSION 07/03/2016 BAIMA, CALISTA L KNITTING MACHINE MECHANIC Ot R06.09 OTHER FORMS OF DYSPNEA 07/03/2016 BAIMA, CALISTA L KNITTING MACHINE MECHANIC Ot R07.9 CHEST PAIN, UNSPECIFIED 07/08/2016 BAIMA, CALISTA L KNITTING MACHINE MECHANIC Ot E78.5 HYPERLIPIDEMIA, UNSPECIFIED 07/08/2016 BAIMA, CALISTA L KNITTING MACHINE MECHANIC Ot I10 ESSENTIAL (PRIMARY) HYPERTENSION 07/08/2016 BAIMA, CALISTA L KNITTING MACHINE MECHANIC Ot E78.5 HYPERLIPIDEMIA, UNSPECIFIED 07/08/2016 BAIMA, CALISTA L KNITTING MACHINE MECHANIC Ot I10 ESSENTIAL (PRIMARY) HYPERTENSION 07/15/2016 BAIMA, CALISTA L KNITTING MACHINE MECHANIC Ot E78.5 HYPERLIPIDEMIA, UNSPECIFIED 07/15/2016 BAIMA, CALISTA L KNITTING MACHINE MECHANIC Ot I10 ESSENTIAL (PRIMARY) HYPERTENSION 07/15/2016 BAIMA, CALISTA L KNITTING MACHINE MECHANIC Ot R06.09 OTHER FORMS OF DYSPNEA 07/15/2016 BAIMA, CALISTA L KNITTING MACHINE MECHANIC Ot R07.9 CHEST PAIN, UNSPECIFIED 07/15/2016 BAIMA, CALISTA L KNITTING MACHINE MECHANIC Ot E78.5 HYPERLIPIDEMIA, UNSPECIFIED 07/15/2016 BAIMA, CALISTA L KNITTING MACHINE MECHANIC Ot I10 ESSENTIAL (PRIMARY) HYPERTENSION 07/29/2016 PACO SUNG DO Ot M75.101 UNSP ROTATR-CUFF TEAR/RUPTR OF RIGHT HELADIO 08/19/2016 PACO SUNG DO Ot M75.101 UNSP ROTATR-CUFF TEAR/RUPTR OF RIGHT HELADIO 08/20/2016 SHASTA HERNANDEZ, GISSEL Low Ot 592.9 URINARY CALCULUS NOS 08/20/2016 CALISTA PHAM KNITTING MACHINE MECHANIC Ot 272.4 HYPERLIPIDEMIA NEC/NOS 08/20/2016 ZINA MICHELLE DO Ot E78.5 HYPERLIPIDEMIA, UNSPECIFIED 08/20/2016 ZINA MICHELLE DO Ot E87.1 HYPO-OSMOLALITY AND HYPONATREMIA 08/20/2016 ZINA MICHELLE DO Ot I10 ESSENTIAL (PRIMARY) HYPERTENSION 08/20/2016 ZINA MICHELLE DO Ot R00.2 PALPITATIONS 08/20/2016 STEVIE CATHY Dominick ODONNELL Ot M25.562 PAIN IN LEFT KNEE 08/20/2016 NAPOLEON LOPEZ GILBERT Michael Ot Z01.818 ENCOUNTER FOR OTHER PREPROCEDURAL EXAMIN 08/20/2016 CALISTA PHAM KNITTING MACHINE MECHANIC Ot I10 ESSENTIAL (PRIMARY) HYPERTENSION 08/26/2016 MILY MORROW, ALI FACP CCDS Ot E78.4 OTHER HYPERLIPIDEMIA 08/26/2016 MILY MORROW, ALI FACP CCDS Ot I10 ESSENTIAL (PRIMARY) HYPERTENSION 08/26/2016 MILY HERNANDEZ FACC, ALI FACP CCDS Ot I73.9 PERIPHERAL VASCULAR DISEASE, UNSPECIFIED 08/26/2016 MILY HERNANDEZ [facility], ALI FACP CCDS Ot M79.1 MYALGIA 08/26/2016 MILY HERNANDEZ FACC, ALI FACP CCDS Ot E78.4 OTHER HYPERLIPIDEMIA 08/26/2016 MILY HERNANDEZ [facility], ALI FACP CCDS Ot I10 ESSENTIAL (PRIMARY) HYPERTENSION 08/26/2016 MILY MORROW, ALI FACP CCDS Ot I73.9 PERIPHERAL VASCULAR DISEASE, UNSPECIFIED 08/26/2016 MILY MORROW, ALI FACP CCDS Ot M79.1 MYALGIA 08/31/2016 PACO SUNG DO Ot M75.101 UNSP ROTATR-CUFF TEAR/RUPTR OF RIGHT HELADIO 10/02/2016 SHASTA HERNANDEZ, GISSEL Low Ot 592.9 URINARY CALCULUS NOS 10/02/2016 CALISTA PHAM KNITTING MACHINE MECHANIC Ot 272.4 HYPERLIPIDEMIA NEC/NOS 10/02/2016 ZINA MICHELLE DO Ot E78.5 HYPERLIPIDEMIA, UNSPECIFIED 10/02/2016 ZINA MICHELLE DO Ot E87.1 HYPO-OSMOLALITY AND HYPONATREMIA 10/02/2016 ZINA MICHELLE DO Ot I10 ESSENTIAL (PRIMARY) HYPERTENSION 10/02/2016 MIGUEL ANGEL LOPEZ ZINA Thapa Ot R00.2 PALPITATIONS 10/02/2016 CATHY HUBBARD APRN Ot M25.562 PAIN IN LEFT KNEE 10/02/2016 GILBERT BENDER DO Ot Z01.818 ENCOUNTER FOR OTHER PREPROCEDURAL EXAMIN 10/02/2016 CALISTA PHAM KNITTING MACHINE MECHANIC Ot I10 ESSENTIAL (PRIMARY) HYPERTENSION 10/02/2016 MILY HERNANDEZ FACC, ALI FACP CCDS Ot E78.4 OTHER HYPERLIPIDEMIA 10/02/2016 MILY HERNANDEZ FACC, ALI FACP CCDS Ot I10 ESSENTIAL (PRIMARY) HYPERTENSION 10/02/2016 MILY HERNANDEZ FACC, ALI FACP CCDS Ot I73.9 PERIPHERAL VASCULAR DISEASE, UNSPECIFIED 10/02/2016 MILY HERNANDEZ FACC, ALI FACP CCDS Ot M79.1 MYALGIA 10/02/2016 GISSEL VEGAS MD Ot 592.9 URINARY CALCULUS NOS 10/02/2016 CALISTA PHAM KNITTING MACHINE MECHANIC Ot 272.4 HYPERLIPIDEMIA NEC/NOS 10/02/2016 MIGUEL ANGEL LOPEZ ZINA Elier Ot E78.5 HYPERLIPIDEMIA, UNSPECIFIED 10/02/2016 MIGUEL ANGEL LOPEZ ZINA Elier Ot E87.1 HYPO-OSMOLALITY AND HYPONATREMIA 10/02/2016 ZINA MICHELLE DO Ot I10 ESSENTIAL (PRIMARY) HYPERTENSION 10/02/2016 ZINA MICHELLE DO Ot R00.2 PALPITATIONS 10/02/2016 CATHY HUBBARD APRN Ot M25.562 PAIN IN LEFT KNEE 10/02/2016 GILBERT BENDER DO Ot Z01.818 ENCOUNTER FOR OTHER PREPROCEDURAL EXAMIN 10/02/2016 CALISTA PHAM KNITTING MACHINE MECHANIC Ot I10 ESSENTIAL (PRIMARY) HYPERTENSION 10/02/2016 MILY HERNANDEZ FACC, ROSANNA FACP CCDS Ot E78.4 OTHER HYPERLIPIDEMIA 10/02/2016 MILY HERNANDEZ FACC, ALI FACP CCDS Ot I10 ESSENTIAL (PRIMARY) HYPERTENSION 10/02/2016 MILY HERNANDEZ FACC, ALI FACP CCDS Ot I73.9 PERIPHERAL VASCULAR DISEASE, UNSPECIFIED 10/02/2016 MILY HERNANDEZ FACC, ALI FACP CCDS Ot M79.1 MYALGIA 10/07/2016 GISSEL VEGAS MD A Ot 592.9 URINARY CALCULUS NOS 10/07/2016 ANKIT CALISTA L KNITTING MACHINE MECHANIC Ot 272.4 HYPERLIPIDEMIA NEC/NOS 10/07/2016 ZINA MICHELLE DO Ot E78.5 HYPERLIPIDEMIA, UNSPECIFIED 10/07/2016 ZINA MICHELLE DO Ot E87.1 HYPO-OSMOLALITY AND HYPONATREMIA 10/07/2016 ZINA MICHELLE DO Ot I10 ESSENTIAL (PRIMARY) HYPERTENSION 10/07/2016 ZINA MICHELLE DO Ot R00.2 PALPITATIONS 10/07/2016 CATHY HUBBARD [employer] SENIOR OFFICER Ot M25.562 PAIN IN LEFT KNEE 10/07/2016 GILBERT BENDER DO Ot Z01.818 ENCOUNTER FOR OTHER PREPROCEDURAL EXAMIN 10/07/2016 CALISTA PHAM KNITTING MACHINE MECHANIC Ot I10 ESSENTIAL (PRIMARY) HYPERTENSION 10/07/2016 MILY HERNANDEZ FACC, ALI FACP CCDS Ot E78.4 OTHER HYPERLIPIDEMIA 10/07/2016 MILY HERNANDEZ FACC, ALI FACP CCDS Ot I10 ESSENTIAL (PRIMARY) HYPERTENSION 10/07/2016 MILY HERNANDEZ FACC, ALI FACP CCDS Ot I73.9 PERIPHERAL VASCULAR DISEASE, UNSPECIFIED 10/07/2016 MILY HERNANDEZ FACC, ALI FACP CCDS Ot M79.1 MYALGIA 10/09/2016 SHASTA HERNANDEZ, GISSEL Low Ot 592.9 URINARY CALCULUS NOS 10/09/2016 CALISTA PHAM KNITTING MACHINE MECHANIC Ot 272.4 HYPERLIPIDEMIA NEC/NOS 10/09/2016 ZINA MICHELLE DO Ot E78.5 HYPERLIPIDEMIA, UNSPECIFIED 10/09/2016 ZINA MICHELLE DO Ot E87.1 HYPO-OSMOLALITY AND HYPONATREMIA 10/09/2016 ZINA MICHELLE DO Ot I10 ESSENTIAL (PRIMARY) HYPERTENSION 10/09/2016 ZINA MICHELLE DO Ot R00.2 PALPITATIONS 10/09/2016 CATHY HUBBARD [employer]IOR OFFICER Ot M25.562 PAIN IN LEFT KNEE 10/09/2016 GILBERT BENDER DO Ot Z01.818 ENCOUNTER FOR OTHER PREPROCEDURAL EXAMIN 10/09/2016 CALISTA PHAM KNITTING MACHINE MECHANIC Ot I10 ESSENTIAL (PRIMARY) HYPERTENSION 10/09/2016 MILY MORROWC, ALI FACP CCDS Ot E78.4 OTHER HYPERLIPIDEMIA 10/09/2016 MILY HERNANDEZ FACC, ROSANNA FACP CCDS Ot I10 ESSENTIAL (PRIMARY) HYPERTENSION 10/09/2016 MILY HERNANDEZ FACC, ROSANNA FACP CCDS Ot I73.9 PERIPHERAL VASCULAR DISEASE, UNSPECIFIED 10/09/2016 MILY HERNANDEZ FACC, ROSANNA FACP CCDS Ot M79.1 MYALGIA 10/09/2016 GISSEL VEGAS MD Ot 592.9 URINARY CALCULUS NOS 10/09/2016 SHANE ARORA [employer] OFFICER Ot I10 ESSENTIAL (PRIMARY) HYPERTENSION 10/09/2016 SHANE ARORA [employer] OFFICER Ot L50.9 URTICARIA, UNSPECIFIED 10/09/2016 SHANE ARORA [employer] OFFICER Ot R21 RASH AND OTHER NONSPECIFIC SKIN ERUPTION 10/09/2016 SHANE ARORA [employer] OFFICER Ot Z79.899 OTHER DIRECTOR LIFE SCIENCES (CURRENT) DRUG THERAPY 10/09/2016 GISSEL VEGAS MD Ot 592.9 URINARY CALCULUS NOS 10/09/2016 CALISTA PHAM KNITTING MACHINE MECHANIC Ot 272.4 HYPERLIPIDEMIA NEC/NOS 10/09/2016 ZIAN MICHELLE DO Ot E78.5 HYPERLIPIDEMIA, UNSPECIFIED 10/09/2016 ZINA MICHELLE DO Ot E87.1 HYPO-OSMOLALITY AND HYPONATREMIA 10/09/2016 ZINA MICHELLE DO Ot I10 ESSENTIAL (PRIMARY) HYPERTENSION 10/09/2016 ZINA MICHELLE DO Ot R00.2 PALPITATIONS 10/09/2016 CATHY HUBBARD [employer] OFFICER Ot M25.562 PAIN IN LEFT KNEE 10/09/2016 GILBERT BENDER DO Ot Z01.818 ENCOUNTER FOR OTHER PREPROCEDURAL EXAMIN 10/09/2016 CALISTA PHAM [employer] MACHINE MECHANIC Ot I10 ESSENTIAL (PRIMARY) HYPERTENSION 10/09/2016 MILY HERNANDEZ FACC, ROSANNA FACP CCDS Ot E78.4 OTHER HYPERLIPIDEMIA 10/09/2016 MILY HERNANDEZ FACC, ALI FACP CCDS [...] Ot V58.69 OTH MED,LT, CURRENT USE 10/09/2016 BAIMA, CALISTA L KNITTING MACHINE MECHANIC Ot 272.4 HYPERLIPIDEMIA NEC/NOS 10/09/2016 BAIMA, CALISTA L KNITTING MACHINE MECHANIC Ot 401.9 HYPERTENSION NOS 10/09/2016 TOAN HERNANDEZ, [...] MYALGIA AND MYOSITIS NOS 10/09/2016 GERRY MENDOZA MD, Ot V58.69 OTH [...] V85.32 BODY MASS INDEX 32.0-32.9, ADULT 10/09/2016 BAIMA CALISTA L [employer]ITT[employer] MACHINE MECHANIC Ot 272.4 HYPERLIPIDEMIA NEC/NOS 10/09/2016 BAIMA, CALISTA L KNITTING MACHINE MECHANIC Ot 401.9 HYPERTENSION NOS 10/09/2016 BAIMA CALISTA L [employer]ITT[employer] MACHINE MECHANIC Ot V58.69 OTH MED,LT,CURRENT USE 10/09/2016 WILLIAMSON TAWNY Sandi Ot V76.12 OTH SCREEN MAMMO-MALIGN NEOPLASM OF AMMY 10/09/2016 BAIMA, CALISTA L KNITTING MACHINE MECHANIC Ot 272.4 HYPERLIPIDEMIA NEC/NOS 10/09/2016 BAIMA, CALISTA L KNITTING MACHINE MECHANIC Ot 278.00 OBESITY, NOS 10/09/2016 BAIMA, CALISTA L KNITTING MACHINE MECHANIC Ot 401.9 HYPERTENSION NOS 10/09/2016 BAIMA, CALISTA L [employer]ITTING MACHINE MECHANIC Ot 454.9 ASYMPTOMATIC VARICOSE VEINS 10/09/2016 BAIMA, CALISTA L KNITTING MACHINE MECHANIC Ot 786.50 CHEST PAIN NOS 10/09/2016 MILY HERNANDEZ FACC, ROSANNA FACP CCDS Ot 272.4 HYPERLIPIDEMIA NEC/NOS 10/09/2016 [...] HERNANDEZ FACC, ROSANNA FACP CCDS Ot 272.4 HYPERLIPIDEMIA NEC/NOS 10/09/2016 MILY HERNANDEZ FACC, ROSANNA FACP CCDS Ot 278.00 OBESITY, NOS 10/09/2016 MILY HERNANDEZ FACC, ROSANNA FACP CCDS Ot 401.9 HYPERTENSION NOS 10/09/2016 MILY HERNANDEZ FACC, ROSANNA FACP CCDS Ot 786.50 CHEST PAIN NOS 10/09/2016 MILY HERNANDEZ FACC, ROSANNA FACP CCDS Ot V85.31 BODY MASS INDEX 31.0-31.9, ADULT 10/09/2016 GISSEL VEGAS MD Ot 592.0 CALCULUS OF KIDNEY 10/09/2016 GISSEL VEGAS MD Ot V72.84 EXAM PRE-OPERATIVE NOS 10/09/2016 CATHY HUBBARD [employer] OFFICER Ot M25.562 PAIN IN LEFT KNEE 10/09/2016 GILBERT BENDER DO Ot Z01.818 ENCOUNTER FOR OTHER PREPROCEDURAL EXAMIN 10/09/2016 CALISTA PHAM [employer]ITT[employer] MACHINE MECHANIC Ot I10 ESSENTIAL (PRIMARY) HYPERTENSION 10/12/2016 SHANE ARORA [employer] OFFICER Ot I10 ESSENTIAL (PRIMARY) HYPERTENSION 10/12/2016 SHANE ARORA [employer] OFFICER Ot L50.9 URTICARIA, UNSPECIFIED 10/12/2016 SHANE ARORA [employer] OFFICER Ot R21 RASH AND OTHER NONSPECIFIC SKIN ERUPTION 10/12/2016 SHANE ARORA [employer] OFFICER Ot Z79.899 OTHER DIRECTOR LIFE SCIENCES (CURRENT) DRUG THERAPY 10/14/2016 SHANE ARORA [employer] OFFICER Ot I10 ESSENTIAL (PRIMARY) HYPERTENSION 10/14/2016 SHANE ARORA [employer] OFFICER Ot L50.9 URTICARIA, UNSPECIFIED 10/14/2016 SHANE ARORA [employer] OFFICER Ot R21 RASH AND OTHER NONSPECIFIC SKIN ERUPTION 10/14/2016 SHANE ARORA [employer] OFFICER Ot Z79.899 OTHER RETIREMENT (CURRENT) DRUG THERAPY 10/27/2016 MILY HERNANDEZ FACC, ROSANNA FACP CCDS Ot E78.4 OTHER HYPERLIPIDEMIA 10/27/2016 MILY HERNANDEZ FACC, ROSANNA FACP CCDS Ot I10 ESSENTIAL (PRIMARY) HYPERTENSION 10/27/2016 MILY HERNANDEZ FACC, ROSANNA FACP CCDS Ot I73.9 PERIPHERAL VASCULAR DISEASE, UNSPECIFIED 10/27/2016 MILY MD FACC, ALI FACP CCDS Ot M79.1 MYALGIA 10/27/2016 SHANE ARORA [employer] OFFICER Ot I10 ESSENTIAL (PRIMARY) HYPERTENSION 10/27/2016 SHANE ARORA [employer] OFFICER Ot L50.9 URTICARIA, UNSPECIFIED 10/27/2016 SHANE ARORA [employer] OFFICER Ot R21 RASH AND OTHER NONSPECIFIC SKIN ERUPTION 10/27/2016 SHANE ARORA [employer] OFFICER Ot Z79.899 OTHER RETIREMENT (CURRENT) DRUG THERAPY 11/06/2016 MILY HERNANDEZ FACC, ROSANNA FACP CCDS Ot E78.4 OTHER HYPERLIPIDEMIA 11/06/2016 MILY HERNANDEZ FACC, ALI FACP CCDS Ot I10 ESSENTIAL (PRIMARY) HYPERTENSION 11/06/2016 MLIY HERNANDEZ FACC, ROSANNA FACP CCDS Ot I73.9 PERIPHERAL VASCULAR DISEASE, UNSPECIFIED 11/06/2016 MILY HERNANDEZ FACC, ALI FACP CCDS Ot M79.1 MYALGIA 11/06/2016 CATHY HUBBARD [employer] OFFICER Ot M75.81 OTHER SHOULDER LESIONS, RIGHT SHOULDER 11/06/2016 CATHY HUBBARD [employer] OFFICER Ot S46.811A STRAIN OF MUSC/FASC/TEND AT SHLDR/UP ARM 11/06/2016 CATHY HUBBARD [employer] OFFICER Ot X58.XXXA EXPOSURE TO OTHER SPECIFIED FACTORS, INI 11/06/2016 CATHY HUBBARD [employer] OFFICER Ot Y99.8 OTHER EXTERNAL CAUSE STATUS 11/06/2016 BAIMA, CALISTA L KNITTING MACHINE MECHANIC Ot E78.5 HYPERLIPIDEMIA, UNSPECIFIED 11/06/2016 BAIMA, CALISTA L KNITTING MACHINE MECHANIC Ot I10 ESSENTIAL (PRIMARY) HYPERTENSION 11/06/2016 BAIMA, CALISTA L KNITTING MACHINE MECHANIC Ot R06.09 OTHER FORMS OF DYSPNEA 11/06/2016 BAIMA, CALISTA L KNITTING MACHINE MECHANIC Ot R07.9 CHEST PAIN, UNSPECIFIED 11/06/2016 BAIMA, CALISTA L KNITTING MACHINE MECHANIC Ot E78.5 HYPERLIPIDEMIA, UNSPECIFIED 11/06/2016 BAIMA, CALISTA L KNITTING MACHINE MECHANIC Ot I10 ESSENTIAL (PRIMARY) HYPERTENSION 11/06/2016 MILY HERNANDEZ FACC, ALI FACP CCDS Ot E78.4 OTHER HYPERLIPIDEMIA 11/06/2016 MILY HERNANDEZ FACC, ALI FACP CCDS Ot I10 ESSENTIAL (PRIMARY) HYPERTENSION 11/06/2016 MILY HERNANDEZ FACC, ALI FACP CCDS Ot I73.9 PERIPHERAL VASCULAR DISEASE, UNSPECIFIED 11/06/2016 MILY HERNANDEZ FACC, ALI FACP CCDS Ot M79.1 MYALGIA 12/02/2016 MILY HERNANDEZ FACC, ALI FACP CCDS Ot E78.4 OTHER HYPERLIPIDEMIA 12/02/2016 MILY HERNANDEZ FACC, ALI FACP CCDS Ot I10 ESSENTIAL (PRIMARY) HYPERTENSION 12/02/2016 MILY HERNANDEZ FACC, ROSANNA FACP CCDS Ot I73.9 PERIPHERAL VASCULAR DISEASE, UNSPECIFIED 12/02/2016 MILY HERNANDEZ FACC, ROSANNA FACP CCDS Ot M79.1 MYALGIA 04/07/2017 CATHY HUBBARD [employer]IOR OFFICER Ot M75.81 OTHER SHOULDER LESIONS, RIGHT SHOULDER 04/07/2017 CATHY HUBBARD [employer]IOR OFFICER Ot S46.811A STRAIN OF MUSC/FASC/TEND AT SHLDR/UP ARM 04/07/2017 CATHY HUBBARD [employer] OFFICER Ot X58.XXXA EXPOSURE TO OTHER SPECIFIED FACTORS, INI 04/07/2017 CATHY HUBBARD [employer] OFFICER Ot Y99.8 OTHER EXTERNAL CAUSE STATUS 04/07/2017 BAIMA, CALISTA L KNITTING MACHINE MECHANIC Ot E78.5 HYPERLIPIDEMIA, UNSPECIFIED 04/07/2017 BAIMA, CALISTA L KNITTING MACHINE MECHANIC Ot I10 ESSENTIAL (PRIMARY) HYPERTENSION 04/07/2017 BAIMA, CALISTA L KNITTING MACHINE MECHANIC Ot R06.09 OTHER FORMS OF DYSPNEA 04/07/2017 BAIMA, CALISTA L KNITTING MACHINE MECHANIC Ot R07.9 CHEST PAIN, UNSPECIFIED 04/07/2017 BAIMA, CALISTA L KNITTING MACHINE MECHANIC Ot E78.5 HYPERLIPIDEMIA, UNSPECIFIED 04/07/2017 BAIMA, CALISTA L KNITTING MACHINE MECHANIC Ot I10 ESSENTIAL (PRIMARY) HYPERTENSION 04/07/2017 MILY HERNANDEZ FACC, ROSANNA FACP CCDS Ot E78.4 OTHER HYPERLIPIDEMIA 04/07/2017 MILY HERNANDEZ FACC, ALI FACP CCDS Ot I10 ESSENTIAL (PRIMARY) HYPERTENSION 04/07/2017 MILY HERNANDEZ FACC, ROSANNA FACP CCDS Ot I73.9 PERIPHERAL VASCULAR DISEASE, UNSPECIFIED 04/07/2017 MILY HERNANDEZ FACC, ALI FACP CCDS Ot M79.1 MYALGIA 05/05/2017 HARMEET CONN MD Ot N63 UNSPECIFIED LUMP IN BREAST 06/14/2017 SENIA MD, HARMEET C Ot Z20.89 CONTACT W AND EXPOSURE TO OTH COMMUNICAB 06/22/2017 SENIA HERNANDEZ, HARMEET C Ot Z20.89 CONTACT W AND EXPOSURE TO OTH COMMUNICAB 07/23/2017 CALISTA PHAM KNITTING MACHINE MECHANIC Ot E66.8 OTHER OBESITY 07/23/2017 BAICALISTA BACON L KNITTING MACHINE MECHANIC Ot E78.4 OTHER HYPERLIPIDEMIA 07/23/2017 BAICALISTA BACON L KNITTING MACHINE MECHANIC Ot I10 ESSENTIAL (PRIMARY) HYPERTENSION 07/23/2017 BAICALISTA BACON L KNITTING MACHINE MECHANIC Ot R00.2 PALPITATIONS 02/17/2018 BERNOT, LYNDSEY Ot F41.9 ANXIETY DISORDER, UNSPECIFIED 02/17/2018 BERNOT, LYNDSEY Ot I10 ESSENTIAL (PRIMARY) HYPERTENSION 02/17/2018 BERNOT, LYNDSEY Ot K21.9 GASTRO-ESOPHAGEAL REFLUX DISEASE WITHOUT 02/17/2018 BERNOT, LYNDSEY Ot M25.562 PAIN IN LEFT KNEE 02/17/2018 BERNOT, LYNDSEY Ot 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 [ERAZO] 02/17/2018 BERNOT, LYNDSEY Ot Z79.52 DIRECTOR LIFE SCIENCES (CURRENT) USE OF SYSTEMIC STER 02/17/2018 BERNOT, [...] SPACE [ERAZO] 02/22/2018 BERNOT, LYNDSEY Ot Z79.52 RETIREMENT (CURRENT) USE OF SYSTEMIC STER 02/22/2018 BERNOT, LYNDSEY Ot Z88.8 ALLERGY STATUS TO OTH DRUG/MEDS/BIOL SUB 02/22/2018 BERNOT, LYNDSEY Ot Z90.710 ACQUIRED ABSENCE OF BOTH CERVIX AND UTER 02/22/2018 BERNOT, LYNDSEY Ot Z98.890 OTHER SPECIFIED POSTPROCEDURAL STATES 04/05/2018 Ot I10 ESSENTIAL ( PRIMARY) HYPERTENSION 04/05/2018 Ot M17.12 UNILATERAL PRIMARY OSTEOARTHRITIS, LEFT 04/05/2018 Ot M79.662 PAIN IN LEFT LOWER LEG 04/05/2018 Ot R53.83 OTHER FATIGUE 04/05/2018 Ot R82.99 OTHER ABNORMAL FINDINGS IN URINE 04/05/2018 Ot Z01.810 ENCOUNTER FOR PREPROCEDURAL CARDIOVASCUL 04/05/2018 Ot Z01.811 ENCOUNTER FOR PREPROCEDURAL RESPIRATORY 04/05/2018 Ot Z01.812 ENCOUNTER FOR PREPROCEDURAL LABORATORY E 04/05/2018 Ot Z11.2 ENCOUNTER FOR SCREENING FOR OTHER BACTER 04/05/2018 Ot Z22.322 CARRIER 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 CARRIER OF METHICIL 04/12/2018 SHASTA HERNANDEZ, GISSEL Low Ot 592.9 URINARY CALCULUS NOS 04/14/2018 ANA LILIA DO, PACO Rodríguez Ot E78.00 PURE HYPERCHOLESTEROLEMIA, UNSPECIFIED 04/14/2018 ANA LILIA DO, PACO Rodríguez Ot F41.9 ANXIETY DISORDER, UNSPECIFIED 04/14/2018 ANA LILIA DO, PACO Marcos Ot I10 ESSENTIAL (PRIMARY) HYPERTENSION 04/14/2018 ANA LILIA DO, PACO Rodríguez Ot K21.9 GASTRO-ESOPHAGEAL REFLUX DISEASE WITHOUT 04/14/2018 ANA LILIA DO, PACO Rodríguez Ot M17.12 UNILATERAL PRIMARY OSTEOARTHRITIS, LEFT 04/14/2018 ANA LILIA DO, PACO Rodríguez Ot R53.81 OTHER MALAISE 04/19/2018 Ot Z12.31 ENCNTR SCREEN MAMMOGRAM FOR MALIGNANT NE 04/29/2018 NAZARIO HERNANDEZ, OG Magallon Ot F41.9 ANXIETY DISORDER, UNSPECIFIED 04/29/2018 NAZARIO HERNANDEZ, OG Magallon Ot I10 ESSENTIAL (PRIMARY) HYPERTENSION 04/29/2018 OG LANGE MD Ot K21.9 GASTRO-ESOPHAGEAL REFLUX DISEASE WITHOUT 04/29/2018 OG LANGE MD Ot K59.09 OTHER CONSTIPATION 04/29/2018 OG LANGE MD Ot M54.9 DORSALGIA, UNSPECIFIED 04/29/2018 OG LANGE MD Ot Z47.1 AFTERCARE FOLLOWING JOINT REPLACEMENT BROWN 04/29/2018 OG LANGE MD Ot Z96.652 PRESENCE OF LEFT ARTIFICIAL KNEE JOINT 05/19/2018 NEAL, RUBEN E [employer] SENIOR OFFICER Ot Z47.1 AFTERCARE FOLLOWING JOINT REPLACEMENT BROWN 05/19/2018 NEAL, RUBEN E [employer] SENIOR OFFICER Ot Z96.652 PRESENCE OF LEFT ARTIFICIAL KNEE JOINT 05/19/2018 NEAL, RUBEN E [employer] SENIOR OFFICER Ot Z47.1 AFTERCARE FOLLOWING JOINT REPLACEMENT BROWN 05/19/2018 NEAL, RUBEN E [employer] SENIOR OFFICER Ot Z96.652 PRESENCE OF LEFT ARTIFICIAL KNEE JOINT 05/20/2018 NEAL, RUBEN E [employer] SENIOR OFFICER Ot Z47.1 AFTERCARE FOLLOWING JOINT REPLACEMENT BROWN 05/20/2018 NEAL, RUBEN E [employer] SENIOR OFFICER Ot Z96.652 PRESENCE OF LEFT ARTIFICIAL KNEE JOINT 05/22/2018 NEAL, RUBEN E [employer] SENIOR OFFICER Ot Z47.1 AFTERCARE FOLLOWING JOINT REPLACEMENT BROWN 05/22/2018 NEAL, RUBEN E [employer] SENIOR OFFICER Ot Z96.652 PRESENCE OF LEFT ARTIFICIAL KNEE JOINT 05/23/2018 NEAL, RUBEN E [employer] SENIOR OFFICER Ot Z47.1 AFTERCARE FOLLOWING JOINT REPLACEMENT BROWN 05/23/2018 NEAL, RUBEN E [employer] SENIOR OFFICER Ot Z96.652 PRESENCE OF LEFT ARTIFICIAL KNEE JOINT 05/25/2018 NEAL, RUBEN E [employer] SENIOR OFFICER Ot Z47.1 AFTERCARE FOLLOWING JOINT REPLACEMENT BROWN 05/25/2018 NEAL, RUBEN E [employer] SENIOR OFFICER Ot Z96.652 PRESENCE OF LEFT ARTIFICIAL KNEE JOINT 05/28/2018 NEAL, RUBEN E [employer] SENIOR OFFICER Ot Z47.1 AFTERCARE FOLLOWING JOINT REPLACEMENT BROWN 05/28/2018 NEAL, RUBEN E [employer] SENIOR OFFICER Ot Z96.652 PRESENCE OF LEFT ARTIFICIAL KNEE JOINT 06/16/2018 NEAL, RUBEN E [employer] SENIOR OFFICER Ot Z47.1 AFTERCARE FOLLOWING JOINT REPLACEMENT BROWN 06/16/2018 NEAL, RUBEN E [employer] SENIOR OFFICER Ot Z96.652 PRESENCE OF LEFT ARTIFICIAL KNEE JOINT 06/29/2018 NEAL, RUBEN E [employer] SENIOR OFFICER Ot Z47.1 AFTERCARE FOLLOWING JOINT REPLACEMENT BROWN 06/29/2018 NEAL, RUBEN E [employer] SENIOR OFFICER Ot Z96.652 PRESENCE OF LEFT ARTIFICIAL KNEE JOINT 06/30/2018 NEAL, RUBEN E [employer] SENIOR OFFICER Ot Z47.1 AFTERCARE FOLLOWING JOINT REPLACEMENT BROWN 06/30/2018 NEAL, RUBEN E [employer] SENIOR OFFICER Ot Z96.652 PRESENCE OF LEFT ARTIFICIAL KNEE JOINT 07/06/2018 NEAL, RUBEN E [employer] SENIOR OFFICER Ot Z47.1 AFTERCARE FOLLOWING JOINT REPLACEMENT BROWN 07/06/2018 RUBEN DE JESUS AIR FORCE SENIOR OFFICER Ot Z96.652 PRESENCE OF LEFT ARTIFICIAL KNEE JOINT 07/18/2018 RUBEN DE JESUS APRN Ot Z47.1 AFTERCARE FOLLOWING JOINT REPLACEMENT BROWN 07/18/2018 RUBEN DE JESUS APRN Ot Z96.652 PRESENCE OF LEFT ARTIFICIAL KNEE JOINT 07/29/2018 Ot Z12.31 ENCNTR SCREEN MAMMOGRAM FOR MALIGNANT NE 08/10/2018 SENIA HERNANDEZ, HARMEET C Ot N63 UNSPECIFIED LUMP IN BREAST Procedures Code Description Performed By Performed On [id number] REPLACE OF L KNEE JT WITH SYNTH SUB, ASMITA 04/12/2018 Results Test Result Range Complete blood count [...] resistant Staphylococcus aureus (MRSA) screening culture NEG [facility] Automated blood complete blood count (hemogram) panel - 04/15/18 11:05 Blood leukocytes automated count (number/volume) 13.9 10*3/uL 4.3-11.0 Blood erythrocytes automated count (number/volume) 4.52 10*6/uL 4.35-5.85 Venous blood hemoglobin measurement (mass/volume) 13.5 g/dL 11.5-16.0 Blood hematocrit (volume fraction) 39 % 35-52 Automated erythrocyte mean corpuscular volume 85 [foz_us] 80-99 Automated erythrocyte mean corpuscular hemoglobin (mass per erythrocyte) 30 pg 25-34 Automated erythrocyte mean corpuscular hemoglobin concentration measurement ( mass/volume) 35 g/dL 32-36 Automated erythrocyte distribution width ratio 13.9 % 10.0-14.5 Automated blood platelet count (count/volume) 204 10*3/uL 130-400 Automated blood platelet mean volume measurement 11.4 [foz_us] 7.4-10.4 Whole blood basic metabolic panel - 04/15/18 11:05 Serum or plasma sodium measurement (moles/volume) 136 mmol/L 135-145 Serum or plasma potassium measurement (moles/volume) 4.3 mmol/L 3.6-5.0 Serum or plasma chloride measurement (moles/volume) 104 mmol/L 98-107 Carbon dioxide 23 mmol/L 21-32 Serum or plasma anion gap determination (moles/volume) 9 mmol/L 5-14 Serum or plasma urea nitrogen measurement (mass/volume) 10 mg/dL 7-18 Serum or plasma creatinine measurement (mass/volume) 0.66 mg/dL 0.60-1.30 Serum or plasma urea nitrogen/creatinine mass ratio 15 NRG Serum or plasma creatinine measurement with calculation of estimated glomerular filtration rate > NRG Serum or plasma glucose measurement (mass/volume) 109 mg/dL 70-105 Serum or plasma calcium measurement (mass/volume) 9.6 mg/dL 8.5-10.1 Automated blood complete blood count (hemogram) panel - 04/21/18 04:15 Blood leukocytes automated count (number/volume) 13.4 10*3/uL 4.3-11.0 Blood erythrocytes automated count (number/volume) 4.02 10*6/uL 4.35-5.85 Venous blood hemoglobin measurement (mass/volume) 12.0 g/dL 11.5-16.0 Blood hematocrit (volume fraction) 35 % 35-52 Automated erythrocyte mean corpuscular volume 87 [foz_us] 80-99 Automated erythrocyte mean corpuscular hemoglobin (mass per erythrocyte) 30 pg 25-34 Automated erythrocyte mean corpuscular hemoglobin concentration measurement ( mass/volume) 34 g/dL 32-36 Automated erythrocyte distribution width ratio 13.7 % 10.0-14.5 Automated blood platelet count (count/volume) 256 10*3/uL 130-400 Automated blood platelet mean volume measurement 11.0 [foz_us] 7.4-10.4 Whole blood basic metabolic panel - 04/21/18 04:15 Serum or plasma sodium measurement (moles/volume) 137 mmol/L 135-145 Serum or plasma potassium measurement (moles/volume) 4.0 mmol/L 3.6-5.0 Serum or plasma chloride measurement (moles/volume) 104 mmol/L 98-107 Carbon dioxide 21 mmol/L 21-32 Serum or plasma anion gap determination (moles/volume) 12 mmol/L 5-14 Serum or plasma urea nitrogen measurement (mass/volume) 12 mg/dL 7-18 Serum or plasma creatinine measurement (mass/volume) 0.63 mg/dL 0.60-1.30 Serum or plasma urea nitrogen/creatinine mass ratio 19 NRG Serum or plasma creatinine measurement with calculation of estimated glomerular filtration rate > NRG Serum or plasma glucose measurement (mass/volume) 107 mg/dL 70-105 Serum or plasma calcium measurement (mass/volume) 9.6 mg/dL 8.5-10.1 Capillary blood glucose measurement by glucometer (mass/volume) - 04/27/18 08: 52 Capillary blood glucose measurement by glucometer (mass/volume) 110 mg/dL 70-110 Encounters ACCT No. Visit Date/Time Discharge Status Pt. Type Provider Facility Loc./Unit Complaint [id number] 07/22/2018 09:15:00 07/22/2018 15:28:00 DIS Outpatient RUBEN DE JESUS [employer] Via [facility] REHAB S/P LT TKA [id number] 05/18/2018 12:49:00 05/22/2018 00:01:00 DIS Outpatient RUBEN DE JESUS [employer] Via [facility] REHAB S/P LT TKA [id number] 04/14/2018 17:21:00 04/29/2018 11:00:00 DIS Inpatient OG LANGE MD [facility] IRF LEFT KNEE OA [id number] 04/12/2018 05:49:00 04/14/2018 14:26:00 DIS Inpatient PACO SUNG DO [facility] 4TH LEFT PRIMARY OSTEOARTHRITIS [id number] 02/17/2018 20:16:00 02/17/2018 22:33:00 DIS Emergency LYNDSEY REGALADO [facility] ER L LEG PAIN [id number] 07/12/2017 11:10:00 07/12/2017 23:59:59 CLS Outpatient CALISTA PHAM KNITTING MACHINE MECHANIC Via [facility] LAB I10,E78.4,R00.2, E66.8 [id number] 06/11/2017 16:08:00 06/11/2017 23:59:59 CLS Outpatient HARMEET CONN MD [facility] LAB 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 [id number] 04/20/2017 07:29:00 04/20/2017 23:59:59 CLS Outpatient HARMEET CONN MD [facility] RAD KNOT OVER RT BREAST N63 [id number] 10/09/2016 12:52:00 10/09/2016 13:56:00 DIS Emergency SHANE ARORA [employer] OFFICER [facility] ER RASH [id number] 08/13/2016 13:02:00 08/31/2016 14:26:00 DIS Outpatient PACO SUNG DO Via [facility] REHAB RT SHLD PARTIAL ROTATOR CUFF TENDON TEAR [id number] 08/25/2016 12:42:00 08/25/2016 23:59:59 CLS Outpatient MILY HERNANDEZ FACROSANNA Junior FACP CCDS [facility] RAD LT LEG CLAUDICATION,HTN,HLP [id number] 07/07/2016 10:27:00 07/07/2016 23:59:59 CLS Outpatient BAICALISTA BACON L KNITTING MACHINE MECHANIC [facility] CARD BENSON,CHEST PAIN,HTN, HLP [id number] 07/02/2016 09:33:00 07/02/2016 23:59:59 CLS Outpatient CALISTA PHAM KNITTING MACHINE MECHANIC [facility] CARD BENSON,CHEST PAIN,HTN, HLP [id number] 06/04/2016 13:57:00 06/04/2016 23:59:59 CLS Outpatient CATHY HUBBARD [employer] OFFICER Via [facility] RAD ACUTE PAIN OF RT SHOULDER [id number] 04/20/2016 22:50:00 04/21/2016 01:04:00 DIS Emergency AMARILYS THAO DO Via [facility] ER SHAKY/EVELATED BP [id number] 03/19/2016 15:29:00 04/08/2016 11:54:00 DIS Outpatient RUBEN DE JESUS APRN [facility] REHAB S/P L KNEE SCOPE WITH PMM PLM SEVERE OA [id number] 02/11/2016 11:29:00 02/11/2016 16:27:00 DIS Outpatient PACO SUNG DO [facility] SDC LEFT KNEE PAIN [id number] 01/30/2016 14:25:00 01/30/2016 15:23:00 DIS Outpatient PACO SUNG DO [facility] PREOP LEFT KNEE PAIN [id number] 12/18/2015 14:15:00 01/10/2016 11:10:00 DIS Outpatient RUBEN DE JESUS APRN [facility] REHAB L KNEE OA AND CHRONIC ACL TEAR [id number] 12/16/2015 15:59:00 12/16/2015 23:59:59 CLS Outpatient CALISTA PHAMP [facility] LAB HTN, [id number] 10/22/2015 09:44:00 10/22/2015 16:20:00 DIS Outpatient GILBERT BENDER DO Via [facility] SDC SCREENING [id number] 10/18/2015 08:26:00 10/18/2015 23:59:59 CLS Outpatient CATHY HUBBARD Dominick [employer] OFFICER [facility] RAD LEFT KNEE PAIN [id number] 10/18/2015 06:11:00 10/18/2015 23:59:59 CLS Outpatient GILBERT BENDER DO [facility] PREOP SCREENING [id number] 08/09/2015 10:01:00 08/09/2015 23:59:59 CLS Outpatient ZINA MICHELLE DO Via [facility] LAB HTN,HLP,HYPONONTREMIA [id number] 12/24/2014 14:30:00 01/29/2015 15:40:00 DIS Outpatient ROHAN BOLTON MD Via [facility] REHAB ARTHRITIS L KNEE [id number] 01/16/2015 05:42:00 01/16/2015 23:59:59 CLS Outpatient CALISTA PHAM [facility] LAB ANNUAL CHECK-UP [id number] 01/16/2015 00:11:00 01/16/2015 23:59:59 CLS Preadmit GISSEL VEGAS MD [facility] LAB STONES [id number] 10/20/2014 10:00:00 01/15/2015 00:01:00 DIS Outpatient GISSEL VEGAS MD [facility] LAB STONES [id number] 12/05/2014 14:19:00 12/20/2014 00:01:00 DIS Outpatient ROHAN BOLTON MD [facility] REHAB [id number] 12/14/2014 06:44:00 12/14/2014 07:50:00 DIS Outpatient GERRY MENDOZA MD [facility] CARD DDD [id number] 10/03/2014 05:47:00 10/03/2014 10:18:00 DIS Outpatient GISSEL VEGAS MD [facility] SDC [id number] 10/02/2014 05:52:00 10/02/2014 23:59:59 CLS Outpatient GISSEL VEGAS MD [facility] PREOP RIGHT RENAL STONE [id number] 09/18/2014 15:17:00 09/18/2014 23:59:59 CLS Outpatient TAWNY WILLIAMSON DO Via [facility] RAD [id number] 09/11/2014 16:40:00 09/11/2014 19:50:00 DIS Emergency AUGUSTO STOKES [facility] ER [id number] 08/22/2014 06:24:00 08/22/2014 08:48:00 DIS Emergency NATALIA PATE MD [facility] ER POSS UTI,SHAKEY,QUIÑONES [id number] 08/02/2014 07:26:00 08/02/2014 23:59:59 CLS Outpatient MILY HERNANDEZ FACC, ROSANNA DIXON CCDS [facility] CARD CHRONIC CP, HTN/HLP [id number] 07/26/2014 06:15:00 07/26/2014 23:59:59 CLS Outpatient ROSANNA MINOR MD, FACC, FACP CCDS [facility] LAB HYPERLIPIDEMIA [id number] 06/22/2014 06:57:00 06/22/2014 08:04:00 DIS Outpatient GERRY MENDOZA MD [facility] CARD SIJD [id number] 03/31/2014 10:35:00 03/31/2014 12:33:00 DIS Emergency SHANE ARORA [employer] OFF[employer]ER Via [facility] ER NOT ABLE TO KEEP FOOD DOWN [id number] 03/16/2014 19:18:00 03/16/2014 20:05:00 DIS Emergency SHANE ARORA [employer] Via [facility] ER FINGER PAIN [id number] 02/24/2014 13:51:00 02/24/2014 23:59:59 CLS Outpatient [id number] 02/13/2014 05:57:00 02/13/2014 23:59:59 CLS Outpatient MILY HERNANDEZ FACCROSANNA FACP CCDS [facility] LAB HYPERLIPIDEMIA ,CHRONIC CP,HYPONATREMIA [id number] 02/09/2014 06:25:00 02/09/2014 07:31:00 DIS Outpatient GERRY MENDOZA MD [facility] CARD SACRAL ILLIAC JOINT DSYFUNCTION [id number] 02/02/2014 07:39:00 02/02/2014 23:59:59 CLS Outpatient CALISTA PHAM [facility] LAB HTN,HYPERLIPIDEMIA, CHRONIC CP, [id number] 12/20/2013 14:45:00 12/20/2013 15:36:00 DIS Outpatient GERRY MENDOZA MD [facility] REHAB LUMBAGO [id number] 09/19/2013 14:29:00 12/14/2013 00:01:00 DIS Outpatient GERRY MENDOZA MD [facility] REHAB LUMBAGO [id number] 11/24/2013 07:55:00 11/24/2013 08:53:00 DIS Outpatient GERRY MENDOZA MD [facility] CARD SIJ DYSFUNCTION [id number] 10/26/2013 19:15:00 10/26/2013 21:13:00 DIS Emergency AUGUSTO STOKES Via [facility] ER R FOOT SWELLING [id number] 09/22/2013 07:53:00 09/22/2013 08:46:00 DIS Outpatient GERRY MENDOZA MD [facility] CARD LUMBAR SPONDYLOSIS [id number] 08/08/2013 14:29:00 09/12/2013 00:01:00 DIS Outpatient GERRY MENDOZA MD [facility] REHAB LUMBAGO [id number] 09/08/2013 09:31:00 09/08/2013 23:59:59 CLS Outpatient TAWNY WILLIAMSON DO Via [facility] RAD SCREENING [id number] 08/04/2013 07:48:00 08/04/2013 23:59:59 CLS Outpatient GERRY MENDOZA MD [facility] CARD DDD LUMBAR [id number] 07/28/2013 07:15:00 07/28/2013 23:59:59 CLS Outpatient CALISTA PHAM [facility] LAB HYPERTENSION, HYPERLIPIDEMIA,STATIN [place] [id number] 07/07/2013 08:44:00 07/07/2013 23:59:59 CLS Outpatient GERRY MENDOZA MD [facility] CARD LUMBAR SPINAL STENOSIS [id number] 06/18/2013 18:27:00 06/18/2013 20:31:00 DIS Emergency ELINOR SOSA MD Via [facility] ER MULTIPLE COMPLAINTS [id number] 06/02/2013 08:31:00 06/02/2013 23:59:59 CLS Outpatient GERRY MENDOZA MD [facility] CARD DDD-LUMBAR [id number] 04/17/2013 12:25:00 04/17/2013 23:59:59 CLS Outpatient TOAN HERNANDEZ, KATERIN Tan [facility] RAD BACK PAIN, RADICULOPATHY [id number] 03/19/2013 17:59:00 03/19/2013 21:18:00 DIS Emergency [id number] 03/14/2013 17:47:00 03/14/2013 23:59:59 CLS Outpatient [id number] 01/29/2013 16:09:00 01/29/2013 23:59:59 CLS Outpatient [id number] 01/27/2013 09:50:00 01/27/2013 23:59:59 CLS Outpatient [id number] 01/27/2013 09:27:00 01/27/2013 23:59:59 CLS Outpatient CALISTA PHAM [facility] LAB HYPERTENSION, HYPERLIPIDEMIA,STATIN [place] [id number] 04/05/2018 09:30:00 Document Registration [id number] 04/05/2018 09:03:00 Document Registration [id number] 10/17/2014 14:24:00 Document Registration [id number] 12/03/2012 12:29:00 Document Registration [id number] 11/28/2012 11:32:00 Document Registration [id number] 08/12/2012 16:15:00 Document Registration [id number] 08/06/2012 21:06:00 Document Registration [id number] 07/29/2012 07:13:00 Document Registration [id number] 06/08/2012 18:09:00 Document Registration [id number] 03/10/2012 08:31:00 Document Registration [id number] 02/29/2012 20:50:00 Document Registration [id number] 01/22/2012 08:22:00 Document Registration [id number] 12/03/2011 18:27:00 Document Registration [id number] 07/31/2011 09:37:00 Document Registration [id number] 07/22/2011 17:55:00 Document Registration [id number] 06/09/2011 09:25:00 Document Registration [id number] 04/17/2011 08:42:00 Document Registration [id number] 01/16/2011 07:50:00 Document Registration [id number] 10/17/2010 07:03:00 Document Registration [id number] 09/26/2010 10:46:00 Document Registration [id number] 09/12/2010 08:41:00 Document Registration [id number] 08/29/2010 08:40:00 Document Registration [id number] 08/11/2010 14:06:00 Document Registration [id number] 08/11/2010 13:42:00 Document Registration [id number] 08/05/2010 13:31:00 Document Registration [id number] 07/31/2010 15:19:00 Document Registration [id number] 07/18/2010 07:57:00 Document Registration [id number] 07/08/2010 22:05:00 Document Registration [id number] 04/24/2009 10:00:00 Document Registration [id number] 04/15/2009 15:05:00 Document Registration [id number] 01/16/2015 07:20:02 ACT Document Registration
[2018-12-25 10:10] LABS: BASOPHILS % (AUTO) 0 % (0-10); EOSINOPHILS # (AUTO) 0.1 10^3/uL (0.0-0.3); EOSINOPHILS % (AUTO) 2 % (0-10); HEMATOCRIT 46 % (35-52); HEMOGLOBIN 15.5 G/DL (11.5-16.0); LYMPHOCYTES # (AUTO) 0.7 X 10^3 (1.0-4.0); LYMPHOCYTES % (AUTO) 10 % (12-44); MEAN CORPUSCULAR HEMOGLOBIN 28 PG (25-34); MEAN CORPUSCULAR HGB CONC 34 G/DL (32-36); MEAN CORPUSCULAR VOLUME 83 FL (80-99); MEAN PLATELET VOLUME 10.7 FL (7.4-10.4); MONOCYTES # (AUTO) 0.7 X 10^3 (0.0-1.0); MONOCYTES % (AUTO) 9 % (0-12); NEUTROPHILS # (AUTO) 6.1 X 10^3 (1.8-7.8); NEUTROPHILS % (AUTO) 80 % (42-75); PLATELET COUNT 176 10^3/uL (130-400); RED CELL DISTRIBUTION WIDTH 14.4 % (10.0-14.5); WHITE BLOOD COUNT 7.7 10^3/uL (4.3-11.0)
[2018-12-25 10:23] LABS: INR 0.9 (0.8-1.4); PROTHROMBIN TIME PATIENT 12.2 SEC (12.2-14.7)
[2018-12-25 10:33] LABS: ALANINE AMINOTRANSFERASE 19 U/L (0-55); ALBUMIN 4.5 GM/DL (3.2-4.5); ALKALINE PHOSPHATASE 103 U/L (40-136); BILIRUBIN,TOTAL 0.7 MG/DL (0.1-1.0); BUN/CREATININE RATIO 16; CARBON DIOXIDE 24 MMOL/L (21-32); CHLORIDE 106 MMOL/L (98-107); CREATININE SERUM 0.75 MG/DL (0.60-1.30); GFR ESTIMATED > 60; GLUCOSE 87 MG/DL (70-105); MAGNESIUM 2.1 MG/DL (1.8-2.4); POTASSIUM 4.5 MMOL/L (3.6-5.0); SODIUM 138 MMOL/L (135-145); TOTAL PROTEIN 7.5 GM/DL (6.4-8.2)
[2018-12-25] MEDS ORDERED: NS IV 1000 ML 1,000 ML IV ONE (10:44)
[2018-12-25 10:48] LABS: BILIRUBIN,URINE NEGATIVE (NEGATIVE); CLARITY,URINE CLEAR; COLOR,URINE YELLOW; GLUCOSE, URINE (UA) NEGATIVE (NEGATIVE); KETONES,URINE NEGATIVE (NEGATIVE); LEUKOCYTE ESTERASE ,URINE NEGATIVE (NEGATIVE); NITRITE,URINE NEGATIVE (NEGATIVE); PH,URINE 6 (5-9); PROTEIN,URINE NEGATIVE (NEGATIVE); UROBILINOGEN,URINE NORMAL (NORMAL)
--- NOTE | 2018-12-25 10:55 | Diagnostic Imaging Report ---
Patient History: Dizziness. Technique: Single frontal view of the chest Comparison: 04/05/2018 FINDINGS: The lung volumes are normal. No focal consolidation is seen. No large pleural effusion or pneumothorax is seen. The cardiomediastinal silhouette is normal in size and contour. No acute osseous abnormality is seen. IMPRESSION: No acute pulmonary abnormality seen. Dictated by: Dictated on workstation # [id number]
[2018-12-25 10:59] LABS: BACTERIA,URINE FEW /HPF
[2018-12-25] MEDS ORDERED: TETANUS,DIPTH,PERTUSS P/F (BOOSTRIX) 0.5 ML VIAL IM ONE (11:00)
--- NOTE | 2018-12-25 11:10 | ED General ---
General Chief Complaint: Dizziness/Syncope Stated Complaint: LIGHTHEADED/SHAKY/INTERMITTENT CP Nursing Triage Note: PATIENT AMBULATORY TO ER WITH MULTIPLE COMPLAINTS. PATIENT STATES ON WEDNESDAY SHE HAD A SYNCOPE EPISODE X 1. SHE HAS HAD INTERMITTENT LEFT SIDED CHEST PAIN THAT DESCRIBES DULL AND TINGLING. SHE IS ALSO COMPLAINING OF LEFT HEAD THROBBING, RIGHT EAR PAIN AND DIZZINESS. PATIENT STATES SEVERAL WEEKS AGO SHE ALSO GOT SCRATCHED ON THE RIGHT THUMB BY A PIECE OF SEBAS TIN AND STATES SHE HAS NOT HAD A TETANUS VACCINE FOR YEARS. PATIENT IS AWAKE AND ALERT X 4. Nursing Sepsis Screen: No Definite Risk Source of Information: Patient Exam Limitations: No Limitations History of Present Illness Date Seen by Provider: December 25, 2018 Time Seen by Provider: 10:28 Initial Comments Here with report of multiple complaints. States that she had left-sided facial pulling feeling that started about 8:30 but then states that she woke up with tingling in her face feeling weird at 6:30 this morning. Last known well time of the last night. Denies current symptoms. Did have episode of chest pain for about 1 minute that was at about 9 AM. Denies shortness of breath. Also complains of getting cut by tin about a week ago to the right thumb. That is healing well but states that she is worried about tetanus since she is not sure about her last tetanus shot. Denies nausea or vomiting. Walking without difficulty. Denies dysuria or diarrhea although had diarrhea one episode early this morning sometime. That has not persisted. Timing/Duration: 4-6 Hours, Changing Over Time, Gone Now, Intermittent Severity: Mild Associated Systoms: Chest Pain (left anterior aching); No Cough, No Fever/ Chills, No Headaches, No Nausea/Vomiting, No Shortness of Air; Weakness Allergies and Home Medications Allergies Coded Allergies: meloxicam (Verified Allergy, Intermediate, RASH ALL OVER, 12/25/18) Penicillins (Verified Allergy, Unknown, 12/25/18) Home Medications Ascorbic Acid 500 Mg Tablet, 500 MG PO DAILY, (Reported) Aspirin 325 Mg Tablet.dr, 325 MG PO DAILY Prescribed by: OG LANGE on 04/28/18 1356 Atenolol 50 Mg Tablet, 50 MG PO BID, (Reported) Baclofen 10 Mg Tablet, 10 MG PO TID, (Reported) Gabapentin 300 Mg Capsule, 300 MG PO TID, (Reported) Hydrocodone/Acetaminophen 1 Each Tablet, 1 TAB PO Q6H PRN for PAIN-MODERATE, ( Reported) Lisinopril 40 Mg Tablet, 40 MG PO DAILY, (Reported) Lovastatin 20 Mg Tablet, 20 MG PO HS, (Reported) Oxybutynin Chloride 5 Mg Tablet, 5 MG PO TID, (Reported) Patient Home Medication List Home Medication List Reviewed: Yes Review of Systems Review of Systems Constitutional: no symptoms reported, dizziness EENTM: see HPI, ear pain (bilateral ear fullness); No nose congestion, No throat pain Respiratory: no symptoms reported Cardiovascular: see HPI, chest pain; No edema, No palpitations Gastrointestinal: No abdominal pain, No nausea, No vomiting Genitourinary: no symptoms reported Musculoskeletal: no symptoms reported Skin: see HPI, lesions; No rash Psychiatric/Neurological: Anxiety; Denies Headache; Other (feels shaky) Hematologic/Lymphatic: No Symptoms Reported All Other Systems Reviewed Negative Unless Noted: Yes Past Iqwgoym-Cczkfc-[place] Hx Past Med/Social Hx: Reviewed Nursing Past Med/Soc Hx Patient Social History Alcohol Use: Denies Use Recreational Drug Use: No Smoking Status: Never a Smoker 2nd Hand Smoke Exposure: No Recent Foreign Travel: No Contact w/Someone Who Travel: No Recent Infectious Disease Expo: No Recent Hopitalizations: No Immunizations Up To Date Tetanus Booster (TDap): Unknown PED Vaccines UTD: No Date of Influenza Vaccine: May 23, 2015 Seasonal Allergies Seasonal Allergies: No Past Medical History Surgeries: Yes (LEFT KNEE SCOPE/ REPLACEMENT) Hysterectomy, Orthopedic Respiratory: No Currently Using CPAP: No Currently Using BIPAP: No Cardiac: Yes High Cholesterol, Hypertension Neurological: No (rt upper arm neuropathy) Reproductive Disorders: No 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 No Pertinent Family Hx Physical Exam Vital Signs Vital Signs - First Documented 12/25/18 10:02 Temp 98.6 Pulse 62 Resp 14 B/P (MAP) 170/79 (109) Pulse Ox 99 O2 Delivery Room Air Capillary Refill : Less Than 3 Seconds Height, Weight, BMI Height: 5'4.00" Weight: 185lbs. 14.0oz. 83.909017xl; 31.5 BMI Method:Actual General Appearance: No Apparent Distress, WD/WN HEENT: PERRL/EOMI, Pharynx Normal Neck: Non Tender, Supple Respiratory: Lungs Clear, Normal Breath Sounds Cardiovascular: Regular Rate, Rhythm, No Murmur Gastrointestinal: Non Tender, Soft Back: Normal Inspection, No CVA Tenderness, No Vertebral Tenderness Extremity: Normal Range of Motion, Non Tender Neurologic/Psychiatric: Alert, Oriented x3, parking analyst II-XII Norm as Tested, Other ( normal finger to nose and normal [id number]-[id number] bilateral) Skin: Normal Color, Warm/Dry Progress/Results/Core Measures Suspected Sepsis Recent Fever Within 48 Hours: No Infection Criteria Present: None New/Unexplained Altered Menta: No Sepsis Screen: No Definite Risk SIRS Temperature:98.6 Pulse: 62 Respiratory Rate: 14 Laboratory Tests 12/25/18 10:02: White Blood Count 7.7 Blood Pressure 170 /79 Mean: 109 Laboratory Tests 12/25/18 10:02: Creatinine 0.75, INR Comment 0.9, Platelet Count 176, Total Bilirubin 0.7 Results/Orders Lab Results Laboratory Tests Test 12/25/18 10:02 12/25/18 10:33 Range/Units White Blood Count 7.7 4.3-11.0 10^3/uL Red Blood Count 5.54 4.35-5.85 10^6/uL Hemoglobin 15.5 11.5-16.0 G/DL Hematocrit 46 35-52 % Mean Corpuscular Volume 83 80-99 FL Mean Corpuscular Hemoglobin 28 25-34 PG Mean Corpuscular Hemoglobin Concent 34 32-36 G/DL Red Cell Distribution Width 14.4 10.0-14.5 % Platelet Count 176 130-400 10^3/uL Mean Platelet Volume 10.7 H 7.4-10.4 FL Neutrophils (%) (Auto) 80 H 42-75 % Lymphocytes (%) (Auto) 10 L 12-44 % Monocytes (%) (Auto) 9 0-12 % Eosinophils (%) (Auto) 2 0-10 % Basophils (%) (Auto) 0 0-10 % Neutrophils # (Auto) 6.1 1.8-7.8 X 10^3 Lymphocytes # (Auto) 0.7 L 1.0-4.0 X 10^3 Monocytes # (Auto) 0.7 0.0-1.0 X 10^3 Eosinophils # (Auto) 0.1 0.0-0.3 10^3/uL Basophils # (Auto) 0.0 0.0-0.1 10^3/uL Prothrombin Time 12.2 12.2-14.7 SEC INR Comment 0.9 0.8-1.4 Activated Partial Thromboplast Time 31 24-35 SEC Sodium Level 138 135-145 MMOL/L Potassium Level 4.5 3.6-5.0 MMOL/L Chloride Level 106 98-107 MMOL/L Carbon Dioxide Level 24 21-32 MMOL/L Anion Gap 8 5-14 MMOL/L Blood Urea Nitrogen 12 7-18 MG/DL Creatinine 0.75 0.60-1.30 MG/DL Estimat Glomerular Filtration Rate > 60 BUN/Creatinine Ratio 16 Glucose Level 87 70-105 MG/DL Calcium Level 10.0 8.5-10.1 MG/DL Corrected Calcium 9.6 8.5-10.1 MG/DL Magnesium Level 2.1 1.8-2.4 MG/DL Total Bilirubin 0.7 0.1-1.0 MG/DL Aspartate Amino Transf (AST/SGOT) 20 5-34 U/L Alanine Aminotransferase (ALT/SGPT) 19 0-55 U/L Alkaline Phosphatase 103 40-136 U/L Myoglobin 24.9 10.0-92.0 NG/ML Troponin I < 0.028 <0.028 NG/ML Total Protein 7.5 6.4-8.2 GM/DL Albumin 4.5 3.2-4.5 GM/DL Urine Color YELLOW Urine Clarity CLEAR Urine pH 6 5-9 Urine Specific [place] 1.010 L 1.016-1.022 Urine Protein NEGATIVE NEGATIVE Urine Glucose (UA) NEGATIVE NEGATIVE Urine Ketones NEGATIVE NEGATIVE Urine Nitrite NEGATIVE NEGATIVE Urine Bilirubin NEGATIVE NEGATIVE Urine Urobilinogen NORMAL NORMAL MG/DL Urine Leukocyte Esterase NEGATIVE NEGATIVE Urine RBC (Auto) NEGATIVE NEGATIVE Urine RBC NONE /HPF Urine WBC 5-10 H /HPF Urine Squamous Epithelial Cells 2-5 /HPF Urine Crystals NONE /LPF Urine Bacteria FEW H /HPF Urine Casts NONE /LPF Urine Mucus NEGATIVE /LPF Urine Culture Indicated YES My Orders Orders - CHAUNCEY LOPEZ MD Cbc With Automated Diff (12/25/18 10:03) Magnesium (12/25/18 10:03) Chest 1 View, Ap/Pa Only (12/25/18 10:03) Ekg Tracing (12/25/18 10:03) Cardiac Profile 1 (12/25/18 10:03) Comprehensive Metabolic Panel (12/25/18 10:03) Myoglobin Serum (12/25/18 10:03) Protime With Inr (12/25/18 10:03) Partial Thromboplastin Time (12/25/18 10:03) O2 (12/25/18 10:03) Monitor-Rhythm Ecg Trace Only (12/25/18 10:03) Lipid Panel (12/26/18 06:00) Ed Iv/Invasive Line Start (12/25/18 10:03) Ua Culture If Indicated (12/25/18 10:43) Ed Iv/Invasive Line Start (12/25/18 10:44) Ns Iv 1000 Ml (Sodium Chloride 0.9%) (12/25/18 10:44) Ct Head Wo-R/O Stroke (12/25/18 10:44) Dipht,Pertuss(Acell),Tet Adult (Boostrix (12/25/18 11:00) Urine Culture (12/25/18 10:33) Medications Given in ED Current Medications Medications Dose Ordered Sig/Yash Route Start Time Stop Time Status Last Admin Dose Admin Diphtheria/ Tetanus/Acell Pertussis 0.5 ml ONCE ONCE IM 12/25/18 11:00 12/25/18 11:01 DC 12/25/18 11:16 0.5 ML Sodium Chloride 1,000 ml @ 0 mls/hr Q0M ONCE IV 12/25/18 10:44 12/25/18 10:45 DC 12/25/18 11:15 0 MLS/HR Vital Signs/I&O 12/25/18 10:02 Temp 98.6 Pulse 62 Resp 14 B/P (MAP) 170/79 (109) Pulse Ox 99 O2 Delivery Room Air Capillary Refill : Less Than 3 Seconds Blood Pressure Mean: 109 Progress Note : Progress Note Seen and evaluated. IV, labs, EKG and chest x-ray ordered. UA ordered. We will get CT of the head. Stroke scale negative. Patient not TPA candidate as she would be outside the window but stroke scale is also 0 and no indication of current significant findings. EKG doesn't show any significant findings. We will update tetanus. Monitor patient. 1215: Radiology report called and no acute findings noted on CT head. Overall she feels better after fluids. She does have a question of urinary tract infection. We will initiate Bactrim DS outpatient. Discharged home with return precautions. Patient verbalize understanding instructions and agreement with plan. ECG Initial ECG Impression Date: December 25, 2018 Initial ECG Impression Time: 09:57 Initial ECG Rate: 62 Initial ECG Rhythm: Normal Sinus Initial ECG Impression: Normal Initial ECG Comparisson: Unchanged Comment Sinus rhythm with normal axis. No evidence of ST elevation LA. No previous available for comparison. Interpreted by me. Diagnostic Imaging Diagonstic Imaging: Xray Plain Films/CT/US/NM/MRI: chest Comments [facility], [place] NAME: MARCELL VALDEZ [facility] REC#: [id number] PT STATUS: REG ER : 1960 PHYSICIAN: CHUANCEY LOPEZ MD ADMIT DATE: 12/25/18/ER Draft Date of Exam:12/25/18 CHEST 1 VIEW, AP/PA ONLY Patient History: Dizziness. Technique: Single frontal view of the chest Comparison: 04/05/2018 FINDINGS: The lung volumes are normal. No focal consolidation is seen. No large pleural effusion or pneumothorax is seen. The cardiomediastinal silhouette is normal in size and contour. No acute osseous abnormality is seen. IMPRESSION: No acute pulmonary abnormality seen. Dictated on workstation # [id number] Dict: 12/25/18 1051 Trans: 12/25/18 1054 NINO [id number] Interpreted by: JAVIER CHOWDHURY MD Electronically signed by: Departure Impression Primary Impression: Urinary tract infection Qualified Codes: N30.00 - Acute cystitis without hematuria Additional Impression: Upper respiratory infection, viral Disposition: 01 HOME, SELF-CARE Condition: Improved Departure-Patient Inst. Decision time for Depature: 12:17 Referrals: ANASTASIYA SAINZ DO (PCP/Family) Primary Care Physician Patient Instructions: Urinary Tract Infection, Adult (DC), Viral Upper Respiratory Infection, Adult (DC) Add. Discharge Instructions: All discharge instructions reviewed with patient and/or family. Voiced understanding. Drink plenty of fluids. Follow-up with your doctor this week for recheck and further evaluation. Return for worse pain, fever, vomiting, weakness, breathing problems or other concerns as needed. Take medications as prescribed. Scripts Sulfamethoxazole/Trimethoprim (Sulfamethoxazole-Tmp Ds Tablet) 1 Each Tablet 1 EACH PO BID, #14 TAB 0 Refills Prov: CHAUNCEY LOPEZ MD 12/25/18 Copy Copies To 1: ROSANNA MINOR MD FACP FAC CCDS Copies To 2: ANASTASIYA SAINZ TIMOTHY D MD December 25, 2018 11:10
--- NOTE | 2018-12-25 11:52 | NUR ---
PATIENT BACK TO ROOM FROM CT. PATIENT AWAKE AND ALERT X 4.
--- NOTE | 2018-12-25 12:08 | NUR ---
DR LEON CALLED AND STATES THAT CT HEAD ON PATIENT IS NEGATIVE. DR. LOPEZ NOTIFIED.
--- NOTE | 2018-12-25 12:15 | Diagnostic Imaging Report ---
PROCEDURE: CT head wo r/o stroke. TECHNIQUE: Multiple contiguous axial images were obtained through the brain without the use of intravenous contrast. Auto Exposure Controls were utilized during the CT exam to meet ALARA standards for radiation dose reduction. INDICATION: Lightheadedness, dizziness, facial droop has resolved. COMPARISON: None. FINDINGS: The ventricles and cortical sulci appear age-appropriate. There is no midline shift or significant mass effect. No acute intracranial hemorrhage is seen. There is no CT evidence of acute territorial ischemia. The calvarium appears intact. There is a small mucous retention cyst in left maxillary sinus otherwise the paranasal sinuses are clear. IMPRESSION: 1. No acute intracranial hemorrhage or CT evidence of acute territorial ischemia. Findings discussed with Nelda in the ER by Dr. Layne, on 12/25/2018 12:08 PM. Dictated by: Dictated on workstation # [id number]
[2018-12-25] MEDS ORDERED: SULF-222 PO (12:19)
[2018-12-25 12:21] VITALS: BP 165/84
== END 2018-12-25 12:27 | disposition home or self-care (01) ==
LOC: EDUNIT# 09:51 → ER 09:52
DX: N39.0 Urinary tract infection, site not specified (principal); J06.9 Acute upper respiratory infection, unspecified; E78.00 Pure hypercholesterolemia, unspecified; I10 Essential (primary) hypertension; G62.9 Polyneuropathy, unspecified; K21.9 Gastro-esophageal reflux disease without esophagitis; F41.9 Anxiety disorder, unspecified; Z87.19 Personal history of other diseases of the digestive system; Z87.440 Personal history of urinary (tract) infections; Z88.0 Allergy status to penicillin; Z88.8 Allergy status to other drugs, medicaments and biological substances; Z79.82 Long term (current) use of aspirin; Z96.652 Presence of left artificial knee joint; Z90.710 Acquired absence of both cervix and uterus
CPT/HCPCS: 36415; 70450; 71045; 80053; 81000; 83735; 83874; 84484; 85025; 85610; 85730; 87077; 87088; 87186; 90471; 90715; 93005; 96360

== ENCOUNTER 2018-12-25 17:36 | Emergency (ER) | payer MEDICARE, MEDICAID ==
[~2018-12-25] VITALS: Ht 162.6 cm; Wt 83.9 kg
[2018-12-25] MEDS ORDERED: KETOROLAC 60 MG/2 ML VIAL IM ONE (18:00)
[2018-12-25] MEDS ORDERED: ALPRAZolam 0.5 MG (XANAX) TAB PO SCH (18:00)
--- NOTE | 2018-12-25 18:16 | ED General ---
General Chief Complaint: General Problems/Pain Stated Complaint: CHEST PAIN THAT MOVES AROUND/CHIN TINGLING Nursing Triage Note: PATIENT AMBULATORY TO ER WITH COMPLAINT OF CHEST PAIN TO CENTER OF CHEST THAT BEGAN WHEN SHE COUGHED AND IS NOW PRESENT EVERYTIME SHE COUGHS. SHE IS ALSO COMPLAINING THAT HER "CHIN IS QUIVERING". PATIENT WAS SEEN EARLIER TODAY AROUND 10:00 AM IN THIS ER FOR FEELING LIGHTHEADED AND INTERMITTENT CHEST PAIN. PATIENT WAS DISCHARGED TO HOME WITH DIAGNOSIS OF UTI AND PLACED ON ANTIBIOTICS. PATIENT IS AWAKE AND ALERT X 4. Nursing Sepsis Screen: No Definite Risk Source of Information: Patient Exam Limitations: No Limitations History of Present Illness Date Seen by Provider: December 25, 2018 Time Seen by Provider: 18:13 Initial Comments To ER with reports of chest pain on the right side of her chest worse with coughing or deep breathing. This began this morning. She denies fevers or chills. She was seen here earlier today for the same, nothing was found except for urinary tract infection and she was given an antibiotic for that. She comes back this evening because the pain recurred and she has "quivering in my chin". Timing/Duration: 12-24 Hours Severity: Moderate Associated Systoms: Chest Pain Allergies and Home Medications Allergies Coded Allergies: meloxicam (Verified Allergy, Intermediate, RASH ALL OVER, 12/25/18) Penicillins (Verified Allergy, Unknown, 12/25/18) Home Medications Ascorbic Acid 500 Mg Tablet, 500 MG PO DAILY, (Reported) Aspirin 325 Mg Tablet.dr, 325 MG PO DAILY Prescribed by: OG LANGE on 04/28/18 1356 Atenolol 50 Mg Tablet, 50 MG PO BID, (Reported) Baclofen 10 Mg Tablet, 10 MG PO TID, (Reported) Gabapentin 300 Mg Capsule, 300 MG PO TID, (Reported) Hydrocodone/Acetaminophen 1 Each Tablet, 1 TAB PO Q6H PRN for PAIN-MODERATE, ( Reported) Lisinopril 40 Mg Tablet, 40 MG PO DAILY, (Reported) Lovastatin 20 Mg Tablet, 20 MG PO HS, (Reported) Oxybutynin Chloride 5 Mg Tablet, 5 MG PO TID, (Reported) Sulfamethoxazole/Trimethoprim 1 Each Tablet, 1 EACH PO BID Prescribed by: CHAUNCEY LOPEZ on 12/25/18 1219 Patient Home Medication List Home Medication List Reviewed: Yes Review of Systems Review of Systems Constitutional: see HPI EENTM: see HPI Respiratory: no symptoms reported Cardiovascular: see HPI, chest pain Genitourinary: no symptoms reported Musculoskeletal: no symptoms reported Skin: no symptoms reported Past Wllqudm-Tqdjer-Zkmavk Hx Patient Social History Alcohol Use: Denies Use Recreational Drug Use: No Smoking Status: Never a Smoker 2nd Hand Smoke Exposure: No Recent Foreign Travel: No Contact w/Someone Who Travel: No Recent Infectious Disease Expo: No Recent Hopitalizations: No Immunizations Up To Date Tetanus Booster (TDap): Unknown PED Vaccines UTD: No Date of Influenza Vaccine: May 23, 2015 Seasonal Allergies Seasonal Allergies: No Past Medical History Surgeries: Yes (LEFT KNEE SCOPE/ REPLACEMENT) Hysterectomy, Orthopedic Respiratory: No Currently Using CPAP: No Currently Using BIPAP: No Cardiac: Yes High Cholesterol, Hypertension Neurological: No (rt upper arm neuropathy) 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 No Pertinent Family Hx Physical Exam Vital Signs Vital Signs - First Documented 12/25/18 17:41 Temp 98.2 Pulse 90 Resp 20 B/P (MAP) 150/90 (110) Pulse Ox 97 O2 Delivery Room Air Capillary Refill : Less Than 3 Seconds Height, Weight, BMI Height: 5'4.00" Weight: 185lbs. 14.0oz. 83.182678yi; 31.5 BMI Method:Actual General Appearance: No Apparent Distress, WD/WN, Anxious Eyes: Bilateral Eye Normal Inspection, Bilateral Eye PERRL, Bilateral Eye EOMI Neck: Full Range of Motion, Normal Inspection Respiratory: Chest Non Tender, Lungs Clear, Normal Breath Sounds, No Accessory Muscle Use, No Respiratory Distress Cardiovascular: Regular Rate, Rhythm, Normal Peripheral Pulses Gastrointestinal: Non Tender, Soft Extremity: Normal Capillary Refill, Normal Inspection Neurologic/Psychiatric: Alert, Oriented x3 Skin: Normal Color, Warm/Dry Progress/Results/Core Measures Suspected Sepsis Recent Fever Within 48 Hours: No Infection Criteria Present: Documented Infection New/Unexplained Altered Menta: No Sepsis Screen: No Definite Risk SIRS Temperature:98.2 Pulse: 90 Respiratory Rate: 20 Blood Pressure 150 /90 Mean: 110 Results/Orders My Orders Orders - SHANE ARORA APRN Cbc With Automated Diff (12/25/18 17:50) Troponin I (12/25/18 17:50) Ekg Tracing (12/25/18 17:50) Chest 1 View, Ap/Pa Only (12/25/18 17:50) Alprazolam Tablet (Xanax Tablet) (12/25/18 18:00) Ketorolac Injection (Toradol Injection) (12/25/18 18:00) Vital Signs/I&O 12/25/18 17:41 Temp 98.2 Pulse 90 Resp 20 B/P (MAP) 150/90 (110) Pulse Ox 97 O2 Delivery Room Air Capillary Refill : Less Than 3 Seconds Blood Pressure Mean: 110 Departure Impression Primary Impression: Pleuritic chest pain Disposition: HOME, SELF-CARE Condition: Stable Departure-Patient Inst. Decision time for Depature: 18:16 Referrals: ANASTASIYA SAINZ DO (PCP/Family) Primary Care Physician Patient Instructions: Pleuritic Chest Pain (DC) SHANE ARORA APRN December 25, 2018 18:16
[2018-12-25 18:20] LABS: BASOPHILS % (AUTO) 0 % (0-10); EOSINOPHILS # (AUTO) 0.1 10^3/uL (0.0-0.3); EOSINOPHILS % (AUTO) 1 % (0-10); HEMATOCRIT 44 % (35-52); HEMOGLOBIN 15.1 G/DL (11.5-16.0); LYMPHOCYTES # (AUTO) 0.6 X 10^3 (1.0-4.0); LYMPHOCYTES % (AUTO) 5 % (12-44); MEAN CORPUSCULAR HEMOGLOBIN 28 PG (25-34); MEAN CORPUSCULAR HGB CONC 34 G/DL (32-36); MEAN CORPUSCULAR VOLUME 82 FL (80-99); MEAN PLATELET VOLUME 11.3 FL (7.4-10.4); MONOCYTES # (AUTO) 0.4 X 10^3 (0.0-1.0); MONOCYTES % (AUTO) 3 % (0-12); NEUTROPHILS # (AUTO) 10.2 X 10^3 (1.8-7.8); NEUTROPHILS % (AUTO) 91 % (42-75); PLATELET COUNT 185 10^3/uL (130-400); RED CELL DISTRIBUTION WIDTH 14.1 % (10.0-14.5); WHITE BLOOD COUNT 11.3 10^3/uL (4.3-11.0)
[2018-12-25 18:55] LABS: BAND NEUTROPHILS 3 %; EOSINOPHILS % (MANUAL) 2 %; LYMPHOCYTES % (MANUAL) 6 %; MONOCYTES % (MANUAL) 2 %; NEUTROPHILS % (MANUAL) 87 %; RBC MORPH NORMAL
--- NOTE | 2018-12-25 18:55 | NUR ---
PATIENT STATES SHE IS FEELING BETTER AND RATES HER PAIN AT A 3 OUT OF 10.
--- NOTE | 2018-12-25 18:58 | Diagnostic Imaging Report ---
INDICATION: Chest pain and cough Upright portable AP view of the chest is obtained with comparison made to the study of 12/25/2018. FINDINGS: Heart size and pulmonary vascularity are within normal limits, and the lungs are clear, bilaterally. IMPRESSION: Unremarkable chest. Dictated by: Dictated on workstation # [id number]
[2018-12-25 19:08] VITALS: BP 151/64
== END 2018-12-25 19:08 | disposition home or self-care (01) ==
LOC: EDUNIT# 17:36 → ER 17:37
DX: R07.81 Pleurodynia (principal); E78.00 Pure hypercholesterolemia, unspecified; I10 Essential (primary) hypertension; G62.9 Polyneuropathy, unspecified; K21.9 Gastro-esophageal reflux disease without esophagitis; F41.9 Anxiety disorder, unspecified; Z87.19 Personal history of other diseases of the digestive system; Z87.440 Personal history of urinary (tract) infections; Z88.0 Allergy status to penicillin; Z88.8 Allergy status to other drugs, medicaments and biological substances; Z79.82 Long term (current) use of aspirin; Z96.652 Presence of left artificial knee joint
CPT/HCPCS: 36415; 71045; 84484; 85007; 85027; 93005; 96372

== ENCOUNTER → 2019-01-10 | Outpatient (CLI) | payer MEDICARE, MEDICAID ==
[~2019-01-10] MED LIST changes: +CATHETER FLUSH 10 ML SYR IV PRN; +REGADENOSON 0.4 MG/5 ML SYR (LEXISCAN) IV ONE
[2019-01-10 13:08] VITALS: BP 157/89
[2019-01-10 13:13] VITALS: BP 155/109
== END ==
LOC: CARD 11:00
PROVIDERS: ATTEND Internal Medicine Cardiovascular Disease
DX: R07.9 Chest pain, unspecified (principal); I10 Essential (primary) hypertension; E78.5 Hyperlipidemia, unspecified; R06.02 Shortness of breath
CPT/HCPCS: 78452; 93017

== ENCOUNTER → 2019-02-22 | Outpatient (CLI) | payer MEDICARE, MEDICAID ==
[~2019-02-22] MED LIST changes: -CATHETER FLUSH 10 ML SYR IV PRN; -REGADENOSON 0.4 MG/5 ML SYR (LEXISCAN) IV ONE
--- NOTE | 2019-02-22 13:21 | Diagnostic Imaging Report ---
INDICATION: Foreign body FINDINGS: Three views of the left middle finger show a 3.7 cm length and 1 mm diameter rectangular shaped radiopaque foreign object in the soft tissues of the volar aspect of the middle finger at the level of the PIP joint. IMPRESSION: There is a foreign body in the soft tissues of the left middle finger. There is no fracture or dislocation. Dictated by: Dictated on workstation # [id number]
== END ==
LOC: RAD 11:38
PROVIDERS: ATTEND Family Medicine
DX: S60.453A Superficial foreign body of left middle finger, initial encounter (principal); L72.8 Other follicular cysts of the skin and subcutaneous tissue
CPT/HCPCS: 73140

== ENCOUNTER 2019-03-07 05:47 | Outpatient (CLI) | payer MEDICARE, MEDICAID ==
[~2019-03-07] VITALS: Ht 162.6 cm; Wt 84.3 kg
== END 2019-03-07 13:57 | disposition home or self-care (01) ==
LOC: PREOP 05:47
PROVIDERS: ATTEND Surgery
DX: Z01.818 Encounter for other preprocedural examination (principal)

== ENCOUNTER 2019-03-09 10:27 | Day surgery (SDC) | payer MEDICARE, MEDICAID ==
[~2019-03-09] VITALS: Ht 162.6 cm; Wt 84.3 kg
[2019-03-09] VITALS (8 sets, daily range): BP systolic 116–170; BP diastolic 67–82
--- OUTSIDE RECORDS SUMMARY | 2019-03-09 10:37 | XMS REPORT | Continuity of Care Document ---
Author Organization Unknown Address Unknown Allergies Active Description Code Type Severity Reaction Onset Reported/Identified Relationship to Patient Clinical Status Yes meloxicam [id number] Drug Allergy Moderate RASH ALL OVER 12/25/2018 Yes Penicillins [id number] Drug Allergy Unknown N/A 12/25/2018 Yes Penicillins [id number] Drug Allergy Mild RASH 03/07/2019 Medications There is no data. Problems Date [...] MD Ot 724.2 LUMBAGO 09/12/2013 GERRY MENDOZA MD Ot V57.1 PHYSICAL THERAPY NEC 09/22/2013 GERRY [...] Ot 721.3 LUMBOSACRAL SPONDYLOSIS 11/24/2013 GERRY MENDOZA MD Ot 724.6 DISORDERS OF SACRUM 11/24/2013 GERRY [...] MYALGIA AND MYOSITIS NOS 02/09/2014 GERRY MENDOZA MD, Ot V58.69 OTH MED,LT,CURRENT USE 03/16/2014 SHANE ARORA NURSE SPECIAL Ot V54.9 ORTHOPEDIC AFTERCARE NOS 03/31/2014 SHANE ARORA NURSE SPECIAL Ot 599.0 URIN TRACT INFECTION NOS 03/31/2014 SHANE ARORA NURSE SPECIAL Ot 787.01 NAUSEA WITH VOMITING 06/22/2014 GERRY [...] INDEX 31.0-31.9, ADULT 08/22/2014 NATALIA PATE MD Ot 288.60 LEUKOCYTOSIS, UNSPECIFIED 08/22/2014 NATALIA PATE [...] CCDS Ot 272.4 09/11/2014 MILY HERNANDEZ FAC, ROSANNA FACP CCDS Ot 272.4 09/11/2014 MILY HERNANDEZ FAC, ROSANNA FACP CCDS Ot 278.00 09/11/2014 MLIY HERNANDEZ FACC, ROSANNA FACP CCDS Ot 401.9 09/11/2014 MILY HERNANDEZ FACC, ROSANNA FACP CCDS Ot 786.50 09/11/2014 MILY HERNANDEZ FACC, ROSANNA FACP CCDS Ot V85.31 09/11/2014 [facility] [...] 401.9 09/19/2014 Ot V58.69 09/19/2014 CALISTA PHAM Ot 272.4 09/19/2014 BAIMA, CALISTA L [employer] Ot 401.9 09/19/2014 TOAN HERNANDEZ, KATERIN R [...] 09/19/2014 GERRY MENDOZA MD Ot V85.32 09/19/2014 ANKIT, CALISTA L [employer]PER[employer] Ot 272.4 09/19/2014 SAMMA, ACLISTA L [employer]PER[employer] Ot 401.9 09/19/2014 BAIMA, CALISTA L [employer] Ot V58.69 09/19/2014 TAWNY WILLIAMSON DO Ot V76.12 09/19/2014 BAIMA, CALISTA L [employer] Ot 272.4 09/19/2014 BAIMA, CALISTA L [employer] Ot 278.00 09/19/2014 BAIMA, CALISTA L [employer] Ot 401.9 09/19/2014 BAIMA, CALISTA L [employer] Ot 454.9 09/19/2014 BAIMA, CALISTA L [employer] Ot 786.50 09/19/2014 ROSANNA MINOR MD, FACC, FACP CCDS Ot 272.4 09/19/2014 MILY HERNANDEZ FACC, ALI FACP CCDS Ot 276.1 09/19/2014 MILY HERNANDEZ FACC, ALI FACP CCDS Ot 278.00 09/19/2014 MILY HERNANDEZ FACC, ALI FACP CCDS Ot 401.9 09/19/2014 MILY MD FACC, ALI FACP CCDS Ot 454.9 09/19/2014 MILY MD FACC, ALI FACP CCDS Ot 786.50 09/19/2014 MILY MD FACC, ALI FACP CCDS Ot 272.4 09/19/2014 MILY MD FACC, ALI FACP CCDS Ot 272.4 09/19/2014 MILY MD FACC, ALI FACP CCDS Ot 278.00 09/19/2014 MILY HERNANDEZ FACC, ALI FACP CCDS Ot 401.9 09/19/2014 MILY MD FACC, ALI FACP CCDS [...] Low Ot 592.0 10/17/2014 SHASTA HERNANDEZ, GISSEL Low Ot V72.84 10/19/2014 SHASTA HERNANDEZ, GISSEL A Ot 592.9 11/12/2014 TAWNY WILLIAMSON DO Ot V76.12 12/14/2014 REJI HERNANDEZ, GERRY Jauregui Ot 721.3 LUMBOSACRAL SPONDYLOSIS 12/14/2014 REJI HERNANDEZ, GERRY Jauregui Ot 722.52 LUMB/LUMBOSAC DISC DEGEN 12/14/2014 REJI HERNANDEZ, GERRY Jauregui Ot V58.69 OT MED,LT,CURRENT USE 12/20/2014 HOANG HERNANDEZ, ROHAN Gutiérrez [...] Gutiérrez Ot V57.1 01/15/2015 SHASTA HERNANDEZ, GISSEL A Ot 592.9 URINARY CALCULUS NOS 01/17/2015 CALISTA PHAM [employer] Ot 272.4 01/17/2015 CALISTA PHAM [employer] Ot 272.4 01/17/2015 CALISTA PHAM L [employer] Ot 272.4 01/21/2015 CALISTA PHAM [employer] Ot 272.4 01/29/2015 HOANG HERNANDEZ, ROHAN Gutiérrez Ot 719.46 JOINT PAIN-L/LEG 01/29/2015 HOANG HERNANDEZ, ROHAN G Ot V57.1 PHYSICAL THERAPY NEC 02/06/2015 CALISTA PHAM [employer] Ot 272.4 08/22/2015 ZINA MICHELLE DO Ot E78.5 08/22/2015 ZINA MICHELLE DO Ot E87.1 08/22/2015 ZINA MICHELLE DO Ot I10 08/22/2015 ZINA MICHELLE DO Ot R00.2 10/18/2015 SHASTA HERNANDEZ, GISSEL Low Ot 592.9 10/18/2015 CALISTA PHAMP Ot 272.4 10/18/2015 ZINA MICHELLE DO Ot [...] 10/18/2015 Ot 401.9 10/18/2015 Ot V58.69 10/18/2015 BAIMA, CALISTA L [employer] Ot 272.4 10/18/2015 BAIMA, CALISTA L [employer] Ot 401.9 10/18/2015 TOAN HERNANDEZ, KATERIN R Ot 722.10 10/18/2015 REJI HERNANDEZ, GERRY Jauregui Ot 278.00 10/18/2015 REJI HERNANDEZ, GERRY Jauregui Ot 401.9 10/18/2015 GERRY MENDOZA MD Ot [...] MD Ot V85.32 10/18/2015 BAIMA, CALISTA L [employer] Ot 272.4 10/18/2015 BAIMA, CALISTA L [employer] Ot 401.9 10/18/2015 BAIMA, CALISTA L [employer] Ot V58.69 10/18/2015 TAWNY WILLIAMSON DO Ot V76.12 10/18/2015 BAIMA, CALISTA L [employer] Ot 272.4 10/18/2015 BAIMA, CALISTA L [employer] Ot 278.00 10/18/2015 BAIMA, CALISTA L [employer] Ot 401.9 10/18/2015 BAIMA, CALISTA L [employer] Ot 454.9 10/18/2015 BAIMA, CALISTA L [employer] Ot 786.50 10/18/2015 MILY HERNANDEZ [facility], ALI FACP CCDS Ot 272.4 10/18/2015 MILY HERNANDEZ [facility], ALI FACP CCDS Ot 276.1 10/18/2015 MILY MD [facility], ALI FACP CCDS Ot 278.00 10/18/2015 MILY MD [facility], ALI FACP CCDS Ot 401.9 10/18/2015 [facility], ALI FACP CCDS Ot 454.9 10/18/2015 [facility], ALI FACP CCDS Ot 786.50 10/18/2015 MILY MD [facility], ALI FACP CCDS Ot 272.4 10/18/2015 [facility], ALI FACP CCDS Ot 272.4 10/18/2015 MILY MD [facility], ALI FACP CCDS Ot 278.00 10/18/2015 [facility], ALI FACP CCDS Ot 401.9 10/18/2015 [facility], ALI FACP CCDS Ot 786.50 10/18/2015 [facility], ALI FACP CCDS Ot V85.31 10/18/2015 SHASTA HERNANDEZ, GISSEL Low Ot 592.0 10/18/2015 SHASTA HERNANDEZ, GISSEL A Ot V72.84 10/22/2015 SHASTA HERNANDEZ, GISSEL A Ot 592.9 10/22/2015 CALISTA PHAM [employer] Ot 272.4 10/22/2015 ZINA MICHELLE DO Ot [...] APRN Ot M25.562 11/27/2015 SHASTA HERNANDEZ, GISSEL Maranda Ot 592.9 11/27/2015 CALISTA PHAM [employer] Ot 272.4 11/27/2015 ZINA MICHELLE DO Ot E78.5 11/27/2015 ZINA MICHELLE DO Ot E87.1 11/27/2015 ZINA MICHELLE DO Ot I10 11/27/2015 ZINA MICHELLE DO Ot R00.2 11/27/2015 CATHY HUBBARD NURSE SPECIAL Ot M25.562 11/27/2015 [place] GIBLERT LOPEZ Ot Z01.818 12/16/2015 SHASTA HERNANDEZ, GISSEL Low Ot 592.9 URINARY CALCULUS NOS 12/16/2015 CALISTA PHAM [employer] Ot 272.4 HYPERLIPIDEMIA NEC/NOS 12/16/2015 ZINA MICHELLE DO Ot E78.5 HYPERLIPIDEMIA, UNSPECIFIED 12/16/2015 ZINA MICHELLE DO Ot E87.1 HYPO-OSMOLALITY AND HYPONATREMIA 12/16/2015 ZINA MICHELLE DO Ot I10 ESSENTIAL (PRIMARY) HYPERTENSION 12/16/2015 ZINA MICHELLE DO Ot R00.2 PALPITATIONS 12/16/2015 ACTHY HUBBARD NURSE SPECIAL Ot M25.562 PAIN IN LEFT KNEE 12/16/2015 BENDREGILBERT ARREAGA DO Ot Z01.818 ENCOUNTER FOR OTHER PREPROCEDURAL EXAMIN 12/16/2015 RBUEN DE JESUS NURSE SPECIAL Ot M17.12 UNILATERAL PRIMARY OSTEOARTHRITIS, LEFT 12/16/2015 RUBEN DE JESUS NURSE SPECIAL Ot M23.8X2 OTHER INTERNAL DERANGEMENTS OF LEFT KNEE 12/17/2015 CALISTA PHAM [employer] Ot I10 ESSENTIAL (PRIMARY) HYPERTENSION 01/01/2016 NEAL RUBEN E NURSE SPECIAL Ot M17.12 UNILATERAL PRIMARY OSTEOARTHRITIS, LEFT 01/01/2016 RUBEN DE JESUS NURSE SPECIAL Ot M23.8X2 OTHER INTERNAL DERANGEMENTS OF LEFT KNEE 01/01/2016 CALISTA PHAM [employer] Ot I10 ESSENTIAL (PRIMARY) HYPERTENSION 01/10/2016 NEAL RUBEN E NURSE SPECIAL Ot M17.12 UNILATERAL PRIMARY OSTEOARTHRITIS, LEFT 01/10/2016 RUBEN DE JESUS NURSE SPECIAL Ot M23.8X2 OTHER INTERNAL DERANGEMENTS OF LEFT KNEE 01/30/2016 SHASTA HERNANDEZ, GISSEL Low Ot 592.9 URINARY CALCULUS NOS 01/30/2016 HOLSTEIN PACO Rodríguez Ot M79.662 PAIN IN LEFT LOWER LEG 01/30/2016 ANA LILIA DO PACO Rodríguez Ot Z01.818 ENCOUNTER FOR OTHER PREPROCEDURAL EXAMIN 01/30/2016 ANA LILIA PACO Rodríguez Ot Z22.322 CARRIER 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 METHICIL 01/30/2016 CATHY HUBBARD NURSE SPECIAL Ot M25.562 PAIN IN LEFT KNEE 01/30/2016 CALISTA PHAM [employer] Ot I10 ESSENTIAL (PRIMARY) HYPERTENSION 01/31/2016 [facility] PACO Rodríguez Ot M79.662 PAIN IN LEFT LOWER LEG 01/31/2016 ANA LILIA PACO Rodríguez Ot Z01.818 ENCOUNTER FOR OTHER PREPROCEDURAL EXAMIN 01/31/2016 ANA LILIA PACO Rodríguez Ot Z22.322 CARRIER 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 CARRIER OF METHICIL 02/05/2016 [facility] PACO Rodríguez Ot M79.662 PAIN IN LEFT LOWER LEG 02/05/2016 [facility] PACO Rodríguez Ot Z01.818 ENCOUNTER FOR OTHER PREPROCEDURAL EXAMIN 02/05/2016 ANA LILIA PACO Rodríguez Ot Z22.322 CARRIER 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 CARRIER OF METHICIL 02/11/2016 SHASTA HERNANDEZ, GISSEL Low Ot 592.9 URINARY CALCULUS NOS 02/11/2016 CALISTA PHAM [employer] Ot 272.4 HYPERLIPIDEMIA NEC/NOS 02/11/2016 ZINA MICHELLE DO Ot E78.5 HYPERLIPIDEMIA, UNSPECIFIED 02/11/2016 ZINA MICHELLE DO Ot E87.1 HYPO-OSMOLALITY AND HYPONATREMIA 02/11/2016 ZINA MICHELLE DO Ot I10 ESSENTIAL (PRIMARY) HYPERTENSION 02/11/2016 ZINA MICHELLE DO Ot R00.2 PALPITATIONS 02/11/2016 CATHY HUBBARD NURSE SPECIAL Ot M25.562 PAIN IN LEFT KNEE 02/11/2016 GILBERT BENDER DO Ot Z01.818 ENCOUNTER FOR OTHER PREPROCEDURAL EXAMIN 02/11/2016 CALISTA PHAM [employer] Ot I10 ESSENTIAL (PRIMARY) HYPERTENSION 02/11/2016 GISSEL VEGAS MD Ot 592.9 URINARY CALCULUS NOS 02/11/2016 ANA LILIA DO, PACO Marcos Ot 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, LEFT KNEE 02/11/2016 ANA [...] OTHER SPECIFIED FACTORS, INI 02/14/2016 ANA LILIA , PACO Rodríguez Ot Y99.8 OTHER EXTERNAL CAUSE STATUS 02/18/2016 CATHY HUBBARD APRN Ot M25.562 PAIN IN LEFT KNEE 02/18/2016 CALISTA PHAM [employer] Ot I10 ESSENTIAL (PRIMARY) HYPERTENSION 02/18/2016 CALISTA PHAM [employer] Ot I10 ESSENTIAL (PRIMARY) HYPERTENSION 04/08/2016 NEAL, RUBEN E NURSE SPECIAL Ot M17.12 UNILATERAL PRIMARY OSTEOARTHRITIS, LEFT 04/08/2016 NEAL, RUBEN E NURSE SPECIAL Ot Z98.89 OTHER SPECIFIED POSTPROCEDURAL STATES 04/08/2016 NEAL, RUBEN E NURSE SPECIAL Ot M17.12 UNILATERAL PRIMARY OSTEOARTHRITIS, LEFT 04/08/2016 NEAL, RUBEN E NURSE SPECIAL Ot Z98.89 OTHER SPECIFIED POSTPROCEDURAL STATES 04/21/2016 [...] OTHER SPECIFIED FACTORS, INI 06/05/2016 CATHY HUBBARD NURSE SPECIAL Ot Y99.8 OTHER EXTERNAL CAUSE STATUS 06/17/2016 CATHY HUBBARD NURSE SPECIAL Ot M75.81 OTHER SHOULDER LESIONS, RIGHT SHOULDER 06/17/2016 CATHY HUBBARD NURSE SPECIAL Ot S46.811A STRAIN OF MUSC/FASC/TEND AT SHLDR/UP ARM 06/17/2016 CATHY HUBBARD NURSE SPECIAL Ot X58.XXXA EXPOSURE TO OTHER SPECIFIED FACTORS, INI 06/17/2016 CATHY HUBBARD NURSE SPECIAL Ot Y99.8 OTHER EXTERNAL CAUSE STATUS 07/03/2016 BAIMA, CALISTA L [employer] Ot E78.5 HYPERLIPIDEMIA, UNSPECIFIED 07/03/2016 BAIMA, CALISTA L [employer] Ot I10 ESSENTIAL (PRIMARY) HYPERTENSION 07/03/2016 BAIMA, CALISTA L [employer] Ot R06.09 OTHER FORMS OF DYSPNEA 07/03/2016 BAIMA, CALISTA L [employer] Ot R07.9 CHEST PAIN, UNSPECIFIED 07/08/2016 BAIMA, CALISTA L [employer]PER[employer] Ot E78.5 HYPERLIPIDEMIA, UNSPECIFIED 07/08/2016 BAIMA, CALISTA L SUPER[employer] Ot I10 ESSENTIAL (PRIMARY) HYPERTENSION 07/08/2016 BAIMA, CALISTA L SUPER[employer] Ot E78.5 HYPERLIPIDEMIA, UNSPECIFIED 07/08/2016 BAIMA, CALISTA L SUPER[employer] Ot I10 ESSENTIAL (PRIMARY) HYPERTENSION 07/15/2016 BAIMA, CALISTA L SUPER[employer] Ot E78.5 HYPERLIPIDEMIA, UNSPECIFIED 07/15/2016 BAIMA, CALISTA L SUPER[employer] Ot I10 ESSENTIAL (PRIMARY) HYPERTENSION 07/15/2016 BAIMA, CALISTA L SUPER[employer] Ot R06.09 OTHER FORMS OF DYSPNEA 07/15/2016 BAIMA, CALISTA L SUPER[employer] Ot R07.9 CHEST PAIN, UNSPECIFIED 07/15/2016 BAIMA, CALISTA L SUPER[employer] Ot E78.5 HYPERLIPIDEMIA, UNSPECIFIED 07/15/2016 BAIMA, CALISTA L SUPER[employer] Ot I10 ESSENTIAL (PRIMARY) HYPERTENSION 07/29/2016 PACO SUNG DO Ot M75.101 UNSP ROTATR-CUFF TEAR/RUPTR OF RIGHT HELADIO 08/19/2016 PACO SUNG DO Ot M75.101 UNSP ROTATR-CUFF TEAR/RUPTR OF RIGHT HELADIO 08/20/2016 GISSEL VEGAS MD Ot 592.9 URINARY CALCULUS NOS 08/20/2016 [employer]A [employer] Ot 272.4 HYPERLIPIDEMIA NEC/NOS 08/20/2016 ZINA MICHELLE DO Ot E78.5 HYPERLIPIDEMIA, UNSPECIFIED 08/20/2016 ZINA MICHELLE DO Ot E87.1 HYPO-OSMOLALITY AND HYPONATREMIA 08/20/2016 ZINA MICHELLE DO Ot I10 ESSENTIAL (PRIMARY) HYPERTENSION 08/20/2016 ZINA MICHELLE DO Ot R00.2 PALPITATIONS 08/20/2016 STEVIE CATHY Dominick ODONNELL Ot M25.562 PAIN IN LEFT KNEE 08/20/2016 GILBERT BENDER DO Ot Z01.818 ENCOUNTER FOR OTHER PREPROCEDURAL EXAMIN 08/20/2016 CALISTA PHAM [employer] Ot I10 ESSENTIAL (PRIMARY) HYPERTENSION 08/26/2016 MILY MORROW, ALI FACP CCDS Ot E78.4 OTHER HYPERLIPIDEMIA 08/26/2016 MILY HERNANDEZ [facility], ALI FACP CCDS Ot I10 ESSENTIAL (PRIMARY) HYPERTENSION 08/26/2016 MILY MORROW, ALI FACP CCDS Ot I73.9 PERIPHERAL VASCULAR DISEASE, UNSPECIFIED 08/26/2016 MILY HERNANDEZ FACC, ALI FACP CCDS Ot M79.1 MYALGIA 08/26/2016 MILY MORROW, ALI FACP CCDS Ot E78.4 OTHER HYPERLIPIDEMIA 08/26/2016 MILY MORROW, ALI FACP CCDS Ot I10 ESSENTIAL (PRIMARY) HYPERTENSION 08/26/2016 MILY MORROW, ALI FACP CCDS Ot I73.9 PERIPHERAL VASCULAR DISEASE, UNSPECIFIED 08/26/2016 MILY MORROW, ALI FACP CCDS Ot M79.1 MYALGIA 08/31/2016 PACO SUNG DO Ot M75.101 UNSP ROTATR-CUFF TEAR/RUPTR OF RIGHT HELADIO 10/02/2016 GISSEL VEGAS MD Ot 592.9 URINARY CALCULUS NOS 10/02/2016 CALISTA PHAM [employer] Ot 272.4 HYPERLIPIDEMIA NEC/NOS 10/02/2016 ZINA MICHELLE DO Ot E78.5 HYPERLIPIDEMIA, UNSPECIFIED 10/02/2016 ZINA MICHELLE DO Ot E87.1 HYPO-OSMOLALITY AND HYPONATREMIA 10/02/2016 ZINA MICHELLE DO Ot I10 ESSENTIAL (PRIMARY) HYPERTENSION 10/02/2016 ZINA MICHELLE DO Ot R00.2 PALPITATIONS 10/02/2016 CATHY HUBBARD APRN Ot M25.562 PAIN IN LEFT KNEE 10/02/2016 [place] DOGILBERT Ot Z01.818 ENCOUNTER FOR OTHER PREPROCEDURAL EXAMIN 10/02/2016 CALISTA PHAM L [employer] Ot I10 ESSENTIAL (PRIMARY) HYPERTENSION 10/02/2016 MILY MORROWC, ALI FACP CCDS Ot E78.4 OTHER HYPERLIPIDEMIA 10/02/2016 MILY MORROWC, ALI FACP CCDS Ot I10 ESSENTIAL (PRIMARY) HYPERTENSION 10/02/2016 MILY HERNANDEZ FACC, ALI FACP CCDS Ot I73.9 PERIPHERAL VASCULAR DISEASE, UNSPECIFIED 10/02/2016 MILY HERNANDEZ FACC, ALI FACP CCDS Ot M79.1 MYALGIA 10/02/2016 SHASTA HERNANDEZ, GISSEL Low Ot 592.9 URINARY CALCULUS NOS 10/02/2016 [employer]A [employer] Ot 272.4 HYPERLIPIDEMIA NEC/NOS 10/02/2016 ZINA MICHELLE DO Ot E78.5 HYPERLIPIDEMIA, UNSPECIFIED 10/02/2016 ZINA MICHELLE DO Ot E87.1 HYPO-OSMOLALITY AND HYPONATREMIA 10/02/2016 ZINA MICHELLE DO Ot I10 ESSENTIAL (PRIMARY) HYPERTENSION 10/02/2016 ZINA MICHELLE DO Ot R00.2 PALPITATIONS 10/02/2016 CATHY HUBBARD APRN Ot M25.562 PAIN IN LEFT KNEE 10/02/2016 [place] GILBERT LOPEZ Ot Z01.818 ENCOUNTER FOR OTHER PREPROCEDURAL EXAMIN 10/02/2016 CALISTA PHAM L [employer] Ot I10 ESSENTIAL (PRIMARY) HYPERTENSION 10/02/2016 MILY HERNANDEZ FACC, ALI FACP CCDS Ot E78.4 OTHER HYPERLIPIDEMIA 10/02/2016 MILY HERNANDEZ FACC, ALI FACP CCDS Ot I10 ESSENTIAL (PRIMARY) HYPERTENSION 10/02/2016 MILY HERNANDEZ FACC, ALI FACP CCDS Ot I73.9 PERIPHERAL VASCULAR DISEASE, UNSPECIFIED 10/02/2016 MILY HERNANDEZ FACC, ALI FACP CCDS Ot M79.1 MYALGIA 10/07/2016 SHASTA HERNANDEZ, GISSEL A Ot 592.9 URINARY CALCULUS NOS 10/07/2016 [employer]ISTA [employer] Ot 272.4 HYPERLIPIDEMIA NEC/NOS 10/07/2016 ZINA MICHELLE DO Ot E78.5 HYPERLIPIDEMIA, UNSPECIFIED 10/07/2016 ZINA MICHELLE DO Ot E87.1 HYPO-OSMOLALITY AND HYPONATREMIA 10/07/2016 ZINA MICHELLE DO Ot I10 ESSENTIAL (PRIMARY) HYPERTENSION 10/07/2016 ZINA MICHELLE DO Ot R00.2 PALPITATIONS 10/07/2016 CATHY HUBBARD APRN Ot M25.562 PAIN IN LEFT KNEE 10/07/2016 GILBERT BENDER DO Ot Z01.818 ENCOUNTER FOR OTHER PREPROCEDURAL EXAMIN 10/07/2016 [employer]ISTA PH[employer] Ot I10 ESSENTIAL (PRIMARY) HYPERTENSION 10/07/2016 [facility]ILY [facility] CCDS Ot E78.4 OTHER HYPERLIPIDEMIA 10/07/2016 MILY HERNANDEZ [facility], ALI FACP CCDS Ot I10 ESSENTIAL (PRIMARY) HYPERTENSION 10/07/2016 MILY HERNANDEZ [facility], ALI FACP CCDS Ot I73.9 PERIPHERAL VASCULAR DISEASE, UNSPECIFIED 10/07/2016 MILY HERNANDEZ [facility], ALI FACP CCDS Ot M79.1 MYALGIA 10/09/2016 GISSEL VEGAS MD A Ot 592.9 URINARY CALCULUS NOS 10/09/2016 [employer]ISTA [employer] Ot 272.4 HYPERLIPIDEMIA NEC/NOS 10/09/2016 ZINA MICHELLE DO Ot E78.5 HYPERLIPIDEMIA, UNSPECIFIED 10/09/2016 ZINA MICEHLLE DO Ot E87.1 HYPO-OSMOLALITY AND HYPONATREMIA 10/09/2016 ZINA MICHELLE DO M Ot I10 ESSENTIAL (PRIMARY) HYPERTENSION 10/09/2016 ZINA MICHELLE DO Ot R00.2 PALPITATIONS 10/09/2016 CATHY HUBBARD NURSE SPECIAL Ot M25.562 PAIN IN LEFT KNEE 10/09/2016 GILBERT BENDER DO Ot Z01.818 ENCOUNTER FOR OTHER PREPROCEDURAL EXAMIN 10/09/2016 CALISTA PHAM [employer] Ot I10 ESSENTIAL (PRIMARY) HYPERTENSION 10/09/2016 MILY HERNANDEZ FACC, ROSANNA FACP CCDS Ot E78.4 OTHER HYPERLIPIDEMIA 10/09/2016 MILY HERNANDEZ FACC, ROSANNA FACP CCDS Ot I10 ESSENTIAL (PRIMARY) HYPERTENSION 10/09/2016 MILY HERNANDEZ FACC, ROSANNA FACP CCDS Ot I73.9 PERIPHERAL VASCULAR DISEASE, UNSPECIFIED 10/09/2016 MILY HERNANDEZ FACC, ROSANNA FACP CCDS Ot M79.1 MYALGIA 10/09/2016 GISSEL VEGAS MD Ot 592.9 URINARY CALCULUS NOS 10/09/2016 SHANE ARORA NURSE SPECIAL Ot I10 ESSENTIAL (PRIMARY) HYPERTENSION 10/09/2016 SHANE ARORA NURSE SPECIAL Ot L50.9 URTICARIA, UNSPECIFIED 10/09/2016 SHANE ARORA NURSE SPECIAL Ot R21 RASH AND OTHER NONSPECIFIC SKIN ERUPTION 10/09/2016 SHANE ARORA NURSE SPECIAL Ot Z79.899 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 10/09/2016 GISSEL VEGAS MD Ot 592.9 URINARY CALCULUS NOS 10/09/2016 [employer]ISTA [employer] Ot 272.4 HYPERLIPIDEMIA NEC/NOS 10/09/2016 ZINA MICHELLE DO Ot E78.5 HYPERLIPIDEMIA, UNSPECIFIED 10/09/2016 ZINA MICHELLE DO Ot E87.1 HYPO-OSMOLALITY AND HYPONATREMIA 10/09/2016 ZINA MICHELLE DO Ot I10 ESSENTIAL (PRIMARY) HYPERTENSION 10/09/2016 ZINA MICHELLE DO Ot R00.2 PALPITATIONS 10/09/2016 CATHY HUBBARD NURSE SPECIAL Ot M25.562 PAIN IN LEFT KNEE 10/09/2016 GILBERT BENDER DO Ot Z01.818 ENCOUNTER FOR OTHER PREPROCEDURAL EXAMIN 10/09/2016 [employer]ISTA [employer] Ot I10 ESSENTIAL (PRIMARY) HYPERTENSION 10/09/2016 MILY HERNANDEZ FACC, ROSANNA FACP CCDS Ot E78.4 OTHER HYPERLIPIDEMIA 10/09/2016 MILY HERNANDEZ FACC, ROSANNA FACP CCDS Ot I10 ESSENTIAL (PRIMARY) HYPERTENSION 10/09/2016 MILY HERNANDEZ FACC, ROSANNA FACP CCDS Ot I73.9 PERIPHERAL VASCULAR DISEASE, UNSPECIFIED 10/09/2016 MILY HERNNADEZ FACC, ROSANNA FACP CCDS Ot M79.1 MYALGIA 10/09/2016 Ot 272.4 HYPERLIPIDEMIA NEC/NOS 10/09/2016 Ot 401.9 HYPERTENSION NOS 10/09/2016 Ot V58.69 OTH MED,LT,CURRENT USE 10/09/2016 Ot 272.4 HYPERLIPIDEMIA NEC/NOS 10/09/2016 Ot 401.9 HYPERTENSION NOS 10/09/2016 Ot V58.69 OTH MED,LT,CURRENT USE 10/09/2016 Ot 785.6 ENLARGEMENT LYMPH NODES 10/09/2016 Ot 786.59 CHEST PAIN NEC 10/09/2016 Ot 272.4 HYPERLIPIDEMIA NEC/NOS 10/09/2016 Ot 401.9 HYPERTENSION NOS 10/09/2016 Ot V58.69 OTH MED,LT,CURRENT USE 10/09/2016 BAIMA CALISTA L [employer] Ot 272.4 HYPERLIPIDEMIA NEC/NOS 10/09/2016 BAIMA, CALISTA L [employer] Ot 401.9 HYPERTENSION NOS 10/09/2016 TOAN HERNANDEZ, [...] INDEX 32.0-32.9, ADULT 10/09/2016 BAIMA, CALISTA L [employer] Ot 272.4 HYPERLIPIDEMIA NEC/NOS 10/09/2016 BAIMA, CALISTA L [employer] Ot 401.9 HYPERTENSION NOS 10/09/2016 BAIMA, [employer]ISTA L [employer] Ot V58.69 OTH MED,LT,CURRENT USE 10/09/2016 TAWNY WILLIAMSON DO Ot V76.12 OTH SCREEN MAMMO-MALIGN NEOPLASM OF AMMY 10/09/2016 BAIMA, [employer] Ot 272.4 HYPERLIPIDEMIA NEC/NOS 10/09/2016 BAIMA, [employer] Ot 278.00 OBESITY, NOS 10/09/2016 BAIMA, [employer] Ot 401.9 HYPERTENSION NOS 10/09/2016 BAIMA, [employer] Ot 454.9 ASYMPTOMATIC VARICOSE VEINS 10/09/2016 BAIMA, [employer] Ot 786.50 CHEST PAIN NOS 10/09/2016 MILY [...] HERNANDEZ FACC, ALI FACP CCDS Ot V85.31 BODY MASS INDEX 31.0-31.9, ADULT 10/09/2016 GISSEL VEGAS MD Ot 592.0 CALCULUS OF KIDNEY 10/09/2016 GISSEL VEGAS MD Ot V72.84 EXAM PRE-OPERATIVE NOS 10/09/2016 CATHY HUBBARD NURSE SPECIAL Ot M25.562 PAIN IN LEFT KNEE 10/09/2016 GILBERT BENDER DO Ot Z01.818 ENCOUNTER FOR OTHER PREPROCEDURAL EXAMIN 10/09/2016 CALISTA PHAM [employer] Ot I10 ESSENTIAL (PRIMARY) HYPERTENSION 10/12/2016 SHANE ARORA NURSE SPECIAL Ot I10 ESSENTIAL (PRIMARY) HYPERTENSION 10/12/2016 SHANE ARORA NURSE SPECIAL Ot L50.9 URTICARIA, UNSPECIFIED 10/12/2016 SHANE ARORA NURSE SPECIAL Ot R21 RASH AND OTHER NONSPECIFIC SKIN ERUPTION 10/12/2016 SHANE ARORA NURSE SPECIAL Ot Z79.899 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 10/14/2016 SHANE ARORA NURSE SPECIAL Ot I10 ESSENTIAL (PRIMARY) HYPERTENSION 10/14/2016 SHANE ARORA NURSE SPECIAL Ot L50.9 URTICARIA, UNSPECIFIED 10/14/2016 SHANE ARORA NURSE SPECIAL Ot R21 RASH AND OTHER NONSPECIFIC SKIN ERUPTION 10/14/2016 SHANE ARORA NURSE SPECIAL Ot Z79.899 OTHER JAIL (CURRENT) DRUG THERAPY 10/27/2016 MILY HERNANDEZ FACC, ROSANNA FACP CCDS Ot E78.4 OTHER HYPERLIPIDEMIA 10/27/2016 MILY HERNANDEZ FACC, ROSANNA FACP CCDS Ot I10 ESSENTIAL (PRIMARY) HYPERTENSION 10/27/2016 MILY HERNANDEZ FACC, ROSANNA FACP CCDS Ot I73.9 PERIPHERAL VASCULAR DISEASE, UNSPECIFIED 10/27/2016 MILY HERNANDEZ FACC, ALI FACP CCDS Ot M79.1 MYALGIA 10/27/2016 SHANE ARORA NURSE SPECIAL Ot I10 ESSENTIAL (PRIMARY) HYPERTENSION 10/27/2016 SHANE ARORA NURSE SPECIAL Ot L50.9 URTICARIA, UNSPECIFIED 10/27/2016 SHANE ARORA NURSE SPECIAL Ot R21 RASH AND OTHER NONSPECIFIC SKIN ERUPTION 10/27/2016 SHANE ARORA NURSE SPECIAL Ot Z79.899 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 11/06/2016 MILY HERNANDEZ FACC, ALI FACP CCDS Ot E78.4 OTHER HYPERLIPIDEMIA 11/06/2016 MILY HERNANDEZ FACC, ALI FACP CCDS Ot I10 ESSENTIAL (PRIMARY) HYPERTENSION 11/06/2016 MILY HERNANDEZ FACC, ALI FACP CCDS Ot I73.9 PERIPHERAL VASCULAR DISEASE, UNSPECIFIED 11/06/2016 MILY HERNANDEZ FACC, ALI FACP CCDS Ot M79.1 MYALGIA 11/06/2016 CATHY HUBBARD NURSE SPECIAL Ot M75.81 OTHER SHOULDER LESIONS, RIGHT SHOULDER 11/06/2016 CATHY HUBBARD NURSE SPECIAL Ot S46.811A STRAIN OF MUSC/FASC/TEND AT SHLDR/UP ARM 11/06/2016 CATHY HUBBARD NURSE SPECIAL Ot X58.XXXA EXPOSURE TO OTHER SPECIFIED FACTORS, INI 11/06/2016 CATHY HUBBARD NURSE SPECIAL Ot Y99.8 OTHER EXTERNAL CAUSE STATUS 11/06/2016 BAIMA, CALISTA L [employer] Ot E78.5 HYPERLIPIDEMIA, UNSPECIFIED 11/06/2016 BAIMA, [employer]IST[employer] L [employer] Ot I10 ESSENTIAL (PRIMARY) HYPERTENSION 11/06/2016 BAIMA, [employer]IST[employer] L [employer] Ot R06.09 OTHER FORMS OF DYSPNEA 11/06/2016 BAIMA, [employer] Ot R07.9 CHEST PAIN, UNSPECIFIED 11/06/2016 BAIMA, [employer]IST[employer] L [employer] Ot E78.5 HYPERLIPIDEMIA, UNSPECIFIED 11/06/2016 BAIMA, [employer]ISTA L [employer] Ot I10 ESSENTIAL (PRIMARY) HYPERTENSION 11/06/2016 MILY [...] ESSENTIAL (PRIMARY) HYPERTENSION 12/02/2016 MILY HERNANDEZ FACC, ALI FACP CCDS Ot I73.9 PERIPHERAL VASCULAR DISEASE, UNSPECIFIED 12/02/2016 MILY HERNANDEZ FACC, ALI FACP CCDS Ot M79.1 MYALGIA 04/07/2017 CATHY HUBBARD NURSE SPECIAL Ot M75.81 OTHER SHOULDER LESIONS, RIGHT SHOULDER 04/07/2017 CATHY HUBBARD NURSE SPECIAL Ot S46.811A STRAIN OF MUSC/FASC/TEND AT SHLDR/UP ARM 04/07/2017 CATHY HUBBARD NURSE SPECIAL Ot X58.XXXA EXPOSURE TO OTHER SPECIFIED FACTORS, INI 04/07/2017 CATHY HUBBARD NURSE SPECIAL Ot Y99.8 OTHER EXTERNAL CAUSE STATUS 04/07/2017 BAIMA, CALISTA L SUPERVISOR [employer] DIV[employer] Ot E78.5 HYPERLIPIDEMIA, UNSPECIFIED 04/07/2017 BAIMA, CALISTA L SUPERVISOR [employer] Ot I10 ESSENTIAL (PRIMARY) HYPERTENSION 04/07/2017 BAIMA, CALISTA L SUPERVISOR [employer] Ot R06.09 OTHER FORMS OF DYSPNEA 04/07/2017 BAIMA, CALISTA L SUPERVISOR [employer] Ot R07.9 CHEST PAIN, UNSPECIFIED 04/07/2017 BAIMA, CALISTA L SUPERVISOR [employer] Ot E78.5 HYPERLIPIDEMIA, UNSPECIFIED 04/07/2017 BAIMA, CALISTA L SUPERVISOR [employer] DIV[employer] Ot I10 ESSENTIAL (PRIMARY) HYPERTENSION 04/07/2017 MILY HERNANDEZ FACC, ALI FACP CCDS Ot E78.4 OTHER HYPERLIPIDEMIA 04/07/2017 MILY HERNANDEZ FACC, ALI FACP CCDS Ot I10 ESSENTIAL (PRIMARY) HYPERTENSION 04/07/2017 MILY HERNANDEZ FACC, ALI FACP CCDS Ot I73.9 PERIPHERAL VASCULAR DISEASE, UNSPECIFIED 04/07/2017 MILY HERNANDEZ FACC, ALI FACP CCDS Ot M79.1 MYALGIA 05/05/2017 SENIA HERNANDEZ, HARMEET Junior Ot N63 UNSPECIFIED LUMP IN BREAST 06/14/2017 SENIA HERNANDEZ, HARMEET Junior Ot Z20.89 CONTACT W AND EXPOSURE TO OTH COMMUNICAB 06/22/2017 HARMEET CONN MD Ot Z20.89 CONTACT W AND EXPOSURE TO OTH COMMUNICAB 07/23/2017 CALISTA PHAM SUPERVISOR [employer] Ot E66.8 OTHER OBESITY 07/23/2017 BAICALISTA BACON L SUPERVISOR [employer] Ot E78.4 OTHER HYPERLIPIDEMIA 07/23/2017 BAICALISTA BACON L SUPERVISOR [employer] Ot I10 ESSENTIAL (PRIMARY) HYPERTENSION 07/23/2017 BAICALISTA BACON L SUPERVISOR [employer] Ot R00.2 PALPITATIONS 02/17/2018 BERNOT, LYNDSEY Ot F41.9 ANXIETY DISORDER, UNSPECIFIED 02/17/2018 BERNOT, LYNDSEY Ot I10 ESSENTIAL (PRIMARY) HYPERTENSION 02/17/2018 BERNOT, LYNDSEY Ot K21.9 GASTRO- ESOPHAGEAL REFLUX DISEASE WITHOUT 02/17/2018 BERNOT, LYNDSEY Ot M25.562 PAIN IN LEFT KNEE 02/17/2018 BERNOT, LYNDSEY Ot 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 [ERAZO] 02/17/2018 BERNOT, LYNDSEY Ot Z79.52 JAIL (CURRENT) USE OF SYSTEMIC STER 02/17/2018 BERNOT, LYNDSEY Ot Z88.8 ALLERGY STATUS TO OTH DRUG/MEDS/BIOL SUB 02/17/2018 BERNOT, LYNDSEY Ot Z90.710 ACQUIRED ABSENCE OF BOTH CERVIX AND UTER 02/17/2018 BERNOT, LYNDSEY Ot Z98.890 OTHER SPECIFIED POSTPROCEDURAL STATES 02/22/2018 BERNOLINDA LYNDSEY Ot F41.9 ANXIETY DISORDER, UNSPECIFIED 02/22/2018 BERNOT, LYNDSEY Ot I10 ESSENTIAL (PRIMARY) HYPERTENSION 02/22/2018 BERNOT, LYNDSEY Ot K21.9 GASTRO- ESOPHAGEAL REFLUX DISEASE WITHOUT 02/22/2018 BERNOT, LYNDSEY Ot M25.562 PAIN IN LEFT KNEE 02/22/2018 BERNOT, LYNDSEY Ot 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 [ERAZO] 02/22/2018 BERNOT, LYNDSEY Ot Z79.52 PREMIX CONCRETE BATCHER (CURRENT) USE OF SYSTEMIC STER 02/22/2018 BERNOT, LYNDSEY Ot Z88.8 ALLERGY STATUS TO OTH DRUG/MEDS/BIOL SUB 02/22/2018 BERNOT, LYNDSEY Ot Z90.710 ACQUIRED ABSENCE OF BOTH CERVIX AND UTER 02/22/2018 LYNDSEY REGALADO Ot Z98.890 OTHER SPECIFIED POSTPROCEDURAL STATES 04/05/2018 Ot I10 ESSENTIAL (PRIMARY) HYPERTENSION 04/05/2018 Ot M17.12 UNILATERAL PRIMARY OSTEOARTHRITIS, [...] HYPERCHOLESTEROLEMIA, UNSPECIFIED 04/14/2018 ANA LILIA DO, PACO Marcos Ot F41.9 ANXIETY DISORDER, UNSPECIFIED 04/14/2018 ANA LILIA DO, PACO Marcos Ot I10 ESSENTIAL (PRIMARY) HYPERTENSION 04/14/2018 ANA LILIA DO, PACO Rodríguez Ot K21.9 GASTRO-ESOPHAGEAL REFLUX DISEASE WITHOUT 04/14/2018 ANA LILIA DO, PACO Marcos Ot M17.12 UNILATERAL PRIMARY OSTEOARTHRITIS, LEFT 04/14/2018 ANA LILIA DO, PACO Marcos Ot R53.81 OTHER MALAISE 04/19/2018 Ot Z12.31 ENCNTR SCREEN MAMMOGRAM FOR MALIGNANT NE 04/29/2018 NAZARIO HERNANDEZ, OG Magallon Ot F41.9 ANXIETY DISORDER, UNSPECIFIED 04/29/2018 OG LANGE MD Ot I10 ESSENTIAL (PRIMARY) HYPERTENSION 04/29/2018 OG LANGE MD Ot K21.9 GASTRO-ESOPHAGEAL REFLUX DISEASE WITHOUT 04/29/2018 OG LANGE MD Ot K59.09 OTHER CONSTIPATION 04/29/2018 OG LANGE MD Ot M54.9 DORSALGIA, UNSPECIFIED 04/29/2018 OG LANGE MD Ot Z47.1 AFTERCARE FOLLOWING JOINT REPLACEMENT BROWN 04/29/2018 OG LANGE MD Ot Z96.652 PRESENCE OF LEFT ARTIFICIAL KNEE JOINT 05/19/2018 NEAL, RUBEN E NURSE SPECIAL Ot Z47.1 AFTERCARE FOLLOWING JOINT REPLACEMENT BROWN 05/19/2018 NEAL, RUBEN E NURSE SPECIAL Ot Z96.652 PRESENCE OF LEFT ARTIFICIAL KNEE JOINT 05/19/2018 NEAL, RUBEN E NURSE SPECIAL Ot Z47.1 AFTERCARE FOLLOWING JOINT REPLACEMENT BROWN 05/19/2018 NEAL, RUBEN E NURSE SPECIAL Ot Z96.652 PRESENCE OF LEFT ARTIFICIAL KNEE JOINT 05/20/2018 NEAL, RUBEN E NURSE SPECIAL Ot Z47.1 AFTERCARE FOLLOWING JOINT REPLACEMENT BROWN 05/20/2018 NEAL, RUBEN E NURSE SPECIAL Ot Z96.652 PRESENCE OF LEFT ARTIFICIAL KNEE JOINT 05/22/2018 NEAL, RUBEN E NURSE SPECIAL Ot Z47.1 AFTERCARE FOLLOWING JOINT REPLACEMENT BROWN 05/22/2018 NEAL, RUBEN E NURSE SPECIAL Ot Z96.652 PRESENCE OF LEFT ARTIFICIAL KNEE JOINT 05/23/2018 NEAL, RUBEN E NURSE SPECIAL Ot Z47.1 AFTERCARE FOLLOWING JOINT REPLACEMENT BROWN 05/23/2018 NEAL, RUBEN E NURSE SPECIAL Ot Z96.652 PRESENCE OF LEFT ARTIFICIAL KNEE JOINT 05/25/2018 NEAL, RUBEN E NURSE SPECIAL Ot Z47.1 AFTERCARE FOLLOWING JOINT REPLACEMENT BROWN 05/25/2018 NEAL, RUBEN E NURSE SPECIAL Ot Z96.652 PRESENCE OF LEFT ARTIFICIAL KNEE JOINT 05/28/2018 NEAL, RUBEN E NURSE SPECIAL Ot Z47.1 AFTERCARE FOLLOWING JOINT REPLACEMENT BROWN 05/28/2018 NEAL, RUBEN E NURSE SPECIAL Ot Z96.652 PRESENCE OF LEFT ARTIFICIAL KNEE JOINT 06/16/2018 NEAL, RUBEN E NURSE SPECIAL Ot Z47.1 AFTERCARE FOLLOWING JOINT REPLACEMENT BROWN 06/16/2018 NEAL, RUBEN E NURSE SPECIAL Ot Z96.652 PRESENCE OF LEFT ARTIFICIAL KNEE JOINT 06/29/2018 NEAL, RUBEN E NURSE SPECIAL Ot Z47.1 AFTERCARE FOLLOWING JOINT REPLACEMENT BROWN 06/29/2018 NEAL, RUBEN E NURSE SPECIAL Ot Z96.652 PRESENCE OF LEFT ARTIFICIAL KNEE JOINT 06/30/2018 NEAL, RUBEN E NURSE SPECIAL Ot Z47.1 AFTERCARE FOLLOWING JOINT REPLACEMENT BROWN 06/30/2018 NEAL, RUBEN E NURSE SPECIAL Ot Z96.652 PRESENCE OF LEFT ARTIFICIAL KNEE JOINT 07/06/2018 NEAL, RUBEN E NURSE SPECIAL Ot Z47.1 AFTERCARE FOLLOWING JOINT REPLACEMENT BROWN 07/06/2018 NEAL, RUBEN E NURSE SPECIAL Ot Z96.652 PRESENCE OF LEFT ARTIFICIAL KNEE JOINT 07/18/2018 NEAL, RUBEN E NURSE SPECIAL Ot Z47.1 AFTERCARE FOLLOWING JOINT REPLACEMENT BROWN 07/18/2018 NEAL, RUBEN E NURSE SPECIAL Ot Z96.652 PRESENCE OF LEFT ARTIFICIAL KNEE JOINT 07/22/2018 NEAL, RUBEN E NURSE SPECIAL Ot Z47.1 AFTERCARE FOLLOWING JOINT REPLACEMENT BROWN 07/22/2018 NEAL, RUBEN E NURSE SPECIAL Ot Z96.652 PRESENCE OF LEFT ARTIFICIAL KNEE JOINT 07/29/2018 Ot Z12.31 ENCNTR SCREEN MAMMOGRAM FOR MALIGNANT NE 08/10/2018 SENIA HERNANDEZ, HARMEET Junior Ot N63 UNSPECIFIED LUMP IN BREAST 12/25/2018 SHASTA HERNANDEZ, GISSEL Low Ot 592.9 URINARY CALCULUS NOS 12/25/2018 CHAUNCEY LOPEZ MD Ot E78.00 PURE HYPERCHOLESTEROLEMIA, UNSPECIFIED 12/25/2018 CHAUNCEY LOPEZ MD Ot F41.9 ANXIETY DISORDER, UNSPECIFIED 12/25/2018 CHAUNCEY LOPEZ MD, Ot G62.9 POLYNEUROPATHY, UNSPECIFIED 12/25/2018 CHAUNCEY LOPEZ MD, Ot I10 ESSENTIAL (PRIMARY) HYPERTENSION 12/25/2018 CHAUNCEY LOPEZ MD Ot J06.9 ACUTE UPPER RESPIRATORY INFECTION, UNSPE 12/25/2018 CHAUNCEY LOPEZ MD Ot K21.9 GASTRO-ESOPHAGEAL REFLUX DISEASE WITHOUT 12/25/2018 CHAUNCEY LOPEZ MD Ot N39.0 URINARY TRACT INFECTION, SITE NOT SPECIF 12/25/2018 CHAUNCEY LOPEZ MD Ot R42 DIZZINESS AND GIDDINESS 12/25/2018 CHAUNCEY LOPEZ MD Ot Z79.82 JAIL (CURRENT) USE OF ASPIRIN 12/25/2018 CHAUNCEY LOPEZ MD Ot Z87.19 PERSONAL HISTORY OF OTHER DISEASES OF TH 12/25/2018 CHAUNCEY LOPEZ MD Ot Z87.440 PERSONAL HISTORY OF URINARY (TRACT) INFE 12/25/2018 CHAUNCEY LOPEZ MD Ot Z88.0 ALLERGY STATUS TO PENICILLIN 12/25/2018 CHAUNCEY LOPEZ MD, Ot Z88.8 ALLERGY STATUS TO OTH DRUG/MEDS/BIOL SUB 12/25/2018 CHAUNCEY LOPEZ MD Ot Z90.710 ACQUIRED ABSENCE OF BOTH CERVIX AND UTER 12/25/2018 CHAUNCEY LOPEZ MD Ot Z96.652 PRESENCE OF LEFT ARTIFICIAL KNEE JOINT 12/25/2018 SHASTA HERNANDEZ, GISSEL Low Ot 592.9 URINARY CALCULUS NOS 12/25/2018 SHANE ARORA APRN Ot E78.00 PURE HYPERCHOLESTEROLEMIA, UNSPECIFIED 12/25/2018 SHANE ARORA APRN Ot F41.9 ANXIETY DISORDER, UNSPECIFIED 12/25/2018 SHANE ARORA APRN Ot G62.9 POLYNEUROPATHY, UNSPECIFIED 12/25/2018 SHANE ARORA APRN Ot I10 ESSENTIAL (PRIMARY) HYPERTENSION 12/25/2018 SHANE ARORA APRN Ot K21.9 GASTRO-ESOPHAGEAL REFLUX DISEASE WITHOUT 12/25/2018 SHANE ARORA APRN Ot R07.81 PLEURODYNIA 12/25/2018 SHANE ARORA APRN Ot R07.9 CHEST PAIN, UNSPECIFIED 12/25/2018 SHANE ARORA APRN Ot Z79.82 JAIL (CURRENT) USE OF ASPIRIN 12/25/2018 SHANE ARORA APRN Ot Z87.19 PERSONAL HISTORY OF OTHER DISEASES OF TH 12/25/2018 SHANE ARORA APRN Ot Z87.440 PERSONAL HISTORY OF URINARY (TRACT) INFE 12/25/2018 SHANE ARORA APRN Ot Z88.0 ALLERGY STATUS TO PENICILLIN 12/25/2018 SHANE ARORA APRN Ot Z88.8 ALLERGY STATUS TO OTH DRUG/MEDS/BIOL SUB 12/25/2018 SHANE ARORA APRN Ot Z96.652 PRESENCE OF LEFT ARTIFICIAL KNEE JOINT 12/28/2018 CHAUNCEY LOPEZ MD Ot E78.00 PURE HYPERCHOLESTEROLEMIA, UNSPECIFIED 12/28/2018 CHAUNCEY LOPEZ MD Ot F41.9 ANXIETY DISORDER, UNSPECIFIED 12/28/2018 CHAUNCEY LOPEZ MD Ot G62.9 POLYNEUROPATHY, UNSPECIFIED 12/28/2018 CHAUNCEY LOPEZ MD Ot I10 ESSENTIAL (PRIMARY) HYPERTENSION 12/28/2018 CHAUNCEY LOPEZ MD Ot J06.9 ACUTE UPPER RESPIRATORY INFECTION, UNSPE 12/28/2018 CHAUNCEY LOPEZ MD, Ot K21.9 GASTRO-ESOPHAGEAL REFLUX DISEASE WITHOUT 12/28/2018 CHAUNCEY LOPEZ MD, Ot N39.0 URINARY TRACT INFECTION, SITE NOT SPECIF 12/28/2018 CHAUNCEY LOPEZ MD, Ot R42 DIZZINESS AND GIDDINESS 12/28/2018 CHAUNCEY LOPEZ MD, Ot Z79.82 PREMIX CONCRETE BATCHER (CURRENT) USE OF ASPIRIN 12/28/2018 CHAUNCEY LOPEZ MD, Ot Z87.19 PERSONAL HISTORY OF OTHER DISEASES OF TH 12/28/2018 CHAUNCEY LOPEZ MD, Ot Z87.440 PERSONAL HISTORY OF URINARY (TRACT) INFE 12/28/2018 CHAUNCEY LOPEZ MD, Ot Z88.0 ALLERGY STATUS TO PENICILLIN 12/28/2018 CHAUNCEY LOPEZ MD, Ot Z88.8 ALLERGY STATUS TO OTH DRUG/MEDS/BIOL SUB 12/28/2018 CHAUNCEY LOPEZ MD, Ot Z90.710 ACQUIRED ABSENCE OF BOTH CERVIX AND UTER 12/28/2018 CHAUNCEY LOPEZ MD Ot Z96.652 PRESENCE OF LEFT ARTIFICIAL KNEE JOINT 12/28/2018 SHANE ARORA APRN Ot E78.00 PURE HYPERCHOLESTEROLEMIA, UNSPECIFIED 12/28/2018 SHANE ARORA APRN Ot F41.9 ANXIETY DISORDER, UNSPECIFIED 12/28/2018 SHANE ARORA APRN Ot G62.9 POLYNEUROPATHY, UNSPECIFIED 12/28/2018 SHANE ARORA APRN Ot I10 ESSENTIAL (PRIMARY) HYPERTENSION 12/28/2018 SHANE ARORA APRN Ot K21.9 GASTRO-ESOPHAGEAL REFLUX DISEASE WITHOUT 12/28/2018 SHANE ARORA APRN Ot R07.81 PLEURODYNIA 12/28/2018 SHANE ARORA APRN Ot R07.9 CHEST PAIN, UNSPECIFIED 12/28/2018 SHANE ARORA APRN Ot Z79.82 PREMIX CONCRETE BATCHER (CURRENT) USE OF ASPIRIN 12/28/2018 SHANE ARORA APRN Ot Z87.19 PERSONAL HISTORY OF OTHER DISEASES OF 12/28/2018 SHANE ARORA APRN Ot Z87.440 PERSONAL HISTORY OF URINARY (TRACT) INFE 12/28/2018 SHANE ARORA APRN Ot Z88.0 ALLERGY STATUS TO PENICILLIN 12/28/2018 SHANE ARORA NURSE SPECIAL Ot Z88.8 ALLERGY STATUS TO OTH DRUG/MEDS/BIOL SUB 12/28/2018 SHANE ARORA NURSE SPECIAL Ot Z96.652 PRESENCE OF LEFT ARTIFICIAL KNEE JOINT 01/12/2019 MILY HERNANDEZ FACC, ALI FACP CCDS Ot E78.5 HYPERLIPIDEMIA, UNSPECIFIED 01/12/2019 MILY MD FACC, ALI FACP CCDS Ot I10 ESSENTIAL (PRIMARY) HYPERTENSION 01/12/2019 MILY MD FACC, ALI FACP CCDS Ot R06.02 SHORTNESS OF BREATH 01/12/2019 MILY FACC, ALI FACP CCDS Ot R07.9 CHEST PAIN, UNSPECIFIED 01/26/2019 MILY MD FACC, ALI FACP CCDS Ot E78.5 HYPERLIPIDEMIA, UNSPECIFIED 01/26/2019 MILY FACC, ALI FACP CCDS Ot I10 ESSENTIAL (PRIMARY) HYPERTENSION 01/26/2019 MILY HERNANDEZ FACC, ALI FACP CCDS Ot R06.02 SHORTNESS OF BREATH 01/26/2019 MILY HERNANDEZ FAC, ALI FACP CCDS Ot R07.9 CHEST PAIN, UNSPECIFIED 02/24/2019 GELLENDER DO, ANASTASIYA Low Ot L72.8 OTHER FOLLICULAR CYSTS OF THE SKIN AND S 02/24/2019 GELLENDER DO, ANASTASIYA Low Ot S60.453A SUPERFICIAL FOREIGN BODY OF LEFT MIDDLE 03/06/2019 GELLENDER DO, ANASTASIYA Low Ot L72.8 OTHER FOLLICULAR CYSTS OF THE SKIN AND S 03/06/2019 GELLENDER DO, ANASTASIYA Low Ot S60.453A SUPERFICIAL FOREIGN BODY OF LEFT MIDDLE 03/07/2019 SHASTA HERNANDEZ, GISSEL Low Ot 592.9 URINARY CALCULUS NOS 03/07/2019 GILBERT BENDER DO Ot Z01.818 ENCOUNTER FOR OTHER PREPROCEDURAL EXAMIN Procedures Code Description Performed By Performed On [id number] REPLACE OF L KNEE JT WITH SYNTH SUB, SAMITA 04/12/2018 Results Test Result Range Complete blood [...] Automated erythrocyte mean corpuscular hemoglobin concentration measurement (mass/volume) 35 g/dL 32-36 Automated erythrocyte distribution width ratio 13.7 % 10.0- 14.5 Automated blood platelet count (count/volume) 172 10*3/uL [...] Blood monocytes automated count (number/volume) 0.9 10*3 0.0- 1.0 Automated eosinophil count 0.2 10*3/uL 0.0-0.3 Automated [...] Serum or plasma aspartate aminotransferase measurement (enzymatic activity/volume) 21 U/L 5-34 Serum or plasma alanine aminotransferase measurement (enzymatic activity/volume) 24 U/L 0-55 Serum or plasma protein measurement (mass/volume) 7.1 g/dL 6.4-8.2 Serum or plasma albumin measurement (mass/volume) 4.5 g/dL 3.2-4.5 Serum or plasma creatine kinase measurement (enzymatic activity/volume) - 04/20/16 23:48 Serum or plasma creatine kinase measurement (enzymatic activity/volume) 47 U/L 29-168 Serum or plasma creatine kinase MB measurement (enzymatic activity/volume) - 04/20/16 23:48 Serum or plasma creatine kinase MB measurement (enzymatic activity/volume) 0.8 ng/mL <6.6 Serum or plasma troponin i.cardiac measurement (mass/volume) - 04/20/16 23:48 Serum or plasma troponin i.cardiac measurement (mass/volume) < ng/mL <0.30 PT panel in platelet poor plasma [...] resistant Staphylococcus aureus (MRSA) screening culture - 06/11/17 16:12 Methicillin resistant Staphylococcus aureus (MRSA) screening culture NEG NRG Automated blood complete blood count (hemogram) panel [...] Automated erythrocyte mean corpuscular hemoglobin concentration measurement (mass/volume) 35 g/dL 32-36 Automated erythrocyte distribution width ratio 13.9 % 10.0- 14.5 Automated blood platelet count (count/volume) 204 10*3/uL [...] Automated erythrocyte mean corpuscular hemoglobin concentration measurement (mass/volume) 34 g/dL 32-36 Automated erythrocyte distribution width ratio 13.7 % 10.0- 14.5 Automated blood platelet count (count/volume) 256 10*3/uL [...] glucose measurement by glucometer (mass/volume) - 04/27/18 08:52 Capillary blood glucose measurement by glucometer (mass/volume) 110 mg/dL 70-110 Complete blood count (CBC) with automated white blood cell (WBC) differential - 12/25/18 10:02 Blood leukocytes automated count (number/volume) 7.7 10*3/uL 4.3-11.0 Blood erythrocytes automated count (number/volume) 5.54 10*6/uL 4.35-5.85 Venous blood hemoglobin measurement (mass/volume) 15.5 g/dL 11.5-16.0 Blood hematocrit (volume fraction) 46 % 35-52 Automated erythrocyte mean corpuscular volume 83 [foz_us] 80-99 Automated erythrocyte mean corpuscular hemoglobin (mass per erythrocyte) 28 pg 25-34 Automated erythrocyte mean corpuscular hemoglobin concentration measurement (mass/volume) 34 g/dL 32-36 Automated erythrocyte distribution width ratio 14.4 % 10.0- 14.5 Automated blood platelet count (count/volume) 176 10*3/uL 130-400 Automated blood platelet mean volume measurement 10.7 [foz_us] 7.4-10.4 Automated blood neutrophils/100 leukocytes 80 % 42-75 Automated blood lymphocytes/100 leukocytes 10 % 12-44 Blood monocytes/100 leukocytes 9 % 0-12 Automated blood eosinophils/100 leukocytes 2 % 0-10 Automated blood basophils/100 leukocytes 0 % 0-10 Blood neutrophils automated count (number/volume) 6.1 10*3 1.8-7.8 Blood lymphocytes automated count (number/volume) 0.7 10*3 1.0-4.0 Blood monocytes automated count (number/volume) 0.7 10*3 0.0- 1.0 Automated eosinophil count 0.1 10*3/uL 0.0-0.3 Automated blood basophil count (count/volume) 0.0 10*3/uL 0.0-0.1 PT panel in platelet poor plasma by coagulation assay - 12/25/18 10:02 Prothrombin time (PT) in platelet poor plasma by coagulation assay 12.2 s 12.2-14.7 INR in platelet poor plasma or blood by coagulation assay 0.9 0.8-1.4 Activated partial thromboplastin time (aPTT) in platelet poor plasma bycoagulation assay - 12/25/18 10:02 Activated partial thromboplastin time (aPTT) in platelet poor plasma bycoagulation assay 31 s 24-35 Comprehensive metabolic panel - 12/25/18 10:02 Serum or plasma sodium measurement (moles/volume) 138 mmol/L 135-145 Serum or plasma potassium measurement (moles/volume) 4.5 mmol/L 3.6-5.0 Serum or plasma chloride measurement (moles/volume) 106 mmol/L 98-107 Carbon dioxide 24 mmol/L 21-32 Serum or plasma anion gap determination (moles/volume) 8 mmol/L 5-14 Serum or plasma urea nitrogen measurement (mass/volume) 12 mg/dL 7-18 Serum or plasma creatinine measurement (mass/volume) 0.75 mg/dL 0.60-1.30 Serum or plasma urea nitrogen/creatinine mass ratio 16 NRG Serum or plasma creatinine measurement with calculation of estimated glomerular filtration rate > NRG Serum or plasma glucose measurement (mass/volume) 87 mg/dL 70-105 Serum or plasma calcium measurement (mass/volume) 10.0 mg/dL 8.5-10.1 Serum or plasma total bilirubin measurement (mass/volume) 0.7 mg/dL 0.1-1.0 Serum or plasma alkaline phosphatase measurement (enzymatic activity/volume) 103 U/L 40-136 Serum or plasma aspartate aminotransferase measurement (enzymatic activity/volume) 20 U/L 5-34 Serum or plasma alanine aminotransferase measurement (enzymatic activity/volume) 19 U/L 0-55 Serum or plasma protein measurement (mass/volume) 7.5 g/dL 6.4-8.2 Serum or plasma albumin measurement (mass/volume) 4.5 g/dL 3.2-4.5 CALCIUM CORRECTED 9.6 mg/dL 8.5-10.1 Magnesium - 12/25/18 10:02 Magnesium 2.1 mg/dL 1.8-2.4 Serum or plasma troponin i.cardiac measurement (mass/volume) - 12/25/18 10:02 Serum or plasma troponin i.cardiac measurement (mass/volume) < ng/mL <0.028 Myoglobin, serum - 12/25/18 10:02 Myoglobin, serum 24.9 ng/mL 10.0-92.0 Complete urinalysis with reflex to culture - 12/25/18 10:33 Urine color determination YELLOW NRG Urine clarity determination CLEAR NRG Urine pH measurement by test strip 6 5-9 Specific gravity of urine by test strip 1.010 1.016-1.022 Urine protein assay by test strip, semi-quantitative NEGATIVE NEGATIVE Urine glucose detection by automated test strip NEGATIVE NEGATIVE Erythrocytes detection in urine sediment by light microscopy NEGATIVE NEGATIVE Urine ketones detection by automated test strip NEGATIVE NEGATIVE Urine nitrite detection by test strip NEGATIVE NEGATIVE Urine total bilirubin detection by test strip NEGATIVE NEGATIVE Urine urobilinogen measurement by automated test strip (mass/volume) NORMAL NORMAL Urine leukocyte esterase detection by dipstick NEGATIVE NEGATIVE Automated urine sediment erythrocyte count by microscopy (number/high power field) NONE NRG Automated urine sediment leukocyte count by microscopy (number/high power field) [HPF] NRG Bacteria detection in urine sediment by light microscopy FEW NRG Squamous epithelial cells detection in urine sediment by light microscopy 2-5 NRG Crystals detection in urine sediment by light microscopy NONE NRG Casts detection in urine sediment by light microscopy NONE NRG Mucus detection in urine sediment by light microscopy NEGATIVE NRG Complete urinalysis with reflex to culture YES NRG Bacterial urine culture - 12/25/18 10:33 Bacterial urine culture [id number] NRG COLONY COUNT >100,000/ML NRG FTX;REPORTABLE SUSCEPTIBILITY REPORTED 12/27/18 08:05 NRG RML Sensitivity Panel - 12/25/18 10:33 Gentamicin susceptibility test by minimum inhibitory concentration <= NRG Trimethoprim/sulfamethoxazole susceptibility test by minimum inhibitoryconcentration > NRG Levofloxacin susceptibility test by minimum inhibitory concentration <= NRG Ampicillin susceptibility test by minimum inhibitory concentration > NRG Cefazolin susceptibility test by minimum inhibitory concentration <= NRG Ceftriaxone susceptibility test by minimum inhibitory concentration <= NRG Ciprofloxacin susceptibility test by minimum inhibitory concentration 1 NRG Meropenem susceptibility test by minimum inhibitory concentration <= NRG Nitrofurantoin susceptibility test by minimum inhibitory concentration 32 NRG Amoxicillin and clavulanate potassium susc ABIMAEL = NRG Complete blood count (CBC) with automated white blood cell (WBC) differential - 12/25/18 18:12 Blood leukocytes automated count (number/volume) 11.3 10*3/uL 4.3-11.0 Blood erythrocytes automated count (number/volume) 5.35 10*6/uL 4.35-5.85 Venous blood hemoglobin measurement (mass/volume) 15.1 g/dL 11.5-16.0 Blood hematocrit (volume fraction) 44 % 35-52 Automated erythrocyte mean corpuscular volume 82 [foz_us] 80-99 Automated erythrocyte mean corpuscular hemoglobin (mass per erythrocyte) 28 pg 25-34 Automated erythrocyte mean corpuscular hemoglobin concentration measurement (mass/volume) 34 g/dL 32-36 Automated erythrocyte distribution width ratio 14.1 % 10.0- 14.5 Automated blood platelet count (count/volume) 185 10*3/uL 130-400 Automated blood platelet mean volume measurement 11.3 [foz_us] 7.4-10.4 Automated blood neutrophils/100 leukocytes 91 % 42-75 Automated blood lymphocytes/100 leukocytes 5 % 12-44 Blood monocytes/100 leukocytes 3 % 0-12 Automated blood eosinophils/100 leukocytes 1 % 0-10 Automated blood basophils/100 leukocytes 0 % 0-10 Blood neutrophils automated count (number/volume) 10.2 10*3 1.8-7.8 Blood lymphocytes automated count (number/volume) 0.6 10*3 1.0-4.0 Blood monocytes automated count (number/volume) 0.4 10*3 0.0- 1.0 Automated eosinophil count 0.1 10*3/uL 0.0-0.3 Automated blood basophil count (count/volume) 0.0 10*3/uL 0.0-0.1 Serum or plasma troponin i.cardiac measurement (mass/volume) - 12/25/18 18:12 Serum or plasma troponin i.cardiac measurement (mass/volume) < ng/mL <0.028 Blood manual differential performed detection - 12/25/18 18:12 Blood monocytes/100 leukocytes 2 % NRG Manual blood segmented neutrophils/100 leukocytes 87 % NRG Blood band neutrophils/100 leukocytes 3 % NRG Manual blood lymphocytes/100 leukocytes 6 % NRG Manual eosinophils/100 leukocytes in nose 2 % NRG Blood erythrocyte morphology finding identification NORMAL NRG Encounters ACCT No. Visit Date/Time Discharge Status Pt. Type Provider Facility Loc./Unit Complaint [id number] 03/07/2019 05:47:00 03/07/2019 13:57:00 DIS Outpatient GILBERT BENDER DO [facility] PREOP FOREIGN BODY LEFT MIDDLE FINGER [id number] 02/22/2019 11:38:00 02/22/2019 23:59:59 CLS Outpatient ANASTASIYA SAINZ DO [facility] RAD LEFT FINGER SWELLING [id number] 01/10/2019 11:00:00 01/10/2019 23:59:59 CLS Outpatient MILY HERNANDEZ FACC, ROSANNA MORROWP CCDS [facility] CARD CHEST DISCOMFORT,HTN,SOB,HYPERLIPIDEMIA [id number] 12/25/2018 17:37:00 12/25/2018 19:08:00 DIS Emergency SHANE ARORA APRN [facility] ER CHEST PAIN THAT MOVES AROUND/[place] [id number] 12/25/2018 09:52:00 12/25/2018 12:27:00 DIS Emergency CHAUNCEY LOPEZ MD [facility] ER LIGHTHEADED/SHAKY/INTERMITTENT CP [id number] 07/22/2018 09:15:00 07/22/2018 15:28:00 DIS Outpatient RUBEN DE JESUS NURSE SPECIAL [facility] REHAB S/P LT TKA [id number] 05/18/2018 12:49:00 05/22/2018 00:01:00 DIS Outpatient RUBEN DE JESUS NURSE SPECIAL [facility] REHAB S/P LT TKA [id number] 04/14/2018 17:21:00 04/29/2018 11:00:00 DIS Inpatient OG LANGE MD [facility] IRF LEFT KNEE OA [id number] 04/12/2018 05:49:00 04/14/2018 14:26:00 DIS Inpatient PACO SUNG DO [facility] 4TH LEFT PRIMARY OSTEOARTHRITIS [id number] 02/17/2018 20:16:00 02/17/2018 22:33:00 DIS Emergency LYNDSEY REGALADO [facility] [facility] ER L LEG PAIN [id number] 07/12/2017 11:10:00 07/12/2017 23:59:59 CLS Outpatient CALISTA PHAM SUPER[employer] Via [facility] LAB I10,E78.4,R00.2,E66.8 [id number] 06/11/2017 16:08:00 06/11/2017 23:59:59 CLS Outpatient HARMEET CONN MD Via [facility] LAB 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 [id number] 04/20/2017 07:29:00 04/20/2017 23:59:59 CLS Outpatient HARMEET CONN MD Via [facility] RAD KNOT OVER RT BREAST N63 [id number] 10/09/2016 12:52:00 10/09/2016 13:56:00 DIS Emergency SHANE ARORA NURSE SPECIAL Via [facility] ER RASH [id number] 08/13/2016 13:02:00 08/31/2016 14:26:00 DIS Outpatient PACO SUNG DO Via [facility] REHAB RT SHLD PARTIAL ROTATOR CUFF TENDON TEAR [id number] 08/25/2016 12:42:00 08/25/2016 23:59:59 CLS Outpatient MILY HERNANDEZ FACCROSANNA FACP CCDS Via [facility] RAD LT LEG CLAUDICATION,HTN,HLP [id number] 07/07/2016 10:27:00 07/07/2016 23:59:59 CLS Outpatient CALISTA PHAM [employer] [facility] CARD BENSON,CHEST PAIN,HTN,HLP [id number] 07/02/2016 09:33:00 07/02/2016 23:59:59 CLS Outpatient CALISTA PHAM [employer] Via [facility] CARD BENSON,CHEST PAIN,HTN,HLP [id number] 06/04/2016 13:57:00 06/04/2016 23:59:59 CLS Outpatient CATHY HUBBARD NURSE SPECIAL Via [facility] RAD ACUTE PAIN OF RT SHOULDER [id number] 04/20/2016 22:50:00 04/21/2016 01:04:00 DIS Emergency KEESHA AMARILYS LOPEZ Via [facility] ER SHAKY/EVELATED BP [id number] 03/19/2016 15:29:00 04/08/2016 11:54:00 DIS Outpatient RUBEN DE JESUS APRN Via [facility] REHAB S/P L KNEE SCOPE WITH PMM PLM SEVERE OA [id number] 02/11/2016 11:29:00 02/11/2016 16:27:00 DIS Outpatient PACO SUNG DO Via [facility] SDC LEFT KNEE PAIN [id number] 01/30/2016 14:25:00 01/30/2016 15:23:00 DIS Outpatient PACO SUNG DO Via [facility] PREOP LEFT KNEE PAIN [id number] 12/18/2015 14:15:00 01/10/2016 11:10:00 DIS Outpatient RUBEN DE JESUS APRN Via [facility] REHAB L KNEE OA AND CHRONIC ACL TEAR [id number] 12/16/2015 15:59:00 12/16/2015 23:59:59 CLS Outpatient CALISTA PHAM [employer] Via [facility] LAB HTN, [id number] 10/22/2015 09:44:00 10/22/2015 16:20:00 DIS Outpatient GILBERT BENDER DO Via [facility] SDC SCREENING [id number] 10/18/2015 08:26:00 10/18/2015 23:59:59 CLS Outpatient CATHY HUBBARD APRN Via [facility] RAD LEFT KNEE PAIN [id number] 10/18/2015 06:11:00 10/18/2015 23:59:59 CLS Outpatient GILBERT BENDER DO Via [facility] PREOP SCREENING [id number] 08/09/2015 10:01:00 08/09/2015 23:59:59 CLS Outpatient MIGUEL ANGELZINA VALDIVIA DO M Via [facility] LAB HTN,HLP,HYPONONTREMIA [id number] 12/24/2014 14:30:00 01/29/2015 15:40:00 DIS Outpatient ROHAN BOLTON MD Via [facility] REHAB ARTHRITIS L KNEE [id number] 01/16/2015 05:42:00 01/16/2015 23:59:59 CLS Outpatient CALISTA PHAM [employer] [facility] LAB ANNUAL CHECK-UP [id number] 01/16/2015 00:11:00 01/16/2015 23:59:59 CLS Preadmit GISSEL VEGAS MD Via [facility] LAB STONES [id number] 10/20/2014 10:00:00 01/15/2015 00:01:00 DIS Outpatient GISSEL VEGAS MD Via [facility] LAB STONES [id number] 12/05/2014 14:19:00 12/20/2014 00:01:00 DIS Outpatient ROHAN BOLTON MD Via [facility] REHAB [id number] 12/14/2014 06:44:00 12/14/2014 07:50:00 DIS Outpatient GERRY MENDOZA MD Via [facility] CARD DDD [id number] 10/03/2014 05:47:00 10/03/2014 10:18:00 DIS Outpatient GISSEL VEGAS MD Via [facility] SDC [id number] 10/02/2014 05:52:00 10/02/2014 23:59:59 CLS Outpatient GISSEL VEGAS MD Via [facility] PREOP RIGHT RENAL STONE [id number] 09/18/2014 15:17:00 09/18/2014 23:59:59 CLS Outpatient TAWNY WILLIAMSON DO Via [facility] RAD [id number] 09/11/2014 16:40:00 09/11/2014 19:50:00 DIS Emergency AUGUSTO STOKES Via [facility] ER [id number] 08/22/2014 06:24:00 08/22/2014 08:48:00 DIS Emergency HERLINDA HERNANDEZ, NATALIA Kan Via [facility] ER POSS UTI,AILYNKEY,QUIÑONES [id number] 08/02/2014 07:26:00 08/02/2014 23:59:59 CLS Outpatient MILY HERNANDEZ FACC, ALI FACP CCDS Via [facility] CARD CHRONIC CP, HTN/HLP [id number] 07/26/2014 06:15:00 07/26/2014 23:59:59 CLS Outpatient MILY HERNANDEZ FACC, ALI FACP CCDS Via [facility] LAB HYPERLIPIDEMIA [id number] 06/22/2014 06:57:00 06/22/2014 08:04:00 DIS Outpatient GERRY MENDOZA MD Via [facility] CARD SIJD [id number] 03/31/2014 10:35:00 03/31/2014 12:33:00 DIS Emergency SHANE ARORA NURSE SPECIAL Via [facility] ER NOT ABLE TO KEEP FOOD DOWN [id number] 03/16/2014 19:18:00 03/16/2014 20:05:00 DIS Emergency SHANE ARORA NURSE SPECIAL Via [facility] ER FINGER PAIN [id number] 02/24/2014 13:51:00 02/24/2014 23:59:59 CLS Outpatient [id number] 02/13/2014 05:57:00 02/13/2014 23:59:59 CLS Outpatient MILY HERNANDEZ FACC, ALI FACP CCDS Via [facility] LAB HYPERLIPIDEMIA,CHRONIC CP,HYPONATREMIA [id number] 02/09/2014 06:25:00 02/09/2014 07:31:00 DIS Outpatient GERRY MENDOZA MD Via [facility] CARD SACRAL ILLIAC JOINT DSYFUNCTION [id number] 02/02/2014 07:39:00 02/02/2014 23:59:59 CLS Outpatient CALISTA PHAM Via [facility] LAB HTN,HYPERLIPIDEMIA,CHRONIC CP, [id number] 12/20/2013 14:45:00 12/20/2013 15:36:00 DIS Outpatient GERRY MENDOZA MD Via [facility] REHAB LUMBAGO [id number] 09/19/2013 14:29:00 12/14/2013 00:01:00 DIS Outpatient GERRY MENDOZA MD Via [facility] REHAB LUMBAGO [id number] 11/24/2013 07:55:00 11/24/2013 08:53:00 DIS Outpatient GERRY MENDOZA MD Via [facility] CARD SIJ DYSFUNCTION [id number] 10/26/2013 19:15:00 10/26/2013 21:13:00 DIS Emergency AUGUSTO STOKES Via [facility] ER R FOOT SWELLING [id number] 09/22/2013 07:53:00 09/22/2013 08:46:00 DIS Outpatient GERRY MENDOZA MD Via [facility] CARD LUMBAR SPONDYLOSIS [id number] 08/08/2013 14:29:00 09/12/2013 00:01:00 DIS Outpatient GERRY MENDOZA MD Via [facility] REHAB LUMBAGO [id number] 09/08/2013 09:31:00 09/08/2013 23:59:59 CLS Outpatient TAWNY WILLIAMSON DO Via [facility] RAD SCREENING [id number] 08/04/2013 07:48:00 08/04/2013 23:59:59 CLS Outpatient GERRY MENDOZA MD Via [facility] CARD DDD LUMBAR [id number] 07/28/2013 07:15:00 07/28/2013 23:59:59 CLS Outpatient CALISTA PHAM Via [facility] LAB HYPERTENSION,HYPERLIPIDEMIA,STATIN [place] [id number] 07/07/2013 08:44:00 07/07/2013 23:59:59 CLS Outpatient GERRY MENDOZA MD Via [facility] CARD LUMBAR SPINAL STENOSIS [id number] 06/18/2013 18:27:00 06/18/2013 20:31:00 DIS Emergency ELINOR SOSA MD Via [facility] ER MULTIPLE COMPLAINTS [id number] 06/02/2013 08:31:00 06/02/2013 23:59:59 CLS Outpatient GERRY MENDOZA MD Via [facility] CARD DDD-LUMBAR [id number] 04/17/2013 12:25:00 04/17/2013 23:59:59 CLS Outpatient TOAN HERNANDEZ, KATERIN Tan Via [facility] RAD BACK PAIN, RADICULOPATHY [id number] 03/19/2013 17:59:00 03/19/2013 21:18:00 DIS Emergency [id number] 03/14/2013 17:47:00 03/14/2013 23:59:59 CLS Outpatient [id number] 01/29/2013 16:09:00 01/29/2013 23:59:59 CLS Outpatient [id number] 01/27/2013 09:50:00 01/27/2013 23:59:59 CLS Outpatient [id number] 01/27/2013 09:27:00 01/27/2013 23:59:59 CLS Outpatient CALISTA PHAM Via [facility] LAB HYPERTENSION,HYPERLIPIDEMIA,STATIN [place] [id number] 03/09/2019 11:55:00 PEN Preadmit GILBERT BENDER DO Via [facility] SDC FOREIGN BODY LEFT MIDDLE FINGER [id number] 04/05/2018 09:30:00 Document Registration [id number] 04/05/2018 09:03:00 Document Registration [id number] 10/17/2014 14:24:00 Document Registration [id number] 12/03/2012 12:29:00 Document Registration [id number] 11/28/2012 11:32:00 Document Registration [id number] 08/12/2012 16:15:00 Document Registration [id number] 08/06/2012 21:06:00 Document Registration [id number] 07/29/2012 07:13:00 Document Registration [id number] 06/08/2012 18:09:00 Document Registration [id number] 03/10/2012 08:31:00 Document Registration [id number] 02/29/2012 20:50:00 Document Registration [id number] 01/22/2012 08:22:00 Document Registration [id number] 12/03/2011 18:27:00 Document Registration [id number] 07/31/2011 09:37:00 Document Registration [id number] 07/22/2011 17:55:00 Document Registration [id number] 06/09/2011 09:25:00 Document Registration [id number] 04/17/2011 08:42:00 Document Registration [id number] 01/16/2011 07:50:00 Document Registration [id number] 10/17/2010 07:03:00 Document Registration [id number] 09/26/2010 10:46:00 Document Registration [id number] 09/12/2010 08:41:00 Document Registration [id number] 08/29/2010 08:40:00 Document Registration [id number] 08/11/2010 14:06:00 Document Registration [id number] 08/11/2010 13:42:00 Document Registration [id number] 08/05/2010 13:31:00 Document Registration [id number] 07/31/2010 15:19:00 Document Registration [id number] 07/18/2010 07:57:00 Document Registration [id number] 07/08/2010 22:05:00 Document Registration [id number] 04/24/2009 10:00:00 Document Registration [id number] 04/15/2009 15:05:00 Document Registration
[2019-03-09] MEDS ORDERED: LACTATED RINGERS 1,000 ML IV PRN (10:47)
[2019-03-09] MEDS ORDERED: CLINDAMYCIN 600 MG/50 ML IVPB 50 ML IV ONE (11:00)
[2019-03-09] MEDS ORDERED: BUPIVACAINE 0.5% 30 ML (SENSORCAINE) VIAL ONE (13:00)
[2019-03-09] MEDS ORDERED: MIDAZOLAM 2 MG/2 ML (VERSED) VIAL ONE (13:23)
[2019-03-09] MEDS ORDERED: PROPOFOL INJECTION 50 ML IV ONE (13:23)
[2019-03-09] MEDS ORDERED: fentaNYL INJECTION 100 MCG/2 ML AMP ONE (13:27)
--- NOTE | 2019-03-09 13:29 | Progress Note-Pre Operative ---
Pre-Operative Progress Note H&P Reviewed The H&P was reviewed, patient examined and no changes noted. Date Seen by Provider: Mar 09, 2019 Time Seen by Provider: 13:29 Date H&P Reviewed: Mar 09, 2019 Time H&P Reviewed: 13:29 Pre-Operative Diagnosis: foreign body left middle finger GILBERT BENDER DO Mar 09, 2019 13:29
--- NOTE | 2019-03-09 14:09 | Discharge Inst-Simple/Standard ---
Discharge Inst-Standard Patient Instructions/Follow Up Plan of Care/Instructions/FU: 10 DAYS [place] kEEP HAND CLEAN AND DRY. CHANGE DRESSINGS DAILY Activity as Tolerated: Yes Discharge Diet: Regular Diet Other Inst to Patient Follow up Appt: Make appointment for 10 DAYS Instructions: Keep hand clean and dry. Change dressings daily. No strenuous activity. May shower in 24 hours, no tub bath or soaking. Use incentive spirometer at home as directed. No Smoking Skin/Wound Care: May remove bandages and change dressing daily. Symptoms to Report: Appetite Changes, Extremity Discoloration, Numbness/Tingling, Swelling Increased, Bleeding Excessive, Eyesight Changes, Pain Increased, Urine Color Change, Constipation(Persistent), Fever over 101 degree F, Pain/Pressure in chest, Urinating Difficulty, Cough Up/Vomit Blood, Heart Beat Irreg/Pounding, Pain/Pressure in jaw, Vaginal Bleeding Increase, Cramps in feet or legs, Lightheadedness, Pain/Pressure in shoulder, Diarrhea(Persistent), Memory Changes Suddenly, Questions/Concerns, Weight gain consecutive days, Dizziness/Fainting, Nausea/Vomiting, Shortness of Breath, Weight gain over 2 pounds If questions or concerns contact your physician Or seek help at emergency department. GILBERT BENDER DO Mar 09, 2019 14:09
--- NOTE | 2019-03-09 14:20 | Anesthesia-General Post-Op ---
MAC Patient Condition Mental Status/LOC: Same as Preop Cardiovascular: Satisfactory Nausea/Vomiting: Absent Respiratory: Satisfactory Pain: Controlled Complications: Absent Post Op Complications Complications None Follow Up Care/Instructions Patient Instructions None needed. Anesthesiology Discharge Order Discharge Order Patient is doing well, no complaints, stable vital signs, no apparent adverse anesthesia problems. No complications reported per nursing. MELY MAR CRNA Mar 09, 2019 14:20
--- NOTE | 2019-03-09 18:37 | Diagnostic Imaging Report ---
INDICATION: Fluoroscopy during foreign body removal. FINDINGS: Fluoroscopy was provided in the OR during foreign body removal from the left third digit. A total of 1 second of fluoroscopy was utilized. IMPRESSION: Fluoroscopy during left hand foreign body removal. Dictated by: Dictated on workstation # [id number]
--- NOTE | 2019-03-10 03:33 | OPERATIVE REPORT ---
DATE OF SERVICE: 03/09/2019 PREOPERATIVE DIAGNOSIS: Foreign body, left middle finger. POSTOPERATIVE DIAGNOSIS: Foreign body, left middle finger. PROCEDURE: Removal of left middle finger foreign body 1.5 x 2 mm metal foreign body. SURGEON: Gilbert Gallegos DO ANESTHESIA: MAC with local and digital block left middle finger. ESTIMATED BLOOD LOSS: Minimal. COMPLICATIONS: None. INDICATIONS: The patient is a 59-year-old female who was moving a tub cover back and had a foreign body into the finger. This was several months ago. This continued to increase in pain and cause more discomfort. The patient had x-rays demonstrating a foreign body in the left middle finger. She understands risks and benefits of the procedure and wished to proceed with procedure. Consent was signed on the chart. DESCRIPTION OF PROCEDURE: The patient was taken to the operating suite. She was prepped and draped in sterile fashion. Timeout was performed. A digital block was performed injecting on the lateral and medial side of the left middle finger at the base of the finger. Two mL of local anesthetic was infiltrated on both sides. Once anesthetic effect took place, 11 blade scalpel was used to make a small skin incision over the area that was firm. Hemostat was used to gently dissect through the subcutaneous tissues and the metal foreign body was found. This was 1.5 x 2 mm in flat in its dimensions. This was grasped, elevated finger fluoroscopy was placed. It was then used to visualize the metal foreign object that was removed and also the left middle finger which no foreign body was visualized from that time forward within the wound. The area was then irrigated and the skin was then closed using 5-0 Prolene. The area was washed and dried, sterile bandage was applied. The patient tolerated procedure well without any complications. She was taken to recovery room in stable condition. Job ID: [id number] DocumentID: [id number] Dictated Date: 03/09/2019 17:12:57 Marketing Community Liaison Date: 03/10/2019 03:33:11 Dictated By: GILBERT GALLEGOS DO
== END 2019-03-09 15:40 | disposition home or self-care (01) ==
LOC: SDC 10:27
PROVIDERS: ATTEND Surgery
DX: S60.453A Superficial foreign body of left middle finger, initial encounter (principal); G89.4 Chronic pain syndrome; I10 Essential (primary) hypertension; E78.5 Hyperlipidemia, unspecified; K21.9 Gastro-esophageal reflux disease without esophagitis; G56.91 Unspecified mononeuropathy of right upper limb; F32.9 Major depressive disorder, single episode, unspecified; F41.9 Anxiety disorder, unspecified; I83.90 Asymptomatic varicose veins of unspecified lower extremity; M47.816 Spondylosis without myelopathy or radiculopathy, lumbar region; M48.061 Spinal stenosis, lumbar region without neurogenic claudication; M79.10 Myalgia, unspecified site; M51.16 Intervertebral disc disorders with radiculopathy, lumbar region; M19.90 Unspecified osteoarthritis, unspecified site; R07.9 Chest pain, unspecified; Z96.652 Presence of left artificial knee joint; Z90.710 Acquired absence of both cervix and uterus; Z88.0 Allergy status to penicillin; Z88.6 Allergy status to analgesic agent; Z79.899 Other long term (current) drug therapy; Z80.9 Family history of malignant neoplasm, unspecified; Z82.49 Family history of ischemic heart disease and other diseases of the circulatory system
CPT/HCPCS: 87081

== ENCOUNTER → 2019-04-18 | Outpatient (CLI) | payer MEDICARE, MEDICAID ==
--- NOTE | 2019-04-18 21:41 | Diagnostic Imaging Report ---
INDICATION: Screening The current study was also evaluated with a Computer Aided Detection (CAD) system. 3-D Tomographic imaging was also performed. Comparison is made with prior examination from 04/05/2018, 04/20/2017, and 09/18/2014 FINDINGS: There are scattered fibroglandular densities bilaterally. There are benign type calcifications. There is no dominant mass, spiculated lesion or suspicious calcification identified. Skin, nipples, and axilla are unremarkable. IMPRESSION: ACR BI-RADS Category 2: Benign findings. Result letter will be mailed to the patient. Note: At least 10% of breast cancer is not imaged by mammography. Dictated by: Dictated on workstation # [id number]
== END ==
LOC: RAD 09:24
PROVIDERS: ATTEND Family Medicine
DX: Z12.31 Encounter for screening mammogram for malignant neoplasm of breast (principal)
CPT/HCPCS: 77067

== ENCOUNTER → 2019-12-27 | Outpatient (CLI) | payer MEDICARE ==
[~2019-12-27] MED LIST changes: +ACHYD1T PO; +ASCO500T17 PO; -ASCO500T6 PO; -HYDR-3820 PO; +OXYB5TAB13 PO; -OXYB5TAB9 PO
[2019-12-27 10:01] LABS: ALBUMIN 4.4 GM/DL (3.2-4.5); CHLORIDE 106 MMOL/L (98-107); POTASSIUM 4.6 MMOL/L (3.6-5.0); SODIUM 141 MMOL/L (135-145)
[2019-12-27 10:02] LABS: CALCIUM 9.5 MG/DL (8.5-10.1)
[2019-12-27 10:03] LABS: TRIGLYCERIDES 140 MG/DL (<150); VLDL CHOLESTEROL 28 MG/DL (5-40)
[2019-12-27 10:04] LABS: GLUCOSE 96 MG/DL (70-105); TOTAL PROTEIN 7.4 GM/DL (6.4-8.2)
[2019-12-27 10:05] LABS: BILIRUBIN,TOTAL 0.6 MG/DL (0.1-1.0); CARBON DIOXIDE 24 MMOL/L (21-32)
[2019-12-27 10:07] LABS: ALKALINE PHOSPHATASE 85 U/L (40-136); CREATININE SERUM 0.75 MG/DL (0.60-1.30); GFR ESTIMATED > 60
[2019-12-27 10:08] LABS: CHOLESTEROL 158 MG/DL (< 200)
[2019-12-27 10:09] LABS: BUN/CREATININE RATIO 12
[2019-12-27 10:10] LABS: ALANINE AMINOTRANSFERASE 14 U/L (0-55); HDL CHOLESTEROL 49 MG/DL (40-60)
== END ==
LOC: LAB 09:40
PROVIDERS: ATTEND Nurse Practitioner Family
DX: E78.5 Hyperlipidemia, unspecified (principal)
CPT/HCPCS: 36415; 80053; 80061

== ENCOUNTER → 2020-04-23 | Outpatient (CLI) | payer MEDICARE ==
--- NOTE | 2020-04-23 10:41 | Diagnostic Imaging Report ---
INDICATION: Screening. TECHNIQUE: The current study was also evaluated with a Computer Aided Detection (CAD) system. 3-D Tomographic imaging was also performed. COMPARISON: 04/18/2019, 04/05/2018, and 04/20/2017. FINDINGS: There are scattered fibroglandular densities bilaterally. There are a few benign type calcifications. There is no dominant mass, spiculated lesion, or suspicious calcification identified. The skin, nipples, and axillae are unremarkable. IMPRESSION: Benign. ACR BI-RADS Category 2: Benign findings. Result letter will be mailed to the patient. Note: At least 10% of breast cancer is not imaged by mammography. Dictated by: Dictated on workstation # [id number]
== END ==
LOC: RAD 09:46
PROVIDERS: ATTEND Family Medicine
DX: Z12.31 Encounter for screening mammogram for malignant neoplasm of breast (principal)
CPT/HCPCS: 77063; 77067

== ENCOUNTER 2020-12-26 08:18 | Outpatient (RCR) | payer MEDICARE, OTHER ==
[~2020-12-26 08:18] MED LIST changes: +AMLO-251 PO; -AMLO10TA7 PO; -LISI40TA PO; +LISI40TA9 PO
== END 2020-12-27 08:50 | disposition home or self-care (01) ==
PROVIDERS: ATTEND Orthopaedic Surgery
DX: M17.11 Unilateral primary osteoarthritis, right knee (principal)

== ENCOUNTER → 2020-12-27 | Outpatient (CLI) | payer MEDICARE | LOC: LABNPT 06:19 | PROVIDERS: ATTEND Orthopaedic Surgery | DX: Z01.812 Encounter for preprocedural laboratory examination (principal); Z20.822 Contact with and (suspected) exposure to COVID-19 | CPT/HCPCS: 87635 ==

== ENCOUNTER 2021-01-04 09:58 | Inpatient (IN) | payer MEDICARE ==
[~2021-01-04] VITALS: Ht 162.6 cm; Wt 84.3 kg
[2021-01-04] MEDS ORDERED: NS IV 1000 ML 1,000 ML IV STA (10:25)
[2021-01-04] MEDS ORDERED: ONDANSETRON 4 MG/2 ML (SDV) Z0FRAN IVP STA (10:25)
--- NOTE | 2021-01-04 10:28 | ED Syncope ---
General Chief Complaint: Dizziness/Syncope Stated Complaint: SYNCOPE Nursing Triage Note: Patient reports she had a total right knee replacement at [facility] on Wednesday, states she has had 2 syncopal episodes since her surgery, most recently this morning while getting up to go to the bathroom. Source of Information: Patient, EMS History of Present Illness Date Seen by Provider: January 04, 2021 Time Seen by Provider: 10:06 Initial Comments 60-year-old female presenting with EMS from her family's home here in [place] where she is recuperating from knee surgery performed on December 31. She had a syncopal episode this morning when trying to go take a shower. She had 1 previous syncopal episode this week since the surgery. About episode was as she was getting up to go to the bathroom. She denies any headache, vision change, chest pain, shortness of breath, fever. She has had chills as well as feeling lightheaded. She feels nauseated but has not vomited. She states that she has not taken any of her medicine or had anything to eat or drink this morning yet. She at times has felt like her heart was racing. She is very anxious and worried about why she had fainted this morning. Timing/Prior Episodes: Recent History (1 episode today and one earlier this week since surgery on December 31) Symptoms Prior to Episode: Lightheadedness Precipitating Factors: Activity Loss of Consciousness: Brief (Seconds) Current Symptoms: No Blurred Vision, No Chest Pain, No Diaphoresis, No Dizziness, No Headache, No Injury, No Lightheadedness, No Loss of Bladder Control, No Loss of Bowel Control, No Motionless; Nausea; No Pale, No Shallow/Rapid Breathing, No Weak/Absent Pulse; Weakness (general) Allergies and Home Medications Allergies Coded Allergies: meloxicam (Verified Allergy, Intermediate, RASH ALL OVER, 12/25/18) Penicillins (Verified Allergy, Mild, RASH, 03/07/19) Home Medications Ascorbic Acid 500 Mg Tablet, 500 MG PO DAILY, (Reported) Atenolol 50 Mg Tablet, 50 MG PO BID, (Reported) Gabapentin 300 Mg Capsule, 300 MG PO TID, (Reported) Lisinopril 40 Mg Tablet, 40 MG PO DAILY, (Reported) Lovastatin 20 Mg Tablet, 20 MG PO HS, (Reported) Oxybutynin Chloride 5 Mg Tablet, 5 MG PO TID, (Reported) Patient Home Medication List Home Medication List Reviewed: Yes Review of Systems Constitutional: chills; No diaphoresis, No fever; malaise, weakness EENTM: no symptoms reported Respiratory: cough; No stridor, No wheezing Cardiovascular: see HPI; No chest pain; palpitations (intermittent), syncope Gastrointestinal: constipation, loss of appetite, nausea; No vomiting Genitourinary: decreased output, incontinence (stress) Musculoskeletal: joint pain (right knee pain from surgery) Skin: change in color (bruising to right knee from recent surgery) Psychiatric/Neurological: Anxiety; Denies Headache Past Tcatsjp-[id number]-[id number] Hx Past Med/Social Hx: Reviewed Nursing Past Med/Soc Hx Patient Social History 2nd Hand Smoke Exposure: No Recent Infectious Disease Expo: No Recent Hopitalizations: No Immunizations Up To Date Tetanus Booster (TDap): Less than 5yrs (2019) PED Vaccines UTD: No Date of Influenza Vaccine: May 30, 2018 Seasonal Allergies Seasonal Allergies: No Past Medical History Surgeries: Yes (LEFT KNEE SCOPE/ REPLACEMENT) Hysterectomy, Orthopedic Respiratory: No Currently Using CPAP: No Currently Using BIPAP: No Cardiac: Yes High Cholesterol, Hypertension Neurological: No (rt upper arm neuropathy) 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 No Pertinent Family Hx Physical Exam Vital Signs Vital Signs - First Documented 01/04/21 10:08 Temp 36.8 Pulse 75 Resp 16 B/P (MAP) 132/72 (92) Pulse Ox 98 O2 Delivery Room Air Capillary Refill : Less Than 3 Seconds Height, Weight, BMI Height: 5'4.00" Weight: 185lbs. 14.0oz. [id number]; 32.00 BMI Method:Actual General Appearance: WD/WN, Mild Distress (anxious) HEENT: PERRL/EOMI; No Moist Mucous Membranes (slightly dry mucous membranes) Neck: Full Range of Motion, Normal Inspection, Non Tender, Supple; No Carotid Bruit Cardiovascular: Regular Rate, Rhythm, Normal Peripheral Pulses Respiratory: Chest Non Tender, Lungs Clear, Normal Breath Sounds, No Accessory Muscle Use, No Respiratory Distress Gastrointestinal: No Pulsatile Mass, Non Tender, Soft, Abnormal Bowel Sounds (hypoactive bowel sounds) Extremities: Normal Capillary Refill, Pedal Edema (trace to 1+ pitting edema to RLE up to her knee where she has bruising from recent surgery), Swelling (right knee with bruising where she had surgery), Other (tender to palpation to right knee) Neurologic/Psychiatric: Alert, Oriented x3, mobile application 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-XII Norm as Tested, Other (anxious) Cranial Nerves: Normal Hearing, Normal Speech, PERRL Motor/Sensory: No Motor Deficit, No Sensory Deficit Skin: Warm/Dry, Ecchymosis (right knee) Focused Exam Lactate Level 01/04/21 10:35: Lactic Acid Level 0.88 Lactic Acid Level Laboratory Tests Test 01/04/21 10:35 Lactic Acid Level 0.88 MMOL/L (0.50-2.00) Progress/Results/Core Measures Results/Orders Lab Results Laboratory Tests Test 01/04/21 10:30 01/04/21 10:35 Range/Units White Blood Count 11.4 H 4.3-11.0 10^3/uL Red Blood Count 4.09 L 4.35-5.85 10^6/uL Hemoglobin 11.9 11.5-16.0 G/DL Hematocrit 35 35-52 % Mean Corpuscular Volume 87 80-99 FL Mean Corpuscular Hemoglobin 29 25-34 PG Mean Corpuscular Hemoglobin Concent 34 32-36 G/DL Red Cell Distribution Width 13.5 10.0-14.5 % Platelet Count 179 130-400 10^3/uL Mean Platelet Volume 11.1 H 7.4-10.4 FL Immature Granulocyte % (Auto) 2 % Neutrophils (%) (Auto) 85 H 42-75 % Lymphocytes (%) (Auto) 8 L 12-44 % Monocytes (%) (Auto) 5 0-12 % Eosinophils (%) (Auto) 1 0-10 % Basophils (%) (Auto) 0 0-10 % Neutrophils # (Auto) 9.7 H 1.8-7.8 X 10^3 Lymphocytes # (Auto) 0.9 L 1.0-4.0 X 10^3 Monocytes # (Auto) 0.6 0.0-1.0 X 10^3 Eosinophils # (Auto) 0.1 0.0-0.3 10^3/uL Basophils # (Auto) 0.0 0.0-0.1 10^3/uL Immature Granulocyte # (Auto) 0.2 H 0.0-0.1 10^3/uL Neutrophils % (Manual) 87 % Lymphocytes % (Manual) 8 % Monocytes % (Manual) 5 % Toxic Granulation 3+ Percent Immature Platelet Fraction 3.0 0.0-7.6 % Prothrombin Time 13.0 12.2-14.7 SEC INR Comment 1.0 0.8-1.4 Activated Partial Thromboplast Time 28 24-35 SEC Sodium Level 137 135-145 MMOL/L Potassium Level 4.1 3.6-5.0 MMOL/L Chloride Level 102 98-107 MMOL/L Carbon Dioxide Level 23 21-32 MMOL/L Anion Gap 12 5-14 MMOL/L Blood Urea Nitrogen 13 7-18 MG/DL Creatinine 0.59 L 0.60-1.30 MG/DL Estimat Glomerular Filtration Rate > 60 BUN/Creatinine Ratio 22 Glucose Level 110 H 70-105 MG/DL Calcium Level 8.9 8.5-10.1 MG/DL Corrected Calcium 9.1 8.5-10.1 MG/DL Magnesium Level 2.0 1.6-2.4 MG/DL Total Bilirubin 1.0 0.1-1.0 MG/DL Aspartate Amino Transf (AST/SGOT) 17 5-34 U/L Alanine Aminotransferase (ALT/SGPT) 12 0-55 U/L Alkaline Phosphatase 71 40-136 U/L Troponin I < 0.30 <0.30 NG/ML Pro-B-Type Natriuretic Peptide 105.4 H <75.0 PG/ML Total Protein 6.5 6.4-8.2 GM/DL Albumin 3.7 3.2-4.5 GM/DL Lipase 19 8-78 U/L Urine Color YELLOW Urine Clarity CLOUDY Urine pH 7.0 5-9 Urine Specific [place] 1.025 H 1.016-1.022 Urine Protein TRACE H NEGATIVE Urine Glucose (UA) NEGATIVE NEGATIVE Urine Ketones NEGATIVE NEGATIVE Urine Nitrite NEGATIVE NEGATIVE Urine Bilirubin NEGATIVE NEGATIVE Urine Urobilinogen 0.2 < = 1.0 MG/DL Urine Leukocyte Esterase 3+ H NEGATIVE Urine RBC (Auto) TRACE-I NEGATIVE Urine RBC NONE /HPF Urine WBC 10-25 H /HPF Urine Squamous Epithelial Cells 5-10 /HPF Urine Crystals NONE /LPF Urine Bacteria LARGE H /HPF Urine Casts NONE /LPF Urine Mucus NEGATIVE /LPF Urine Culture Indicated NO Lactic Acid Level 0.88 0.50-2.00 MMOL/L My Orders Orders - ELIANA HANSON MD Cbc With Automated Diff (01/04/21 10:21) Magnesium (01/04/21 10:21) Ekg Tracing (01/04/21 10:21) Comprehensive Metabolic Panel (01/04/21 10:21) Protime With Inr (01/04/21 10:) Partial Thromboplastin Time (01/04/21 10:21) O2 (01/04/21 10:21) Monitor-Rhythm Ecg Trace Only (01/04/21 10:) Ed Iv/Invasive Line Start (01/04/21 10:21) Lipase (01/04/21 10:21) Troponin I Fs (01/04/21 10:21) Probnp Fs (01/04/21 10:21) Ct Pati Chest/Noang Abd-Pelv W (01/04/21 10:21) Ua Culture If Indicated (01/04/21 10:21) Straight Cath For Spec.-Adult (01/04/21 10:21) Ns Iv 1000 Ml (Sodium Chloride 0.9%) (01/04/21 10:25) Ondansetron Injection (Zofran Injectio (01/04/21 10:25) Iohexol Injection (Omnipaque 350 Mg/Ml 1 (01/04/21 10:45) Received Contrast (Hold Metformin- Contr (01/04/21 10:45) Ns (Ivpb) (Sodium Chloride 0.9% Ivpb Bag (01/04/21 10:45) Manual Differential (01/04/21 10:30) Urine Culture (01/04/21 10:35) Blood Culture (01/04/21 11:04) Lactic Acid Analyzer (01/04/21 11:04) Ketorolac Injection (Toradol Injection) (01/04/21 11:24) Ns Iv 1000 Ml (Sodium Chloride 0.9%) (01/04/21 11:30) Metoclopramide Injection (Reglan Injecti (01/04/21 11:27) Ceftriaxone For Iv Use (Rocephin For I (01/04/21 11:32) Medications Given in ED Current Medications Medications Dose Ordered Sig/Yash Route Start Time Stop Time Status Last Admin Dose Admin Iohexol 150 ml ONCE ONCE IV 01/04/21 10:45 01/04/21 10:46 DC 01/04/21 11:54 140 ML Sodium Chloride 100 ml ONCE ONCE IV 01/04/21 10:45 01/04/21 10:46 DC 01/04/21 11:54 80 ML Vital Signs/I&O 01/04/21 10:08 Temp 36.8 Pulse 75 Resp 16 B/P (MAP) 132/72 (92) Pulse Ox 98 O2 Delivery Room Air Blood Pressure Mean: 92 Progress Progress Note #1: Progress Note Obtain basic labs as well as electrocardiogram and provided her renal function is good perform a CT angiogram of her chest to rule out pulmonary embolism. With her complaint of constipation will also perform CT of her abdomen and pelvis to ensure there is no blockage or obstruction since she has had nausea and no bowel movement for several days. At one point she has had no bowel movement since Wednesday before the surgery and another time she said for 5 or 6 days. Placed on cardiac telemetry monitoring to watch her heart rate and rhythm. Initial awake overnight monitor shows a sinus rhythm with heart rate in the 80s. Here she is complaining that she is still too weak to get up to commode as she is too light headed and weak and feels she will pass out again if she tried so Orthostatic vital signs were not obtained Differential diagnosis includes dehydration, vasovagal syncope, pulmonary embolism, UTI, pneumonia, myocardial infarction, sepsis Progress Note #2: Time: 10:58 Progress Note CBC shows elevated white blood cell count of 11.4 with left shift. Her hemoglobin is 11.9 which appears stable for her. Her urinalysis does demonstrate evidence of UTI. Chemistry does not show acute significant abnormality. Cardiac enzymes are not negative for acute coronary syndrome or myocardial infarction. Her electrocardiogram is negative for an acute STEMI. Her cardiac telemetry monitoring continues to show sinus rhythm in the 80s. When updating the patient she states that she was still having pain and some nausea. Will review her prior urine cultures if available and see if she could tolerate cephalosporins in the past. Progress Note #3: Time: 11:36 Progress Note From review of her chart in the electronic medical record she has had prior urine cultures showing E. coli that are sensitive to cephalosporins. Will order Rocephin 1 g IV here as she has received that in the past without difficulty according to her electronic medical record. Ordered Toradol for her pain and since she was still nauseated despite repeated doses of Zofran will try Reglan 5 mg IV. Progress Note #4: Time: 12:[address] scan does not show any acute pulmonary embolism or thoracic aortic dissection. She has no acute obstruction or blockage in her abdomen or pelvis. Her nausea is doing better after the Reglan and the Toradol has helped with her pain. Will page the hospitalist about admission since the patient follows with Dr. Cunningham Progress Note #5: Time: 12:41 Progress Note [address] Limon for the hospitalist service and will admit for IV antibiotics, IV fluids, cardiac monitoring, repeat troponin. Will consult cardiology about her syncope. With her continued weakness, now having constipation, heart palpitations with syncope, urinary tract infection with dehydration she might require fdc or rehab. Lactic acid had come back normal at 0.8. No PE or aortic dissection on CT angiography. No obstruction or blockage on CT abd/pelvis. [address] Ramirez for cardiology so he was aware of consult about the patient being admitted for syncope. Will continue with telemetry, repeat troponin on arrival to [place]. Initial ECG Impression Date: January 04, 2021 Initial ECG Impression Time: 10:35 Initial ECG Rate: 70 Initial ECG Rhythm: Normal Sinus Comment Normal sinus rhythm with a heart rate of 70 bpm. AL interval of 147 ms. QT interval 394 ms with a QTc interval 426 ms. There is no acute ST elevation. Appears similar to prior tracings in the system. Diagnostic Imaging Diagonstic Imaging: CT Plain Films/CT/US/NM/MRI: chest, abdomen, pelvis Comments NAME: MARCELL VALDEZ [facility] REC#: [id number] PT STATUS: REG ER : 1960 PHYSICIAN: ELIANA HANSON MD ADMIT DATE: 01/04/21/ER FS Draft Date of Exam:01/04/21 CT PATI CHEST/NOANG ABD-PELV W CTA chest, abdomen and pelvis Thin axial sections through the chest, abdomen and pelvis are obtained following intravenous contrast bolus. Multiplanar MIP images were reconstructed and reviewed. All CT scans use one or more of the following dose optimizing techniques: automated exposure control, MA and/or KvP adjustment based on patient size and exam type or iterative reconstruction. INDICATION: Syncope with shortness of breath and weakness. Patient status post knee replacement on December 31. CT angiogram chest: Evaluation of pulmonary arterial system is without thromboembolism. No definite filling defects are seen within central, lobar segmental branches. Thoracic aorta is normal caliber. There is no dissection. No pericardial or pleural fluid is identified. No pulmonary infiltrates, nodules or masses are identified. IMPRESSION: No evidence of pulmonary embolism or thoracic aortic dissection. CT abdomen and pelvis: No focal liver mass is identified. Gallbladder is unremarkable. There is no biliary ductal dilatation. Spleen is unremarkable. Pancreas, adrenal glands and kidneys are unremarkable. Aorta and iliac vessels are heavily calcified but nonaneurysmal. Small and large bowel loops are normal caliber. Appendix is unremarkable. There is no free fluid in abdomen. There is some free fluid in the pelvis. The bladder and uterus are unremarkable. IMPRESSION: Unremarkable CT of abdomen and pelvis apart from a small amount of free fluid in the pelvis. No acute abnormality is detected. Dictated on workstation # [id number] Dict: 01/04/21 1215 Trans: 01/04/21 1223 [id number] Interpreted by: MARIANA VICKERS MD Electronically signed by: Departure Communication (Admissions) Time/Spoke to Admitting Phy: 12:41 d/w Dr. Limon about pt. With her having 2 syncopal episodes within the last week and now having feeling like heart palpitations at times and still too weak and light headed to even get up to the commode will admit for hydration, awake overnight monitor, IV antibiotics. Repeat troponin on arrival to [place] and consult cardiology. Time/Spoke to Consulting Phy: 12:45 d/w Dr. Ramirez and updated him about pt being admitted for syncope and UTI with dehydration. Impression Primary Impression: Syncope and collapse Additional Impressions: Cystitis without hematuria Dehydration Palpitations with regular cardiac rhythm Nausea Constipation Qualified Codes: K59.00 - Constipation, unspecified Status post total knee replacement, right Disposition: 30 STILL A PATIENT Condition: Stable Admissions Decision to Admit Reason: Admit from ER (General) Decision to Admit/Date: January 04, 2021 Time/Decision to Admit Time: 12:41 Departure-Patient Inst. Referrals: PACO SUNG DO (PCP/Family) Primary Care Physician ELIANA HANSON MD January 04, 2021 10:28
[2021-01-04 10:34] LABS: BASOPHILS % (AUTO) 0 % (0-10); EOSINOPHILS % (AUTO) 1 % (0-10); HEMATOCRIT 35 % (35-52); HEMOGLOBIN 11.9 G/DL (11.5-16.0); LYMPHOCYTES % (AUTO) 8 % (12-44); MEAN CORPUSCULAR HEMOGLOBIN 29 PG (25-34); MEAN CORPUSCULAR HGB CONC 34 G/DL (32-36); MEAN CORPUSCULAR VOLUME 87 FL (80-99); MEAN PLATELET VOLUME 11.1 FL (7.4-10.4); MONOCYTES % (AUTO) 5 % (0-12); NEUTROPHILS # (AUTO) 9.7 X 10^3 (1.8-7.8); NEUTROPHILS % (AUTO) 85 % (42-75); PLATELET COUNT 179 10^3/uL (130-400); WHITE BLOOD COUNT 11.4 10^3/uL (4.3-11.0)
[2021-01-04 10:35] LABS: EOSINOPHILS # (AUTO) 0.1 10^3/uL (0.0-0.3); LYMPHOCYTES # (AUTO) 0.9 X 10^3 (1.0-4.0); MONOCYTES # (AUTO) 0.6 X 10^3 (0.0-1.0)
[2021-01-04 10:45] LABS: COLOR,URINE YELLOW
[2021-01-04] MEDS ORDERED: NS 100 ML (IVPB) BAG IV ONE (10:45)
[2021-01-04] MEDS ORDERED: IOHEXOL 350 MG/ML 150 ML (OMNIPAQUE 350) VIAL IV ONE (10:45)
[2021-01-04] MEDS ORDERED: HOLD METFORMIN - RECEIVED CONTRAST 20 ML VIAL IV SCH (10:45)
[2021-01-04 10:46] LABS: BACTERIA,URINE LARGE /HPF; BILIRUBIN,URINE NEGATIVE (NEGATIVE); CLARITY,URINE CLOUDY; GLUCOSE, URINE (UA) NEGATIVE (NEGATIVE); KETONES,URINE NEGATIVE (NEGATIVE); LEUKOCYTE ESTERASE ,URINE 3+ (NEGATIVE); NITRITE,URINE NEGATIVE (NEGATIVE); PROTEIN,URINE TRACE (NEGATIVE)
[2021-01-04 10:55] LABS: ALANINE AMINOTRANSFERASE 12 U/L (0-55); ALBUMIN 3.7 GM/DL (3.2-4.5); ALKALINE PHOSPHATASE 71 U/L (40-136); BUN/CREATININE RATIO 22; CALCIUM 8.9 MG/DL (8.5-10.1); CARBON DIOXIDE 23 MMOL/L (21-32); CHLORIDE 102 MMOL/L (98-107); CREATININE SERUM 0.59 MG/DL (0.60-1.30); GFR ESTIMATED > 60; GLUCOSE 110 MG/DL (70-105); LIPASE 19 U/L (8-78); POTASSIUM 4.1 MMOL/L (3.6-5.0); SODIUM 137 MMOL/L (135-145); TOTAL PROTEIN 6.5 GM/DL (6.4-8.2)
[2021-01-04 11:13] LABS: LYMPHOCYTES % (MANUAL) 8 %; MONOCYTES % (MANUAL) 5 %; NEUTROPHILS % (MANUAL) 87 %; TOXIC GRANULATION/VACUOLAZATIO 3+
[2021-01-04] MEDS ORDERED: KETOROLAC 30 MG/ML VIAL IVP STA (11:24)
[2021-01-04] MEDS ORDERED: METOCLOPRAMIDE INJ 10 MG/2 ML (REGLAN) IVP STA (11:27)
[2021-01-04] MEDS ORDERED: cefTRIAXone FOR IV USE 1,000 MG in WATER (STERILE) FOR INJECTION 10 ML IV STA (11:32)
--- NOTE | 2021-01-04 12:23 | Diagnostic Imaging Report ---
CTA chest, abdomen and pelvis Thin axial sections through the chest, abdomen and pelvis are obtained following intravenous contrast bolus. Multiplanar MIP images were reconstructed and reviewed. All CT scans use one or more of the following dose optimizing techniques: automated exposure control, MA and/or KvP adjustment based on patient size and exam type or iterative reconstruction. INDICATION: Syncope with shortness of breath and weakness. Patient status post knee replacement on December 31. CT angiogram chest: Evaluation of pulmonary arterial system is without thromboembolism. No definite filling defects are seen within central, lobar segmental branches. Thoracic aorta is normal caliber. There is no dissection. No pericardial or pleural fluid is identified. No pulmonary infiltrates, nodules or masses are identified. IMPRESSION: No evidence of pulmonary embolism or thoracic aortic dissection. CT abdomen and pelvis: No focal liver mass is identified. Gallbladder is unremarkable. There is no biliary ductal dilatation. Spleen is unremarkable. Pancreas, adrenal glands and kidneys are unremarkable. Aorta and iliac vessels are heavily calcified but nonaneurysmal. Small and large bowel loops are normal caliber. Appendix is unremarkable. There is no free fluid in abdomen. There is some free fluid in the pelvis. The bladder and uterus are unremarkable. IMPRESSION: Unremarkable CT of abdomen and pelvis apart from a small amount of free fluid in the pelvis. No acute abnormality is detected. Dictated by: Dictated on workstation # [id number]
[2021-01-04] MEDS: NS IV 1000 ML 1,000 ML IV SCH ×4 (13:15→21:38)
[2021-01-04] MEDS ORDERED: METOCLOPRAMIDE INJ 10 MG/2 ML (REGLAN) IV PRN (14:15)
[2021-01-04 14:37] VITALS: BP 148/70
[2021-01-04] MEDS ORDERED: MELATONIN 3 MG TABLET PO PRN (15:30)
[2021-01-04] MEDS ORDERED: ONDANSETRON 4 MG (ZOFRAN) ORAL DISSOLVE TAB PO PRN (15:30)
[2021-01-04] MEDS ORDERED: ONDANSETRON 4 MG/2 ML (SDV) Z0FRAN IV PRN (15:30)
[2021-01-04] MEDS ORDERED: diphenhydrAMINE 25 MG TAB (BENADRYL) PO PRN (15:30)
[2021-01-04] MEDS ORDERED: BISACODYL 10 MG SUPP (DULCOLAX) PR PRN (15:30)
[2021-01-04] MEDS ORDERED: ANTACID SUSP 30 ML UDC (MYLANTA) PO PRN (15:30)
[2021-01-04] MEDS ORDERED: BACLOFEN 10 MG (LIORESAL) TAB PO SCH (15:33)
[2021-01-04] MEDS ORDERED: GABAPENTIN 300 MG (NEURONTIN) CAP PO SCH (15:34)
[2021-01-04] MEDS ORDERED: PATIENT MAY USE OWN MEDS, ALL MC SCH (15:45)
[2021-01-04] MEDS ORDERED: TRAM50TA3 PO (16:03)
[2021-01-04] MEDS ORDERED: HYDR-3820 PO (16:03)
[2021-01-04] MEDS: ENOXAPARIN 40 MG/0.4 ML (LOVENOX) SYR SC SCH (16:14)
[2021-01-04 16:27] VITALS: BP 136/74
[2021-01-04] MEDS: ACETAMINOPHEN 325 MG TABLET PO PRN (16:29)
[2021-01-04] MEDS: BACLOFEN 10 MG (LIORESAL) TAB PO SCH ×2 (16:50→20:09)
[2021-01-04] MEDS: GABAPENTIN 300 MG (NEURONTIN) CAP PO SCH ×2 (16:50→20:10)
--- NOTE | 2021-01-04 19:37 | Diagnostic Imaging Report ---
PROCEDURE: CT head without contrast. TECHNIQUE: Multiple contiguous axial images were obtained through the brain without the use of intravenous contrast. Auto Exposure Controls were utilized during the CT exam to meet ALARA standards for radiation dose reduction. INDICATION: Facial numbness and tingling. CORRELATION: 12/25/2018 FINDINGS: There is no midline shift or mass effect. The ventricles and sulci are unremarkable. No evidence for acute intracranial hemorrhage, abnormal extra-axial fluid collections or cerebral edema is present. The basilar cisterns are unremarkable. The bony calvarium is intact. Probable small cyst or polyp left maxillary sinus. IMPRESSION: Negative appearing noncontrast CT of the head. Dictated by: Dictated on workstation # [id number]
[2021-01-04] MEDS: OXYBUTYNIN (DITROPAN) 5 MG TAB PO SCH (20:10)
[2021-01-04] MEDS: doxAzosin 2 MG (CARDURA) TAB PO SCH (20:10)
[2021-01-04] MEDS: DOCUSATE SODIUM 100 MG (COLACE) CAP PO SCH (20:10)
[2021-01-04] MEDS: SENNOSIDES 8.6 MG (SENOKOT) TAB PO SCH (20:11)
[2021-01-04 20:32] VITALS: BP 139/81
[2021-01-05] VITALS (7 sets, daily range): BP systolic 124–158; BP diastolic 58–75
[2021-01-05] MEDS: NS IV 1000 ML 1,000 ML IV SCH (03:40)
[2021-01-05 04:37] LABS: BASOPHILS % (AUTO) 0 % (0-10); EOSINOPHILS # (AUTO) 0.1 10^3/uL (0.0-0.3); EOSINOPHILS % (AUTO) 2 % (0-10); HEMATOCRIT 31 % (35-52); HEMOGLOBIN 10.3 g/dL (11.5-16.0); LYMPHOCYTES # (AUTO) 1.4 10^3/uL (1.0-4.0); LYMPHOCYTES % (AUTO) 16 % (12-44); MEAN CORPUSCULAR HEMOGLOBIN 29 pg (25-34); MEAN CORPUSCULAR HGB CONC 33 g/dL (32-36); MEAN CORPUSCULAR VOLUME 87 fL (80-99); MEAN PLATELET VOLUME 11.2 fL (9.0-12.2); MONOCYTES # (AUTO) 0.6 10^3/uL (0.0-1.0); MONOCYTES % (AUTO) 6 % (0-12); NEUTROPHILS # (AUTO) 6.6 10^3/uL (1.8-7.8); NEUTROPHILS % (AUTO) 74 % (42-75); PLATELET COUNT 202 10^3/uL (130-400); WHITE BLOOD COUNT 8.9 10^3/uL (4.3-11.0)
[2021-01-05 04:51] LABS: CHLORIDE 106 MMOL/L (98-107); POTASSIUM 3.7 MMOL/L (3.6-5.0); SODIUM 138 MMOL/L (135-145)
[2021-01-05 04:52] LABS: ALBUMIN 3.3 GM/DL (3.2-4.5); CALCIUM 8.4 MG/DL (8.5-10.1)
[2021-01-05 04:53] LABS: TRIGLYCERIDES 120 MG/DL (<150); VLDL CHOLESTEROL 24 MG/DL (5-40)
[2021-01-05 04:54] LABS: GLUCOSE 98 MG/DL (70-105); TOTAL PROTEIN 5.7 GM/DL (6.4-8.2)
[2021-01-05 04:55] LABS: BILIRUBIN,TOTAL 1.1 MG/DL (0.1-1.0); CARBON DIOXIDE 25 MMOL/L (21-32)
[2021-01-05 04:57] LABS: ALKALINE PHOSPHATASE 51 U/L (40-136); CREATININE SERUM 0.66 MG/DL (0.60-1.30); GFR ESTIMATED > 60
[2021-01-05 04:58] LABS: CHOLESTEROL 109 MG/DL (< 200)
[2021-01-05 04:59] LABS: BUN/CREATININE RATIO 20
[2021-01-05 05:00] LABS: HDL CHOLESTEROL 36 MG/DL (40-60)
[2021-01-05 05:01] LABS: ALANINE AMINOTRANSFERASE 12 U/L (0-55)
[2021-01-05] MEDS: LORATADINE (CLARITIN) 10 MG TAB PO SCH (09:19)
[2021-01-05] MEDS: SENNOSIDES 8.6 MG (SENOKOT) TAB PO SCH ×2 (09:20→20:54)
[2021-01-05] MEDS: lisINopril 40 MG (PRINIVIL) TABLET PO SCH ×2 (09:21→09:41)
[2021-01-05] MEDS: GABAPENTIN 300 MG (NEURONTIN) CAP PO SCH ×3 (09:22→20:54)
[2021-01-05] MEDS: DOCUSATE SODIUM 100 MG (COLACE) CAP PO SCH ×2 (09:23→20:51)
[2021-01-05] MEDS: OXYBUTYNIN (DITROPAN) 5 MG TAB PO SCH ×2 (09:23→20:52)
[2021-01-05] MEDS: BACLOFEN 10 MG (LIORESAL) TAB PO SCH ×3 (09:25→20:53)
[2021-01-05] MEDS: cefTRIAXone 1,000 MG/SWFI 10 ML IV PUSH IV SCH ×2 (09:36)
--- NOTE | 2021-01-05 11:18 | History & Physical-Hospitalist ---
History of Present Illness HPI/Chief Complaint Dorina Josue is a 60-year-old female with past medical history of hypertension, hyperlipidemia, obesity, osteoarthritis, who presented after having an episode of syncope. She recently underwent a right total knee replacement and has been had a family member's house recovering postoperatively. She reports that she had an episode of syncope on when she had gotten up to go to the bathroom. She reports feeling lightheaded and dizzy. She says that she "passed out on the bed". She reports that on Wednesday she had another episode of syncope and her family member thought she had stopped breathing. She reports feeling lightheaded and dizzy at that time as well. She was sitting on the toilet getting ready to take a shower. She denies any chest pain or palpitations. She denies any shortness of breath or cough. She denies any fevers or chills. She denies any abdominal pain, nausea, vomiting, or diarrhea. She has been constipated. Source: patient Exam Limitations: no limitations Date Seen 01/05/21 Time Seen by a Provider: 09:40 Attending Physician Billie Scherer MD PCP Chan Aguero DO Referring Physician Date of Admission January 04, 2021 at 13:58 Home Medications & Allergies Home Medications Reviewed patient Home Medication Reconciliation performed by pharmacy medication reconciliations classroom technology technician and/or nursing. Patients Allergies have been reviewed. Allergies Allergies Coded Allergies meloxicam (Verified Allergy, Intermediate, RASH ALL OVER, 12/25/18) Penicillins (Verified Allergy, Mild, RASH, 03/07/19) Patient Social History Tobacco Use?: No Smoking Status: Never a Smoker Alcohol Use?: No Pt stated abuse/neglect: No Immunizations Up To Date Influenza Vaccine Up-to-Date: Yes; Up-to-Date First/Initial COVID19 Vaccinat: 11/19/2020 Tetanus Booster (TDap): Less Than 5 Years Hepatitis A: No Hepatitis B: No Current Status status: No Communicates: Verbally Primary Language: Martiniquais Preferred Spoken Language: Martiniquais Is interpretation needed?: No Implanted or Applied Medical D: None Past Medical History Hypertension Hyperlipidemia Osteoarthritis Obesity Family Medical History Family Hx: Noncontributory Review of Systems Constitutional: dizziness EENTM: no symptoms reported Respiratory: no symptoms reported Cardiovascular: no symptoms reported Gastrointestinal: constipation Genitourinary: no symptoms reported Musculoskeletal: no symptoms reported Skin: no symptoms reported Psychiatric/Neurological: No Symptoms Reported Physical Exam Physical Exam Vital Signs Vital Signs - First Documented 01/04/21 10:08 Temp 36.8 Pulse 75 Resp 16 B/P (MAP) 132/72 (92) Pulse Ox 98 O2 Delivery Room Air Capillary Refill : Less Than 3 Seconds Height, Weight, BMI Height: 5'4.00" Weight: 185lbs. 14.0oz. 84.353739ao; 32.89 BMI Method:Actual General Appearance: No Apparent Distress, Obese HEENT: PERRL/EOMI, Pharynx Normal Neck: Normal Inspection, Supple Respiratory: Lungs Clear, Normal Breath Sounds, No Respiratory Distress Cardiovascular: Regular Rate, Rhythm, No Edema, No Murmur Gastrointestinal: Normal Bowel Sounds, Non Tender, Soft Extremity: Other (Right knee with bandage in place, 1+ edema on the right) Neurologic/Psychiatric: Alert, Oriented x3, No Motor/Sensory Deficits, Normal Mood/Affect Skin: Normal Color, Warm/Dry Results Results/Procedures Labs Laboratory Tests 01/04/21 10:30 01/05/21 04:20 Patient resulted labs reviewed. Imaging: Reviewed Imaging Report Assessment/Plan Admission Diagnosis Syncope Admission Status: Inpatient Order (span 2 midnights) Reason for Inpatient Admission: Syncope requiring further evaluation Assessment and Plan Syncope Orthostatic hypotension Dehydration Constipation Likely orthostatic due to dehydration vs vasovagal due to constipation Orthostatic vitals not performed due to inability to stand upon arrival IV fluids Bowel regimen Monitor on telemetry Cardiology consulted, appreciate assistance Osteoarthritis s/p right total knee arthroplasty Obesity PT/OT IRU evaluation HTN HLD Continue home meds DVT prophylaxis: Lovenox Diagnosis/Problems Diagnosis/Problems (1) Syncope and collapse Status: Acute (2) Constipation Status: Acute Qualifiers: Constipation type: unspecified constipation type Qualified Codes: K59.00 - Constipation, unspecified (3) Status post total knee replacement, right Status: Acute BILLIE SCHERER MD January 05, 2021 11:18
[2021-01-05] MEDS: D5 1/2 NS W/KCL 20 MEQ/L 1,000 ML IV SCH ×2 (12:04→21:52)
[2021-01-05] MEDS: ENOXAPARIN 40 MG/0.4 ML (LOVENOX) SYR SC SCH (16:42)
[2021-01-05] MEDS: doxAzosin 2 MG (CARDURA) TAB PO SCH (20:51)
--- NOTE | 2021-01-05 22:56 | Consultation-Cardiology ---
HPI-Cardiology Cardiology Consultation: Date of Consultation 01/05/21 Date of Admission Attending Physician Billie Limon MD Admitting Physician Chan Aguero DO Consulting Physician Elier RAMIREZ MD HPI: Time Seen by a Provider: 13:00 Chief Complaint: syncope this is a 60 year old lady with HTN, lipids, OA with recent right total knee replacement. Had an episode of syncope after she got up to go to the restroom. dizziness. No other cardiac complaints Review of Systems-Cardiology Review of Systems Constitutional: As described under HPI; No As described under HPI, No no symptoms reported, No chills, No fever, No lightheadedness Eyes: No As described under HPI, No no symptoms reported, No blindness, No blurred vision, No contact lenses, No drainage, No decreased acuity, No foreign body sensation, No pain, No vision change Ears/Nose/Throat: No As described under HPI, No no symptoms reported, No chronic hearing loss, No ear discharge, No ear pain, No nasal drainage, No ulcerations Respiratory: No no symptoms reported; As described under HPI; No As described under HPI, No cough, No orthopnea, No shortness of breath, No SOB with excertion Cardiovascular: No no symptoms reported; As described under HPI; No As described under HPI, No chest pain, No edema, No irregular heart rate, No lightheadedness, No palpitations; syncope Gastrointestinal: No no symptoms reported, No As described under HPI, No abdomen distended, No abdominal pain, No blood streaked bowels, No constipation, No diarrhea, No nausea, No vomiting, No stool coloration changes Genitourinary: No As described under HPI, No burning, No dysuria, No discharge, No frequency, No flank pain, No hematuria, No urgency : Yes : No Skin: No rash, No skin related problems, No ulcerations Psychiatric/Neurological: No anxiety, No depression, No seizure, No focal weakn ess, No syncope Hematologic: No bleeding abnormalities EDG-Mkpfzb-Ftdspw Hx Patient Social History Smoking Status: Never a Smoker 2nd Hand Smoke Exposure: No Have you traveled recently?: No Alcohol Use?: No Pt feels they are or have been: No Immunizations Up To Date Tetanus Booster (TDap): Less than 5yrs (2018) Date of Influenza Vaccine: May 07, 2020 Past Medical History PMH As described under Assessment. Family Medical History Family History: Patient reports no known family medical history. Allergies and Home Medications Allergies Coded Allergies: meloxicam (Verified Allergy, Intermediate, RASH ALL OVER, 12/25/18) Penicillins (Verified Allergy, Mild, RASH, 03/07/19) Home Medications Ascorbic Acid 500 Mg Tablet, 500 MG PO DAILY, (Reported) Atenolol 50 Mg Tablet, 50 MG PO BID, (Reported) Gabapentin 300 Mg Capsule, 300 MG PO TID, (Reported) Lisinopril 40 Mg Tablet, 40 MG PO DAILY, (Reported) Lovastatin 20 Mg Tablet, 20 MG PO HS, (Reported) Oxybutynin Chloride 5 Mg Tablet, 5 MG PO TID, (Reported) Last Action: Last Taken Edited Patient Home Medication List Home Medication List Reviewed: Yes Physical Exam-Cardiology Physical Exam Vital Signs/I&O 01/05/21 01/05/21 01/05/21 01/05/21 12:08 12:31 15:58 19:00 Temp 35.9 36.1 Pulse 80 85 64 104 Resp 18 20 B/P (MAP) 144/65 (91) 152/68 (96) Pulse Ox 97 94 O2 Delivery Room Air Room Air 01/05/21 19:54 Temp 36.3 Pulse 91 Resp 20 B/P (MAP) 158/74 (102) Pulse Ox 98 O2 Delivery Room Air 01/05/21 00:00 Intake Total 1550 ml Balance 1550 ml Capillary Refill : Less Than 3 Seconds Constitutional: appears stated age, AAO x 3; No apparent distress; well- developed, well-nourished HEENT: PERRL; No discharge; hearing is well preserved, oral hygience is good; No ulceration, No xanthelasmas are seen Neck: No carotid bruit; carotid pulses are 2 + bilaterally Respiratory: chest is bilaterally symmetric, lungs clear to auscultation Cardiovascular: regular rate-rhythm, S1 and S2 Gastrointestinal: soft, audible bowel sounds; No spleenomegaly Rectal: deferred Extremities: No clubbing, No cyanosis; no lower extremity edema bilateral; No significant edema Neurologic/Psychiatric: no motor/sensory deficits, alert, normal mood/affect, oriented x 3, power is 5/5 both on sides Skin: No rash, No ulcerations Data Review Labs Laboratory Tests 01/05/21 04:20: White Blood Count 8.9, Red Blood Count 3.57L, Hemoglobin 10.3L, Hematocrit 31L, Mean Corpuscular Volume 87, Mean Corpuscular Hemoglobin 29, Mean Corpuscular Hemoglobin Concent 33, Red Cell Distribution Width 13.6, Platelet Count 202, Mean Platelet Volume 11.2, Immature Granulocyte % (Auto) 2, Neutrophils (%) (Auto) 74, Lymphocytes (%) (Auto) 16, Monocytes (%) (Auto) 6, Eosinophils (%) (Auto) 2, Basophils (%) (Auto) 0, Neutrophils # (Auto) 6.6, Lymphocytes # (Auto) 1.4, Monocytes # (Auto) 0.6, Eosinophils # (Auto) 0.1, Basophils # (Auto) 0.0, Immature Granulocyte # (Auto) 0.2H, Sodium Level 138, Potassium Level 3.7, Chloride Level 106, Carbon Dioxide Level 25, Anion Gap 7, Blood Urea Nitrogen 13, Creatinine 0.66, Estimat Glomerular Filtration Rate > 60, BUN/Creatinine Ratio 20, Glucose Level 98, Calcium Level 8.4L, Corrected Calcium 9.0, Total Bilirubin 1.1H, Aspartate Amino Transf (AST/SGOT) 15, Alanine Aminotransferase (ALT/SGPT) 12, Alkaline Phosphatase 51, Total Protein 5.7L, Albumin 3.3, Triglycerides Level 120, Cholesterol Level 109, LDL Cholesterol Direct 54, VLDL Cholesterol 24, HDL Cholesterol 36L Microbiology 01/04/21 Blood Culture - Preliminary, Resulted No growth 01/04/21 Urine Culture - Preliminary, Resulted Escherichia coli Corynebacterium amycolatum ECG Impression ECG Initial ECG Rhythm: Normal Sinus Initial ECG Impression: Normal A/P-Cardiology Assessment/Admission Diagnosis syncope, likely vasovagal, recent total knee replacement, HTN, lipids Plan check orthostatics IV fluids Echo telemetry likely event monitor x 30 days Thank you for your consultation. Please call me if you have any questions. Leonor Ramirez MD, FACP, FACC, FSCAI, FHRS, CCDS Interventional Cardiology Cardiac Electrophysiology Vascular Medicine and Endovascular Interventions Elier RAMIREZ MD January 05, 2021 22:56
[2021-01-06 04:00] VITALS: BP 130/76
[2021-01-06 08:04] VITALS: BP 140/70
[2021-01-06] MEDS: D5 1/2 NS W/KCL 20 MEQ/L 1,000 ML IV SCH ×2 (08:06→18:05)
[2021-01-06] MEDS: lisINopril 40 MG (PRINIVIL) TABLET PO SCH (08:07)
[2021-01-06] MEDS: DOCUSATE SODIUM 100 MG (COLACE) CAP PO SCH ×2 (08:07→20:09)
[2021-01-06] MEDS: LORATADINE (CLARITIN) 10 MG TAB PO SCH (08:07)
[2021-01-06] MEDS: OXYBUTYNIN (DITROPAN) 5 MG TAB PO SCH ×2 (08:08→20:07)
[2021-01-06] MEDS: BACLOFEN 10 MG (LIORESAL) TAB PO SCH ×3 (08:09→20:11)
[2021-01-06] MEDS: GABAPENTIN 300 MG (NEURONTIN) CAP PO SCH ×3 (08:09→20:10)
[2021-01-06] MEDS: SENNOSIDES 8.6 MG (SENOKOT) TAB PO SCH ×2 (09:36→20:14)
[2021-01-06] MEDS: cefTRIAXone 1,000 MG/SWFI 10 ML IV PUSH IV SCH ×2 (09:39)
[2021-01-06] MEDS: polyethylene glycoL POWDER 17 GM (MIRALAX) PACK PO PRN (09:44)
--- NOTE | 2021-01-06 09:50 | Physical Therapy Evaluation ---
PT Evaluation-General Medical Diagnosis Admission Date January 04, 2021 at 13:58 Medical Diagnosis: syncope/dehydration/UTI Onset Date: January 04, 2021 Therapy Diagnosis Therapy Diagnosis: debility Height/Weight Height (Feet): 5 Height (Inches): 4.00 Weight (Pounds): 185 Weight (Ounces): 14.0 Precautions Precautions/Isolations: Fall Prevention, Standard Precautions Referral Physician: Braxton Reason for Referral: Evaluation/Treatment Medical History Pertinent Medical History: Arthritis, GERD Additional Medical History right TKR 12/31/20 Current History EMS secondary to syncopal episodes after TKR 12/31/20 Reviewed History: Yes Social History Home: Single Level Current Living Status: Alone Entry Into Home: Stairs With Railing PT Steps Into Home: 5 Prior Prior Level of Function SCALE: Activities may be completed with or without assistive devices. 5-Rkpduggzem-oqnqccq completes the activity by him/herself with no assistance from a helper. 5-Set-up or Clean-up Assistance-helper sets up or cleans up; patient completes activity. [place] assists only prior to or following the activity. 4-Supervision or Touching Assistance-helper provides verbal cues and/or touching/steadying and/or contact guard assistance as patient completes a ctivity. Assistance may be provided throughout the activity or intermittently. 3-Partial/Moderate Assistance-helper does LESS THAN HALF the effort. [place] lifts, holds or supports trunk or limbs, but provides less than half the effort. 2-Substantial/Maximal Assistance-helper does MORE THAN HALF the effort. [place] lifts or holds trunk or limbs and provides more than half the effort. 1-Thuhskfqp-wcmffj does ALL the effort. Patient does none of the effort to complete the activity. Or, the assistance of 2 or more helpers is required for the patient to complete the activity. If activity was not attempted, code reason: 7-Patient Refused. 9-Not Applicable-not attempted and the patient did not perform the activity before the current illness, exacerbation or injury. 10-Not Attempted due to Environmental Limitations-(lack of equipment, weather restraints, etc.). 88-Not Attempted due to Medical Conditions or Safety Concerns. Bed Mobility: 6 Transfers (B,C,W/C): 6 Gait: 6 Stairs: 6 Indoor Mobility (Ambulation): Independent Stairs: Independent Prior Devices Use: Walker PT Evaluation-Current Subjective Patient reports she was staying with her family and they feel they can't take care of her due to episodes. Patient agrees to PT. Pain Numeric Pain Scale: 5-Moderate Pain Location: Right Location Body Site: Knee Pain Description: Acute Objective Patient Orientation: Normal For Age Attachments: IV ROM/Strength ROM Lower Extremities left LE WFL/right knee flexion 30 degrees;extension 5 degrees Strength Lower Extremities left LE 4+/5 grossly/right LE 3+/5 grossly Integumentary/Posture Integumentary refer to nursing notes Bowel Incontinence: No Bladder Incontinence: No Posture WFL Neuromuscular (Tone, Coordination, Reflexes) grossly intact Sensory Vision: Wears Glasses Hearing: Functional Sensation Right Lower Extremit: Intact Sensation Left Lower Extremity: Intact Transfers Roll Left to Right (QC): 6 Sit to Lying (QC): 6 Lying to Sitting/Side of Bed(Q: 6 Sit to Stand (QC): 4 (SBA) Chair/Yaw-zv-Ggnfi Xfer(QC): 4 (SBA) Gait Does the Patient Walk?: Yes Mode of Locomotion: Walk Anticipated Mode of Locomotion: Walk Walk 10 feet (QC): 4 (SBA) Walk 50 ft with 2 Turns(QC): 4 (SBA) Walk 150 ft (QC): 4 (SBA) Distance: 300' Gait Assistive Device: FWW Comments/Gait Description slow, antalgic, reciprocal pattern Wheelchair Training Does the Pt Use a Wheelchair?: No Stairs #of Steps: 1 1 Step (curb) (QC): 4 (SBA) Balance Sitting Static: Normal Sitting Dynamic: Normal Standing Static: Normal Standing Dynamic: Normal Picking up an Object (QC): 6 Treatment Right LE exercises in supine (AP, HS, SLR, QS); seated LAQ; standing hip flexion all 15 reps CPM 0-64 degrees right LE Assessment/Needs 60 y.o. female will benefit from skilled PT to address functional strength and mobility to ensure safe return to home with family at maximum LOF. Rehab Potential: Fair PT Senior Care Goals [employer] Goals PT Senior Care Goals Time Frame: January 17, 2021 Roll Left & Right (QC): 6 Sit to Lying (QC): 6 Lying-Sitting on Side/Bed(QC): 6 Sit to Stand (QC): 6 Chair/Bzz-wt-Vaadh Xfer(QC): 6 Toilet Transfer (QC): 6 Does the Patient Walk: Yes Walk 10 feet (QC): 6 Walk 50ft with 2 Turns (QC): 6 Walk 150 ft (QC): 6 Walking 10ft on Uneven Surface: 6 1 Step (curb) (QC): 4 4 Steps (QC): 4 PT Plan Problem List Problem List: Gait, ROM Treatment/Plan Treatment Plan: Continue Plan of Care Treatment Plan: Education, Functional Activity Quan, Functional Strength, Gait, Safety, Therapeutic Exercise, Transfers Treatment Duration: January 17, 2021 Frequency: 11 times per week Estimated Hrs Per Day: .5 hour per day Patient and/or Family Agrees t: Yes Time/GCodes Time In: 836 Time Out: 900 Total Billed Treatment Time: 24 Total Billed Treatment 1 visit EVModC 12 min EX 12 min CPM/Pads ESTEPHANIA JIMENEZ PT January 06, 2021 09:50
--- NOTE | 2021-01-06 10:01 | Progress Note - Hospitalist ---
Subjective HPI/CC On Admission Date Seen by Provider: January 06, 2021 Time Seen by Provider: 09:58 Dorina Josue is a 60-year-old female with past medical history of hypertension, hyperlipidemia, obesity, osteoarthritis, who presented after having an episode of syncope. She recently underwent a right total knee replacement and has been had a family member's house recovering postoperatively. She reports that she had an episode of syncope on when she had gotten up to go to the bathroom. She reports feeling lightheaded and dizzy. She says that she "passed out on the bed". She reports that on Wednesday she had another episode of syncope and her family member thought she had stopped breathing. She reports feeling lightheaded and dizzy at that time as well. She was sitting on the toilet getting ready to take a shower. She denies any chest pain or palpitations. She denies any shortness of breath or cough. She denies any fevers or chills. She denies any abdominal pain, nausea, vomiting, or diarrhea. She has been constipated. Subjective/Events-last exam Pt reports doing well. No complaints. Last time she was lightheaded was yesterday. Has already been up with PT and did not get light headed but did want to lie flat in bed after. Focused Exam Lactate Level 01/04/21 10:35: Lactic Acid Level 0.88 Objective Exam Vital Signs Vital Signs Date Time Temp Pulse Resp B/P (MAP) Pulse Ox O2 Delivery O2 Flow Rate FiO2 01/06/21 08:04 36.2 62 18 140/70 (93) 99 Room Air Capillary Refill : Less Than 3 Seconds General Appearance: No Apparent Distress, WD/WN Respiratory: Lungs Clear, No Respiratory Distress Cardiovascular: Regular Rate, Rhythm, No Murmur Extremity: Other (leg in CPM) Neurologic/Psychiatric: Alert, Oriented x3 Results/Procedures Lab Patient resulted labs reviewed. Imaging: Reviewed Imaging Report Assessment/Plan Assessment and Plan Assess & Plan/Chief Complaint Syncope Orthostatic hypotension Dehydration Constipation Likely orthostatic Continue IV fluids Bowel regimen Monitor on telemetry Cardiology consulted, appreciate assistance Osteoarthritis s/p right total knee arthroplasty Obesity PT/OT IRU evaluation as will likely need physician oversight due to recurrent syncope HTN HLD Continue home meds DVT prophylaxis: GENE Rowland MD January 06, 2021 10:01
--- NOTE | 2021-01-06 10:01 | Progress Note - Cardiology ---
Cardiology SOAP Progress Note Objective: I&O/Vital Signs 01/07/21 01/07/21 01/07/21 01/07/21 00:47 01:00 04:28 07:00 Temp 37.1 36.6 Pulse 71 70 73 66 Resp 18 20 B/P (MAP) 123/67 (85) 134/80 (98) Pulse Ox 96 95 O2 Delivery Room Air Room Air 01/07/21 01/07/21 08:00 09:00 Temp 36.0 Pulse 78 Resp 20 B/P (MAP) 126/78 (94) Pulse Ox 98 O2 Delivery Room Air Room Air 01/07/21 00:00 Intake Total 1760 ml Output Total 3400 ml Balance -1640 ml Weight (Pounds): 185 Weight (Ounces): 14.0 Weight (Calculated Kilograms): 84.708644 Constitutional: AAO x 3, well-developed, well-nourished Respiratory: chest is bilaterally symmetric, lungs clear to auscultation Cardiovascular: regular rate-rhythm, S1 and S2 Gastrointestional: soft, audible bowel sounds Extremities: no lower extremity edema bilateral Neurologic/Psychiatric: no motor/sensory deficits, alert, normal mood/affect, oriented x 3, grossly intact (moves all extremities) Skin: No rash, No rash on exposed areas, No ulcerations on exposed areas Results/Procedures: Labs Laboratory Tests 01/07/21 05:17: Sodium Level 136, Potassium Level 4.6, Chloride Level 104, Carbon Dioxide Level 25, Anion Gap 7, Blood Urea Nitrogen 10, Creatinine 0.69, Estimat Glomerular Filtration Rate > 60, BUN/Creatinine Ratio 14, Glucose Level 112H, Calcium Level 9.0, Magnesium Level 2.2 Microbiology 01/04/21 Blood Culture - Preliminary, Resulted No growth 01/04/21 Urine Culture - Final, Complete Escherichia coli Corynebacterium amycolatum See Comments A/P: Assessment: Syncope of undetermined etiology - possible orthostatic hypotension Recent R TKR H/o nonspecific chest discomfort and exertional shortness of breath, none currently Chronic sinus bradycardia which has precluded the use of BB Echo of December 2018 showed LVEF 60-65%, mild MR, RVSP approx 30 mmHg Last cardiac catheterization of June 2010 did not indicate any angiographically significant coronary artery disease and left ventricular ejec tion fraction was 65 to 70%. MPI of December 2018 showed no evidence of significant myocardial ischemia or infarction, LVEF 67%, normal regional wall motion Carotid u/s of January 18, 2020 showed minimal bilat carotid plaque Hypertension Intolerance to diuretics, which results in significant hypokalemia. Hyperlipidemia being treated with lovastatin and followed by her PCP Degenerative joint disease. Intermittent palpitations, currently controlled. Varicose veins involving the lower extremities ALETHEA with sgemental pressure of August 25, 2016 showed no evidence of any obstructive dz bilat Elevated BMI of approx 33 Plan: Syncopal episode of undetermined etiology while up in the shower following recent R TKR No further episodes Reduce anti-hypertensive regimen Orthostatic v/s Monitor lab closely Replace electrolytes as indicated Further recs will be based on her hospital course CALISTA PHAM January 06, 2021 10:01
[2021-01-06 10:35] LABS: HEMATOCRIT 32 % (35-52); HEMOGLOBIN 10.8 g/dL (11.5-16.0); MEAN CORPUSCULAR HEMOGLOBIN 29 pg (25-34); MEAN CORPUSCULAR HGB CONC 34 g/dL (32-36); MEAN CORPUSCULAR VOLUME 86 fL (80-99); MEAN PLATELET VOLUME 10.3 fL (9.0-12.2); PLATELET COUNT 199 10^3/uL (130-400); WHITE BLOOD COUNT 8.1 10^3/uL (4.3-11.0)
[2021-01-06] MEDS ORDERED: CELE-63 PO (10:36)
[2021-01-06] MEDS ORDERED: ASPI-1238 PO (10:36)
[2021-01-06] MEDS ORDERED: DOXA2TAB2 PO (10:36)
[2021-01-06] MEDS ORDERED: BACL10TA PO (10:36)
[2021-01-06] MEDS ORDERED: GABA300C PO (10:36)
[2021-01-06 11:39] VITALS: BP 124/66
--- NOTE | 2021-01-06 12:48 | Occupational Therapy Eval ---
OT Evaluation-General/PLF Medical Diagnosis Admission Date January 04, 2021 at 13:58 Medical Diagnosis: syncope/dehydration/UTI Onset Date: January 04, 2021 Therapy Diagnosis Therapy Diagnosis: decreased ADL status Height/Weight Height (Feet): 5 Height (Inches): 4.00 Weight (Pounds): 185 Weight (Ounces): 14.0 Precautions Precautions/Isolations: Fall Prevention, Standard Precautions Referral Physician: Braxton Referral Reason: Evaluation/Treatment Medical History Pertinent Medical History: Arthritis, GERD Additional Medical History HTN, hyperlipidemia, obesity, OA Current History ED after episode of syncope. R TKA 12/31/20 Social History Home: Single Level Current Living Status: Alone Entry Into Home: Stairs With Railing Steps Into Home: 5 ADL-Prior Level of Function SCALE: Activities may be completed with or without assistive devices. 9-Urqrkqevkc-zutcibg completes the activity by him/herself with no assistance from a helper. 5-Set-up or Clean-up Assistance-helper sets up or cleans up; patient completes activity. [place] assists only prior to or following the activity. 4-Supervision or Touching Assistance-helper provides verbal cues and/or touching/steadying and/or contact guard assistance as patient completes activity. Assistance may be provided throughout the activity or intermittently. 3-Partial/Moderate Assistance-helper does LESS THAN HALF the effort. [place] lifts, holds or supports trunk or limbs, but provides less than half the effort. 2-Substantial/Maximal Assistance-helper does MORE THAN HALF the effort. [place] lifts or holds trunk or limbs and provides more than half the effort. 7-Qrkkcfllz-vykgad does ALL the effort. Patient does none of the effort to complete the activity. Or, the assistance of 2 or more helpers is required for the patient to complete the activity. If activity was not attempted, code reason: 7-Patient Refused. 9-Not Applicable-not attempted and the patient did not perform the activity before the current illness, exacerbation or injury. 10-Not Attempted due to Environmental Limitations-(lack of equipment, weather restraints, etc.). 88-Not Attempted due to Medical Conditions or Safety Concerns. ADL PLOF Comments Pt indicated IND with all ADLS and functional mobility at PLOF. She had R TKA 12/31/20, since then she has been staying with a cousin who has assisted her with ADLs. She was unable to shower at her cousins due to "passing out" then 2 times she tried, instead her cousin has given pt sponge baths. Pt indicates IND with toileting, UE/LE dressing since surgery, assist with footwear. Self Care: Independent Functional Cognition: Independent DME/Equipment: Bath Chair, Shower OT Current Status Subjective Pt seated in recliner, agreeable to OT Tx. Mental Status/Objective Patient Orientation: Person, Place, Time, Situation Attachments: IV, Telemetry Current Glasses/Contacts: Yes Hand Dominance: Right Upper Extremity ROM WFL Upper Extremity Coordination WFL Upper Extremity Sensation WFL Upper Extremity Strength WFL ADL-Treatment Eating (QC): 6 (IND with lunch) Shower/Bathe Self (QC): 3 (Per pt report, assist with BLE lower legs/feet, she was able to wash all other parts.) Upper Body Dressing (QC): 3 (Per pt report, assist due to IV) Lower Body Dressing (QC): 3 (Per pt report, min A with LE dressing due to difficulty managing IV line and telemetry lines.) Toileting Hygiene (QC): 4 (Per pt report, she is able to manage clothing and hygiene.) Other Treatments Pt seated in recliner, OT educated pt on purpose and benefit of OT, she verbalized understanding. Pt then provided information about PLOF and home set up, and participated in UE screen. Pt declined ADLs at this time, as she had a shower a different day and does not want one now. Pt provided assistance level required with shower and dressing. Pt's lunch tray arrived and pt declined further tx. OT educated pt on OT POC while she is admitted, she verbalized understanding. Post tx, pt seated upright in recliner, call light in reach and all needs met. Education OT Patient Education: Correct positioning, Modified ADL techniques, Progress toward Goal/Update tx plan, Purpose of tx/functional activities, Rehab process Teaching Recipient: Patient Teaching Methods: Discussion Response to Teaching: Verbalize Understanding OT Skilled Nursing Goals Skilled Nursing Goals Time Frame: January 13, 2021 Eating (QC): 6 Oral Hygiene (QC): 6 Toileting Hygiene (QC): 6 Shower/Bathe Self (QC): 6 Upper Body Dressing (QC): 6 Lower Body Dressing (QC): 6 On/Off Footwear (QC): 6 Additional Goals: 1-Demonstrate ADL Tasks, 2-Verbalize Understanding, 3-ImproveStrength/Quan 1=Demonstrate adherence to instructed precautions during ADL tasks. 2=Patient will verbalize/demonstrate understanding of assistive devices/modifications for ADL. 3=Patient will improve strength/tolerance for activity to enable patient to perform ADL's. OT Education/Plan Problem List/Assessment Assessment: Decreased Activ Tolerance, Decreased UE Strength, Impaired I ADL's, Impaired Self-Care Skills Discharge Recommendations Plan/Recommendations: Continue POC Treatment Plan/Plan of Care Patient would benefit from OT for education, treatment and training to promote independence in ADL's, mobility, safety and/or upper extremity function for ADL's. Plan of Care: ADL Retraining, Functional Mobility, UE Funct Exercise/Act Treatment Duration: January 13, 2021 Frequency: 5 times per week Estimated Hrs Per Day: .25 hour per day Rehab Potential: Fair Time/GCodes Start Time: 11:30 Stop Time: 11:45 Total Time Billed (hr/min): 15 Billed Treatment Time [id number] ADDISON OT January 06, 2021 12:48
--- NOTE | 2021-01-06 14:25 | Physical Therapy Daily Note ---
PT Daily Note-Current Subjective Patient agrees to PT. Pain Numeric Pain Scale: 5-Moderate Pain Location: Right Location Body Site: Knee Pain Description: Acute Mental Status Patient Orientation: Normal For Age Attachments: IV Transfers SCALE: Activities may be completed with or without assistive devices. 9-Rgnaqydfmn-rvxvjbe completes the activity by him/herself with no assistance from a helper. 5-Set-up or Clean-up Assistance-helper sets up or cleans up; patient completes activity. [place] assists only prior to or following the activity. 4-Supervision or Touching Assistance-helper provides verbal cues and/or touching/steadying and/or contact guard assistance as patient completes activity. Assistance may be provided throughout the activity or intermittently. 3-Partial/Moderate Assistance-helper does LESS THAN HALF the effort. [place] lifts, holds or supports trunk or limbs, but provides less than half the effort. 2-Substantial/Maximal Assistance-helper does MORE THAN HALF the effort. [place] lifts or holds trunk or limbs and provides more than half the effort. 8-Ptvwtxyba-becohc does ALL the effort. Patient does none of the effort to complete the activity. Or, the assistance of 2 or more helpers is required for the patient to complete the activity. If activity was not attempted, code reason: 7-Patient Refused. 9-Not Applicable-not attempted and the patient did not perform the activity before the current illness, exacerbation or injury. 10-Not Attempted due to Environmental Limitations-(lack of equipment, weather restraints, etc.). 88-Not Attempted due to Medical Conditions or Safety Concerns. Sit to Lying (QC): 6 Sit to Stand (QC): 6 Gait Training Does the Patient Walk?: Yes Distance: 350' Walk 10 feet (QC): 5 Walk 50 ft with 2 Turns(QC): 5 Walk 150 ft (QC): 5 Gait Assistive Device: FWW slow, antalgic/reciprocal pattern Exercises Supine Ex: Ankle pumps, Quad Set, Heel Slides, Straight leg raise Supine Reps: 10 Seated Therapy Exercises: Long arc quads Seated Reps: 15 Assessment Patient tolerated treatment well and ceased session due to fatigue. PT to increase activity as tolerated by patient. Patient is very resistive with right knee flexion exercises due to pain and edema. PT Skilled Nursing Goals Skilled Nursing Goals PT Skilled Nursing Goals Time Frame: January 17, 2021 Roll Left & Right (QC): 6 Sit to Lying (QC): 6 Lying-Sitting on Side/Bed(QC): 6 Sit to Stand (QC): 6 Chair/Hrt-df-Bjofw Xfer(QC): 6 Toilet Transfer (QC): 6 Does the Patient Walk: Yes Walk 10 feet (QC): 6 Walk 50ft with 2 Turns (QC): 6 Walk 150 ft (QC): 6 Walking 10ft on Uneven Surface: 6 1 Step (curb) (QC): 4 4 Steps (QC): 4 PT Plan Treatment/Plan Treatment Plan: Continue Plan of Care Treatment Plan: Education, Functional Activity Quan, Functional Strength, Gait, Safety, Therapeutic Exercise, Transfers Treatment Duration: January 17, 2021 Frequency: 11 times per week Estimated Hrs Per Day: .5 hour per day Patient and/or Family Agrees t: Yes Time/GCodes Time In: 1406 Time Out: 1418 Total Billed Treatment Time: 12 Total Billed Treatment 1 visit FA 12 min ESTEPHANIA JIMENEZ PT January 06, 2021 14:25
[2021-01-06 16:00] VITALS: BP 145/81
[2021-01-06] MEDS: MILK OF MAGNESIA 400 MG/5 ML 30 ML UDC PO PRN (16:31)
[2021-01-06] MEDS: ENOXAPARIN 40 MG/0.4 ML (LOVENOX) SYR SC SCH (16:32)
[2021-01-06] MEDS: ACETAMINOPHEN 325 MG TABLET PO PRN (16:37)
--- NOTE | 2021-01-06 18:18 | Progress Note - Cardiology ---
Cardiology SOAP Progress Note Subjective: No cp or palp or shortness of breath No syncope since admission No n/v/d Gen malaise and weakness present Objective: I&O/Vital Signs 01/06/21 01/06/21 01/06/21 01/06/21 06:52 08:00 08:04 11:39 Temp 36.2 36.4 Pulse 57 62 65 Resp 18 18 B/P (MAP) 140/70 (93) 124/66 (85) Pulse Ox 99 96 O2 Delivery Room Air Room Air Room Air 01/06/21 01/06/21 12:42 16:00 Temp 36.6 Pulse 82 71 Resp 18 B/P (MAP) 145/81 (102) Pulse Ox 96 O2 Delivery Room Air 01/06/21 00:00 Intake Total 3818 ml Output Total 3400 ml Balance 418 ml Weight (Pounds): 185 Weight (Ounces): 14.0 Weight (Calculated Kilograms): 84.303637 Constitutional: AAO x 3, well-developed, well-nourished Respiratory: chest is bilaterally symmetric, lungs clear to auscultation Cardiovascular: regular rate-rhythm, S1 and S2 Gastrointestional: soft, audible bowel sounds Extremities: no lower extremity edema bilateral Neurologic/Psychiatric: no motor/sensory deficits, alert, normal mood/affect, oriented x 3, grossly intact (moves all extremities) Skin: No rash, No rash on exposed areas, No ulcerations on exposed areas Results/Procedures: Labs Laboratory Tests 01/06/21 10:30: White Blood Count 8.1, Red Blood Count 3.72L, Hemoglobin 10.8L, Hematocrit 32L, Mean Corpuscular Volume 86, Mean Corpuscular Hemoglobin 29, Mean Corpuscular Hemoglobin Concent 34, Red Cell Distribution Width 13.6, Platelet Count 199, Mean Platelet Volume 10.3 Microbiology 01/04/21 Blood Culture - Preliminary, Resulted No growth 01/04/21 Urine Culture - Final, Complete Escherichia coli Corynebacterium amycolatum See Comments Laboratory Tests 01/05/21 04:20 01/06/21 10:30 A/P: Assessment: Syncope of undetermined etiology - probable orthostatic hypotension (all episode with posture changes in the setting of recent post-op state, UTI, and dehydration) Recent R TKR H/o nonspecific chest discomfort and exertional shortness of breath, none currently Chronic sinus bradycardia which has precluded the use of BB Echo of December 2018 showed LVEF 60-65%, mild MR, RVSP approx 30 mmHg Last cardiac catheterization of June 2010 did not indicate any angiographi holden significant coronary artery disease and left ventricular ejection fraction was 65 to 70%. MPI of December 2018 showed no evidence of significant myocardial ischemia or infarction, LVEF 67%, normal regional wall motion Carotid u/s of January 18, 2020 showed minimal bilat carotid plaque Hypertension Intolerance to diuretics, which results in significant hypokalemia. Hyperlipidemia being treated with lovastatin and followed by her PCP Degenerative joint disease. Intermittent palpitations, currently controlled. Varicose veins involving the lower extremities ALETHEA with sgemental pressure of August 25, 2016 showed no evidence of any obstructive dz bilat Elevated BMI of approx 35 Plan: Reduce anti-hypertensive regimen Monitor lab closely Replace electrolytes as indicated I interviewed and examined the patient and reviewed her records Further recs will be based on her hospital course ROSANNA MINOR MD FACP FACC CCDS January 06, 2021 18:18
[2021-01-06 19:19] VITALS: BP 124/78
[2021-01-06] MEDS: doxAzosin 4 MG (CARDURA) TAB PO SCH (20:14)
[2021-01-07 00:47] VITALS: BP 123/67
[2021-01-07] MEDS: D5 1/2 NS W/KCL 20 MEQ/L 1,000 ML IV SCH ×2 (04:08→13:13)
[2021-01-07 04:28] VITALS: BP 134/80
[2021-01-07 06:08] LABS: CHLORIDE 104 MMOL/L (98-107); POTASSIUM 4.6 MMOL/L (3.6-5.0); SODIUM 136 MMOL/L (135-145)
[2021-01-07 06:10] LABS: GLUCOSE 112 MG/DL (70-105)
[2021-01-07 06:11] LABS: CARBON DIOXIDE 25 MMOL/L (21-32)
[2021-01-07 06:14] LABS: CREATININE SERUM 0.69 MG/DL (0.60-1.30); GFR ESTIMATED > 60
[2021-01-07 06:15] LABS: BUN/CREATININE RATIO 14
[2021-01-07 06:16] LABS: MAGNESIUM 2.2 MG/DL (1.6-2.4)
[2021-01-07 08:00] VITALS: BP 126/78
[2021-01-07] MEDS: DOCUSATE SODIUM 100 MG (COLACE) CAP PO SCH ×2 (08:40→20:27)
[2021-01-07] MEDS: GABAPENTIN 300 MG (NEURONTIN) CAP PO SCH ×3 (08:43→20:25)
[2021-01-07] MEDS: OXYBUTYNIN (DITROPAN) 5 MG TAB PO SCH ×2 (08:43→20:26)
[2021-01-07] MEDS: BACLOFEN 10 MG (LIORESAL) TAB PO SCH ×3 (08:44→20:26)
[2021-01-07] MEDS: lisINopril 40 MG (PRINIVIL) TABLET PO SCH (08:44)
[2021-01-07] MEDS: LORATADINE (CLARITIN) 10 MG TAB PO SCH (08:52)
[2021-01-07] MEDS: SENNOSIDES 8.6 MG (SENOKOT) TAB PO SCH ×2 (08:56→20:22)
--- NOTE | 2021-01-07 09:34 | Physical Therapy Daily Note ---
PT Daily Note-Current Subjective Patient agrees to PT. Pain Numeric Pain Scale: 5-Moderate Pain Location: Right Location Body Site: Knee Pain Description: Acute Mental Status Patient Orientation: Normal For Age Attachments: IV Transfers SCALE: Activities may be completed with or without assistive devices. 8-Aepbrlrshp-eiggehc completes the activity by him/herself with no assistance from a helper. 5-Set-up or Clean-up Assistance-helper sets up or cleans up; patient completes activity. [place] assists only prior to or following the activity. 4-Supervision or Touching Assistance-helper provides verbal cues and/or touching/steadying and/or contact guard assistance as patient completes activity. Assistance may be provided throughout the activity or intermittently. 3-Partial/Moderate Assistance-helper does LESS THAN HALF the effort. [place] lifts, holds or supports trunk or limbs, but provides less than half the effort. 2-Substantial/Maximal Assistance-helper does MORE THAN HALF the effort. [place] lifts or holds trunk or limbs and provides more than half the effort. 8-Jsfmaoqcn-xzceqc does ALL the effort. Patient does none of the effort to complete the activity. Or, the assistance of 2 or more helpers is required for the patient to complete the activity. If activity was not attempted, code reason: 7-Patient Refused. 9-Not Applicable-not attempted and the patient did not perform the activity before the current illness, exacerbation or injury. 10-Not Attempted due to Environmental Limitations-(lack of equipment, weather restraints, etc.). 88-Not Attempted due to Medical Conditions or Safety Concerns. Sit to Lying (QC): 6 Lying to Sitting/Side of Bed(Q: 6 Sit to Stand (QC): 6 Chair/Kdc-sm-Mlood Xfer(QC): 6 Toilet Transfer (QC): 6 (toileted independently without difficulty) Gait Training Does the Patient Walk?: Yes Distance: 300' Walk 10 feet (QC): 6 Walk 50 ft with 2 Turns(QC): 6 Walk 150 ft (QC): 6 Gait Assistive Device: FWW slow and antalgic/reciprocal pattern Exercises Supine Ex: Ankle pumps, Quad Set, Heel Slides Supine Reps: 12 Seated Therapy Exercises: Long arc quads Seated Reps: 12 Standing: Hamstring curls Standing Reps: 12 Treatments CPM 0-74 degrees right LE in place after treatment Assessment Patient tolerated treatment well. Patient continued to hip hike and resist right knee flexion due to pain/edema. Increase ROM right knee flexion as tolerated by patient. PT Longterm Goals Space Planner Goals PT Space Planner Goals Time Frame: January 17, 2021 Roll Left & Right (QC): 6 Sit to Lying (QC): 6 Lying-Sitting on Side/Bed(QC): 6 Sit to Stand (QC): 6 Chair/Pwc-sj-Sxjwu Xfer(QC): 6 Toilet Transfer (QC): 6 Does the Patient Walk: Yes Walk 10 feet (QC): 6 Walk 50ft with 2 Turns (QC): 6 Walk 150 ft (QC): 6 Walking 10ft on Uneven Surface: 6 1 Step (curb) (QC): 4 4 Steps (QC): 4 PT Plan Treatment/Plan Treatment Plan: Continue Plan of Care Treatment Plan: Education, Functional Activity Quan, Functional Strength, Gait, Safety, Therapeutic Exercise, Transfers Treatment Duration: January 17, 2021 Frequency: 11 times per week Estimated Hrs Per Day: .5 hour per day Patient and/or Family Agrees t: Yes Time/GCodes Time In: 838 Time Out: 901 Total Billed Treatment Time: 23 Total Billed Treatment 1 visit EX 12 min GT 11 min ESTEPHANIA JIMENEZ PT January 07, 2021 09:34
[2021-01-07] MEDS: cefTRIAXone 1,000 MG/SWFI 10 ML IV PUSH IV SCH ×2 (10:42)
[2021-01-07] MEDS: polyethylene glycoL POWDER 17 GM (MIRALAX) PACK PO PRN (11:15)
--- NOTE | 2021-01-07 11:16 | Progress Note - Cardiology ---
Cardiology SOAP Progress Note Objective: I&O/Vital Signs 01/08/21 01/08/21 01/08/21 01/08/21 00:00 01:00 04:25 06:49 Temp 36.6 36.6 Pulse 76 70 77 76 Resp 18 16 B/P (MAP) 140/70 (93) 113/75 (88) Pulse Ox 96 95 O2 Delivery Room Air Room Air 01/08/21 01/08/21 08:10 08:14 Temp 36.6 Pulse 86 Resp 18 B/P (MAP) 118/77 (91) Pulse Ox 100 O2 Delivery Room Air Room Air 01/08/21 00:00 Intake Total 2670 ml Output Total 4250 ml Balance -1580 ml Weight (Pounds): 185 Weight (Ounces): 14.0 Weight (Calculated Kilograms): 84.494076 Constitutional: AAO x 3, well-developed, well-nourished Respiratory: chest is bilaterally symmetric, lungs clear to auscultation Cardiovascular: regular rate-rhythm, S1 and S2 Gastrointestional: soft, audible bowel sounds Extremities: no lower extremity edema bilateral Neurologic/Psychiatric: no motor/sensory deficits, alert, normal mood/affect, oriented x 3, grossly intact (moves all extremities) Skin: No rash, No rash on exposed areas, No ulcerations on exposed areas Results/Procedures: Labs Microbiology 01/04/21 Blood Culture - Preliminary, Resulted No growth 01/04/21 Urine Culture - Final, Complete Escherichia coli Corynebacterium amycolatum See Comments A/P: Assessment: Syncope of undetermined etiology - probable orthostatic hypotension (all episode with posture changes in the setting of recent post-op state, UTI, and dehydration) Recent R TKR H/o nonspecific chest discomfort and exertional shortness of breath, none currently Chronic sinus bradycardia which has precluded the use of BB Echo of December 2018 showed LVEF 60-65%, mild MR, RVSP approx 30 mmHg Last cardiac catheterization of June 2010 did not indicate any angiographically significant coronary artery disease and left ventricular ejection fraction was 65 to 70%. MPI of December 2018 showed no evidence of significant myocardial ischemia or infarction, LVEF 67%, normal regional wall motion Carotid u/s of January 18, 2020 showed minimal bilat carotid plaque Hypertension Intolerance to diuretics, which results in significant hypokalemia. Hyperlipidemia being treated with lovastatin and followed by her PCP Degenerative joint disease. Intermittent palpitations, currently controlled. Varicose veins involving the lower extremities ALETHEA with sgemental pressure of August 25, 2016 showed no evidence of any obstructive dz bilat Elevated BMI of approx 35 Plan: No further episodes of syncope or near syncope following reduction of antihypertensives Continue current regimen OK to discharge home from cardiac stand point with out pt f/u CALISTA PHAM January 07, 2021 11:16
[2021-01-07 12:00] VITALS: BP 149/84
--- NOTE | 2021-01-07 14:30 | Physical Therapy Daily Note ---
PT Daily Note-Current Subjective Patient agrees to PT. Patient states, "I don't want to go home yet. I'm just leery to be alone." Pain Numeric Pain Scale: 5-Moderate Pain Location: Right Location Body Site: Knee Pain Description: Acute Mental Status Patient Orientation: Normal For Age Attachments: IV Transfers SCALE: Activities may be completed with or without assistive devices. 8-Iubcthvmvt-wufmalm completes the activity by him/herself with no assistance from a helper. 5-Set-up or Clean-up Assistance-helper sets up or cleans up; patient completes activity. [place] assists only prior to or following the activity. 4-Supervision or Touching Assistance-helper provides verbal cues and/or touching/steadying and/or contact guard assistance as patient completes activit y. Assistance may be provided throughout the activity or intermittently. 3-Partial/Moderate Assistance-helper does LESS THAN HALF the effort. [place] lifts, holds or supports trunk or limbs, but provides less than half the effort. 2-Substantial/Maximal Assistance-helper does MORE THAN HALF the effort. [place] lifts or holds trunk or limbs and provides more than half the effort. 6-Yoczhgqir-bukqoi does ALL the effort. Patient does none of the effort to complete the activity. Or, the assistance of 2 or more helpers is required for the patient to complete the activity. If activity was not attempted, code reason: 7-Patient Refused. 9-Not Applicable-not attempted and the patient did not perform the activity before the current illness, exacerbation or injury. 10-Not Attempted due to Environmental Limitations-(lack of equipment, weather restraints, etc.). 88-Not Attempted due to Medical Conditions or Safety Concerns. Lying to Sitting/Side of Bed(Q: 6 Sit to Stand (QC): 6 Chair/Odh-xk-Krqlz Xfer(QC): 6 Toilet Transfer (QC): 6 (toilets independently) Gait Training Does the Patient Walk?: Yes Distance: 300' Walk 10 feet (QC): 6 Walk 50 ft with 2 Turns(QC): 6 Walk 150 ft (QC): 6 Gait Assistive Device: FWW slow, antalgic Exercises Supine Ex: Ankle pumps, Quad Set, Heel Slides, Straight leg raise Supine Reps: 15 Seated Therapy Exercises: Long arc quads Seated Reps: 15 Assessment Patient tolerated treatment well and is up in recliner with needs met. Patient requires time to complete all functional tasks. PT Senior Care Goals Senior Care Goals PT Automobile Bumper Straightener Goals Time Frame: January 17, 2021 Roll Left & Right (QC): 6 Sit to Lying (QC): 6 Lying-Sitting on Side/Bed(QC): 6 Sit to Stand (QC): 6 Chair/Zts-yz-Ewftn Xfer(QC): 6 Toilet Transfer (QC): 6 Does the Patient Walk: Yes Walk 10 feet (QC): 6 Walk 50ft with 2 Turns (QC): 6 Walk 150 ft (QC): 6 Walking 10ft on Uneven Surface: 6 1 Step (curb) (QC): 4 4 Steps (QC): 4 PT Plan Treatment/Plan Treatment Plan: Continue Plan of Care Treatment Plan: Education, Functional Activity Quan, Functional Strength, Gait, Safety, Therapeutic Exercise, Transfers Treatment Duration: January 17, 2021 Frequency: 11 times per week Estimated Hrs Per Day: .5 hour per day Patient and/or Family Agrees t: Yes Time/GCodes Time In: 1300 Time Out: 1330 Total Billed Treatment Time: 30 Total Billed Treatment 1 visit EX 17 min GT 13 min ESTEPHANIA JIMENEZ PT January 07, 2021 14:30
--- NOTE | 2021-01-07 15:11 | Occupational Ther Daily Note ---
OT Current Status-Daily Note Subjective Pt alert, sitting in recliner. Pt agrees to therapy. No c/o pain at this time. Mental Status/Objective Patient Orientation: Person, Place, Time, Situation Attachments: IV ADL-Treatment Nrsg tech stated that pt took shower today, reaching all areas except back. Pt ambulated to sink to complete oral care, independently. Completed toileting independently. Ambulated back to sink to wash hands independently. Therapy Code Descriptions/Definitions Functional [place] Measure: 0=Not Assessed/NA 4=Minimal Assistance 1=Total Assistance 5=Supervision or Setup 2=Maximal Assistance 6=Modified [place] 3=Moderate Assistance 7=Complete IndependenceSCALE: Activities may be completed with or without assistive devices. 1-Raoedajebr-bydvbqs completes the activity by him/herself with no assistance from a helper. 5-Set-up or Clean-up Assistance-helper sets up or cleans up; patient completes activity. [place] assists only prior to or following the activity. 4-Supervision or Touching Assistance-helper provides verbal cues and/or touching/steadying and/or contact guard assistance as patient completes activity. Assistance may be provided throughout the activity or intermittently. 3-Partial/Moderate Assistance-helper does LESS THAN HALF the effort. [place] lifts, holds or supports trunk or limbs, but provides less than half the effort. 2-Substantial/Maximal Assistance-helper does MORE THAN HALF the effort. [place] lifts or holds trunk or limbs and provides more than half the effort. 2-Dddqkdadn-llqwtr does ALL the effort. Patient does none of the effort to complete the activity. Or, the assistance of 2 or more helpers is required for the patient to complete the activity. If activity was not attempted, code reason: 7-Patient Refused. 9-Not Applicable-not attempted and the patient did not perform the activity before the current illness, exacerbation or injury. 10-Not Attempted due to Environmental Limitations-(lack of equipment, weather restraints, etc.). 88-Not Attempted due to Medical Conditions or Safety Concerns. Oral Hygiene (QC): 6 Toileting Hygiene (QC): 6 Toilet Transfer (QC): 6 Other Treatment Pt ambulated ~150' around 4th floor using FWW. Pt transferred into bed independ ently. After therapy, pt lying in bed with call light/phone in reach. All needs met in room. OT Correction Goals Flight Deck Officer Goals Time Frame: January 13, 2021 Eating (QC): 6 Oral Hygiene (QC): 6 Toileting Hygiene (QC): 6 Shower/Bathe Self (QC): 6 Upper Body Dressing (QC): 6 Lower Body Dressing (QC): 6 On/Off Footwear (QC): 6 Additional Goals: 1-Demonstrate ADL Tasks, 2-Verbalize Understanding, 3- ImproveStrength/Quan 1=Demonstrate adherence to instructed precautions during ADL tasks. 2=Patient will verbalize/demonstrate understanding of assistive devices/modifications for ADL. 3=Patient will improve strength/tolerance for activity to enable patient to perform ADL's. OT Education/Plan Problem List/Assessment Assessment: Impaired Self-Care Skills Discharge Recommendations Plan/Recommendations: Continue POC Treatment Plan/Plan of Care Patient would benefit from OT for education, treatment and training to promote independence in ADL's, mobility, safety and/or upper extremity function for ADL's. Plan of Care: ADL Retraining, Functional Mobility, UE Funct Exercise/Act Treatment Duration: January 13, 2021 Frequency: 5 times per week Estimated Hrs Per Day: .25 hour per day Rehab Potential: Fair Time/GCodes Start Time: 14:10 Stop Time: 10:39 Total Time Billed (hr/min): 29 Billed Treatment Time 1 visit-ADL 1 (15 min) FA 1 (14 min) CHIKIS MARTINEZ January 07, 2021 15:11
[2021-01-07] MEDS: MILK OF MAGNESIA 400 MG/5 ML 30 ML UDC PO PRN (15:27)
[2021-01-07] MEDS: ENOXAPARIN 40 MG/0.4 ML (LOVENOX) SYR SC SCH (15:28)
[2021-01-07 15:46] VITALS: BP 125/78
--- NOTE | 2021-01-07 17:15 | Progress Note - Cardiology ---
Cardiology SOAP Progress Note Subjective: No cp or palp or shortness of breath No syncope since admission No n/v/d Gen malaise and weakness present Objective: I&O/Vital Signs 01/07/21 01/07/21 01/07/21 01/07/21 07:00 08:00 09:00 12:00 Temp 36.0 36.0 Pulse 66 78 93 Resp 20 20 B/P (MAP) 126/78 (94) 149/84 (105) Pulse Ox 98 99 O2 Delivery Room Air Room Air Room Air 01/07/21 01/07/21 12:44 15:46 Temp 36.8 Pulse 94 92 Resp 18 B/P (MAP) 125/78 (94) Pulse Ox 91 O2 Delivery Room Air 01/07/21 00:00 Intake Total 1760 ml Output Total 3400 ml Balance -1640 ml Weight (Pounds): 185 Weight (Ounces): 14.0 Weight (Calculated Kilograms): 84.195246 Constitutional: AAO x 3, well-developed, well-nourished Respiratory: chest is bilaterally symmetric, lungs clear to auscultation Cardiovascular: regular rate-rhythm, S1 and S2 Gastrointestional: soft, audible bowel sounds Extremities: no lower extremity edema bilateral Neurologic/Psychiatric: no motor/sensory deficits, alert, normal mood/affect, oriented x 3, grossly intact (moves all extremities) Skin: No rash, No rash on exposed areas, No ulcerations on exposed areas Results/Procedures: Labs Laboratory Tests 01/07/21 05:17: Sodium Level 136, Potassium Level 4.6, Chloride Level 104, Carbon Dioxide Level 25, Anion Gap 7, Blood Urea Nitrogen 10, Creatinine 0.69, Estimat Glomerular Filtration Rate > 60, BUN/Creatinine Ratio 14, Glucose Level 112H, Calcium Level 9.0, Magnesium Level 2.2 Microbiology 01/04/21 Blood Culture - Preliminary, Resulted No growth 01/04/21 Urine Culture - Final, Complete Escherichia coli Corynebacterium amycolatum See Comments Laboratory Tests 01/06/21 10:30 01/07/21 05:17 A/P: Assessment: Syncope of undetermined etiology - probable orthostatic hypotension (all episode with posture changes in the setting of recent post-op state, UTI, and dehydration) Recent R TKR H/o nonspecific chest discomfort and exertional shortness of breath, none currently Chronic sinus bradycardia which has precluded the use of BB Echo of December 2018 showed LVEF 60-65%, mild MR, RVSP approx 30 mmHg Last cardiac catheterization of June 2010 did not indicate any angiographically significant coronary artery disease and left ventricular ejection fraction was 65 to 70%. MPI of December 2018 showed no evidence of significant myocardial ischemia or infarction, LVEF 67%, normal regional wall motion Carotid u/s of January 18, 2020 showed minimal bilat carotid plaque Hypertension Intolerance to diuretics, which results in significant hypokalemia. Hyperlipidemia being treated with lovastatin and followed by her PCP Degenerative joint disease. Intermittent palpitations, currently controlled. Varicose veins involving the lower extremities ALETHEA with sgemental pressure of August 25, 2016 showed no evidence of any obstructive dz bilat Elevated BMI of approx 35 Plan: No further episodes of syncope or near-syncope following reduction of antihypertensives Continue current regimen OK to discharge home from cardiac stand point with out pt f/u ROSANNA MINOR MD FACP FAC CCDS January 07, 2021 17:15
[2021-01-07 19:29] VITALS: BP 131/76
[2021-01-07] MEDS: doxAzosin 4 MG (CARDURA) TAB PO SCH (20:23)
[2021-01-08] VITALS (7 sets, daily range): BP systolic 112–140; BP diastolic 70–77
[2021-01-08] MEDS: D5 1/2 NS W/KCL 20 MEQ/L 1,000 ML IV SCH ×2 (00:31→06:33)
[2021-01-08] MEDS: LORATADINE (CLARITIN) 10 MG TAB PO SCH (08:02)
[2021-01-08] MEDS: SENNOSIDES 8.6 MG (SENOKOT) TAB PO SCH ×2 (08:02→20:14)
[2021-01-08] MEDS: DOCUSATE SODIUM 100 MG (COLACE) CAP PO SCH ×2 (08:03→20:17)
[2021-01-08] MEDS: ACETAMINOPHEN 325 MG TABLET PO PRN (08:03)
[2021-01-08] MEDS: OXYBUTYNIN (DITROPAN) 5 MG TAB PO SCH ×2 (08:04→20:17)
[2021-01-08] MEDS: BACLOFEN 10 MG (LIORESAL) TAB PO SCH ×3 (08:05→20:16)
[2021-01-08] MEDS: GABAPENTIN 300 MG (NEURONTIN) CAP PO SCH ×3 (08:06→20:16)
[2021-01-08] MEDS: lisINopril 40 MG (PRINIVIL) TABLET PO SCH (08:07)
[2021-01-08] MEDS: polyethylene glycoL POWDER 17 GM (MIRALAX) PACK PO PRN (08:07)
--- NOTE | 2021-01-08 10:12 | Progress Note - Hospitalist ---
Subjective HPI/CC On Admission Date Seen by Provider: January 07, 2021 Time Seen by Provider: 10:12 Dorina Josue is a 60-year-old female with past medical history of hypertension, hyperlipidemia, obesity, osteoarthritis, who presented after having an episode of syncope. She recently underwent a right total knee replacement and has been had a family member's house recovering postoperatively. She reports that she had an episode of syncope on when she had gotten up to go to the bathroom. She reports feeling lightheaded and dizzy. She says that she "passed out on the bed". She reports that on Wednesday she had another episode of syncope and her family member thought she had stopped breathing. She reports feeling lightheaded and dizzy at that time as well. She was sitting on the toilet getting ready to take a shower. She denies any chest pain or palpitations. She denies any shortness of breath or cough. She denies any fevers or chills. She denies any abdominal pain, nausea, vomiting, or diarrhea. She has been constipated. Subjective/Events-last exam LATE ENTRY NOTE Patient reports doing well today. Has been up and working with PT and did very well. Discussed likelihood that insurance may decline IRU stay. She feels it is important for her to go there and get stronger so would like to wait for their decision before considering other options. Objective Exam Vital Signs Vital Signs Date Time Temp Pulse Resp B/P (MAP) Pulse Ox O2 Delivery O2 Flow Rate FiO2 01/08/21 08:14 36.6 86 18 118/77 (91) 100 Room Air Capillary Refill : Less Than 3 Seconds General Appearance: No Apparent Distress, WD/WN Respiratory: Lungs Clear, No Respiratory Distress Cardiovascular: Regular Rate, Rhythm, No Murmur Neurologic/Psychiatric: Alert, Oriented x3 Results/Procedures Lab Patient resulted labs reviewed. Imaging: Reviewed Imaging Report Assessment/Plan Assessment and Plan Assess & Plan/Chief Complaint Syncope Orthostatic hypotension Dehydration Constipation Likely orthostatic Continue IV fluids Bowel regimen Monitor on telemetry Cardiology consulted, appreciate assistance NO further episodes since meds decreased Osteoarthritis s/p right total knee arthroplasty Obesity PT/OT IRU evaluation, awaiting decision HTN HLD Continue home meds DVT prophylaxis: GENE Rowland MD January 08, 2021 10:12
--- NOTE | 2021-01-08 10:14 | Progress Note - Hospitalist ---
Subjective HPI/CC On Admission Date Seen by Provider: January 08, 2021 Time Seen by Provider: 10:12 Dorina Josue is a 60-year-old female with past medical history of hypertension, hyperlipidemia, obesity, osteoarthritis, who presented after having an episode of syncope. She recently underwent a right total knee replacement and has been had a family member's house recovering postoperatively. She reports that she had an episode of syncope on when she had gotten up to go to the bathroom. She reports feeling lightheaded and dizzy. She says that she "passed out on the bed". She reports that on Wednesday she had another episode of syncope and her family member thought she had stopped breathing. She reports feeling lightheaded and dizzy at that time as well. She was sitting on the toilet getting ready to take a shower. She denies any chest pain or palpitations. She denies any shortness of breath or cough. She denies any fevers or chills. She denies any abdominal pain, nausea, vomiting, or diarrhea. She has been constipated. Subjective/Events-last exam Pt reports feeling well today. Has not yet worked with therapy. Had a small BM but otherwise doing well. Objective Exam Vital Signs Vital Signs Date Time Temp Pulse Resp B/P (MAP) Pulse Ox O2 Delivery O2 Flow Rate FiO2 01/08/21 08:14 36.6 86 18 118/77 (91) 100 Room Air Capillary Refill : Less Than 3 Seconds General Appearance: No Apparent Distress, WD/WN Results/Procedures Lab Patient resulted labs reviewed. Imaging: Reviewed Imaging Report Assessment/Plan Assessment and Plan Assess & Plan/Chief Complaint Syncope Orthostatic hypotension Dehydration Constipation Likely orthostatic DC IV fluids Bowel regimen Monitor on telemetry Cardiology consulted, appreciate assistance No further episodes since meds decreased Osteoarthritis s/p right total knee arthroplasty Obesity PT/OT IRU evaluation, awaiting decision still, discussed with Shweta at IRU who will call today about update HTN HLD Continue home meds DVT prophylaxis: GENE Rowland MD January 08, 2021 10:14
[2021-01-08] MEDS ORDERED: SENNA W/DOCUSATE (SENOKOT S) TABLET PO ONE (10:15)
[2021-01-08] MEDS ORDERED: SENNA W/DOCUSATE (SENOKOT S) TABLET PO PRN (10:15)
[2021-01-08] MEDS: CEPHALEXIN 250 MG (KEFLEX) CAP PO SCH ×2 (10:24→20:15)
--- NOTE | 2021-01-08 10:50 | Physical Therapy Daily Note ---
PT Daily Note-Current Subjective Patient in recliner pre tx, agrees to PT, has no complaints of pain at rest. Appearance Patient in recliner post tx with nurse call, phone, tray, all needs met. Mental Status Patient Orientation: Person, Place, Situation Attachments: IV Transfers SCALE: Activities may be completed with or without assistive devices. 1-Tanbbvnesv-prhxnga completes the activity by him/herself with no assistance from a helper. 5-Set-up or Clean-up Assistance-helper sets up or cleans up; patient completes activity. [place] assists only prior to or following the activity. 4-Supervision or Touching Assistance-helper provides verbal cues and/or touching/steadying and/or contact guard assistance as patient completes activity. Assistance may be provided throughout the activity or intermittently. 3-Partial/Moderate Assistance-helper does LESS THAN HALF the effort. [place] lifts, holds or supports trunk or limbs, but provides less than half the effort. 2-Substantial/Maximal Assistance-helper does MORE THAN HALF the effort. [place] lifts or holds trunk or limbs and provides more than half the effort. 0-Izhuqjtbb-nknhmk does ALL the effort. Patient does none of the effort to complete the activity. Or, the assistance of 2 or more helpers is required for the patient to complete the activity. If activity was not attempted, code reason: 7-Patient Refused. 9-Not Applicable-not attempted and the patient did not perform the activity before the current illness, exacerbation or injury. 10-Not Attempted due to Environmental Limitations-(lack of equipment, weather restraints, etc.). 88-Not Attempted due to Medical Conditions or Safety Concerns. Sit to Stand (QC): 6 Chair/Hfp-op-Jygjz Xfer(QC): 6 Gait Training Distance: 300' Walk 10 feet (QC): 6 Walk 50 ft with 2 Turns(QC): 6 Walk 150 ft (QC): 6 Gait Assistive Device: FWW Patient ambulates independently but needs somebody to push her IV pole. Patient ambulates slowly, occasional standing rest break,keeps a flexed right knee. Exercises Seated Therapy Exercises: Ankle pumps, Long arc quads, Hip flexion, Hamstring Curls Seated Reps: 20 Also performed seated knee flexion stretch Treatments transfers, ambulation, LE exercise Assessment Current Status: Fair Progress independent with functional mobility PT Bonding Machine Tender Goals Bonding Machine Tender Goals PT Fdc Goals Time Frame: January 17, 2021 Roll Left & Right (QC): 6 Sit to Lying (QC): 6 Lying-Sitting on Side/Bed(QC): 6 Sit to Stand (QC): 6 Chair/Xue-yt-Wklco Xfer(QC): 6 Toilet Transfer (QC): 6 Does the Patient Walk: Yes Walk 10 feet (QC): 6 Walk 50ft with 2 Turns (QC): 6 Walk 150 ft (QC): 6 Walking 10ft on Uneven Surface: 6 1 Step (curb) (QC): 4 4 Steps (QC): 4 PT Plan Problem List Problem List: Activity Tolerance, Functional Strength, Safety, Balance, Gait, Transfer, Bed Mobility, ROM Treatment/Plan Treatment Plan: Continue Plan of Care Treatment Plan: Education, Functional Activity Quan, Functional Strength, Gait, Safety, Therapeutic Exercise, Transfers Treatment Duration: January 17, 2021 Frequency: 11 times per week Estimated Hrs Per Day: .5 hour per day Patient and/or Family Agrees t: Yes Safety Risks/Education Patient Education: Gait Training, Transfer Techniques, Correct Positioning, Safety Issues Teaching Recipient: Patient Teaching Methods: Demonstration, Discussion Response to Teaching: Reinforcement Needed Time/GCodes Time In: 1002 Time Out: 1021 Total Billed Treatment Time: 19 Total Billed Treatment 1 visit FA ' JAREK HOSKINS PT January 08, 2021 10:50
--- NOTE | 2021-01-08 13:27 | Occupational Ther Daily Note ---
OT Current Status-Daily Note Subjective Pt seated in recliner, agreeable to OT tx. Pt states she does not feel ready to discharge home alone, but also feels like she is doing pretty well. Mental Status/Objective Patient Orientation: Person, Place, Time, Situation ADL-Treatment Therapy Code Descriptions/Definitions Functional [place] Measure: 0=Not Assessed/NA 4=Minimal Assistance 1=Total Assistance 5=Supervision or Setup 2=Maximal Assistance 6=Modified [place] 3=Moderate Assistance 7=Complete IndependenceSCALE: Activities may be completed with or without assistive devices. 7-Ihcdkyfgrz-zkvpoyc completes the activity by him/herself with no assistance from a helper. 5-Set-up or Clean-up Assistance-helper sets up or cleans up; patient completes activity. [place] assists only prior to or following the activity. 4-Supervision or Touching Assistance-helper provides verbal cues and/or touching/steadying and/or contact guard assistance as patient completes activity. Assistance may be provided throughout the activity or intermittently. 3-Partial/Moderate Assistance-helper does LESS THAN HALF the effort. [place] lifts, holds or supports trunk or limbs, but provides less than half the effort. 2-Substantial/Maximal Assistance-helper does MORE THAN HALF the effort. [place] lifts or holds trunk or limbs and provides more than half the effort. 8-Inbephstn-lntpch does ALL the effort. Patient does none of the effort to complete the activity. Or, the assistance of 2 or more helpers is required for the patient to complete the activity. If activity was not attempted, code reason: 7-Patient Refused. 9-Not Applicable-not attempted and the patient did not perform the activity before the current illness, exacerbation or injury. 10-Not Attempted due to Environmental Limitations-(lack of equipment, weather restraints, etc.). 88-Not Attempted due to Medical Conditions or Safety Concerns. Eating (QC): 6 (IND with lunch) Other Treatment Pt seated in recliner eating lunch, agreeable to OT tx. OT educated pt on UE exercise in order to increase BUE strength and activity tolerance. Pt completed x15 reps each of the following BUE AROM: shoulder flexion, elbow flexion/extension and finger flexion/extension. Pt took rest breaks between. OT instructed pt to perform 2-3 times a day, increasing reps as tolerated, she verbalized understanding. Post tx, pt seated in recliner, call light in reach and all needs met, eating lunch. Education OT Patient Education: Correct positioning, Energy conservation, Exercise program, Modified ADL techniques, Progress toward Goal/Update tx plan, Purpose of tx/functional activities, Rehab process Teaching Recipient: Patient Teaching Methods: Demonstration, Discussion Response to Teaching: Verbalize Understanding, Return Demonstration OT Senior Care Goals Senior Care Goals Time Frame: January 13, 2021 Eating (QC): 6 Oral Hygiene (QC): 6 Toileting Hygiene (QC): 6 Shower/Bathe Self (QC): 6 Upper Body Dressing (QC): 6 Lower Body Dressing (QC): 6 On/Off Footwear (QC): 6 Additional Goals: 1-Demonstrate ADL Tasks, 2-Verbalize Understanding, 3- ImproveStrength/Quan 1=Demonstrate adherence to instructed precautions during ADL tasks. 2=Patient will verbalize/demonstrate understanding of assistive devices/modifications for ADL. 3=Patient will improve strength/tolerance for activity to enable patient to perform ADL's. OT Education/Plan Problem List/Assessment Assessment: Decreased Activ Tolerance, Decreased UE Strength, Impaired I ADL's Discharge Recommendations Plan/Recommendations: Continue POC Treatment Plan/Plan of Care Patient would benefit from OT for education, treatment and training to promote independence in ADL's, mobility, safety and/or upper extremity function for ADL's. Plan of Care: ADL Retraining, Functional Mobility, UE Funct Exercise/Act Treatment Duration: January 13, 2021 Frequency: 5 times per week Estimated Hrs Per Day: .25 hour per day Rehab Potential: Fair Time/GCodes Start Time: 13:05 Stop Time: 13:14 Total Time Billed (hr/min): 9 Billed Treatment Time 1, EX LYSSA LAMB OT January 08, 2021 13:27
[2021-01-08] MEDS ORDERED: FUROSEMIDE 40 MG/4 ML INJ (LASIX) IVP NR (13:30)
--- NOTE | 2021-01-08 14:40 | Physical Therapy Daily Note ---
PT Daily Note-Current Subjective Pt. up walking with nursing when this [employer] intervened for gait training. Pt. denies pain in right knee, states she feels she has recovered from UTI and dehydration but isnt sure she is ready to go home alone. Pain Location: No Pain Reported Mental Status Patient Orientation: Person, Place, Time, Situation Transfers SCALE: Activities may be completed with or without assistive devices. 6-Lalfztfnpo-espuhsx completes the activity by him/herself with no assistance from a helper. 5-Set-up or Clean-up Assistance-helper sets up or cleans up; patient completes activity. [place] assists only prior to or following the activity. 4-Supervision or Touching Assistance-helper provides verbal cues and/or touching/steadying and/or contact guard assistance as patient completes activity. Assistance may be provided throughout the activity or intermittently. 3-Partial/Moderate Assistance-helper does LESS THAN HALF the effort. [place] lifts, holds or supports trunk or limbs, but provides less than half the effort. 2-Substantial/Maximal Assistance-helper does MORE THAN HALF the effort. [place] lifts or holds trunk or limbs and provides more than half the effort. 8-Tbwnpyfiv-xatsyx does ALL the effort. Patient does none of the effort to complete the activity. Or, the assistance of 2 or more helpers is required for the patient to complete the activity. If activity was not attempted, code reason: 7-Patient Refused. 9-Not Applicable-not attempted and the patient did not perform the activity before the current illness, exacerbation or injury. 10-Not Attempted due to Environmental Limitations-(lack of equipment, weather restraints, etc.). 88-Not Attempted due to Medical Conditions or Safety Concerns. Roll Left & Right (QC): 6 Sit to Lying (QC): 6 Lying to Sitting/Side of Bed(Q: 6 Sit to Stand (QC): 6 Chair/Vpi-jo-Awrwh Xfer(QC): 6 Gait Training Does the Patient Walk?: Yes Walk 10 feet (QC): 5 Walk 50 ft with 2 Turns(QC): 5 Walk 150 ft (QC): 5 Gait Persons Needed: 1 Gait Assistive Device: FWW step to gait 50% of time and uneven step through 50% of time, instructed in better heel strike right. heavy wt bearing on FWW, no vic LOB Exercises Supine Ex: Ankle pumps, Quad Set, Heel Slides, Short Arc Quads, Straight leg raise Supine Reps: 20 Treatments in bed after Rx with call gómez at hand and ice applied to Right knee incision area, pt. requested CPM delayed until evening time, nursing to don Assessment Current Status: Good Progress PT [facility] Goals Residential Goals PT [facility] Goals Time Frame: January 17, 2021 Roll Left & Right (QC): 6 Sit to Lying (QC): 6 Lying-Sitting on Side/Bed(QC): 6 Sit to Stand (QC): 6 Chair/Rsh-ub-Xldeo Xfer(QC): 6 Toilet Transfer (QC): 6 Does the Patient Walk: Yes Walk 10 feet (QC): 6 Walk 50ft with 2 Turns (QC): 6 Walk 150 ft (QC): 6 Walking 10ft on Uneven Surface: 6 1 Step (curb) (QC): 4 4 Steps (QC): 4 PT Plan Treatment/Plan Treatment Plan: Continue Plan of Care Treatment Plan: Education, Functional Activity Quan, Functional Strength, Gait, Safety, Therapeutic Exercise, Transfers Treatment Duration: January 17, 2021 Frequency: 11 times per week Estimated Hrs Per Day: .5 hour per day Patient and/or Family Agrees t: Yes Safety Risks/Education Patient Education: Gait Training, Transfer Techniques, Correct Positioning, Disease Process, Safety Issues Teaching Recipient: Patient Teaching Methods: Demonstration, Discussion Response to Teaching: Verbalize Understanding, Return Demonstration, Reinforcement Needed Time/GCodes Time In: 1405 Time Out: 1430 Total Billed Treatment Time: 25 Total Billed Treatment 1,GT10m,EX15m BETSEY BREWSTER [employer] January 08, 2021 14:40
--- NOTE | 2021-01-08 14:42 | Diagnostic Imaging Report ---
INDICATION: Right leg swelling TECHNIQUE: Multiple real-time grayscale images were obtained over the right lower extremity in various projections, bilaterally. Additional duplex Doppler and color Doppler images were also obtained. CORRELATION STUDY: None FINDINGS: Color and grayscale sonographic images demonstrate no intraluminal defect within the visualized portion of the common femoral, superficial femoral and/or popliteal veins to suggest thrombus formation. These vessels demonstrate normal response to compression and augmentation. No soft tissue fluid collection. IMPRESSION: 1. Negative for deep venous thrombosis of the right leg. Dictated by: Dictated on workstation # [id number]
[2021-01-08] MEDS: ENOXAPARIN 40 MG/0.4 ML (LOVENOX) SYR SC SCH (17:56)
[2021-01-08] MEDS ORDERED: D5 1/2 NS W/KCL 20 MEQ/L 0 ML IV ONE (19:11)
[2021-01-08] MEDS: doxAzosin 4 MG (CARDURA) TAB PO SCH (20:14)
[2021-01-09 03:32] VITALS: BP 116/59
[2021-01-09 07:53] VITALS: BP 104/64
[2021-01-09] MEDS: SENNOSIDES 8.6 MG (SENOKOT) TAB PO SCH (07:53)
[2021-01-09] MEDS: GABAPENTIN 300 MG (NEURONTIN) CAP PO SCH ×2 (07:54→12:31)
[2021-01-09] MEDS: LORATADINE (CLARITIN) 10 MG TAB PO SCH (07:54)
[2021-01-09] MEDS: CEPHALEXIN 250 MG (KEFLEX) CAP PO SCH (07:54)
[2021-01-09] MEDS: ACETAMINOPHEN 325 MG TABLET PO PRN (07:54)
[2021-01-09] MEDS: BACLOFEN 10 MG (LIORESAL) TAB PO SCH ×2 (07:55→12:31)
[2021-01-09] MEDS: DOCUSATE SODIUM 100 MG (COLACE) CAP PO SCH (07:55)
[2021-01-09] MEDS: OXYBUTYNIN (DITROPAN) 5 MG TAB PO SCH (07:55)
[2021-01-09] MEDS: lisINopril 40 MG (PRINIVIL) TABLET PO SCH (07:56)
--- NOTE | 2021-01-09 09:15 | Progress Note - Cardiology ---
Cardiology SOAP Progress Note Subjective: Sitting up in bed No c/o CP, SOB, palpitations, dizziness, syncope or near syncope Objective: I&O/Vital Signs 01/08/21 01/09/21 01/09/21 01/09/21 23:21 01:00 03:32 06:50 Temp 36.9 36.8 Pulse 77 76 86 79 Resp 20 20 B/P (MAP) 134/75 (94) 116/59 (78) Pulse Ox 97 94 O2 Delivery Room Air Room Air 01/09/21 07:53 B/P (MAP) 104/64 (77) 01/09/21 00:00 Intake Total 2006 ml Output Total 2850 ml Balance -844 ml Weight (Pounds): 185 Weight (Ounces): 14.0 Weight (Calculated Kilograms): 84.368311 Constitutional: AAO x 3, well-developed, well-nourished Respiratory: chest is bilaterally symmetric, lungs clear to auscultation Cardiovascular: regular rate-rhythm, S1 and S2 Gastrointestional: soft, audible bowel sounds Extremities: no lower extremity edema bilateral Neurologic/Psychiatric: no motor/sensory deficits, alert, normal mood/affect, oriented x 3, grossly intact (moves all extremities) Skin: No rash, No rash on exposed areas, No ulcerations on exposed areas Results/Procedures: Labs Microbiology 01/04/21 Blood Culture - Preliminary, Resulted No growth 01/04/21 Urine Culture - Final, Complete Escherichia coli Corynebacterium amycolatum See Comments A/P: Assessment: Syncope of undetermined etiology - probable orthostatic hypotension (all episode with posture changes in the setting of recent post-op state, UTI, and dehydration) Recent R TKR H/o nonspecific chest discomfort and exertional shortness of breath, none currently Chronic sinus bradycardia which has precluded the use of BB Echo of December 2018 showed LVEF 60-65%, mild MR, RVSP approx 30 mmHg Last cardiac catheterization of June 2010 did not indicate any angiographically significant coronary artery disease and left ventricular ejection fraction was 65 to 70%. MPI of December 2018 showed no evidence of significant myocardial ischemia or infarction, LVEF 67%, normal regional wall motion Carotid u/s of January 18, 2020 showed minimal bilat carotid plaque Hypertension Intolerance to diuretics, which results in significant hypokalemia. Hyperlipidemia being treated with lovastatin and followed by her PCP Degenerative joint disease. Intermittent palpitations, currently controlled. Varicose veins involving the lower extremities ALETHEA with sgemental pressure of August 25, 2016 showed no evidence of any obstructive dz bilat Elevated BMI of approx 35 Plan: No further episodes of syncope or near-syncope following reduction of ant ihypertensives Will stop doxazosin Continue current regimen OK to discharge home from cardiac stand point with out pt f/u CALISTA PHAM January 09, 2021 09:15
--- NOTE | 2021-01-09 10:25 | Physical Therapy Daily Note ---
PT Daily Note-Current Subjective Patient agrees to PT. Pain Numeric Pain Scale: 5-Moderate Pain Location: Right Location Body Site: Knee Pain Description: Acute Mental Status Patient Orientation: Normal For Age Transfers SCALE: Activities may be completed with or without assistive devices. 7-Rstjopkgpz-hhmsqoy completes the activity by him/herself with no assistance from a helper. 5-Set-up or Clean-up Assistance-helper sets up or cleans up; patient completes activity. [place] assists only prior to or following the activity. 4-Supervision or Touching Assistance-helper provides verbal cues and/or touching/steadying and/or contact guard assistance as patient completes activity. Assistance may be provided throughout the activity or intermittently. 3-Partial/Moderate Assistance-helper does LESS THAN HALF the effort. [place] lifts, holds or supports trunk or limbs, but provides less than half the effort. 2-Substantial/Maximal Assistance-helper does MORE THAN HALF the effort. [place] lifts or holds trunk or limbs and provides more than half the effort. 4-Pumdrdwbo-ovysfk does ALL the effort. Patient does none of the effort to complete the activity. Or, the assistance of 2 or more helpers is required for the patient to complete the activity. If activity was not attempted, code reason: 7-Patient Refused. 9-Not Applicable-not attempted and the patient did not perform the activity before the current illness, exacerbation or injury. 10-Not Attempted due to Environmental Limitations-(lack of equipment, weather restraints, etc.). 88-Not Attempted due to Medical Conditions or Safety Concerns. Lying to Sitting/Side of Bed(Q: 6 Sit to Stand (QC): 6 Chair/Wyp-bs-Qvdgu Xfer(QC): 6 Toilet Transfer (QC): 6 Gait Training Does the Patient Walk?: Yes Distance: 350' Walk 10 feet (QC): 6 Walk 50 ft with 2 Turns(QC): 6 Walk 150 ft (QC): 6 Walking 10ft/uneven surface-QC: 6 Gait Assistive Device: FWW slow, antalgic, 50% reciprocal/50% step to with VC's for gait sequence (heel toe) Stair Training Stair Training: Handrails/: 1 handrail, uses walker #of Steps: 8 1 Step (curb) (QC): 5 4 Steps (QC): 5 12 Steps (QC): 9 Stairs: Pattern: Step to Exercises Supine Ex: Ankle pumps, Quad Set, Heel Slides, Straight leg raise Supine Reps: 15 Seated Therapy Exercises: Long arc quads Seated Reps: 15 Assessment Patient tolerated increase in activity and performed stairs without difficulty. Patient continues to voice anxiety of returning to home. Patient is currently at independent LOF with all gross motor skills. PT Correction Goals Correction Goals PT Concrete Engineer Goals Time Frame: January 17, 2021 Roll Left & Right (QC): 6 Sit to Lying (QC): 6 Lying-Sitting on Side/Bed(QC): 6 Sit to Stand (QC): 6 Chair/Vce-lh-Hszoz Xfer(QC): 6 Toilet Transfer (QC): 6 Does the Patient Walk: Yes Walk 10 feet (QC): 6 Walk 50ft with 2 Turns (QC): 6 Walk 150 ft (QC): 6 Walking 10ft on Uneven Surface: 6 1 Step (curb) (QC): 4 4 Steps (QC): 4 PT Plan Treatment/Plan Treatment Plan: Continue Plan of Care Treatment Plan: Education, Functional Activity Quan, Functional Strength, Gait, Safety, Therapeutic Exercise, Transfers Treatment Duration: January 17, 2021 Frequency: 11 times per week Estimated Hrs Per Day: .5 hour per day Patient and/or Family Agrees t: Yes Time/GCodes Time In: 939 Time Out: 1002 Total Billed Treatment Time: 23 Total Billed Treatment 1 visit FA 14 min EX 9 min ESTEPHANIA JIMENEZ PT January 09, 2021 10:25
--- NOTE | 2021-01-09 11:11 | Occupational Ther Daily Note ---
OT Current Status-Daily Note Subjective Pt alert, sitting in recliner. Nrsg room. Pt agrees to therapy. No c/o pain at this time. Mental Status/Objective Patient Orientation: Person, Place, Time, Situation Attachments: IV ADL-Treatment Pt agrees to shower. Pt able to doff both socks and briefs. Pt reaches behind head to untie hospital gown. Sitting on shower bench, pt able to complete shower independently using grabbar, hand held shower. Pt able to thread B UE into sleeves of hospital gown. Standing at sink, pt able to complete oral care independently. Ambulated to sit EOB to don briefs by self after retrieving with FWW. Pt able to don L sock, assist to don R sock. Independent with bed mobility. After session, pt lying in bed with call light/phone in reach. All needs met in room. Therapy Code Descriptions/Definitions Functional [place] Measure: 0=Not Assessed/NA 4=Minimal Assistance 1=Total Assistance 5=Supervision or Setup 2=Maximal Assistance 6=Modified [place] 3=Moderate Assistance 7=Complete IndependenceSCALE: Activities may be completed with or without assistive devices. 7-Uhqscpvxba-fcvdhgq completes the activity by him/herself with no assistance from a helper. 5-Set-up or Clean-up Assistance-helper sets up or cleans up; patient completes activity. [place] assists only prior to or following the activity. 4-Supervision or Touching Assistance-helper provides verbal cues and/or touching/steadying and/or contact guard assistance as patient completes activity. Assistance may be provided throughout the activity or intermittently. 3-Partial/Moderate Assistance-helper does LESS THAN HALF the effort. [place] lifts, holds or supports trunk or limbs, but provides less than half the effort. 2-Substantial/Maximal Assistance-helper does MORE THAN HALF the effort. [place] lifts or holds trunk or limbs and provides more than half the effort. 2-Mpunnqttp-fbwskw does ALL the effort. Patient does none of the effort to complete the activity. Or, the assistance of 2 or more helpers is required for the patient to complete the activity. If activity was not attempted, code reason: 7-Patient Refused. 9-Not Applicable-not attempted and the patient did not perform the activity before the current illness, exacerbation or injury. 10-Not Attempted due to Environmental Limitations-(lack of equipment, weather restraints, etc.). 88-Not Attempted due to Medical Conditions or Safety Concerns. Oral Hygiene (QC): 6 Shower/Bathe Self (QC): 6 Upper Body Dressing (QC): 6 (per clinical judgement pt is independent with upper body dressing.) Lower Body Dressing (QC): 6 On/Off Footwear: 3 Toileting Hygiene (QC): 6 Toilet Transfer (QC): 6 OT Floor Layer Tile Goals Assisted Goals Time Frame: January 13, 2021 Eating (QC): 6 Oral Hygiene (QC): 6 Toileting Hygiene (QC): 6 Shower/Bathe Self (QC): 6 Upper Body Dressing (QC): 6 Lower Body Dressing (QC): 6 On/Off Footwear (QC): 6 Additional Goals: 1-Demonstrate ADL Tasks, 2-Verbalize Understanding, 3-ImproveStrength/Quan 1=Demonstrate adherence to instructed precautions during ADL tasks. 2=Patient will verbalize/demonstrate understanding of assistive devices/modifications for ADL. 3=Patient will improve strength/tolerance for activity to enable patient to perform ADL's. OT Education/Plan Problem List/Assessment Assessment: Decreased Activ Tolerance, Impaired Self-Care Skills Discharge Recommendations Plan/Recommendations: Continue POC Treatment Plan/Plan of Care Patient would benefit from OT for education, treatment and training to promote independence in ADL's, mobility, safety and/or upper extremity function for ADL's. Plan of Care: ADL Retraining, Functional Mobility, UE Funct Exercise/Act Treatment Duration: January 13, 2021 Frequency: 5 times per week Estimated Hrs Per Day: .25 hour per day Rehab Potential: Fair Time/GCodes Start Time: 10:30 Stop Time: 11:08 Total Time Billed (hr/min): 38 Billed Treatment Time 1 visit-ADL 3 (38 min) CHIKIS MARTINEZ January 09, 2021 11:11
--- NOTE | 2021-01-09 12:48 | D/C HH Face to Face Order ---
D/C Face to Face Orders Instructions for Patient [facility], Patient Instructions/FollowUp: Please continue to take your medications as written. Please follow up with Dr Aguero as scheduled and with Dr Cunningham next week. Physician to follow Patient: Dr Cunningham Discharge Diet for Home: No Restrictions Patient Data-Allergies,Ht & Wt Patient Allergies: Coded Allergies: meloxicam (Verified Allergy, Intermediate, RASH ALL OVER, 12/25/18) Penicillins (Verified Allergy, Mild, RASH, 03/07/19) Height (Feet): 5 Height (Inches): 4.00 Weight (Pounds): 185 Weight (Ounces): 14.0 Home Health Need/Face to Face Date of Face to Face: January 09, 2021 Clinical Findings: Generalized weakness and fatigue, Pain with ambulation I have seen Pt outg-lq-[id number]: Yes Discharged To: Home Diagnosis/Conditions: Right knee replacement Patient is Homebound due to: [place] fall risk due to instabilty Homebound Status Due to the above stated illness, injury or surgical procedure (medical condition or diagnosis) and associated clinical findings, the patient is homebound because of his/her inability to leave home except with aid of a supportive device and/or person AND leaving the home requires a considerable and taxing effort or is medically contraindicated. Pt req the following assistanc: Aid of another person, [place] Home Health Nursing Orders Home Health Services Order: Nursing Services, Physical Therapy-Evaluate & Treat Home Health Infusion Therapy Line Start Date: January 04, 2021 Therapy Orders Therapy Orders: Physical Therapy, PT to assess for OT Therapy Specific Orders: Eval assistive deivces, Gait training Certify Stmt I certify that this patient is under my care and that I, a nurse practitioner or a physician; a surveyor instrument assistant working with me, had a face to face encounter that - meets the physician face to face encounter requirements with this patient as dated. GENE PANTOJA MD January 09, 2021 12:48
--- NOTE | 2021-01-09 13:08 | Discharge Summary ---
Diagnosis/Chief Complaint Date of Admission January 04, 2021 at 13:58 Date of Discharge Discharge Date: January 09, 2021 Admission Diagnosis Syncope Primary Care Chan Aguero DO Discharge Diagnosis (1) Syncope and collapse Status: Acute (2) Constipation Status: Acute (3) Status post total knee replacement, right Status: Acute Discharge Summary Procedures/Consulations Dr Goldstein- Cardiology Discharge Physical Exam Allergies: Coded Allergies: meloxicam (Verified Allergy, Intermediate, RASH ALL OVER, 12/25/18) Penicillins (Verified Allergy, Mild, RASH, 03/07/19) Vitals & I&Os Vital Signs Date Time Temp Pulse Resp B/P (MAP) Pulse Ox O2 Delivery O2 Flow Rate FiO2 01/09/21 16:20 01/09/21 12:00 36.4 77 20 95 Room Air General Appearance: No Apparent Distress, WD/WN Cardiovascular: Regular Rate, Rhythm, No Murmur Neurologic/Psychiatric: Alert, Oriented x3 Hospital Course Patient was admitted to the hospital due to syncope following right TKA. CTA was negative for PE. She was found to be quite dehydrated and fluids resuscitation was given. Her doxazosin was discontinued as well. She improved and was working well with PT. She was able to be discharged home in stable condition with home health. She is to follow up this hospital stay with her primary care doctor and with Dr Goldstein as scheduled. Labs (last 24 hrs) Microbiology 01/04/21 Blood Culture - Final, Complete No growth 01/04/21 Urine Culture - Final, Complete Escherichia coli Corynebacterium amycolatum See Comments Patient resulted labs reviewed. Imaging: Reviewed Imaging Report Discussion & Recommendations Discharge Planning: >30 minutes discharge planning Discharge Home Medications: Active Scripts Active Reported Baclofen 10 Mg Tablet 10 Mg PO TID Neurontin (Gabapentin) 300 Mg Capsule 300 Mg PO TID Celecoxib 200 Mg Capsule 200 Mg PO BID Aspirin EC (Aspirin) 81 Mg Tablet. 81 Mg PO HS Tramadol HCl 50 Mg Tablet 50 Mg PO Q6H PRN Hydrocodone-Acetamin 10-325 mg (Hydrocodone/Acetaminophen) 1 Each Tablet 1 Each PO Q4H PRN Vitamin C (Ascorbic Acid) 500 Mg Tablet 500 Mg PO DAILY Lovastatin 20 Mg Tablet 20 Mg PO DAILY Oxybutynin Chloride 5 Mg Tablet 5 Mg PO TID Lisinopril 40 Mg Tablet 20 Mg PO DAILY TAKES (40MG) TABLET Instructions to patient/family Please see electronic discharge instructions given to patient. Problem Qualifiers (1) Constipation: Constipation type: unspecified constipation type Qualified Codes: K59.00 - Constipation, unspecified GENE PANTOJA MD January 09, 2021 13:08
--- NOTE | 2021-01-09 13:37 | Physical Therapy Daily Note ---
PT Daily Note-Current Subjective Agrees to PT. during treatment, reports she is going home today. Feels she will be able to manage. Expecting [facility] PT to follow. Mental Status Patient Orientation: Person, Place, Time, Situation Transfers SCALE: Activities may be completed with or without assistive devices. 4-Mxtdodrnal-ddnzday completes the activity by him/herself with no assistance from a helper. 5-Set-up or Clean-up Assistance-helper sets up or cleans up; patient completes activity. [place] assists only prior to or following the activity. 4-Supervision or Touching Assistance-helper provides verbal cues and/or touching/steadying and/or contact guard assistance as patient completes activity. Assistance may be provided throughout the activity or intermittently. 3-Partial/Moderate Assistance-helper does LESS THAN HALF the effort. [place] lifts, holds or supports trunk or limbs, but provides less than half the effort. 2-Substantial/Maximal Assistance-helper does MORE THAN HALF the effort. [place] lifts or holds trunk or limbs and provides more than half the effort. 9-Fcueaordf-tnewvr does ALL the effort. Patient does none of the effort to complete the activity. Or, the assistance of 2 or more helpers is required for the patient to complete the activity. If activity was not attempted, code reason: 7-Patient Refused. 9-Not Applicable-not attempted and the patient did not perform the activity before the current illness, exacerbation or injury. 10-Not Attempted due to Environmental Limitations-(lack of equipment, weather restraints, etc.). 88-Not Attempted due to Medical Conditions or Safety Concerns. Sit to Stand (QC): 6 Chair/Uxy-rw-Iikwb Xfer(QC): 6 Gait Training Walk 10 feet (QC): 6 Walk 50 ft with 2 Turns(QC): 6 Walk 150 ft (QC): 6 Gait Assistive Device: FWW Lacks heel strike and full toe off right LE; tends to keep knee straight with decreased step length right. Exercises Seated Therapy Exercises: Ankle pumps, Long arc quads, Hip flexion Seated Reps: 12 Assessment Current Status: Good Progress Progressing well. Mod indep with all mobility with no noted safety concerns. PT Float Remover Goals Float Remover Goals PT Float Remover Goals Time Frame: January 17, 2021 Roll Left & Right (QC): 6 Sit to Lying (QC): 6 Lying-Sitting on Side/Bed(QC): 6 Sit to Stand (QC): 6 Chair/Mha-ex-Jasgk Xfer(QC): 6 Toilet Transfer (QC): 6 Does the Patient Walk: Yes Walk 10 feet (QC): 6 Walk 50ft with 2 Turns (QC): 6 Walk 150 ft (QC): 6 Walking 10ft on Uneven Surface: 6 1 Step (curb) (QC): 4 4 Steps (QC): 4 PT Plan Problem List Problem List: Activity Tolerance, Functional Strength, Safety Treatment/Plan Treatment Plan: Continue Plan of Care Treatment Plan: Education, Functional Activity Quan, Functional Strength, Gait, Safety, Therapeutic Exercise, Transfers Treatment Duration: January 17, 2021 Frequency: 11 times per week Estimated Hrs Per Day: .5 hour per day Patient and/or Family Agrees t: Yes Safety Risks/Education Patient Education: Gait Training Teaching Recipient: Patient Teaching Methods: Demonstration Response to Teaching: Return Demonstration, Reinforcement Needed Discharge Recommendations Therapy Discharge Recommendati: Post Acute PT ([facility] PT) Time/GCodes Time In: 1305 Time Out: 1330 Total Billed Treatment Time: 25 Total Billed Treatment visit EX 10 GT 15 CHIKIS ERWIN PT January 09, 2021 13:37
== END 2021-01-09 16:20 | disposition home health service (06) | DRG 312 ==
LOC: EDUNIT# 09:58 → ER FS 10:06 → 4TH 13:58
PROVIDERS: ADMIT Internal Medicine; ATTEND Internal Medicine
DX: I95.1 Orthostatic hypotension (principal); E86.0 Dehydration; N30.90 Cystitis, unspecified without hematuria; R00.1 Bradycardia, unspecified; R00.2 Palpitations; I34.0 Nonrheumatic mitral (valve) insufficiency; K59.09 Other constipation; I83.93 Asymptomatic varicose veins of bilateral lower extremities; F41.9 Anxiety disorder, unspecified; E78.00 Pure hypercholesterolemia, unspecified; E78.5 Hyperlipidemia, unspecified; I10 Essential (primary) hypertension; K21.9 Gastro-esophageal reflux disease without esophagitis; E66.9 Obesity, unspecified; Z68.32 Body mass index [BMI] 32.0-32.9, adult; Z88.0 Allergy status to penicillin
CPT/HCPCS: 36415; 70450; 71275; 74177; 80048; 80053; 80061; 81000; 83605; 83690; 83735; 83880; 84484; 85007; 85025; 85027; 85610; 85730; 87040; 87077; 87088; 87186; 93005; 93041; 96361; 96374; 96375

== ENCOUNTER 2021-03-19 09:44 | Outpatient (RCR) | payer MEDICARE, OTHER ==
[~2021-03-19 09:44] MED LIST changes: +ASPI-1238 PO; +CELE-63 PO; +DOXA2TAB2 PO; +GABA300C PO; +HYDR-3820 PO; +TRAM50TA3 PO
== END 2021-03-19 11:03 | disposition home or self-care (01) ==
PROVIDERS: ATTEND Orthopaedic Surgery
DX: Z47.1 Aftercare following joint replacement surgery (principal); Z96.651 Presence of right artificial knee joint; I10 Essential (primary) hypertension

== ENCOUNTER → 2021-10-08 | Outpatient (CLI) | payer MEDICARE | LOC: CARD 09:00 | PROVIDERS: ATTEND Nurse Practitioner Family | DX: I34.0 Nonrheumatic mitral (valve) insufficiency (principal) | CPT/HCPCS: 93306 ==

== ENCOUNTER → 2021-12-12 | Outpatient (CLI) | payer MEDICARE ==
--- NOTE | 2021-12-12 15:02 | Diagnostic Imaging Report ---
INDICATION: Routine screening. COMPARISON is made with prior mammogram from 04/23/2020 and 04/18/2019. 2-D and 3-D bilateral screening mammography was performed with CAD. Scattered fibroglandular densities are identified bilaterally. There are scattered benign calcifications. No mass or malignant-appearing microcalcifications are seen. Axillae are unremarkable. IMPRESSION: BI-RADS Category 2 No mammographic features suspicious for malignancy are identified. ACR BI-RADS Category 2: Benign findings. Result letter will be mailed to the patient. Note: At least 10% of breast cancer is not imaged by mammography. Dictated by: Dictated on workstation # [id number]
== END ==
LOC: RAD 08:30
PROVIDERS: ATTEND Obstetrics & Gynecology
DX: Z12.31 Encounter for screening mammogram for malignant neoplasm of breast (principal)
CPT/HCPCS: 77063; 77067

== ENCOUNTER 2022-05-05 15:59 | Emergency (ER) | payer MEDICARE ==
[~2022-05-05] VITALS: Ht 162 cm; Wt 72.0 kg
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
[2022-05-05 17:44] LABS: BASOPHILS % (AUTO) 0 % (0-10); EOSINOPHILS % (AUTO) 0 % (0-10); HEMATOCRIT 43 % (35-52); HEMOGLOBIN 14.6 g/dL (11.5-16.0); LYMPHOCYTES # (AUTO) 0.6 10^3/uL (1.0-4.0); LYMPHOCYTES % (AUTO) 5 % (12-44); MEAN CORPUSCULAR HEMOGLOBIN 28 pg (25-34); MEAN CORPUSCULAR HGB CONC 34 g/dL (32-36); MEAN CORPUSCULAR VOLUME 83 fL (80-99); MEAN PLATELET VOLUME 12.2 fL (9.0-12.2); MONOCYTES # (AUTO) 0.7 10^3/uL (0.0-1.0); MONOCYTES % (AUTO) 6 % (0-12); NEUTROPHILS % (AUTO) 88 % (42-75); PLATELET COUNT 156 10^3/uL (130-400); WHITE BLOOD COUNT 12.5 10^3/uL (4.3-11.0)
[2022-05-05 17:45] LABS: POTASSIUM 3.7 MMOL/L (3.6-5.0)
[2022-05-05 17:46] LABS: CALCIUM 9.6 MG/DL (8.5-10.1)
[2022-05-05 17:51] LABS: CREATININE SERUM 0.82 MG/DL (0.60-1.30)
--- NOTE | 2022-05-05 18:05 | Diagnostic Imaging Report ---
INDICATION: Left knee pain post fall AP, oblique, and lateral views of the left knee are obtained. There is a left knee prosthesis. The device appears in good alignment with no sign of fracture or device loosening. There are some likely chronic calcifications seen dorsal to the knee joint. IMPRESSION: Well-aligned left knee prosthesis with no acute abnormality. Dictated by: Dictated on workstation # [id number]
[2022-05-05 18:06] LABS: LYMPHOCYTES % (MANUAL) 5 %; MONOCYTES % (MANUAL) 8 %; NEUTROPHILS % (MANUAL) 87 %; RBC MORPH NORMAL
[2022-05-05] MEDS ORDERED: ACHD5005 PO (18:13)
[2022-05-05 18:52] VITALS: BP 161/74
== END 2022-05-05 19:10 | disposition home or self-care (01) ==
LOC: EDUNIT# 15:59 → ER 16:01
DX: R55 Syncope and collapse (principal); S80.02XA Contusion of left knee, initial encounter; U07.1 COVID-19; Z96.653 Presence of artificial knee joint, bilateral; W19.XXXA Unspecified fall, initial encounter
CPT/HCPCS: 73562; 80048; 85007; 85027; 87636; 93005; 99284; L1830; 36415

== ENCOUNTER 2022-05-07 06:40 | Emergency (ER) | payer MEDICARE ==
[~2022-05-07 06:40] MED LIST changes: +ACHD5005 PO
[2022-05-07] MEDS ORDERED: ACETAMINOPHEN 325 MG TABLET PO STA (06:56)
[2022-05-07] MEDS ORDERED: NS IV 1000 ML 1,000 ML IV ONE (07:00)
--- NOTE | 2022-05-07 07:10 | ED General ---
General Chief Complaint: COVID19 Suspect/Confirmed Stated Complaint: COGH & COLD, GENERALLY SICK FOR ONE WEEK Nursing Triage Note: TO ED VIA [facility] EMS TO ROOM 9. PT C/O NOT FEELING WELL IN GENERAL, NASAL CONGESTION, COUGH FOR OVER A WEEK. REVIEWING RECORDS FROM ER VISIT 05/05/22 IT WAS NOTED THAT PT TESTED POSITIVE FOR COVID, PT DID NOT RELAY THIS TO EMS. Source of Information: Patient Exam Limitations: No Limitations History of Present Illness Date Seen by Provider: May 07, 2022 Time Seen by Provider: 06:48 Initial Comments Here with report of cough and congestion over the last week. She has tested positive for COVID and is currently under treatment for that. She had a fall a few days ago and was seen here in the ED and complains of left knee pain. Reports that is still hurting. She is using hydrocodone at home that helps a little bit. No significant new complaints over her complaints a few days ago except that her urine is darker now and she is concerned about that. She states that is her main complaint is her darker urine. She is in no respiratory distress currently and O2 saturations are in the upper 90s on room air. EMS reports the same. Timing/Duration: 1 Week, Changing Over Time Severity: Mild, Moderate Associated Systoms: No Chest Pain; Cough; No Fever/Chills, No Nausea/Vomiting; Shortness of Air Allergies and Home Medications Allergies Coded Allergies: meloxicam (Verified Allergy, Intermediate, RASH ALL OVER, 12/25/18) Penicillins (Verified Allergy, Mild, RASH, 03/07/19) Patient Home Medication List Home Medication List Reviewed: Yes Ascorbic Acid (Vitamin C) 500 Mg Tablet, 500 MG PO DAILY, (Reported) Entered as Reported by: AGUSTIN GRAHAM on 04/05/18 1006 Aspirin (Aspirin EC) 81 Mg Tablet.dr, 81 MG PO HS, (Reported) Entered as Reported by: HELLEN CANCINO on 01/06/21 1036 Baclofen (Baclofen) 10 Mg Tablet, 10 MG PO TID, (Reported) Entered as Reported by: HELLEN CANCINO on 01/06/21 1036 Celecoxib (Celecoxib) 200 Mg Capsule, 200 MG PO BID, (Reported) Entered as Reported by: HELLEN CANCINO on 01/06/21 1036 Gabapentin (Neurontin) 300 Mg Capsule, 300 MG PO TID, (Reported) Entered as Reported by: HELLEN CANCINO on 01/06/21 1036 Hydrocodone/Acetaminophen (Hydrocodone-Acetamin 10-325 mg) 1 Each Tablet, 1 EACH PO Q4H PRN for PAIN-MODERATE (5-7), (Reported) Entered as Reported by: ENRIKE EPPS on 01/04/21 1603 Hydrocodone/Acetaminophen (Hydrocodone-Acetamin 5-325 mg) 5 Mg-325 Mg Tablet, 1 TAB PO Q6H PRN for PAIN-MODERATE (5-7) Prescribed by: KAITLIN JEAN on 05/05/22 1814 Lisinopril (Lisinopril) 40 Mg Tablet, 20 MG PO DAILY, (Reported) Entered as Reported by: AGUSTIN GRAHAM on 10/18/15 1113 Lovastatin (Lovastatin) 20 Mg Tablet, 20 MG PO DAILY, (Reported) Entered as Reported by: AGUSTIN GRAHAM on 04/05/18 1006 Oxybutynin Chloride (Oxybutynin Chloride) 5 Mg Tablet, 5 MG PO TID, (Reported) Entered as Reported by: AGUSTIN GRAHAM on 10/18/15 1113 Tramadol HCl (Tramadol HCl) 50 Mg Tablet, 50 MG PO Q6H PRN for PAIN-MODERATE (5- 7), (Reported) Entered as Reported by: ENRIKE EPPS on 01/04/21 1603 Review of Systems Review of Systems Constitutional: No chills, No fever EENTM: nose congestion; No throat pain Respiratory: cough, short of breath Cardiovascular: No edema, No palpitations Gastrointestinal: No nausea, No vomiting Genitourinary: decreased output; No pain Musculoskeletal: joint pain, joint swelling Skin: change in color; No lesions Psychiatric/Neurological: Denies Headache; Weakness All Other Systems Reviewed Negative Unless Noted: Yes Past Wsvyoes-Yxnogf-Izzjgh Hx Patient Social History Tobacco Use?: No Use of E-Cig and/or Vaping dev: No Substance use?: No Alcohol Use?: No Pt feels they are or have been: No Immunizations Up To Date Tetanus Booster (TDap): Less than 5yrs PED Vaccines UTD: No First/Initial COVID19 Vaccinat: 11/19/2020 Second COVID19 Vaccination [place]: 11/19/2020 Third COVID19 Vaccination Date: 11/19/2020 Seasonal Allergies Seasonal Allergies: No Past Medical History Surgery/Hospitalization HX: Bilat knee replacement Surgeries: Yes (LEFT KNEE SCOPE/ REPLACEMENT, right knee replacement) Hysterectomy, Orthopedic Respiratory: No Currently Using CPAP: No Currently Using BIPAP: No Cardiac: Yes High Cholesterol, Hypertension Neurological: No (rt upper arm neuropathy) 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 No Pertinent Family Hx Noncontributory Physical Exam Vital Signs Vital Signs - First Documented Capillary Refill : Less Than 3 Seconds Height, Weight, BMI Height: 5'4.00" Weight: 185lbs. 14.0oz. 84.747421tm; 27.00 BMI Method:Actual General Appearance: No Apparent Distress, WD/WN HEENT: PERRL/EOMI, Pharynx Normal Neck: Non Tender, Supple Respiratory: Lungs Clear, Normal Breath Sounds Cardiovascular: Regular Rate, Rhythm, No Murmur Gastrointestinal: Non Tender, Soft Extremity: No Calf Tenderness, No Pedal Edema; Swelling (Mild around left knee without bruising noted.), Other (Tenderness to left knee area with mild swelling as noted above.) Neurologic/Psychiatric: Alert, Oriented x3 Skin: Normal Color, Warm/Dry; No Ecchymosis Progress/Results/Core Measures Suspected Sepsis SIRS Temperature: Pulse: 90 Respiratory Rate: 16 Laboratory Tests 05/07/22 07:25: White Blood Count 8.5 Blood Pressure 158 /97 Mean: 117 Laboratory Tests 05/07/22 07:25: Creatinine 0.61, Platelet Count 153 Results/Orders Lab Results Laboratory Tests Test 05/07/22 07:25 05/07/22 11:43 Range/Units White Blood Count 8.5 4.3-11.0 10^3/uL Red Blood Count 5.03 3.80-5.11 10^6/uL Hemoglobin 14.3 11.5-16.0 g/dL Hematocrit 42 35-52 % Mean Corpuscular Volume 84 80-99 fL Mean Corpuscular Hemoglobin 28 25-34 pg Mean Corpuscular Hemoglobin Concent 34 32-36 g/dL Red Cell Distribution Width 13.3 10.0-14.5 % Platelet Count 153 130-400 10^3/uL Mean Platelet Volume 10.8 9.0-12.2 fL Immature Granulocyte % (Auto) 1 % Neutrophils (%) (Auto) 85 H 42-75 % Lymphocytes (%) (Auto) 6 L 12-44 % Monocytes (%) (Auto) 7 0-12 % Eosinophils (%) (Auto) 1 0-10 % Basophils (%) (Auto) 0 0-10 % Neutrophils # (Auto) 7.3 1.8-7.8 10^3/uL Lymphocytes # (Auto) 0.5 L 1.0-4.0 10^3/uL Monocytes # (Auto) 0.6 0.0-1.0 10^3/uL Eosinophils # (Auto) 0.0 0.0-0.3 10^3/uL Basophils # (Auto) 0.0 0.0-0.1 10^3/uL Immature Granulocyte # (Auto) 0.1 0.0-0.1 10^3/uL Neutrophils % (Manual) 85 % Lymphocytes % (Manual) 6 % Monocytes % (Manual) 8 % Eosinophils % (Manual) 1 % Basophils % (Manual) 0 % Band Neutrophils 0 % Blood Morphology Comment NORMAL Sodium Level 140 135-145 MMOL/L Potassium Level 3.8 3.6-5.0 MMOL/L Chloride Level 106 98-107 MMOL/L Carbon Dioxide Level 20 L 21-32 MMOL/L Anion Gap 14 5-14 MMOL/L Blood Urea Nitrogen 11 7-18 MG/DL Creatinine 0.61 0.60-1.30 MG/DL Estimat Glomerular Filtration Rate 102 BUN/Creatinine Ratio 18 Glucose Level 116 H 70-105 MG/DL Calcium Level 9.4 8.5-10.1 MG/DL C-Reactive Protein High Sensitivity 8.42 H 0.00-0.50 MG/DL Urine Color YELLOW Urine Clarity CLEAR Urine pH 6.0 5-9 Urine Specific [place] 1.010 L 1.016-1.022 Urine Protein NEGATIVE NEGATIVE Urine Glucose (UA) NEGATIVE NEGATIVE Urine Ketones TRACE H NEGATIVE Urine Nitrite POSITIVE H NEGATIVE Urine Bilirubin NEGATIVE NEGATIVE Urine Urobilinogen 0.2 < = 1.0 MG/DL Urine Leukocyte Esterase TRACE H NEGATIVE Urine RBC (Auto) NEGATIVE NEGATIVE Urine RBC NONE /HPF Urine WBC 2-5 /HPF Urine Squamous Epithelial Cells NONE /HPF Urine Crystals NONE /LPF Urine Bacteria LARGE H /HPF Urine Casts NONE /LPF Urine Mucus NEGATIVE /LPF Urine Culture Indicated YES My Orders Orders - CHAUNCEY LOPEZ MD Ed Iv/Invasive Line Start (05/07/22 06:56) Basic Metabolic Panel (05/07/22 06:56) Cbc With Automated Diff (05/07/22 06:56) Hs C Reactive Protein (05/07/22 06:56) Ua Culture If Indicated (05/07/22 06:56) Ed Iv/Invasive Line Start (05/07/22 06:56) Ns Iv 1000 Ml (Sodium Chloride 0.9%) (05/07/22 07:00) Acetaminophen Tablet/Caplet (Tylenol T (05/07/22 06:56) Chest 1 View, Ap/Pa Only (05/07/22 06:59) Manual Differential (05/07/22 07:25) Urine Culture (05/07/22 11:43) Ceftriaxone 1 Gm Pre-Mix (Rocephin 1 Gm (05/07/22 12:32) Ceftriaxone 1 Gm Pre-Mix (Rocephin 1 Gm (05/07/22 12:33) Medications Given in ED Current Medications Medications Dose Ordered Sig/Yash Route Start Time Stop Time Status Last Admin Dose Admin Sodium Chloride 1,000 ml @ 0 mls/hr Q0M ONCE IV 05/07/22 07:00 05/07/22 07:01 DC 05/07/22 07:22 1,000 MLS/HR Vital Signs/I&O 05/07/22 05/07/22 06:40 06:40 Temp 37.0 Pulse 90 Resp 16 B/P (MAP) 158/97 (117) Pulse Ox 97 O2 Delivery Room Air Room Air Capillary Refill : Less Than 3 Seconds Blood Pressure Mean: 117 Progress Note : Progress Note Seen and evaluated. IV, labs, chest x-ray normal saline 1 L bolus ordered. Tylenol 650 mg p.o. ordered. Reviewed previous history including results for kn ee x-ray which did not show any acute fractures from 2 days ago. Monitor patient. 1225: Labs reviewed. UA finally obtained and is positive for nitrite positive urinary tract infection. No indication for inpatient admission currently. We will treat this as outpatient. 1256. Discharged home with return precautions. Patient verbalized understanding instructions and agreement with plan. Diagnostic Imaging Diagonstic Imaging: Xray Plain Films/CT/US/NM/MRI: chest Comments [facility] [place], [place] NAME: MARCELL VALDEZ [facility] REC#: [id number] PT STATUS: REG ER : 1960 PHYSICIAN: CHAUNCEY LOPEZ MD ADMIT DATE: 05/07/22/ER Signed Date of Exam:05/07/22 CHEST 1 VIEW, AP/PA ONLY Indication: Cough AP view of the chest is obtained with comparison made study of 12/25/2018 FINDINGS: Heart size and pulmonary vascularity are within normal limits, and the lungs are clear, bilaterally. IMPRESSION: Unremarkable chest. Dictated by: Dictated on workstation # [id number] Dict: 05/07/22 0747 Trans: 05/07/22 0747 [id number] Interpreted by: TENISHA GALLEGOS MD Electronically signed by: TENISHA GALLEGOS MD 05/07/22 0747 Departure Impression Primary Impression: Urinary tract infection Qualified Codes: N30.00 - Acute cystitis without hematuria Disposition: HOME, SELF-CARE Condition: Stable Departure-Patient Inst. Decision time for Depature: 12:54 Referrals: PACO SUNG DO (PCP/Family) Primary Care Physician Patient Instructions: Urinary Tract Infection, Adult (DC) Add. Discharge Instructions: All discharge instructions reviewed with patient and/or family. Voiced understanding. Take medications as directed. Follow-up with your doctor in a few days for recheck. Drink plenty fluids and get plenty of rest. You may continue home pain medications and may add ibuprofen/Advil as needed for pain. Return for worse pain, fever, vomiting, weakness, breathing problems or other concerns as needed. Scripts Cefdinir (Cefdinir) 300 Mg Capsule 300 MG PO BID, #14 CAP 0 Refills Prov: CHAUNCEY LOPEZ MD 05/07/22 CHAUNCEY LOPEZ MD May 07, 2022 07:10
[2022-05-07 07:36] LABS: BASOPHILS % (AUTO) 0 % (0-10); EOSINOPHILS % (AUTO) 1 % (0-10); HEMATOCRIT 42 % (35-52); HEMOGLOBIN 14.3 g/dL (11.5-16.0); LYMPHOCYTES # (AUTO) 0.5 10^3/uL (1.0-4.0); LYMPHOCYTES % (AUTO) 6 % (12-44); MEAN CORPUSCULAR HEMOGLOBIN 28 pg (25-34); MEAN CORPUSCULAR HGB CONC 34 g/dL (32-36); MEAN CORPUSCULAR VOLUME 84 fL (80-99); MEAN PLATELET VOLUME 10.8 fL (9.0-12.2); MONOCYTES # (AUTO) 0.6 10^3/uL (0.0-1.0); MONOCYTES % (AUTO) 7 % (0-12); NEUTROPHILS # (AUTO) 7.3 10^3/uL (1.8-7.8); NEUTROPHILS % (AUTO) 85 % (42-75); PLATELET COUNT 153 10^3/uL (130-400); WHITE BLOOD COUNT 8.5 10^3/uL (4.3-11.0)
--- NOTE | 2022-05-07 07:49 | Diagnostic Imaging Report ---
Indication: Cough AP view of the chest is obtained with comparison made study of 12/25/2018 FINDINGS: Heart size and pulmonary vascularity are within normal limits, and the lungs are clear, bilaterally. IMPRESSION: Unremarkable chest. Dictated by: Dictated on workstation # [id number]
[2022-05-07 07:51] LABS: POTASSIUM 3.8 MMOL/L (3.6-5.0)
[2022-05-07 07:52] LABS: CALCIUM 9.4 MG/DL (8.5-10.1)
[2022-05-07 07:56] LABS: CREATININE SERUM 0.61 MG/DL (0.60-1.30)
[2022-05-07 08:06] LABS: BAND NEUTROPHILS 0 %; BASOPHILS % (MANUAL) 0 %; EOSINOPHILS % (MANUAL) 1 %; LYMPHOCYTES % (MANUAL) 6 %; MONOCYTES % (MANUAL) 8 %; NEUTROPHILS % (MANUAL) 85 %; RBC MORPH NORMAL
[2022-05-07 11:57] LABS: BILIRUBIN,URINE NEGATIVE (NEGATIVE); CLARITY,URINE CLEAR; COLOR,URINE YELLOW; GLUCOSE, URINE (UA) NEGATIVE (NEGATIVE); KETONES,URINE TRACE (NEGATIVE); LEUKOCYTE ESTERASE ,URINE TRACE (NEGATIVE); NITRITE,URINE POSITIVE (NEGATIVE); PROTEIN,URINE NEGATIVE (NEGATIVE)
[2022-05-07 12:14] LABS: BACTERIA,URINE LARGE /HPF
[2022-05-07] MEDS ORDERED: cefTRIAXone 1 GM PRE-MIX 50 ML IV STA (12:32)
[2022-05-07] MEDS ORDERED: cefTRIAXone 1 GM PRE-MIX 50 ML IV ONE (12:33)
[2022-05-07] MEDS ORDERED: CEFD300C3 PO (12:56)
[2022-05-07 13:01] VITALS: BP 136/75
== END 2022-05-07 13:02 | disposition home or self-care (01) ==
LOC: EDUNIT# 06:40 → ER 06:41
DX: N39.0 Urinary tract infection, site not specified (principal)
CPT/HCPCS: 36415; 71045; 80048; 81000; 85007; 85027; 86141; 87077; 87088; 87186

== ENCOUNTER → 2022-06-11 | Outpatient (CLI) | payer MEDICARE | LOC: CARD 12:26 | PROVIDERS: ATTEND Internal Medicine Cardiovascular Disease | DX: R55 Syncope and collapse (principal) | CPT/HCPCS: 93225; 93226; C8929; 93306 ==

== ENCOUNTER → 2022-06-16 | Outpatient (CLI) | payer MEDICARE ==
[~2022-06-16] MED LIST changes: +CATHETER FLUSH 10 ML SYR IVP PRN; +REGADENOSON 0.4 MG/5 ML SYR (LEXISCAN) IV ONE
[2022-06-16 09:32] VITALS: BP 173/92
--- NOTE | 2022-06-17 22:09 | STRESS TEST ---
DATE OF SERVICE: 06/16/2022 RESTING AND POST REGADENOSON TECHNETIUM-99M TETROFOSMIN SPECT CT IMAGING ORDERING PHYSICIAN: Dr. Goldstein. PRIMARY PHYSICIAN: Dr. Aguero. CLINICAL DIAGNOSIS: Syncope. Baseline images were carried out after injection of 10.71 mCi of technetium-99m Tetrofosmin. This was followed by 0.4 mg regadenoson and 32.6 mCi of technetium-99m Tetrofosmin for stress imaging. The electrocardiogram showed sinus rhythm at baseline. It did not change significantly with regadenoson infusion. The patient felt somewhat jittery after the regadenoson infusion and it resolved in a few minutes. Review of images at rest and following stress does not indicate any significant perfusion defects consistent with myocardial ischemia or infarction. Gated images show normal global left ventricular systolic function with normal regional wall motion. Left ventricular ejection fraction is calculated to be 67%. CONCLUSIONS: 1. No evidence of any significant myocardial ischemia or infarction on this study. 2. Normal regional wall motion. 3. Normal global left ventricular systolic function with a calculated ejection fraction of 67%. Job ID: [id number] DocumentID: [id number] Dictated Date: 06/17/2022 16:46:06 Calender Machine Operator Date: 06/17/2022 22:08:16 Dictated By: ROSANNA GOLDSTEIN MD, MA, FACP, FACC,
== END ==
LOC: CARD 07:17
PROVIDERS: ATTEND Internal Medicine Cardiovascular Disease
DX: R55 Syncope and collapse (principal)
CPT/HCPCS: 78452; 93017; A9502

== ENCOUNTER → 2023-03-03 | Outpatient (CLI) | payer MEDICARE ==
[~2023-03-03] MED LIST changes: -CATHETER FLUSH 10 ML SYR IVP PRN; -REGADENOSON 0.4 MG/5 ML SYR (LEXISCAN) IV ONE
--- NOTE | 2023-03-03 11:51 | Diagnostic Imaging Report ---
Indication: Routine screening. Comparison is made with prior mammogram from 12/10/2021 and 04/23/2020. 2-D and 3-D bilateral screening mammography was performed with CAD. The current study was also evaluated with a Computer Aided Detection (CAD) system. Scattered fibroglandular densities are identified bilaterally. There are scattered benign calcifications. No mass or malignant-appearing microcalcifications are identified. Axillae are unremarkable. IMPRESSION: BI-RADS Category 2 No mammographic features suspicious for malignancy are identified. ACR BI-RADS Category 2: Benign findings. Result letter will be mailed to the patient. Note: At least 10% of breast cancer is not imaged by mammography. Dictated by: Dictated on workstation # [id number]
== END ==
LOC: RAD 03-02 08:45
PROVIDERS: ATTEND Family Medicine
DX: Z12.31 Encounter for screening mammogram for malignant neoplasm of breast (principal)
CPT/HCPCS: 77063; 77067